=== PATIENT | female | born 1955 | race Caucasian/White ===

== ENCOUNTER 2020-12-16 22:57 | Inpatient (IN) | payer MEDICARE, OTHER ==
[~2020-12-16] VITALS: Ht 157.5 cm; Wt 63.5 kg
[2020-12-17] VITALS (7 sets, daily range): BP systolic 92–148; BP diastolic 38–79
[2020-12-17] MEDS ORDERED: ACETAMINOPHEN 650 MG/20 ML UDC- SA PATIENTS-PAIN ONLY GT PRN (02:15)
[2020-12-17] MEDS: ALBUTEROL SULFATE 2.5 MG/ 0.5 ML NEBU NEB SCH ×3 (08:00→23:08)
[2020-12-17] MEDS: IPRATROPIUM BROMIDE 0.5 MG/2.5 ML NEBU NEB SCH ×3 (08:00→23:08)
[2020-12-17] MEDS ORDERED: VITAL AF 1.2 1,000 ML LIQUID GT PRN (08:30)
[2020-12-17] MEDS ORDERED: ONDANSETRON HCL 4 MG TABLET GT PRN (08:30)
[2020-12-17] MEDS ORDERED: HYDROGEN PEROXIDE 3% 118 ML BOTTLE TP PRN (08:30)
[2020-12-17] MEDS ORDERED: MAGNESIUM HYDROXIDE 30 ML LIQUID UDC GT PRN (08:30)
[2020-12-17] MEDS ORDERED: MELATONIN XX PRN (08:30)
[2020-12-17] MEDS ORDERED: POLYVINYL ALCOHOL OPHT DROPS 15 ML BOTTLE EACHEYE PRN (08:45)
[2020-12-17] MEDS ORDERED: ACETAMINOPHEN 650 MG/20 ML UDC- SA PATIENTS-FEVER ONLY GT PRN (08:45)
[2020-12-17] MEDS: FUROSEMIDE 40 MG TABLET GT SCH (09:00)
[2020-12-17] MEDS: NORMAL SALINE FLUSH 10 ML DISP.SYRIN IV SCH ×2 (09:00→21:37)
[2020-12-17] MEDS ORDERED: METHADONE HCL 10 MG TABLET GT SCH (09:00)
[2020-12-17] MEDS ORDERED: CULTURELLE CAPSULE GT SCH (09:00)
[2020-12-17] MEDS: NEOMY/BACITRAC/POLYMI OINT 28.35 GM TUBE TOP SCH ×4 (09:00→21:34)
[2020-12-17] MEDS: SPIRONOLACTONE 25 MG TABLET GT SCH (09:00)
[2020-12-17] MEDS ORDERED: LANSOPRAZOLE 30 MG TAB.RAP.DR GT SCH (09:00)
[2020-12-17] MEDS: ENOXAPARIN SODIUM 40 MG/0.4 ML DISP.SYRIN SQ SCH (09:00)
[2020-12-17] MEDS ORDERED: CAPTOPRIL 12.5 MG TABLET GT SCH (09:00)
[2020-12-17] MEDS: HYDROGEN PEROXIDE 3% 118 ML BOTTLE TP SCH ×2 (09:00→20:05)
[2020-12-17] MEDS ORDERED: ENOXAPARIN SODIUM 40 MG/0.4 ML DISP.SYRIN SQ SCH (12:04)
[2020-12-17] MEDS ORDERED: LISINOPRIL 5 MG TABLET GT SCH (13:00)
[2020-12-17] MEDS: ACIDOPHILUS/BULGARICUS CHEW TAB GT SCH ×2 (13:44→17:39)
[2020-12-17] MEDS ORDERED: CHLORHEXIDINE GLUCONATE 15 ML MOUTHWASH MM SCH (14:07)
[2020-12-17] MEDS ORDERED: MELATONIN 3 MG TABLET GT PRN (15:00)
[2020-12-17] MEDS ORDERED: TRAMADOL HCL 50 MG TABLET GT PRN (16:15)
[2020-12-17] MEDS: MIRALAX 17 GM POWD.PACK GT SCH (17:39)
[2020-12-17] MEDS: ACETAzolamide 250 MG TABLET GT SCH (17:39)
[2020-12-17] MEDS: METOCLOPRAMIDE HCL 5 MG TABLET GT SCH (17:40)
[2020-12-17] MEDS: PANTOPRAZOLE ORAL SUSPENSION 40 MG SUSPDR.PKT GT SCH (17:41)
[2020-12-17] MEDS ORDERED: MULTIVIT, IRON, MIN NO. 8, FA TABLET GT SCH (21:00)
[2020-12-17] MEDS ORDERED: VITAMIN B COMPLEX 1 TABLET GT SCH (21:00)
[2020-12-17] MEDS ORDERED: MAGNESIUM OXIDE 400 MG TABLET GT SCH (21:00)
[2020-12-17] MEDS ORDERED: ZINC SULFATE 220 MG CAPSULE GT SCH (21:00)
[2020-12-17] MEDS: LISINOPRIL 10 MG TABLET GT SCH (21:33)
[2020-12-17] MEDS: CARVEDILOL 3.125 MG TABLET GT SCH (21:33)
[2020-12-17] MEDS: COD LIVER OIL/ZINC OXIDE OINT 113 GM TUBE TOP SCH (21:34)
[2020-12-17] MEDS: VITAMINS A AND D OINT TP SCH (21:34)
[2020-12-18 00:31] VITALS: BP 110/58
[2020-12-18 04:15] VITALS: BP 139/60
[2020-12-18] MEDS: PANTOPRAZOLE ORAL SUSPENSION 40 MG SUSPDR.PKT GT SCH (05:00)
[2020-12-18] MEDS ORDERED: CHOLECALCIFEROL 1,000 UNIT TABLET GT SCH (06:00)
[2020-12-18] MEDS ORDERED: ASCORBIC ACID 500 MG TABLET GT SCH (06:00)
[2020-12-18 07:46] VITALS: BP 150/67
[2020-12-18] MEDS: IPRATROPIUM BROMIDE 0.5 MG/2.5 ML NEBU NEB SCH (08:08)
[2020-12-18] MEDS: ALBUTEROL SULFATE 2.5 MG/ 0.5 ML NEBU NEB SCH (08:08)
[2020-12-18] MEDS: HYDROGEN PEROXIDE 3% 118 ML BOTTLE TP SCH (08:24)
[2020-12-18] MEDS: SPIRONOLACTONE 25 MG TABLET GT SCH (09:12)
[2020-12-18] MEDS: MIRALAX 17 GM POWD.PACK GT SCH (09:14)
[2020-12-18] MEDS: CARVEDILOL 3.125 MG TABLET GT SCH (09:14)
[2020-12-18] MEDS: FUROSEMIDE 40 MG TABLET GT SCH (09:14)
[2020-12-18] MEDS: ACIDOPHILUS/BULGARICUS CHEW TAB GT SCH ×2 (09:14→13:00)
[2020-12-18] MEDS: ACETAzolamide 250 MG TABLET GT SCH (09:14)
[2020-12-18] MEDS: METOCLOPRAMIDE HCL 5 MG TABLET GT SCH (09:15)
[2020-12-18] MEDS: LISINOPRIL 10 MG TABLET GT SCH (09:15)
[2020-12-18] MEDS: ENOXAPARIN SODIUM 40 MG/0.4 ML DISP.SYRIN SQ SCH (09:16)
[2020-12-18] MEDS: COD LIVER OIL/ZINC OXIDE OINT 113 GM TUBE TOP SCH (09:17)
[2020-12-18] MEDS: NEOMY/BACITRAC/POLYMI OINT 28.35 GM TUBE TOP SCH ×2 (09:17→09:18)
[2020-12-18] MEDS: VITAMINS A AND D OINT TP SCH (09:18)
[2020-12-18 13:42] VITALS: BP 151/73
[2020-12-18] MEDS ORDERED: ONDA4TAB5 GT (16:15)
[2020-12-18] MEDS ORDERED: VITA113O5 TP (16:15)
[2020-12-18] MEDS ORDERED: NUT.237L65 GT (16:15)
[2020-12-18] MEDS ORDERED: MAGN400O6 GT (16:15)
[2020-12-18] MEDS ORDERED: MELA3TAB41 GT (16:15)
[2020-12-18] MEDS ORDERED: PANT40TA2 GT (16:15)
[2020-12-18] MEDS ORDERED: CHOL10002 GT (16:15)
[2020-12-18] MEDS ORDERED: TRAM50TA2 GT (16:15)
[2020-12-18] MEDS ORDERED: CARV3.122 GT (16:15)
[2020-12-18] MEDS ORDERED: VITA1TAB20 GT (16:15)
[2020-12-18] MEDS ORDERED: ZINC1CAP2 GT (16:15)
[2020-12-18] MEDS ORDERED: ACET250T3 GT (16:15)
[2020-12-18] MEDS ORDERED: POLY17PO4 GT (16:15)
[2020-12-18] MEDS ORDERED: ASCO500P18 GT (16:15)
[2020-12-18] MEDS ORDERED: IPRA0.2S48 NEB (16:15)
[2020-12-18] MEDS ORDERED: DEXT15DR6 EACHEYE (16:15)
[2020-12-18] MEDS ORDERED: MULT-594 GT (16:15)
[2020-12-18] MEDS ORDERED: NEOM1OIN19 TP (16:15)
[2020-12-18] MEDS ORDERED: SPIR25TA GT (16:15)
[2020-12-18] MEDS ORDERED: LACT1TAB20 GT (16:15)
[2020-12-18] MEDS ORDERED: ENOX40DI SQ (16:15)
[2020-12-18] MEDS ORDERED: ALBU2.5V13 NEB (16:15)
[2020-12-18] MEDS ORDERED: MAGN400T8 GT (16:15)
[2020-12-18] MEDS ORDERED: LISI10TA29 GT (16:15)
[2020-12-18] MEDS ORDERED: FURO-151 GT (16:15)
[2020-12-18] MEDS ORDERED: METO-295 GT (16:15)
[2020-12-18] MEDS ORDERED: ACET-2154 GT (16:15)
[2020-12-18] MEDS ORDERED: COD56OIN TP (16:15)
[2020-12-19] MEDS ORDERED: ACID1TAB12 GT (11:40)
[2020-12-19] MEDS ORDERED: DEXT15DR6 EACHEYE (11:46)
== END 2020-12-18 16:10 | disposition short-term general hospital (02) | DRG 208 ==
LOC: SA 22:57
PROVIDERS: ADMIT Specialist; ATTEND Specialist
PROC: 5A1945Z Respiratory Ventilation, 24-96 Consecutive Hours (ICD-10-PCS; principal; 2020-12-16)
DX: J96.10 Chronic respiratory failure, unspecified whether with hypoxia or hypercapnia (principal); K62.6 Ulcer of anus and rectum; Z93.0 Tracheostomy status; Z93.1 Gastrostomy status; Z86.16 Personal history of COVID-19; J47.9 Bronchiectasis, uncomplicated; Z89.222 Acquired absence of left upper limb above elbow; D50.0 Iron deficiency anemia secondary to blood loss (chronic); I10 Essential (primary) hypertension; E78.5 Hyperlipidemia, unspecified; M19.90 Unspecified osteoarthritis, unspecified site; Z87.442 Personal history of urinary calculi
CPT/HCPCS: 94003; 94664; J1650; J3490; J3590; J8499; J8597; U0003

== ENCOUNTER 2020-12-18 14:22 | Inpatient (IN) | payer MEDICARE, OTHER ==
[2020-12-18] VITALS (8 sets, daily range): BP systolic 154–187; BP diastolic 75–94
[~2020-12-18] VITALS: Ht 157.5 cm; Wt 59.9 kg
--- NOTE | 2020-12-18 14:31 | NUR ---
Patient arrived via hospital bed with RN and respiratory transport, MD aty bedside for assessment
[2020-12-18 14:53] LABS: ABG BASE EXCESS 3.1 mmol/L; ABG HCO3 28.7 mmol/L; ABG PCO2 49.2 mmHg (35.0-45.0); ABG PH 7.384 (7.350-7.450); ABG PO2 85.8 mmHg (75.0-100.0); ABG SITE RIGHT RADIAL; ABG TOTAL HEMOGLOBIN 10.1 G/dL (12.0-16.0); COHb 1.2 % (0.5-1.5); MetHb 0.2 % (0.0-1.5); O2Hb 94.2 % (94.0-97.0); VENT MODE VENT - A/C 24; VT, ABG 450 mL
[2020-12-18 15:08] LABS: BASOPHILS % (AUTO) 0.3 % (0.0-2.0); EOSINOPHILS # (AUTO) 0.3 K/uL (0.0-0.7); HEMATOCRIT 29.6 % (31.2-41.9); HEMOGLOBIN 9.3 g/dL (10.9-14.3); LYMPHOCYTES # (AUTO) 2.8 K/uL (20.0-40.0); LYMPHOCYTES % (AUTO) 17.5 % (20.5-51.5); MEAN CORPUSCULAR HEMOGLOBIN 28.8 uug (24.7-32.8); MEAN CORPUSCULAR HGB CONC 31 g/dL (32.3-35.6); MEAN CORPUSCULAR VOLUME 91.8 fL (75.5-95.3); MONOCYTES # (AUTO) 0.8 K/uL (2.0-10.0); MONOCYTES % (AUTO) 4.8 % (0.0-11.0); NEUTROPHILS # (AUTO) 11.9 K/uL (1.8-8.9); NEUTROPHILS % (AUTO) 75.4 % (38.5-71.5); PLATELET COUNT (AUTO) 412 K/uL (179-408); RED BLOOD CELL COUNT(AUTO) 3.23 MIL/uL (3.63-4.92); WHITE BLOOD COUNT (AUTO) 15.8 K/uL (3.8-11.8)
[2020-12-18] MEDS ORDERED: PIPERACILLIN SODIUM/TAZOBACTAM 3.375 G in IV DEXTROSE 5% 50 ML IV ONE (15:30)
[2020-12-18 15:31] LABS: ALANINE AMINOTRANSFERASE 26 U/L (14-59); ALKALINE PHOSPHATASE 142 U/L (50-136); ASPARTATE AMINOTRANSFERASE 33 U/L (15-37); BILIRUBIN,DIRECT 0.1 mg/dL (0.0-0.2); BILIRUBIN,TOTAL 0.4 mg/dL (0.2-1.0); CARBON DIOXIDE 30 mmol/L (21-32); CHLORIDE 99 mmol/L (98-107); CREATININE 0.4 mg/dL (0.6-1.3); GLUCOSE 232 mg/dL (74-106); TOTAL PROTEIN, SERUM 6.6 g/dL (6.4-8.2); UREA NITROGEN, BLOOD 13 mg/dL (7-18)
[2020-12-18 15:45] LABS: POTASSIUM 2.6 mmol/L (3.5-5.1)
[2020-12-18] MEDS ORDERED: PIPERACILLIN/TAZOBACTAM/D5W 50 ML IV ONE (15:47)
[2020-12-18] MEDS: POTASSIUM CHLORIDE 50 ML IV SCH ×4 (16:00→23:45)
[2020-12-18] MEDS ORDERED: POTASSIUM CHLORIDE 50 ML ONE (16:01)
[2020-12-18] MEDS ORDERED: FURO-151 GT (16:15)
[2020-12-18] MEDS ORDERED: MAGN400T8 GT (16:15)
[2020-12-18] MEDS ORDERED: LISI10TA29 GT (16:15)
[2020-12-18] MEDS ORDERED: PANT40TA2 GT (16:15)
[2020-12-18] MEDS ORDERED: IPRA0.2S48 NEB (16:15)
[2020-12-18] MEDS ORDERED: LACT1TAB20 GT (16:15)
[2020-12-18] MEDS ORDERED: NUT.237L65 GT (16:15)
[2020-12-18] MEDS ORDERED: MELA3TAB41 GT (16:15)
[2020-12-18] MEDS ORDERED: METO-295 GT (16:15)
[2020-12-18] MEDS ORDERED: CARV3.122 GT (16:15)
[2020-12-18] MEDS ORDERED: VITA113O5 TP (16:15)
[2020-12-18] MEDS ORDERED: ASCO500P18 GT (16:15)
[2020-12-18] MEDS ORDERED: MAGN400O6 GT (16:15)
[2020-12-18] MEDS ORDERED: CHOL10002 GT (16:15)
[2020-12-18] MEDS ORDERED: MULT-594 GT (16:15)
[2020-12-18] MEDS ORDERED: NEOM1OIN19 TP (16:15)
[2020-12-18] MEDS ORDERED: ACET250T3 GT (16:15)
[2020-12-18] MEDS ORDERED: COD56OIN TP (16:15)
[2020-12-18] MEDS ORDERED: ONDA4TAB5 GT (16:15)
[2020-12-18] MEDS ORDERED: SPIR25TA GT (16:15)
[2020-12-18] MEDS ORDERED: VITA1TAB20 GT (16:15)
[2020-12-18] MEDS ORDERED: POLY17PO4 GT (16:15)
[2020-12-18] MEDS ORDERED: TRAM50TA2 GT (16:15)
[2020-12-18] MEDS ORDERED: ALBU2.5V13 NEB (16:15)
[2020-12-18] MEDS ORDERED: ENOX40DI SQ (16:15)
[2020-12-18] MEDS ORDERED: DEXT15DR6 EACHEYE (16:15)
[2020-12-18] MEDS ORDERED: ACET-2154 GT (16:15)
[2020-12-18] MEDS ORDERED: ZINC1CAP2 GT (16:15)
--- NOTE | 2020-12-18 16:25 | NUR ---
Report given to Eufemia of CCU
[2020-12-18] MEDS ORDERED: POTASSIUM CHLORIDE 150 ML ONE (16:27)
--- NOTE | 2020-12-18 16:30 | NUR ---
Report received from [facility].
--- NOTE | 2020-12-18 16:59 | NUR ---
Pt. admitted to CCU , under care of MIRTHA Elliott Belongs List completed and all belongings sent
--- NOTE | 2020-12-18 17:00 | NUR ---
Patient brought in from ER on Bed with kcl infusing on right picc. Patient has amputation of left arm. patient is awake alert in no distress at this time. Patient is trach to vent with settings of ac 24 Tv 450 peep of 5 and fio2 of 40%. While patient in ER she was on 50% fio2. Patient has GT in place, Rogel catheter, and is SR on the monitor afebrile of 98.3 and blood pressure elevated of 187/94. Will continue to monitor patient vitals.
[2020-12-18] MEDS ORDERED: POLYVINYL ALCOHOL OPHT DROPS 15 ML BOTTLE EACHEYE PRN (17:15)
[2020-12-18] MEDS ORDERED: ONDANSETRON HCL 4 MG TABLET GT PRN (17:15)
[2020-12-18] MEDS ORDERED: VANCOMYCIN IV 1,000 MG in IV DEXTROSE 5% 250 ML IV SCH (18:00)
--- NOTE | 2020-12-18 18:00 | NUR ---
pictures taken of post amputation of left arm, abdominal bruising and old surgical scar, and buttocks/ excoriation.
[2020-12-18 19:24] LABS: *OCCULT BLOOD STOOL POSITIVE (NEGATIVE)
[2020-12-18] MEDS: PANTOPRAZOLE SODIUM 40 MG VIAL IV SCH (20:20)
[2020-12-18] MEDS: CULTURELLE CAPSULE PO SCH (20:20)
[2020-12-18] MEDS: LISINOPRIL 10 MG TABLET GT SCH (20:22)
[2020-12-18] MEDS: VITAMIN B COMPLEX 1 TABLET GT SCH (20:22)
--- NOTE | 2020-12-18 20:35 | NUR ---
seen and examined by MIRTHA LIMA ,WITH ORDERS.
[2020-12-18] MEDS ORDERED: CARVEDILOL 3.125 MG TABLET GT SCH (21:00)
--- NOTE | 2020-12-18 21:00 | NUR ---
SEEN MY ID MIRTHA DESAI.
--- NOTE | 2020-12-18 21:30 | NUR ---
FACE TIME WITH PATIENTS .
[2020-12-18] MEDS: FUROSEMIDE 40 MG/4 ML VIAL IV SCH (21:45)
[2020-12-18] MEDS: PIPERACILLIN SODIUM/TAZOBACTAM 3.375 G in IV DEXTROSE 5% 50 ML IV SCH (21:45)
--- NOTE | 2020-12-18 22:25 | NUR ---
MOLDING FITTER AT B/S FOR BMP + CBC+ TROPONIN ,URINE C AND S COLLECTED AND ALSO SEND TO LAB .
[2020-12-18] MEDS ORDERED: Z GUARD REMEDY PASTE 57 GM TUBE TOP PRN (22:30)
[2020-12-18] MEDS: IPRATROPIUM BROMIDE 0.5 MG/2.5 ML NEBU NEB SCH (22:30)
[2020-12-18 22:40] LABS: BASOPHILS % (AUTO) 0.3 % (0.0-2.0); EOSINOPHILS # (AUTO) 0.2 K/uL (0.0-0.7); EOSINOPHILS % (AUTO) 1.6 % (0.0-7.0); HEMATOCRIT 26.4 % (31.2-41.9); HEMOGLOBIN 8.6 g/dL (10.9-14.3); LYMPHOCYTES # (AUTO) 2.9 K/uL (20.0-40.0); LYMPHOCYTES % (AUTO) 26.5 % (20.5-51.5); MEAN CORPUSCULAR HEMOGLOBIN 29.8 uug (24.7-32.8); MEAN CORPUSCULAR HGB CONC 33 g/dL (32.3-35.6); MEAN CORPUSCULAR VOLUME 90.9 fL (75.5-95.3); MONOCYTES # (AUTO) 0.8 K/uL (2.0-10.0); MONOCYTES % (AUTO) 7.1 % (0.0-11.0); NEUTROPHILS % (AUTO) 64.5 % (38.5-71.5); PLATELET COUNT (AUTO) 346 K/uL (179-408); RED BLOOD CELL COUNT(AUTO) 2.91 MIL/uL (3.63-4.92); WHITE BLOOD COUNT (AUTO) 10.8 K/uL (3.8-11.8)
[2020-12-18 22:43] LABS: CARBON DIOXIDE 30 mmol/L (21-32); CHLORIDE 102 mmol/L (98-107); CREATININE 0.4 mg/dL (0.6-1.3); GLUCOSE 132 mg/dL (74-106); POTASSIUM 3.2 mmol/L (3.5-5.1); UREA NITROGEN, BLOOD 10 mg/dL (7-18)
[2020-12-18 22:50] LABS: *BILIRUBIN,URIN NEGATIVE (NEGATIVE); *BLOOD, URINE 1+ (NEGATIVE); *CLARITY,URINE CLEAR (CLEAR); *KETONES,URINE NEGATIVE (NEGATIVE); *UROBILINOGEN,URINE 0.2 E.U./dl (NORMAL); LEUKOCYTE ESTERASE ,URINE TRACE (NEGATIVE); NITRITE, URINE NEGATIVE (NEGATIVE); PH,URINE 8.5 (5.0-8.0); UGLUCOSE NEGATIVE (NEGATIVE)
[2020-12-18 23:04] LABS: *COLOR,URINE STRAW (YELLOW); BACTERIA,URINE NONE SEEN /HPF (NONE SEEN); SQUAMOUS EPITHELIAL CELL,UR FEW /HPF (NONE SEEN); WBC,URINE 0-3 /HPF (0-3)
--- NOTE | 2020-12-18 23:17 | NUR ---
CALLED [facility] AND SPOKED WITH MIRTHA LIMA AND NOTIFIED WITH BMP =K 3.2 (L),TROPONIN 0.085 (H).
[2020-12-18] MEDS: ACETAMINOPHEN 325 MG TABLET GT PRN (23:30)
--- NOTE | 2020-12-18 23:30 | NUR ---
given prn Tylenol patient nod head to yes on pain when asked . facial grimaces noted .
[2020-12-19] VITALS (24 sets, daily range): BP systolic 93–161; BP diastolic 45–87
[2020-12-19] MEDS: POTASSIUM CHLORIDE 50 ML IV SCH ×3 (00:52→02:45)
[2020-12-19] MEDS: FUROSEMIDE 40 MG/4 ML VIAL IV SCH ×2 (00:52→05:25)
--- NOTE | 2020-12-19 02:45 | NUR ---
kcl 50 meq given on time there was a computer down time .
--- NOTE | 2020-12-19 04:00 | NUR ---
am care done and changed soiled linens and gown .f/c done . Z GUARD applied to sacral and bilateral gown and Mepilex to sacral area for prevention.oral care done and trach care done .hob up .
--- NOTE | 2020-12-19 04:45 | NUR ---
am labs collected via piccline and flushed all port . cbc + bmp+ troponin.
--- NOTE | 2020-12-19 05:00 | NUR ---
chest xray done by cardiothoracic anesthesia technician at b/s .
[2020-12-19 05:21] LABS: BASOPHILS # (AUTO) 0.1 K/uL (0.0-8.0); EOSINOPHILS # (AUTO) 0.3 K/uL (0.0-0.7); EOSINOPHILS % (AUTO) 3.6 % (0.0-7.0); HEMATOCRIT 25.8 % (31.2-41.9); HEMOGLOBIN 8.4 g/dL (10.9-14.3); LYMPHOCYTES # (AUTO) 2.8 K/uL (20.0-40.0); LYMPHOCYTES % (AUTO) 32.5 % (20.5-51.5); MEAN CORPUSCULAR HEMOGLOBIN 29.8 uug (24.7-32.8); MEAN CORPUSCULAR HGB CONC 33 g/dL (32.3-35.6); MEAN CORPUSCULAR VOLUME 91.5 fL (75.5-95.3); MONOCYTES # (AUTO) 0.6 K/uL (2.0-10.0); MONOCYTES % (AUTO) 7.2 % (0.0-11.0); NEUTROPHILS # (AUTO) 4.7 K/uL (1.8-8.9); NEUTROPHILS % (AUTO) 55.7 % (38.5-71.5); PLATELET COUNT (AUTO) 347 K/uL (179-408); RED BLOOD CELL COUNT(AUTO) 2.82 MIL/uL (3.63-4.92); WHITE BLOOD COUNT (AUTO) 8.5 K/uL (3.8-11.8)
[2020-12-19 05:25] LABS: CREATININE 0.5 mg/dL (0.6-1.3); POTASSIUM 3.6 mmol/L (3.5-5.1)
[2020-12-19] MEDS: PIPERACILLIN SODIUM/TAZOBACTAM 3.375 G in IV DEXTROSE 5% 50 ML IV SCH (05:25)
--- NOTE | 2020-12-19 05:30 | NUR ---
daughter jaimee called and given update about condition question answered advised to call in am so she can speak with the primary MD .
[2020-12-19] MEDS ORDERED: POTASSIUM CHLORIDE 20 MEQ POWDER PACKET GT ONE (07:15)
[2020-12-19] MEDS: MIRALAX 17 GM POWD.PACK GT SCH ×2 (07:34→17:48)
[2020-12-19] MEDS: IPRATROPIUM BROMIDE 0.5 MG/2.5 ML NEBU NEB SCH ×3 (07:49→22:45)
[2020-12-19] MEDS: MAGNESIUM SULFATE/D5W 100 ML IV SCH ×2 (07:56→10:54)
[2020-12-19] MEDS: CARVEDILOL 6.25 MG TABLET GT SCH ×2 (07:57→20:16)
[2020-12-19] MEDS: ASCORBIC ACID 500 MG TABLET GT SCH (07:58)
[2020-12-19] MEDS: MULTIVITAMINS,THERAPEUTIC TABLET GT SCH (07:58)
[2020-12-19] MEDS: CHOLECALCIFEROL 1,000 UNIT TABLET GT SCH (07:58)
[2020-12-19] MEDS: ZINC SULFATE 220 MG CAPSULE GT SCH (07:59)
[2020-12-19] MEDS: PANTOPRAZOLE SODIUM 40 MG VIAL IV SCH ×2 (07:59→20:19)
[2020-12-19] MEDS: CULTURELLE CAPSULE PO SCH (07:59)
[2020-12-19] MEDS: Z GUARD REMEDY PASTE 57 GM TUBE TOP SCH ×2 (08:03→20:16)
[2020-12-19] MEDS: ACETAMINOPHEN 325 MG TABLET GT PRN (08:05)
[2020-12-19] MEDS: ENOXAPARIN SODIUM 40 MG/0.4 ML DISP.SYRIN SQ SCH (08:07)
[2020-12-19] MEDS: ALBUTEROL SULFATE 2.5 MG/ 0.5 ML NEBU NEB PRN (08:07)
[2020-12-19] MEDS: SPIRONOLACTONE 25 MG TABLET GT SCH (08:09)
[2020-12-19] MEDS: LISINOPRIL 10 MG TABLET GT SCH ×2 (08:09→20:17)
[2020-12-19] MEDS ORDERED: PANTOPRAZOLE ORAL SUSPENSION 40 MG SUSPDR.PKT GT SCH (09:00)
[2020-12-19] MEDS ORDERED: CARVEDILOL 3.125 MG TABLET GT SCH (09:00)
[2020-12-19] MEDS ORDERED: METOCLOPRAMIDE HCL 10 MG TABLET GT SCH (09:00)
[2020-12-19] MEDS ORDERED: FUROSEMIDE 40 MG TABLET GT SCH (09:00)
--- NOTE | 2020-12-19 09:00 | NUR ---
The following 0900 morning medications were given by Eufemia Fritz RN and not by Kashmir Rae RT: Floranex, Reglan, Magnesium IV, Coreg, Lisinopril, protonix, Z-guard, Aldactone, Multivitamin, Vit. C, Vit D., Zinc, and Tylenol.
--- NOTE | 2020-12-19 10:39 | NUR ---
physical therapy at bedside to do evaluation.
[2020-12-19] MEDS ORDERED: SWABABLE VALVE TRANSFER SET EA MC ONE (11:04)
[2020-12-19] MEDS ORDERED: IV NORMAL SALINE 250 ML IV ONE (11:04)
[2020-12-19] MEDS ORDERED: IOHEXOL 350 100 ML INFUS..BTL ONE (11:04)
[2020-12-19] MEDS ORDERED: ACID1TAB12 GT (11:40)
[2020-12-19] MEDS ORDERED: DEXT15DR6 EACHEYE (11:46)
--- NOTE | 2020-12-19 12:47 | NUR ---
Received call from case management. Per KAILEY, the pt's primary Dr. Padilla wants hospitalist to call him to discuss pt, tel# [phone]. Informed Dr. Hong and per , he will call him when he has time.
--- NOTE | 2020-12-19 13:00 | NUR ---
Patient taken to CTA of chest and brought back with no significant events. Patient placed back on the bedside monitor. Vitals stable.
[2020-12-19] MEDS ORDERED: CEFEPIME HCL 1 G in IV DEXTROSE 5% 50 ML IV SCH (14:00)
[2020-12-19] MEDS ORDERED: PIPERACILLIN SODIUM/TAZOBACTAM 3.37 G in IV DEXTROSE 5% 100 ML IV SCH (14:00)
[2020-12-19] MEDS: CEFEPIME HCL 2 G in IV DEXTROSE 5% 100 ML IV SCH ×2 (15:01→21:18)
--- NOTE | 2020-12-19 15:43 | NUR ---
Dr Flores patient's primary doctor from [facility] came to see patient and informed family and called Dr. de la rosa of visit and he is the primary doctor in [facility].
[2020-12-19] MEDS: ACIDOPHILUS/BULGARICUS CHEW TAB GT SCH (17:48)
[2020-12-19] MEDS: METOCLOPRAMIDE HCL 5 MG TABLET GT SCH (17:50)
[2020-12-19] MEDS: VITAMIN B COMPLEX 1 TABLET GT SCH (20:15)
[2020-12-19] MEDS: ATORVASTATIN 20 MG TABLET PO SCH (20:19)
--- NOTE | 2020-12-19 21:30 | NUR ---
DUE MEDICATION GIVEN AND SCAN . PEG TUBE PATENT PATIENT IS OM VITAL 50 ML/HR TOLERATING VERY MINIMAL RESIDUAL 10 ML/HR ASPIRATION PRECAUTION OBSERVED .
[2020-12-19] MEDS: MELATONIN 3 MG TABLET PO PRN (21:51)
--- NOTE | 2020-12-19 21:55 | NUR ---
notice patient not sleeping ,asked patient if she needs a sleeping pill nod head to yes ,melatonin given via peg
[2020-12-20] VITALS (24 sets, daily range): BP systolic 113–167; BP diastolic 53–83
--- NOTE | 2020-12-20 04:37 | NUR ---
called [facility] ,TOSHA Gaona NP called back AND SPOKED WITH DR: LUCIO ,PATIENT FAMILY AT B/S SON LEATHA WANTS TO FOLLOW PATIENT ADVANCE DIRECTIVE .PALLIATIVE EXTUBATION AND TO START MORPHINE DRIP . Addendum: 12/20/20 at 0445 by MELLY MACDONALD RN WRONG PATIENT .
[2020-12-20 05:04] LABS: BASOPHILS % (AUTO) 0.6 % (0.0-2.0); EOSINOPHILS # (AUTO) 0.4 K/uL (0.0-0.7); EOSINOPHILS % (AUTO) 5.2 % (0.0-7.0); HEMATOCRIT 24.5 % (31.2-41.9); LYMPHOCYTES # (AUTO) 2.5 K/uL (20.0-40.0); LYMPHOCYTES % (AUTO) 31.7 % (20.5-51.5); MEAN CORPUSCULAR HEMOGLOBIN 29.9 uug (24.7-32.8); MEAN CORPUSCULAR HGB CONC 33 g/dL (32.3-35.6); MEAN CORPUSCULAR VOLUME 91.2 fL (75.5-95.3); MONOCYTES # (AUTO) 0.8 K/uL (2.0-10.0); MONOCYTES % (AUTO) 9.7 % (0.0-11.0); NEUTROPHILS # (AUTO) 4.2 K/uL (1.8-8.9); NEUTROPHILS % (AUTO) 52.8 % (38.5-71.5); PLATELET COUNT (AUTO) 368 K/uL (179-408); RED BLOOD CELL COUNT(AUTO) 2.68 MIL/uL (3.63-4.92); WHITE BLOOD COUNT (AUTO) 7.9 K/uL (3.8-11.8)
[2020-12-20 05:49] LABS: POTASSIUM 3.7 mmol/L (3.5-5.1)
[2020-12-20 05:54] LABS: CREATININE 0.5 mg/dL (0.6-1.3); MAGNESIUM 2.2 mg/dL (1.8-2.4); PHOSPHOROUS 3.1 mg/dL (2.5-4.9)
[2020-12-20 06:21] LABS: ABG BASE EXCESS 7.1 mmol/L; ABG HCO3 31.9 mmol/L; ABG PCO2 47.1 mmHg (35.0-45.0); ABG PH 7.449 (7.350-7.450); ABG PO2 57.7 mmHg (75.0-100.0); ABG SITE RIGHT RADIAL; ABG TOTAL HEMOGLOBIN 8.4 G/dL (12.0-16.0); COHb 1.8 % (0.5-1.5); MetHb 0.3 % (0.0-1.5); O2Hb 89.9 % (94.0-97.0); VENT MODE VENT - A/C; VT, ABG 450 mL
[2020-12-20] MEDS: CEFEPIME HCL 2 G in IV DEXTROSE 5% 100 ML IV SCH ×3 (06:22→21:26)
[2020-12-20] MEDS ORDERED: POTASSIUM CHLORIDE 20 MEQ POWDER PACKET GT ONE (07:30)
[2020-12-20] MEDS: IPRATROPIUM BROMIDE 0.5 MG/2.5 ML NEBU NEB SCH ×3 (07:35→22:00)
--- NOTE | 2020-12-20 08:00 | NUR ---
Received report from restaurant shift leader nurse, patient in bed awake on trach to Sarah vent, settings as follows; ac 24, fio2 40%, TV 400, peep 5. Rogel intact and draining, patient has gtube clamped, sinus rhythm on the monitor, saturation 100%, Noted to have diarrhea, patient cleansed rectal tube inserted and mepilex applied to open sacral wounds. Patient noted to have fever of 100f, notified Dr. Dutta, received orders for lactic acid and blood cultures STAT.
[2020-12-20] MEDS: ASCORBIC ACID 500 MG TABLET GT SCH (08:15)
[2020-12-20] MEDS: ACIDOPHILUS/BULGARICUS CHEW TAB GT SCH ×3 (08:15→17:33)
[2020-12-20] MEDS: ZINC SULFATE 220 MG CAPSULE GT SCH (08:15)
[2020-12-20] MEDS: CHOLECALCIFEROL 1,000 UNIT TABLET GT SCH (08:15)
[2020-12-20] MEDS: FUROSEMIDE 20 MG/2 ML VIAL IV SCH (08:15)
[2020-12-20] MEDS: MULTIVITAMINS,THERAPEUTIC TABLET GT SCH (08:15)
[2020-12-20] MEDS: LISINOPRIL 10 MG TABLET GT SCH ×2 (08:15→20:04)
[2020-12-20] MEDS: ACETAMINOPHEN 325 MG TABLET GT PRN ×2 (08:16→22:38)
[2020-12-20] MEDS: SPIRONOLACTONE 25 MG TABLET GT SCH (08:17)
[2020-12-20] MEDS: CARVEDILOL 6.25 MG TABLET GT SCH ×2 (08:17→20:04)
[2020-12-20] MEDS: MIRALAX 17 GM POWD.PACK GT SCH ×2 (08:18→17:00)
[2020-12-20] MEDS: METOCLOPRAMIDE HCL 5 MG TABLET GT SCH ×2 (08:18→17:00)
[2020-12-20] MEDS: PANTOPRAZOLE SODIUM 40 MG VIAL IV SCH (08:19)
[2020-12-20] MEDS: Z GUARD REMEDY PASTE 57 GM TUBE TOP SCH ×2 (08:20→20:06)
--- NOTE | 2020-12-20 08:22 | NUR ---
Patient seen by Dr. Leblanc, full report given.
[2020-12-20] MEDS: ENOXAPARIN SODIUM 40 MG/0.4 ML DISP.SYRIN SQ SCH (09:00)
[2020-12-20] MEDS: VITAL AF 1.2 1,000 ML LIQUID GT PRN (10:25)
--- NOTE | 2020-12-20 17:15 | NUR ---
Dr. Dutta in the unit. NO new orders at this time.
[2020-12-20] MEDS: PANTOPRAZOLE ORAL SUSPENSION 40 MG SUSPDR.PKT GT SCH (17:34)
[2020-12-20] MEDS ORDERED: FUROSEMIDE 20 MG/2 ML VIAL IV SCH (18:00)
--- NOTE | 2020-12-20 19:30 | NUR ---
ROUNDS MADE PATIENT IN BED AWAKE ALERT . TRIES TO MOUTH WORDS ABLE TO NOD HEAD TO YES AND NO QUESTION . DENIES PAIN .CONTINUE TO MONITOR V/S AND LEVELS OF PAIN .
[2020-12-20] MEDS: VITAMIN B COMPLEX 1 TABLET GT SCH (20:03)
[2020-12-20] MEDS: ATORVASTATIN 20 MG TABLET PO SCH (20:03)
--- NOTE | 2020-12-20 20:15 | NUR ---
SCAN MEDICATION AND CRUSHED MEDICATION AND GIVEN VIA THE PEG.FLUSED TUBE WITH WATER .HOB UP ASPIRATION PRECAUTION OBSERVED .TOLERATING TUBE FEEDINGS ON VITAL AT 50 ML/HR .
--- NOTE | 2020-12-20 20:43 | NUR ---
DAUGHTER MARILYN UPDATED WITH PATIENT CONDITION AND REQUESTED FOR FACE TIME ,DAUGHTER SPOKED WITH PATIENT VIA FACE TIME .
[2020-12-20] MEDS: MELATONIN 3 MG TABLET PO PRN (21:22)
--- NOTE | 2020-12-20 21:30 | NUR ---
MIRTHA HARRELL CAME AND EXAMINED PATIENT .
--- NOTE | 2020-12-20 22:38 | NUR ---
turned and reposition patient . offloaded back with pillow .applied z guard to sacral and bilateral groin .lower and heel off bed with pillow . facial grimace noted and asked patient if shes in pain she nod head yes given prn Tylenol .
[2020-12-21] VITALS (32 sets, daily range): BP systolic 66–162; BP diastolic 31–98
[2020-12-21 05:18] LABS: EOSINOPHILS # (AUTO) 0.5 K/uL (0.0-0.7); LYMPHOCYTES # (AUTO) 2.2 K/uL (20.0-40.0); MONOCYTES # (AUTO) 0.6 K/uL (2.0-10.0)
[2020-12-21 05:20] LABS: BASOPHILS % (AUTO) 0.6 % (0.0-2.0); EOSINOPHILS % (AUTO) 7.4 % (0.0-7.0); LYMPHOCYTES % (AUTO) 35.8 % (20.5-51.5); MEAN CORPUSCULAR HEMOGLOBIN 30.2 uug (24.7-32.8); MEAN CORPUSCULAR HGB CONC 33 g/dL (32.3-35.6); MEAN CORPUSCULAR VOLUME 91.3 fL (75.5-95.3); MONOCYTES % (AUTO) 10.1 % (0.0-11.0); NEUTROPHILS # (AUTO) 2.8 K/uL (1.8-8.9); NEUTROPHILS % (AUTO) 46.1 % (38.5-71.5); PLATELET COUNT (AUTO) 279 K/uL (179-408); WHITE BLOOD COUNT (AUTO) 6.1 K/uL (3.8-11.8)
[2020-12-21] MEDS: PANTOPRAZOLE ORAL SUSPENSION 40 MG SUSPDR.PKT GT SCH ×2 (05:20→17:10)
[2020-12-21 05:27] LABS: CARBON DIOXIDE 32 mmol/L (21-32); CHLORIDE 99 mmol/L (98-107); CREATININE 0.4 mg/dL (0.6-1.3); GLUCOSE 117 mg/dL (74-106); MAGNESIUM 1.8 mg/dL (1.8-2.4); PHOSPHOROUS 2.8 mg/dL (2.5-4.9); POTASSIUM 3.9 mmol/L (3.5-5.1); UREA NITROGEN, BLOOD 17 mg/dL (7-18)
--- NOTE | 2020-12-21 05:30 | NUR ---
am care done bath patient changed soiled linens and gown .z guard applied to bilateral groin and sacral area turned and reposition.
[2020-12-21 05:33] LABS: HEMOGLOBIN 7.3 g/dL (10.9-14.3); RED BLOOD CELL COUNT(AUTO) 2.41 MIL/uL (3.63-4.92)
[2020-12-21] MEDS: IPRATROPIUM BROMIDE 0.5 MG/2.5 ML NEBU NEB SCH ×3 (06:02→21:02)
--- NOTE | 2020-12-21 07:02 | NUR ---
CALLED [facility] FOR ABNORMAL LABS H/H AWAITING FOR CALL BACK .
[2020-12-21] MEDS: MULTIVITAMINS,THERAPEUTIC TABLET GT SCH (08:20)
[2020-12-21] MEDS: ASCORBIC ACID 500 MG TABLET GT SCH (08:21)
[2020-12-21] MEDS: ZINC SULFATE 220 MG CAPSULE GT SCH (08:21)
[2020-12-21] MEDS: CHOLECALCIFEROL 1,000 UNIT TABLET GT SCH (08:21)
[2020-12-21] MEDS: ACIDOPHILUS/BULGARICUS CHEW TAB GT SCH ×3 (08:21→17:09)
[2020-12-21] MEDS: FUROSEMIDE 20 MG/2 ML VIAL IV SCH (08:21)
[2020-12-21] MEDS: ENOXAPARIN SODIUM 40 MG/0.4 ML DISP.SYRIN SQ SCH (08:22)
[2020-12-21] MEDS: MIRALAX 17 GM POWD.PACK GT SCH ×2 (08:24→17:00)
[2020-12-21] MEDS: LISINOPRIL 10 MG TABLET GT SCH ×2 (08:29→20:38)
[2020-12-21] MEDS: CARVEDILOL 6.25 MG TABLET GT SCH ×2 (08:29→20:39)
[2020-12-21] MEDS: METOCLOPRAMIDE HCL 5 MG TABLET GT SCH ×2 (08:30→17:09)
[2020-12-21] MEDS: SPIRONOLACTONE 25 MG TABLET GT SCH (08:30)
[2020-12-21] MEDS: Z GUARD REMEDY PASTE 57 GM TUBE TOP SCH ×2 (08:33→20:39)
[2020-12-21] MEDS: VITAL AF 1.2 1,000 ML LIQUID GT PRN (13:21)
--- NOTE | 2020-12-21 20:00 | NUR ---
RECEIVED PT. AWAKE , FOLLOWS TO COMMAND. TRACH TO VENT W/ SETTINGS OF AC-24, TV-450, FIO2-40%, PEEP-+5 W/ O2 SAT OF 100%. SUCTIONED VIA TRACH & ORALLY W/ MINIMAL AMT. OF THIN WHITISH MUCOUS. G-TUBE INTACT CHECKED RESIDUAL 5CC NOTED ON TUBE FDG OF VITAL AF 1.2 @ 50CC/H. FLEXISEAL INTACT W/ BROWNISH LIQUID STOOL. PICC LINE ON MARLENA INTACT & PATENT. REPOSITIONED W/ HOB ELEVATED. AFEBRILE. DENIES PAIN.
[2020-12-21] MEDS: ATORVASTATIN 20 MG TABLET PO SCH (20:38)
[2020-12-21] MEDS: VITAMIN B COMPLEX 1 TABLET GT SCH (20:38)
[2020-12-21] MEDS: ALBUTEROL SULFATE 2.5 MG/ 0.5 ML NEBU NEB PRN (21:03)
--- NOTE | 2020-12-21 21:40 | NUR ---
PT. HAD LARGE AMT OF BRIGHT RED RECTAL BLEEDING, CALLED DR GOULD W/ ORDERS.
[2020-12-21] MEDS ORDERED: IV NORMAL SALINE 500 ML BAG IV ONE (21:45)
--- NOTE | 2020-12-21 21:45 | NUR ---
NOTIFIED DR GOULD RE: H & H RESULT & LOW BLOOD PRESSURE W/ ORDERS. NS 500CC GIVEN IV BOLUS ORDERED.BP WAS CLOSELY MONITORED.
[2020-12-21 21:54] LABS: HEMATOCRIT 19.5 % (31.2-41.9); HEMOGLOBIN 6.5 g/dL (10.9-14.3)
[2020-12-21] MEDS ORDERED: NOREPINEPHRINE BITARTRATE 8 MG in IV NORMAL SALINE 242 ML IV PRN (22:15)
--- NOTE | 2020-12-21 23:10 | NUR ---
STARTED BLOOD TRANSFUSION , MONITORED PT.
[2020-12-22] VITALS (28 sets, daily range): BP systolic 94–154; BP diastolic 45–77
--- NOTE | 2020-12-22 03:00 | NUR ---
blood transfusion done, 2 units prbc .
--- NOTE | 2020-12-22 04:00 | NUR ---
AM CARE DONE. ORAL CARE DONE. CLEANED G-TUBE SITE & DRSG APPLIED. RECTAL BLEEDING MODERATE AMT. NOTED. REPOSITIONED W/ HOB ELEVATED.
[2020-12-22 05:06] LABS: BASOPHILS % (AUTO) 0.3 % (0.0-2.0); EOSINOPHILS # (AUTO) 0.3 K/uL (0.0-0.7); EOSINOPHILS % (AUTO) 2.9 % (0.0-7.0); HEMATOCRIT 26.3 % (31.2-41.9); HEMOGLOBIN 8.9 g/dL (10.9-14.3); LYMPHOCYTES # (AUTO) 2.6 K/uL (20.0-40.0); LYMPHOCYTES % (AUTO) 24.7 % (20.5-51.5); MEAN CORPUSCULAR HGB CONC 34 g/dL (32.3-35.6); MEAN CORPUSCULAR VOLUME 88.9 fL (75.5-95.3); MONOCYTES # (AUTO) 0.8 K/uL (2.0-10.0); MONOCYTES % (AUTO) 7.6 % (0.0-11.0); NEUTROPHILS # (AUTO) 6.9 K/uL (1.8-8.9); NEUTROPHILS % (AUTO) 64.5 % (38.5-71.5); PLATELET COUNT (AUTO) 253 K/uL (179-408); RED BLOOD CELL COUNT(AUTO) 2.96 MIL/uL (3.63-4.92); WHITE BLOOD COUNT (AUTO) 10.7 K/uL (3.8-11.8)
[2020-12-22 05:14] LABS: CARBON DIOXIDE 31 mmol/L (21-32); CHLORIDE 99 mmol/L (98-107); CREATININE 0.4 mg/dL (0.6-1.3); GLUCOSE 153 mg/dL (74-106); MAGNESIUM 1.6 mg/dL (1.8-2.4); UREA NITROGEN, BLOOD 20 mg/dL (7-18)
[2020-12-22] MEDS: ALBUTEROL SULFATE 2.5 MG/ 0.5 ML NEBU NEB PRN (05:47)
[2020-12-22] MEDS: IPRATROPIUM BROMIDE 0.5 MG/2.5 ML NEBU NEB SCH ×3 (05:47→23:36)
--- NOTE | 2020-12-22 06:00 | NUR ---
REPOSITIONED AFTER CLEANED.
[2020-12-22] MEDS: PANTOPRAZOLE ORAL SUSPENSION 40 MG SUSPDR.PKT GT SCH ×2 (06:12→18:00)
--- NOTE | 2020-12-22 07:15 | NUR ---
Received report from shift leader nurse, pt in sinus rhythm on the monitor, hemodynamically stable, on trach to vent. Patient is saturating 98% at this time. Gtube in place, and clamped. Rogel catheter in place and draining appropriately. Flexiseal in place with blood noted in tube. Air mattress inflated, Bed in low position, side rails upx2. All alarms checked, will continue to monitor.
[2020-12-22] MEDS: CARVEDILOL 6.25 MG TABLET GT SCH ×4 (08:05→20:59)
[2020-12-22] MEDS: MULTIVITAMINS,THERAPEUTIC TABLET GT SCH ×2 (08:05→09:00)
[2020-12-22] MEDS: ZINC SULFATE 220 MG CAPSULE GT SCH ×2 (08:05→09:00)
[2020-12-22] MEDS: ASCORBIC ACID 500 MG TABLET GT SCH ×2 (08:05→09:00)
[2020-12-22] MEDS: Z GUARD REMEDY PASTE 57 GM TUBE TOP SCH ×4 (08:05→21:01)
[2020-12-22] MEDS: LISINOPRIL 10 MG TABLET GT SCH ×4 (08:05→20:59)
[2020-12-22] MEDS: SPIRONOLACTONE 25 MG TABLET GT SCH ×3 (08:05→09:00)
[2020-12-22] MEDS: CHOLECALCIFEROL 1,000 UNIT TABLET GT SCH ×2 (08:05→09:00)
[2020-12-22] MEDS: FUROSEMIDE 20 MG/2 ML VIAL IV SCH ×3 (08:05→09:00)
[2020-12-22] MEDS: ACIDOPHILUS/BULGARICUS CHEW TAB GT SCH ×3 (08:05→16:55)
[2020-12-22] MEDS: METOCLOPRAMIDE HCL 5 MG TABLET GT SCH ×3 (08:06→16:55)
[2020-12-22] MEDS: MIRALAX 17 GM POWD.PACK GT SCH ×2 (08:06→16:55)
[2020-12-22] MEDS: ACETAMINOPHEN 325 MG TABLET GT PRN (08:23)
[2020-12-22] MEDS: MAGNESIUM SULFATE/D5W 100 ML IV SCH ×2 (09:19→10:26)
--- NOTE | 2020-12-22 09:35 | NUR ---
Contacted Dr. Dutta to inform him that patient continues to have rectal bleeding through Flexiseal and inquire as to whether a new Hemoglobin and Hematocrit should be scheduled. Orders received for 10am recheck of h&H..
--- NOTE | 2020-12-22 09:45 | NUR ---
This handbook writer was notified by Dr. Dutta that GI has been consulted for patient ,and that tube feeding and GT pills should be held until further notice and evaluation by GI physician Dr. Neri.
[2020-12-22 10:06] LABS: HEMATOCRIT 25.3 % (31.2-41.9); HEMOGLOBIN 8.7 g/dL (10.9-14.3)
--- NOTE | 2020-12-22 16:15 | NUR ---
Correction to medication administration record of 0805am as it was accidentally documented under another user.
--- NOTE | 2020-12-22 18:00 | NUR ---
Replaced wolfe catheter due to leakage. Patient bathed and repositioned. No rectal bleeding noted since removal of rectal tube.
--- NOTE | 2020-12-22 19:08 | NUR ---
Patient continues to be in sinus rhythm on the monitor, trach to vent a/c 24, TV 450, peep 5, fio2 40%. saturation is 99-100%. Right upper arm picc in upper right arm. Patient has gtube clamped as ordered with NPO status for pills and tube feeding pending GI evaluation. Rogel intact and draining appropriately. Report given to appeals reviewer veteran nurse. No rectal bleeding since removal of flexiseal.
--- NOTE | 2020-12-22 19:10 | NUR ---
Received patient in bed awake and alert. Patient with shiley 6 trach to vent, AC 24, Vt 450, Fio2 40%, PEEP 5, O2 SAT 99-100%. Right upper arm PICC present, flushed and patent. Patient has gtube clamped as ordered with NPO status for both pills and tube feeding pending GI evaluation. Rogel intact and draining appropriately. No rectal bleeding present.
[2020-12-22] MEDS: VITAMIN B COMPLEX 1 TABLET GT SCH (20:59)
[2020-12-22] MEDS: ATORVASTATIN 20 MG TABLET PO SCH (21:00)
--- NOTE | 2020-12-22 21:00 | NUR ---
PO medications held per order from Dr. Dutta pending GI eval for GI bleed. Cardiovascular BP medications among those held. Will monitor BP and request PRN IV medications should the need arise.
[2020-12-23] VITALS (23 sets, daily range): BP systolic 119–159; BP diastolic 55–98
[2020-12-23 04:50] LABS: BASOPHILS % (AUTO) 0.4 % (0.0-2.0); EOSINOPHILS # (AUTO) 0.4 K/uL (0.0-0.7); EOSINOPHILS % (AUTO) 5.8 % (0.0-7.0); HEMATOCRIT 22.5 % (31.2-41.9); HEMOGLOBIN 7.7 g/dL (10.9-14.3); LYMPHOCYTES # (AUTO) 2.2 K/uL (20.0-40.0); MEAN CORPUSCULAR HEMOGLOBIN 30.5 uug (24.7-32.8); MEAN CORPUSCULAR HGB CONC 34 g/dL (32.3-35.6); MEAN CORPUSCULAR VOLUME 89.4 fL (75.5-95.3); MONOCYTES # (AUTO) 0.5 K/uL (2.0-10.0); MONOCYTES % (AUTO) 8.5 % (0.0-11.0); NEUTROPHILS # (AUTO) 2.9 K/uL (1.8-8.9); NEUTROPHILS % (AUTO) 48.3 % (38.5-71.5); PLATELET COUNT (AUTO) 238 K/uL (179-408); RED BLOOD CELL COUNT(AUTO) 2.52 MIL/uL (3.63-4.92)
[2020-12-23 05:02] LABS: CARBON DIOXIDE 31 mmol/L (21-32); CHLORIDE 99 mmol/L (98-107); CREATININE 0.4 mg/dL (0.6-1.3); GLUCOSE 92 mg/dL (74-106); MAGNESIUM 1.7 mg/dL (1.8-2.4); PHOSPHOROUS 2.4 mg/dL (2.5-4.9); POTASSIUM 3.3 mmol/L (3.5-5.1); UREA NITROGEN, BLOOD 15 mg/dL (7-18)
[2020-12-23] MEDS: PANTOPRAZOLE ORAL SUSPENSION 40 MG SUSPDR.PKT GT SCH ×2 (05:23→17:02)
[2020-12-23 06:28] LABS: ABG BASE EXCESS 5.2 mmol/L; ABG HCO3 30.1 mmol/L; ABG PCO2 46.1 mmHg (35.0-45.0); ABG PH 7.433 (7.350-7.450); ABG PO2 118.3 mmHg (75.0-100.0); ABG SITE RIGHT RADIAL; ABG TOTAL HEMOGLOBIN 8.9 G/dL (12.0-16.0); COHb 1.5 % (0.5-1.5); MetHb 0.2 % (0.0-1.5); VENT MODE VENT - A/C; VT, ABG 450 mL
--- NOTE | 2020-12-23 07:20 | NUR ---
Received pt. on bed rest on ventilator with setting as follow: A/C24, tv 450, COD297%, PEEP +5, Sats of 96-99%, no respiratory distress noted, coughing with minimal bloody secretions. Sinus rhythm sbp within desired limits. GT patent pt. NPO as reported awaiting to be seen by GI physician. Rogel to gravity with clear guillermina output. Picc2L patent.
[2020-12-23] MEDS: IPRATROPIUM BROMIDE 0.5 MG/2.5 ML NEBU NEB SCH ×3 (07:25→21:31)
--- NOTE | 2020-12-23 07:50 | NUR ---
Pulmonary services, Dr. Leblanc in the unit to follow up on pt. See order hx.
[2020-12-23] MEDS ORDERED: AMIODARONE HCL IV 450 MG in IV DEXTROSE 5% 250 ML IV PRN (08:15)
[2020-12-23] MEDS ORDERED: AMIODARONE HCL IV 150 MG in IV DEXTROSE 5% 100 ML IV ONE (08:15)
[2020-12-23] MEDS ORDERED: IV NORMAL SALINE 250 ML IV ONE ×2 (08:15→22:30)
[2020-12-23] MEDS ORDERED: POTASSIUM PHOSPHATE MM 15 MMOL in IV NORMAL SALINE 250 ML IV ONE (08:30)
[2020-12-23] MEDS: POTASSIUM CHLORIDE 50 ML IV SCH ×2 (08:32→09:24)
[2020-12-23] MEDS: MAGNESIUM SULFATE/D5W 100 ML IV SCH ×2 (08:33→09:24)
--- NOTE | 2020-12-23 08:35 | NUR ---
Cardiology services, Dr. Dunaway in the unit to see and examine pt. report given, notified that pt. remains NPO awaiting GI consultation. Orders to continue with care received and implemented.
[2020-12-23] MEDS: Z GUARD REMEDY PASTE 57 GM TUBE TOP SCH ×2 (09:00→20:32)
[2020-12-23] MEDS: ZINC SULFATE 220 MG CAPSULE GT SCH (09:00)
[2020-12-23] MEDS: CHOLECALCIFEROL 1,000 UNIT TABLET GT SCH (09:00)
[2020-12-23] MEDS: FUROSEMIDE 20 MG TABLET PO SCH (09:00)
[2020-12-23] MEDS: LISINOPRIL 10 MG TABLET GT SCH ×2 (09:00→20:30)
[2020-12-23] MEDS: METOCLOPRAMIDE HCL 5 MG TABLET GT SCH ×2 (09:00→16:53)
[2020-12-23] MEDS: SPIRONOLACTONE 25 MG TABLET GT SCH (09:00)
[2020-12-23] MEDS: MIRALAX 17 GM POWD.PACK GT SCH ×2 (09:00→16:51)
[2020-12-23] MEDS: CARVEDILOL 6.25 MG TABLET GT SCH ×2 (09:00→20:30)
[2020-12-23] MEDS: MULTIVITAMINS,THERAPEUTIC TABLET GT SCH (09:00)
[2020-12-23] MEDS: ASCORBIC ACID 500 MG TABLET GT SCH (09:00)
[2020-12-23] MEDS: ACIDOPHILUS/BULGARICUS CHEW TAB GT SCH ×3 (09:00→16:51)
--- NOTE | 2020-12-23 12:20 | NUR ---
GI physician Dr. Ma in the unit to see pt. as stated by "nothing to be done keep rectal tube out to allow healing" and may resume medications and po and feeding.
[2020-12-23] MEDS ORDERED: GUAIFENESIN SUGAR FREE 100 MG/5 ML UDC PO PRN (12:45)
--- NOTE | 2020-12-23 12:45 | NUR ---
patient seen by physical therapy and as per report pt. tolerated activity well and was able to sit at bedside. Will continue with care plan.
--- NOTE | 2020-12-23 12:50 | NUR ---
Dr. Pamela Esposito in the unit to follow up on pt. had a lengthy discussion of care plan with pt. at bedside.
[2020-12-23] MEDS ORDERED: VITAL AF 1.2 1,000 ML LIQUID GT PRN (14:00)
[2020-12-23] MEDS: GUAIFENESIN/CODEINE 5 ML LIQUID UDC GT PRN (14:29)
--- NOTE | 2020-12-23 17:05 | NUR ---
Attending physician Hal Ryan in the unit to see and examine pt. updated report given and orders to continue with care plan received.
--- NOTE | 2020-12-23 18:23 | NUR ---
Left pt. in bed resting Trache to vent on A/C24, tv450, 40%FIO2, Peep +5. with saturation within desired limits.pt. AAOx4. No sob or tachypnea. Neuro-side AAOx4, communicating with staff via writing and with family members via zoom. G-T feeding restarted pt tolerating well no n/v//d noted zero residuals for now at 20ml/hr with goal to be achieved. wolfe to gravity. No new skin breakdown no injury sustained. Safety precautions implemented at all times.
--- NOTE | 2020-12-23 19:05 | NUR ---
RECEIVED AWAKE ABLE TO FOLLOW COMMAND , TF VITAL AF 20 ML , NO RESIDUAL NOTED . SR . 80 , AC 24 TV450 P5 FIO2 40 % , NO BLEEDING NOTED ON THE RECTAL , NO BOWEL MOVEMENT , LEFT ARM , NO INFECTION NOTED ON AMPUTATED SITE
--- NOTE | 2020-12-23 20:00 | NUR ---
FACETIME WITH , UPDATES GIVEN ON PATIENT'S CONDITION
[2020-12-23] MEDS: ATORVASTATIN 20 MG TABLET PO SCH (20:30)
[2020-12-23] MEDS: VITAMIN B COMPLEX 1 TABLET GT SCH (20:30)
[2020-12-23] MEDS: MELATONIN 3 MG TABLET PO PRN (20:31)
--- NOTE | 2020-12-23 20:47 | NUR ---
TALKED TO DAUGHTER MARILYN , UPDATES GIVEN ON PATIENT'S CONDITION
[2020-12-24] VITALS (25 sets, daily range): BP systolic 128–174; BP diastolic 46–86
[2020-12-24 05:13] LABS: BASOPHILS % (AUTO) 0.2 % (0.0-2.0); EOSINOPHILS # (AUTO) 0.4 K/uL (0.0-0.7); EOSINOPHILS % (AUTO) 5.1 % (0.0-7.0); HEMATOCRIT 23.8 % (31.2-41.9); HEMOGLOBIN 8.2 g/dL (10.9-14.3); LYMPHOCYTES # (AUTO) 1.7 K/uL (20.0-40.0); LYMPHOCYTES % (AUTO) 23.7 % (20.5-51.5); MEAN CORPUSCULAR HEMOGLOBIN 31.5 uug (24.7-32.8); MEAN CORPUSCULAR HGB CONC 34 g/dL (32.3-35.6); MONOCYTES # (AUTO) 0.5 K/uL (2.0-10.0); MONOCYTES % (AUTO) 6.6 % (0.0-11.0); NEUTROPHILS # (AUTO) 4.7 K/uL (1.8-8.9); NEUTROPHILS % (AUTO) 64.4 % (38.5-71.5); PLATELET COUNT (AUTO) 266 K/uL (179-408); RED BLOOD CELL COUNT(AUTO) 2.59 MIL/uL (3.63-4.92); WHITE BLOOD COUNT (AUTO) 7.4 K/uL (3.8-11.8)
[2020-12-24] MEDS: PANTOPRAZOLE ORAL SUSPENSION 40 MG SUSPDR.PKT GT SCH ×2 (05:17→17:15)
[2020-12-24] MEDS: IPRATROPIUM BROMIDE 0.5 MG/2.5 ML NEBU NEB SCH ×4 (05:36→22:15)
[2020-12-24 05:40] LABS: CARBON DIOXIDE 28 mmol/L (21-32); CHLORIDE 102 mmol/L (98-107); CREATININE 0.4 mg/dL (0.6-1.3); GLUCOSE 123 mg/dL (74-106); MAGNESIUM 1.7 mg/dL (1.8-2.4); PHOSPHOROUS 2.7 mg/dL (2.5-4.9); POTASSIUM 3.9 mmol/L (3.5-5.1); UREA NITROGEN, BLOOD 12 mg/dL (7-18)
--- NOTE | 2020-12-24 05:54 | NUR ---
talked to daughter jaimee , updates given , tf is increased to 30 ml , no residual observed , no bleeding on rectum and on bowel movement , ac 24 tv 450 p5 40 fio2%, awake , able to follow command , no fever noted , wolfe and picc line intact
[2020-12-24] MEDS: ALBUTEROL SULFATE 2.5 MG/ 0.5 ML NEBU NEB PRN (07:21)
--- NOTE | 2020-12-24 07:27 | NUR ---
Dr. Leblanc in the unit to see and assess pt. see order history. full report given
--- NOTE | 2020-12-24 07:50 | NUR ---
Dr. Dunaway in the unit to see and assess pt with new orders. full report given
[2020-12-24] MEDS: MAGNESIUM SULFATE/D5W 100 ML IV SCH ×2 (08:03→09:10)
[2020-12-24] MEDS: ACIDOPHILUS/BULGARICUS CHEW TAB GT SCH ×3 (08:10→17:15)
[2020-12-24] MEDS: ASCORBIC ACID 500 MG TABLET GT SCH (08:10)
[2020-12-24] MEDS: FUROSEMIDE 20 MG TABLET PO SCH (08:10)
[2020-12-24] MEDS: ZINC SULFATE 220 MG CAPSULE GT SCH (08:10)
[2020-12-24] MEDS: CHOLECALCIFEROL 1,000 UNIT TABLET GT SCH (08:10)
[2020-12-24] MEDS: MULTIVITAMINS,THERAPEUTIC TABLET GT SCH (08:11)
[2020-12-24] MEDS: MIRALAX 17 GM POWD.PACK GT SCH ×2 (08:11→17:15)
[2020-12-24] MEDS: LISINOPRIL 20 MG TABLET GT SCH ×2 (08:11→20:33)
[2020-12-24] MEDS: CARVEDILOL 6.25 MG TABLET GT SCH ×2 (08:12→20:31)
[2020-12-24] MEDS: SPIRONOLACTONE 25 MG TABLET GT SCH (08:13)
[2020-12-24] MEDS: METOCLOPRAMIDE HCL 5 MG TABLET GT SCH ×2 (08:13→17:16)
[2020-12-24] MEDS: Z GUARD REMEDY PASTE 57 GM TUBE TOP SCH ×2 (08:16→20:33)
--- NOTE | 2020-12-24 10:45 | NUR ---
Dr. Peralta in the unit and informed that pt has trouble sleeping at night and asked if he wanted to increase melatonin. Initially MD suggested Trazodone however MD spoke to pt and daughter who was on facetime at the time and they requested an increase in melatonin for now rather than trazodone. new order for melatonin received from and no trazodone orders for now.
--- NOTE | 2020-12-24 10:47 | NUR ---
Dr. Peralta in the unit to see and assess pt, with new orders. Per MD, transfer pt to tele unit today.
[2020-12-24] MEDS ORDERED: MELATONIN 3 MG TABLET PO PRN ×2 (11:00)
--- NOTE | 2020-12-24 11:02 | NUR ---
spoke to charge nurse Wilber from the 3rd floor regarding MD order to transfer pt to tele today. Per charge nurse, since pt is on a ventilator she has to be [facility] and they are currently maxed on pt. charge nurse will speak to warehouse logistics manager.
--- NOTE | 2020-12-24 11:32 | NUR ---
pt seen and assessed by wood planer Mariam
--- NOTE | 2020-12-24 11:35 | NUR ---
WOUND CARE CONSULT: PT PRESENTS WITH INTACT SKIN, SOME SCARRING TO BUTTOCKS AND LEFT ARM AMPUTATION STUMP/SCAR, PRESENT ON ADMISSION. RECOMMENDATIONS MADE FOR SKIN PROTECTION. DISCUSSED WITH NURSING STAFF. PT IS ON FIRST STEP JESSICA AUSTIN MD IN AGREEMENT WITH PLAN OF CARE. Addendum: 12/24/20 at 1136 by SONA PRECIADO RN Amended: Links added.
--- NOTE | 2020-12-24 11:40 | NUR ---
PT at bedside working with pt
[2020-12-24] MEDS: IV NORMAL SALINE 250 ML IV PRN (12:35)
--- NOTE | 2020-12-24 12:57 | NUR ---
SPOKE WITH DR. ENGLISH REGARDING PATIENT TRANSFER STATUS. WANTS PATIENT TO BE TRANSFERED TO [facility], BUT IF NO BEDS ARE AVAILABLE IT IS OK FOR PATIENT TO STAY IN CCU UNDER [facility] STATUS UNTIL THERE IS A BED AVAILABLE TO TRANSFER THE PATIENT. PATIENT REMAINS IN STABLE CONDITION AND WILL CONTINUE TO MONITOR.
--- NOTE | 2020-12-24 13:06 | NUR ---
OT at bedside working with pt.
--- NOTE | 2020-12-24 19:00 | NUR ---
received patient awake , oriented , able to follow command , ac 24 tv 450 p5 fio2 at 30 % , tf at 40 ml . no residual noted , no fever , denies pain , picc line and wolfe intact , no bleeding noted on the rectum and bowel movement
[2020-12-24] MEDS: VITAMIN B COMPLEX 1 TABLET GT SCH (20:30)
[2020-12-24] MEDS: MELATONIN 3 MG TABLET PO PRN (20:30)
[2020-12-24] MEDS: ATORVASTATIN 20 MG TABLET PO SCH (20:31)
[2020-12-25] VITALS (19 sets, daily range): BP systolic 123–174; BP diastolic 57–111
--- NOTE | 2020-12-25 00:30 | NUR ---
feeding was off at 12 : 30 am for possible colonoscopy once dr riggins is informed of bloody stool
[2020-12-25 02:49] LABS: BASOPHILS % (AUTO) 0.3 % (0.0-2.0); EOSINOPHILS # (AUTO) 0.4 K/uL (0.0-0.7); EOSINOPHILS % (AUTO) 3.9 % (0.0-7.0); HEMATOCRIT 26.6 % (31.2-41.9); HEMOGLOBIN 9.1 g/dL (10.9-14.3); LYMPHOCYTES # (AUTO) 2.5 K/uL (20.0-40.0); LYMPHOCYTES % (AUTO) 25.8 % (20.5-51.5); MEAN CORPUSCULAR HEMOGLOBIN 30.5 uug (24.7-32.8); MEAN CORPUSCULAR HGB CONC 34 g/dL (32.3-35.6); MEAN CORPUSCULAR VOLUME 89.4 fL (75.5-95.3); MONOCYTES # (AUTO) 0.6 K/uL (2.0-10.0); MONOCYTES % (AUTO) 6.3 % (0.0-11.0); NEUTROPHILS # (AUTO) 6.1 K/uL (1.8-8.9); NEUTROPHILS % (AUTO) 63.7 % (38.5-71.5); PLATELET COUNT (AUTO) 327 K/uL (179-408); RED BLOOD CELL COUNT(AUTO) 2.98 MIL/uL (3.63-4.92); WHITE BLOOD COUNT (AUTO) 9.6 K/uL (3.8-11.8)
[2020-12-25 02:50] LABS: CARBON DIOXIDE 33 mmol/L (21-32); CHLORIDE 98 mmol/L (98-107); CREATININE 0.4 mg/dL (0.6-1.3); GLUCOSE 146 mg/dL (74-106); MAGNESIUM 1.6 mg/dL (1.8-2.4); POTASSIUM 3.6 mmol/L (3.5-5.1); UREA NITROGEN, BLOOD 10 mg/dL (7-18)
[2020-12-25] MEDS: PANTOPRAZOLE ORAL SUSPENSION 40 MG SUSPDR.PKT GT SCH ×2 (06:00→17:21)
--- NOTE | 2020-12-25 06:00 | NUR ---
talked to jaimee , updates given and consent for colonoscopy , agreed
[2020-12-25] MEDS ORDERED: GOLYTELY 4000 ML BOTTLE PO ONE (06:30)
--- NOTE | 2020-12-25 06:45 | NUR ---
called the no answers , will endorsed to day shift regarding consent
--- NOTE | 2020-12-25 07:30 | NUR ---
shift report received from rn night RN Lee Ann. per endorsement from rn night, pt was noted with 3 episodes of loose stools with bleeding and there is a plan for colonoscopy today with Dr. Neri. Per rn night RN, she spoke to pt's daughter Fanny and she consented however consent is needed from but no response yet. pt in bed. pt on AC 24 TV450 Peep 5 FiO2 30%.
[2020-12-25] MEDS: IV NORMAL SALINE 250 ML IV PRN (07:32)
[2020-12-25] MEDS: IPRATROPIUM BROMIDE 0.5 MG/2.5 ML NEBU NEB SCH ×3 (07:34→20:32)
--- NOTE | 2020-12-25 07:45 | NUR ---
Dr. Leblanc in the unit to see and assess pt. full report given.
[2020-12-25] MEDS: FUROSEMIDE 20 MG TABLET PO SCH (08:00)
[2020-12-25] MEDS: MIRALAX 17 GM POWD.PACK GT SCH ×2 (08:00→17:21)
[2020-12-25] MEDS: ACIDOPHILUS/BULGARICUS CHEW TAB GT SCH ×3 (08:00→17:21)
[2020-12-25] MEDS: ZINC SULFATE 220 MG CAPSULE GT SCH (08:00)
[2020-12-25] MEDS: LISINOPRIL 20 MG TABLET GT SCH ×2 (08:00→20:54)
[2020-12-25] MEDS: MULTIVITAMINS,THERAPEUTIC TABLET GT SCH (08:00)
[2020-12-25] MEDS: CHOLECALCIFEROL 1,000 UNIT TABLET GT SCH (08:00)
[2020-12-25] MEDS: METOCLOPRAMIDE HCL 5 MG TABLET GT SCH ×2 (08:01→17:23)
[2020-12-25] MEDS: CARVEDILOL 6.25 MG TABLET GT SCH ×2 (08:01→20:58)
[2020-12-25] MEDS: SPIRONOLACTONE 25 MG TABLET GT SCH (08:01)
[2020-12-25] MEDS: ASCORBIC ACID 500 MG TABLET GT SCH (08:02)
[2020-12-25] MEDS: Z GUARD REMEDY PASTE 57 GM TUBE TOP SCH ×2 (08:02→20:55)
--- NOTE | 2020-12-25 08:14 | NUR ---
Called Dr. Neri to clarify what time colonoscopy is planned for today. Per Dr. Neri, he is not sure yet what time but said to go ahead and give Go lytely and finish it.
--- NOTE | 2020-12-25 08:22 | NUR ---
Dr. Peralta in the unit to see and assess pt. full report given
--- NOTE | 2020-12-25 08:30 | NUR ---
Called pt's Maribel Williamson to follow up on consent for colonoscopy. gave consent via telephone, verified with 2nd RN. verbalized understanding of procedure.
--- NOTE | 2020-12-25 09:00 | NUR ---
spoke to pt's daughter Fanny on the telephone. given update on pt. daughter asked if she can facetime with pt however pt said no. informed daughter and daughter verbalized understanding.
[2020-12-25] MEDS: MAGNESIUM SULFATE/D5W 100 ML IV SCH ×2 (09:01→10:08)
--- NOTE | 2020-12-25 11:11 | NUR ---
received call from 3rd floor RN stating they received a call from Dr. Neri that pt's colonoscopy will be done tomorrow at 10am.
--- NOTE | 2020-12-25 11:28 | NUR ---
Paged Dr. Peralta to inform him that pt's colonoscopy will be done tomorrow at 10am. Asked MD for IVF orders since pt is NPO and tube feeding is held for the procedure. New order received for D5NS @80ml/hr. also stated that it is okay to give medications while NPO.
[2020-12-25] MEDS: IV D5/ 0.9% NACL 1,000 ML IV PRN (11:38)
--- NOTE | 2020-12-25 12:12 | NUR ---
Dr. Dunaway in the unit to see and assess pt. full report given. informed MD that colonoscopy will be done in AM and pt currently NPO and on D5NS @80ml/hr. Per MD, change fluid rate to 40ml/hr. rate updated as ordered
--- NOTE | 2020-12-25 13:00 | NUR ---
spoke to pt's daughter Fanny on the telephone. given update about colonoscopy scheduled for tomorrow @10am. verbalized understanding. no concerns or questions at this time.
[2020-12-25] MEDS: AMLODIPINE 5 MG TABLET PO SCH ×2 (13:05→20:54)
--- NOTE | 2020-12-25 13:05 | NUR ---
spoke to pt's Ardi on the telephone. given update about colonoscopy scheduled for tomorrow @10am. verbalized understanding. no concerns or questions at this time.
--- NOTE | 2020-12-25 13:10 | NUR ---
pt complained of nausea. no vomiting episodes noted. PRN Zofran given
[2020-12-25] MEDS: GUAIFENESIN/CODEINE 5 ML LIQUID UDC GT PRN (14:54)
--- NOTE | 2020-12-25 19:11 | NUR ---
shift report given to maintenance technician 2nd shift RN. informed RN of planned colonoscopy @10am tomorrow, crab picker @9:30am. consent in chart.
--- NOTE | 2020-12-25 20:00 | NUR ---
RECEIVED PT ALERT & FOLLOWS TO COMMAND. TRACH TO VENT W/ SETTINGS OF AC-24, TV-450, FIO2-30%, PEEP-+5 W/ O2 SAT OF 99%. SUCTIONED VIA TRACH W/ MINIMAL THIN WHITISH MUCOUS. ORAL CARE DONE. IVF D5NS @ 80CC/HR ON MARLENA PICC LINE. CLEANED PT HAD INCONT. LIQUIDISH STOOL. Z-GUARD CREAM APPLIED. G-TUBE INTACT & CLAMPED. REPOSITIONED PT W/ HOB ELEVATED. DENIES PAIN.
[2020-12-25] MEDS: ALBUTEROL SULFATE 2.5 MG/ 0.5 ML NEBU NEB PRN (20:32)
[2020-12-25] MEDS: ATORVASTATIN 20 MG TABLET PO SCH (20:54)
[2020-12-25] MEDS: VITAMIN B COMPLEX 1 TABLET GT SCH (20:54)
--- NOTE | 2020-12-25 22:50 | NUR ---
REPOSITIONED AFTER CLEANED. MELATONIN 6MG GIVEN VIA G-TUBE FOR SLEEP PRN.
[2020-12-25] MEDS: MELATONIN 3 MG TABLET PO PRN (22:59)
[2020-12-26] VITALS: BP 126/56
--- NOTE | 2020-12-26 | NUR ---
NPO AFTER MN FOR COLONOSCOPY.
[2020-12-26 04:00] VITALS: BP 136/64
--- NOTE | 2020-12-26 04:30 | NUR ---
AM CARE DONE. ORAL CARE DONE. G-TUBE CLEANED & DRSG CHANGED. TRACH CARE DONE & SUCTIONED.
[2020-12-26 04:55] LABS: HEMATOCRIT 21.7 % (31.2-41.9); NEUTROPHILS # (AUTO) 2.5 K/uL (1.8-8.9)
[2020-12-26 04:57] LABS: BASOPHILS % (AUTO) 0.6 % (0.0-2.0); EOSINOPHILS # (AUTO) 0.2 K/uL (0.0-0.7); EOSINOPHILS % (AUTO) 4.6 % (0.0-7.0); LYMPHOCYTES # (AUTO) 1.9 K/uL (20.0-40.0); LYMPHOCYTES % (AUTO) 37.2 % (20.5-51.5); MEAN CORPUSCULAR HGB CONC 34 g/dL (32.3-35.6); MEAN CORPUSCULAR VOLUME 90.6 fL (75.5-95.3); MONOCYTES # (AUTO) 0.3 K/uL (2.0-10.0); MONOCYTES % (AUTO) 6.9 % (0.0-11.0); NEUTROPHILS % (AUTO) 50.7 % (38.5-71.5); PLATELET COUNT (AUTO) 287 K/uL (179-408)
[2020-12-26 05:00] LABS: CARBON DIOXIDE 31 mmol/L (21-32); CHLORIDE 102 mmol/L (98-107); CREATININE 0.3 mg/dL (0.6-1.3); GLUCOSE 126 mg/dL (74-106); MAGNESIUM 1.5 mg/dL (1.8-2.4); PHOSPHOROUS 2.6 mg/dL (2.5-4.9); UREA NITROGEN, BLOOD 5 mg/dL (7-18)
[2020-12-26 05:02] LABS: HEMOGLOBIN 7.4 g/dL (10.9-14.3)
[2020-12-26 05:03] LABS: POTASSIUM 2.7 mmol/L (3.5-5.1)
[2020-12-26] MEDS: IV D5/ 0.9% NACL 1,000 ML IV PRN (05:32)
[2020-12-26 05:36] LABS: BASOPHILS % (AUTO) 0.4 % (0.0-2.0); EOSINOPHILS # (AUTO) 0.3 K/uL (0.0-0.7); EOSINOPHILS % (AUTO) 5.1 % (0.0-7.0); HEMATOCRIT 26.5 % (31.2-41.9); HEMOGLOBIN 9.1 g/dL (10.9-14.3); LYMPHOCYTES # (AUTO) 2.1 K/uL (20.0-40.0); LYMPHOCYTES % (AUTO) 35.3 % (20.5-51.5); MEAN CORPUSCULAR HEMOGLOBIN 30.8 uug (24.7-32.8); MEAN CORPUSCULAR HGB CONC 34 g/dL (32.3-35.6); MEAN CORPUSCULAR VOLUME 90.1 fL (75.5-95.3); MONOCYTES # (AUTO) 0.4 K/uL (2.0-10.0); MONOCYTES % (AUTO) 7.4 % (0.0-11.0); NEUTROPHILS # (AUTO) 3.1 K/uL (1.8-8.9); NEUTROPHILS % (AUTO) 51.8 % (38.5-71.5); PLATELET COUNT (AUTO) 322 K/uL (179-408); RED BLOOD CELL COUNT(AUTO) 2.94 MIL/uL (3.63-4.92)
[2020-12-26] MEDS: PANTOPRAZOLE ORAL SUSPENSION 40 MG SUSPDR.PKT GT SCH ×2 (05:39→18:28)
[2020-12-26 05:48] LABS: CARBON DIOXIDE 31 mmol/L (21-32); CHLORIDE 101 mmol/L (98-107); CREATININE 0.4 mg/dL (0.6-1.3); GLUCOSE 124 mg/dL (74-106); UREA NITROGEN, BLOOD 5 mg/dL (7-18)
--- NOTE | 2020-12-26 06:00 | NUR ---
DR SAVAGE CALLED RE: K+-3.0 W/ ORDER.
[2020-12-26] MEDS: POTASSIUM CHLORIDE 50 ML IV SCH ×6 (06:03→13:44)
[2020-12-26 06:25] LABS: ABG BASE EXCESS 3.5 mmol/L; ABG PCO2 42.5 mmHg (35.0-45.0); ABG PH 7.437 (7.350-7.450); ABG PO2 81.6 mmHg (75.0-100.0); ABG SITE RIGHT RADIAL; ABG TOTAL HEMOGLOBIN 8.7 G/dL (12.0-16.0); COHb 1.3 % (0.5-1.5); MetHb 0.2 % (0.0-1.5); O2Hb 94.9 % (94.0-97.0); VENT MODE VENT - A/C; VT, ABG 450 mL
[2020-12-26] MEDS: IPRATROPIUM BROMIDE 0.5 MG/2.5 ML NEBU NEB SCH ×3 (06:32→21:06)
[2020-12-26 08:00] VITALS: BP 141/52
[2020-12-26] MEDS: MIRALAX 17 GM POWD.PACK GT SCH ×2 (09:00→17:00)
[2020-12-26] MEDS: MAGNESIUM SULFATE/D5W 100 ML IV SCH ×2 (09:36→11:06)
[2020-12-26] MEDS: SPIRONOLACTONE 25 MG TABLET GT SCH (09:37)
[2020-12-26] MEDS: CARVEDILOL 6.25 MG TABLET GT SCH ×2 (09:39→20:41)
[2020-12-26] MEDS: ACIDOPHILUS/BULGARICUS CHEW TAB GT SCH ×3 (09:39→18:28)
[2020-12-26] MEDS: LISINOPRIL 20 MG TABLET GT SCH ×2 (09:40→20:39)
[2020-12-26] MEDS: METOCLOPRAMIDE HCL 5 MG TABLET GT SCH ×2 (09:41→18:29)
[2020-12-26] MEDS: FUROSEMIDE 20 MG TABLET PO SCH (09:42)
[2020-12-26] MEDS: MULTIVITAMINS,THERAPEUTIC TABLET GT SCH (09:42)
[2020-12-26] MEDS: ZINC SULFATE 220 MG CAPSULE GT SCH (09:42)
[2020-12-26] MEDS: AMLODIPINE 5 MG TABLET PO SCH ×2 (09:42→20:39)
[2020-12-26] MEDS: ASCORBIC ACID 500 MG TABLET GT SCH (09:42)
--- NOTE | 2020-12-26 09:45 | NUR ---
Ventilator changes made per RT AC rate changed to [address] Leblanc's orders
[2020-12-26] MEDS: CHOLECALCIFEROL 1,000 UNIT TABLET GT SCH (09:55)
[2020-12-26] MEDS: Z GUARD REMEDY PASTE 57 GM TUBE TOP SCH ×2 (09:56→20:41)
[2020-12-26 12:00] VITALS: BP 134/65
[2020-12-26 16:00] VITALS: BP 123/69
--- NOTE | 2020-12-26 17:36 | NUR ---
Doctor Halle called and asked if the patient had anymore bloody stools and hemoglobin stable. Patient had one stool but was not bloody. Cancel colonoscopy resume feeding and monitor patient for any rebleeding.
[2020-12-26 20:00] VITALS: BP 120/56
--- NOTE | 2020-12-26 20:00 | NUR ---
RECEIVED PT AWAKE, ALERT & FOLLOWS TO COMMAND. TRACH TO VENT W/ SETTINGS OF AC-24,, TV-450, FIO2-30%, PEEP-+5 W/ O2 SAT OF 97%. SUCTIONED VIA TRACH W/ MIN. WHITISH THIN MUCOUS. G-TUBE INTACT CHECKED PLACEMENT & CHECKED RESIDUAL NONE NOTED. ON TUBE FDG OF VITAL AF 1.2 @ 40CC/HR. PICC ON MARLENA, NS @ TKO RATE FOR IVPB MEDS. REPOSITIONED ON HER SIDE AFTER HS CARE DONE. DENIES PAIN. Addendum: 12/27/20 at 0002 by ELIAN CHRISTINE RN NURSES NOTES @ 1999 WAS DONE BY ELIAN CHRISTINE RN.
[2020-12-26] MEDS: MELATONIN 3 MG TABLET PO PRN ×2 (20:39→21:37)
[2020-12-26] MEDS: VITAMIN B COMPLEX 1 TABLET GT SCH (20:40)
[2020-12-26] MEDS: ATORVASTATIN 20 MG TABLET PO SCH (20:40)
[2020-12-26] MEDS: ALBUTEROL SULFATE 2.5 MG/ 0.5 ML NEBU NEB PRN (21:06)
--- NOTE | 2020-12-26 22:00 | NUR ---
DR ENGLISH WAS HERE ,UPDATED OF STATUS.
[2020-12-27] VITALS: BP 99/46
[2020-12-27 04:00] VITALS: BP 93/44
[2020-12-27] MEDS ORDERED: IV NORMAL SALINE 250 ML IV PRN (05:00)
[2020-12-27 05:05] LABS: BASOPHILS % (AUTO) 0.4 % (0.0-2.0); EOSINOPHILS # (AUTO) 0.4 K/uL (0.0-0.7); EOSINOPHILS % (AUTO) 5.5 % (0.0-7.0); HEMATOCRIT 24.9 % (31.2-41.9); HEMOGLOBIN 8.3 g/dL (10.9-14.3); LYMPHOCYTES # (AUTO) 2.4 K/uL (20.0-40.0); MEAN CORPUSCULAR HEMOGLOBIN 30.3 uug (24.7-32.8); MEAN CORPUSCULAR HGB CONC 33 g/dL (32.3-35.6); MEAN CORPUSCULAR VOLUME 90.5 fL (75.5-95.3); MONOCYTES # (AUTO) 0.5 K/uL (2.0-10.0); MONOCYTES % (AUTO) 6.1 % (0.0-11.0); NEUTROPHILS # (AUTO) 4.8 K/uL (1.8-8.9); PLATELET COUNT (AUTO) 319 K/uL (179-408); RED BLOOD CELL COUNT(AUTO) 2.75 MIL/uL (3.63-4.92); WHITE BLOOD COUNT (AUTO) 8.2 K/uL (3.8-11.8)
[2020-12-27 05:13] LABS: CARBON DIOXIDE 29 mmol/L (21-32); CHLORIDE 103 mmol/L (98-107); CREATININE 0.4 mg/dL (0.6-1.3); GLUCOSE 142 mg/dL (74-106); MAGNESIUM 1.6 mg/dL (1.8-2.4); PHOSPHOROUS 2.9 mg/dL (2.5-4.9); POTASSIUM 3.6 mmol/L (3.5-5.1); UREA NITROGEN, BLOOD 6 mg/dL (7-18)
--- NOTE | 2020-12-27 05:30 | NUR ---
AM CARE DONE. ORAL CARE DONE. REPOSITIONED W/ HOB ELEVATED. NOT IN ANY DISTRESS.
[2020-12-27] MEDS: PANTOPRAZOLE ORAL SUSPENSION 40 MG SUSPDR.PKT GT SCH (05:39)
[2020-12-27] MEDS: IV NORMAL SALINE 250 ML IV PRN (05:40)
[2020-12-27] MEDS: IPRATROPIUM BROMIDE 0.5 MG/2.5 ML NEBU NEB SCH ×2 (06:20→15:27)
[2020-12-27] MEDS: ALBUTEROL SULFATE 2.5 MG/ 0.5 ML NEBU NEB PRN ×2 (06:21→15:28)
[2020-12-27 07:55] LABS: ABG BASE EXCESS 3.9 mmol/L; ABG HCO3 28.2 mmol/L; ABG PCO2 41.5 mmHg (35.0-45.0); ABG PO2 71.2 mmHg (75.0-100.0); ABG SITE RIGHT RADIAL; ABG TOTAL HEMOGLOBIN 9.4 G/dL (12.0-16.0); COHb 0.9 % (0.5-1.5); MetHb 0.5 % (0.0-1.5); O2Hb 93.5 % (94.0-97.0); VENT MODE VENT - A/C; VT, ABG 450 mL
[2020-12-27 08:00] VITALS: BP 112/57
[2020-12-27] MEDS: SPIRONOLACTONE 25 MG TABLET GT SCH (08:20)
[2020-12-27] MEDS: CARVEDILOL 6.25 MG TABLET GT SCH (08:20)
[2020-12-27] MEDS: MAGNESIUM SULFATE/D5W 100 ML IV SCH ×2 (08:20→10:43)
[2020-12-27] MEDS: ACIDOPHILUS/BULGARICUS CHEW TAB GT SCH ×2 (08:21→13:31)
[2020-12-27] MEDS: LISINOPRIL 20 MG TABLET GT SCH (08:21)
[2020-12-27] MEDS: METOCLOPRAMIDE HCL 5 MG TABLET GT SCH (08:21)
[2020-12-27] MEDS: MULTIVITAMINS,THERAPEUTIC TABLET GT SCH (08:21)
[2020-12-27] MEDS: CHOLECALCIFEROL 1,000 UNIT TABLET GT SCH (08:22)
[2020-12-27] MEDS: ZINC SULFATE 220 MG CAPSULE GT SCH (08:22)
[2020-12-27] MEDS: AMLODIPINE 5 MG TABLET PO SCH (08:22)
[2020-12-27] MEDS: ASCORBIC ACID 500 MG TABLET GT SCH (08:22)
[2020-12-27] MEDS: FUROSEMIDE 20 MG TABLET PO SCH (08:22)
[2020-12-27] MEDS: Z GUARD REMEDY PASTE 57 GM TUBE TOP SCH (08:24)
[2020-12-27] MEDS ORDERED: POTASSIUM CHLORIDE 20 MEQ POWDER PACKET GT ONE (08:30)
[2020-12-27] MEDS: MIRALAX 17 GM POWD.PACK GT SCH (09:00)
[2020-12-27 12:00] VITALS: BP_SYST 109; BP_SYST 112; BP_DIAS 57; BP_DIAS 58
[2020-12-27 16:00] VITALS: BP 113/47
--- NOTE | 2020-12-27 16:15 | NUR ---
Given Report to Liset STERN in subacute. Dr. Peralta will follow up with the patient tomorrow in am. Dr. Flores came to see the patient before she went to subacute and will follow up with her on wednesday or wednesday. PICC line will be discontinued upon transfer.
--- NOTE | 2020-12-27 17:10 | NUR ---
patient transferred to subacute. uneventful transfer.
[2020-12-28] MEDS ORDERED: AMLODIPINE 5 MG TABLET PO SCH (09:00)
== END 2020-12-27 16:50 | DRG 207 ==
LOC: ER 14:22 → CCU 16:32
PROVIDERS: ADMIT Nurse Practitioner Acute Care; ATTEND Internal Medicine
PROC: 5A1955Z Respiratory Ventilation, Greater than 96 Consecutive Hours (ICD-10-PCS; principal; 2020-12-18)
PROC: 30233N1 Transfusion of Nonautologous Red Blood Cells into Peripheral Vein, Percutaneous Approach (ICD-10-PCS; 2020-12-21)
DX: J95.851 Ventilator associated pneumonia (principal); J96.21 Acute and chronic respiratory failure with hypoxia; R53.2 Functional quadriplegia; I21.A1 Myocardial infarction type 2; E43 Unspecified severe protein-calorie malnutrition; I50.31 Acute diastolic (congestive) heart failure; J96.22 Acute and chronic respiratory failure with hypercapnia; K25.4 Chronic or unspecified gastric ulcer with hemorrhage; D68.69 Other thrombophilia; E87.1 Hypo-osmolality and hyponatremia; E87.3 Alkalosis; K62.6 Ulcer of anus and rectum; Z99.11 Dependence on respirator [ventilator] status; J47.0 Bronchiectasis with acute lower respiratory infection; N39.0 Urinary tract infection, site not specified; Z89.222 Acquired absence of left upper limb above elbow; Z86.16 Personal history of COVID-19; D63.8 Anemia in other chronic diseases classified elsewhere; E78.5 Hyperlipidemia, unspecified; E83.39 Other disorders of phosphorus metabolism; E83.42 Hypomagnesemia; Z93.1 Gastrostomy status; Z87.442 Personal history of urinary calculi; I27.20 Pulmonary hypertension, unspecified; I25.10 Atherosclerotic heart disease of native coronary artery without angina pectoris; I11.0 Hypertensive heart disease with heart failure; B96.20 Unspecified Escherichia coli [E. coli] as the cause of diseases classified elsewhere; Z68.24 Body mass index [BMI] 24.0-24.9, adult; E87.6 Hypokalemia; K44.9 Diaphragmatic hernia without obstruction or gangrene; R13.10 Dysphagia, unspecified; Y83.3 Surgical operation with formation of external stoma as the cause of abnormal reaction of the patient, or of later complication, without mention of misadventure at the time of the procedure; Y72.8 Miscellaneous otorhinolaryngological devices associated with adverse incidents, not elsewhere classified; Y92.129 Unspecified place in nursing home as the place of occurrence of the external cause; I35.1 Nonrheumatic aortic (valve) insufficiency; Z87.01 Personal history of pneumonia (recurrent)
CPT/HCPCS: 36415; 36600; 70030-TC; 71045; 71275; 83605; 83615; 83735; 84100; 85018; 85025; 85730; 86140; 86850; 86900; 86901; 86920; 87040; 87070; 87086; 93005; 93307; 94002; 94003; 94640; 94664; A4217; A4663; C9113; G0378; J0692; J1650; J1940; J2543; J3370; J3475; J3480; J3490; J3590; J7040; J7042; J7050; J7060; J8597; P9016-BL; P9021; Q0162; Q9967

== ENCOUNTER 2020-12-27 16:31 | Inpatient (IN) | payer MEDICARE, OTHER ==
[~2020-12-27] VITALS: Ht 157.5 cm; Wt 49.0 kg
--- NOTE | 2020-12-27 15:38 | NUR ---
PT. WAS ADMITTED FROM [facility] AT THIS TIME ,REPORT WAS OBTAINED FROM MELISSA [facility] .PT. RECEIVED AWAKE ABLE TO FOLLOW INSTRUCTIONS ,RESPONDS TO NAME ,PLACE AND SITUATION.VENT SETTINGS WELL TOLERATED PER RT WILIAM AND FOLLOW:AC, RR 20X',TV 450,FIO2 28% (2L BLEED) PEEP 5 ,SKIN DRY AND WARM TO TOUCH ,NO CYANOSIS ,NO S/S OF ACUTE RESPIRATORY DISTRESS.V/S CHECKED AND FOLLOW:TEMP 98.2F,B/P 104/54,02 SAT 95%, HR 72 X', RR 20 X', AND P/A 0/10. PT. ABLE TO MAKE EYE CONTACT. SKIN BODY ASSESSMENT DONE (SEE PICTURES) AND NOTED VERY DRY FEET SKIN WITH CALLUS AND LEFT S/P ABOVE ELBOW AMPUTATION SCAR HEALED ,BUTTOCKS NOTED WITH SCARRED TISSUE AND NOTED WITH SMALL VERY LOOSE STOOL (PER JARRED TORRES PT. STILL UNDER THE EFFECT OF COLON PREP FOR COLONOSCOPY THAT WAS CANCELLED FROM YESTERDAY) AND MIRALAX WAS BEING HOLD FOR THIS.DR. FALGUNI REYNOSO WAS CALLED TO VERIFY MEDICAL ORDERS AND HE CALLED BACK AND ORDERS VERIFIED AND CARRIED OUT. F/C WILL BE D/C D/T PER JARRED TORRES IT WAS PLACED IN CCU JUST FOR MONITORING INTAKE AND OUT PUT BUT DR. MONTES DE OCA WITH NEW ORDER NOW TO D/C.
[~2020-12-27 16:31] MED LIST: ACET-2154 GT; ACET250T3 GT; ACID1TAB12 GT; ALBU2.5V13 NEB; ASCO500P18 GT; CARV3.122 GT; CHOL10002 GT; COD56OIN TP; DEXT15DR6 EACHEYE; ENOX40DI SQ; FURO-151 GT; IPRA0.2S48 NEB; LISI10TA29 GT; MAGN400O6 GT; MAGN400T8 GT; MELA3TAB41 GT; METO-295 GT; MULT-594 GT; NEOM1OIN15 TP; NUT.237L65 GT; ONDA4TAB5 GT; PANT40TA2 GT; POLY17PO4 GT; SPIR25TA GT; TRAM50TA2 GT; VITA113O5 TP; VITA1TAB20 GT; ZINC1CAP2 GT
[2020-12-27 17:38] VITALS: BP 104/54
--- NOTE | 2020-12-27 18:11 | NUR ---
CORRECTED ENTRY :PT. WAS ADMITTED TO SUB ACUTE UNIT AT 17:38 NOT 15:38.
--- NOTE | 2020-12-27 18:35 | NUR ---
DR. GONSALES WAS NOTIFIED RE: ADMISSION OF PT. AND HE STATED THAT HE WON'T BE HEART COORDINATOR FOR THE WEEKEND AND THANKED THE NURSE FOR CALLING.
--- NOTE | 2020-12-27 19:15 | NUR ---
PT'S DTRAyad SANDERS WAS NOTIFIED RE: PT'S ADMISSION IN ROOM 418.
[2020-12-27] MEDS ORDERED: ONDANSETRON HCL 4 MG TABLET GT PRN (19:30)
[2020-12-27] MEDS ORDERED: IPRATROPIUM BROMIDE 0.5 MG/2.5 ML NEBU NEB SCH (19:45)
[2020-12-27] MEDS ORDERED: ALBUTEROL SULFATE 2.5 MG/ 0.5 ML NEBU NEB PRN (19:45)
[2020-12-27 20:00] VITALS: BP 105/50
[2020-12-27] MEDS ORDERED: POLYVINYL ALCOHOL OPHT DROPS 15 ML BOTTLE EACHEYE PRN (20:00)
[2020-12-27] MEDS ORDERED: ACETAMINOPHEN 650 MG/20 ML UDC- SA PATIENTS-FEVER ONLY GT PRN (20:00)
[2020-12-27] MEDS ORDERED: GUAIFENESIN/CODEINE 5 ML LIQUID UDC GT PRN (20:00)
--- NOTE | 2020-12-27 20:00 | NUR ---
Patient is alert and responsive to simple commands, trach is intact and patent, connected to vent, no signs of any respiratory distress noted, 02 sat 99%, Gt feeding tolerating well, no n/v noted. Left above elbow stump is dry and no signs of infection. noted with multiple discolorations on the abdominal area, was on anticoagulant but was held d/ GI bled. No signs of any bleeding noted at this time, kept clean and comfortable, call light within reach, will continue monitor.
[2020-12-27] MEDS ORDERED: Z GUARD REMEDY PASTE 57 GM TUBE TOP PRN (20:15)
[2020-12-27] MEDS: SPIRONOLACTONE 25 MG TABLET GT SCH (20:29)
[2020-12-27] MEDS: VITAMINS A AND D OINT TP SCH (20:53)
[2020-12-27] MEDS: LISINOPRIL 20 MG TABLET GT SCH (20:53)
[2020-12-27] MEDS: AMLODIPINE 5 MG TABLET PO SCH (20:53)
[2020-12-27] MEDS: VITAMIN B COMPLEX 1 TABLET GT SCH (20:53)
[2020-12-27] MEDS: CARVEDILOL 6.25 MG TABLET GT SCH (20:53)
[2020-12-27] MEDS: Z GUARD REMEDY PASTE 57 GM TUBE TOP SCH (20:53)
[2020-12-27] MEDS: ATORVASTATIN 20 MG TABLET GT SCH (20:53)
[2020-12-27 22:16] VITALS: BP 108/48
[2020-12-27] MEDS: IPRATROPIUM BROMIDE 0.5 MG/2.5 ML NEBU NEB SCH (23:54)
[2020-12-28] VITALS: BP 108/48
[2020-12-28] MEDS ORDERED: ACETAMINOPHEN 650 MG/20.3 ML LIQUID UDC GT PRN ×2 (01:00)
[2020-12-28 04:00] VITALS: BP 128/52
--- NOTE | 2020-12-28 04:00 | NUR ---
Patient's daughter Fanny called and was asking if the patient is sleeping. The nurse informed her that the patient is asleep. Fanny stated that, " I will Zoom with her in the morning." Patient is asleep at this time and no signs of any distress noted.
[2020-12-28] MEDS: OMEPRAZOLE 20 MG CAPSULE.DR GT SCH ×2 (05:29→17:30)
--- NOTE | 2020-12-28 06:51 | NUR ---
Patient has been requesting to go to the bathroom, the staff already cleaned and changed her diaper but she was insisting to go to the bathroom. The patient is on vent support at this time and appears weak. Staff reminded her, that she needs to be evaluated first to see if she is strong enough to stand and walk to be able to go to the bathroom. The patient expressed understanding. Needs attended, call light within reach.
[2020-12-28] MEDS: IPRATROPIUM BROMIDE 0.5 MG/2.5 ML NEBU NEB SCH ×4 (07:40→23:48)
[2020-12-28] MEDS ORDERED: ACETAMINOPHEN 650 MG/20 ML UDC- SA PATIENTS-FEVER ONLY GT PRN (07:45)
[2020-12-28 08:32] VITALS: BP 117/55
[2020-12-28] MEDS ORDERED: POLYETHYLENE GLYCOL 3350 238 GM POWDER GT SCH ×2 (09:00)
[2020-12-28] MEDS: MIRALAX 17 GM POWD.PACK GT SCH ×2 (09:00→17:28)
[2020-12-28] MEDS ORDERED: TUBERCULIN,PURIF.PROT.DERIV. 5 TU/0.1 ML TEST ID ONE (09:00)
[2020-12-28] MEDS: CARVEDILOL 6.25 MG TABLET GT SCH ×2 (09:09→20:54)
[2020-12-28] MEDS: FUROSEMIDE 20 MG TABLET GT SCH (09:10)
[2020-12-28] MEDS: LISINOPRIL 20 MG TABLET GT SCH ×2 (09:10→20:54)
[2020-12-28] MEDS: ACIDOPHILUS/BULGARICUS CHEW TAB GT SCH ×3 (09:10→17:00)
[2020-12-28] MEDS: METOCLOPRAMIDE HCL 5 MG TABLET GT SCH ×2 (09:11→17:28)
[2020-12-28] MEDS: MULTIVIT, IRON, MIN NO. 8, FA TABLET GT SCH (09:11)
[2020-12-28] MEDS: CHOLECALCIFEROL 1,000 UNIT TABLET GT SCH (09:11)
[2020-12-28] MEDS: ASCORBIC ACID 500 MG TABLET GT SCH (09:11)
[2020-12-28] MEDS: ZINC SULFATE 220 MG CAPSULE GT SCH (09:11)
[2020-12-28] MEDS: VITAMINS A AND D OINT TP SCH ×2 (09:13→20:55)
[2020-12-28] MEDS: AMLODIPINE 5 MG TABLET PO SCH ×2 (09:13→20:55)
[2020-12-28] MEDS: Z GUARD REMEDY PASTE 57 GM TUBE TOP SCH ×2 (09:13→20:55)
--- NOTE | 2020-12-28 09:48 | NUR ---
DR. MONTES DE OCA WAS CALLED AND MESSAGE LEFT RE:PT. ON ROBITUSSIN WITH CODEINE ORDER AND PT. HAS HX OF ALLERGY TO CODEINE. ,AND PER [facility] PHARMACIST PIA PT'S RECORD SHOWS THAT SHE GOT ROBITUSSIN WITH CODEINE X2 IN THE ACUTE SETTING AND APPARENTLY NO INCIDENT HAPPENED.
--- NOTE | 2020-12-28 09:53 | NUR ---
PER PT. WHEN SHE WAS IN THE ACUTE SETTING PT. HAD ROBITUSSIN WITH CODEINE X 2 AND SHE DOES NOT REMEMBER ANY ALLERGIC OR ADVERSE REACTION INCIDENT..CALL LIGHT ON REACH AND ABLE TO USE IT. PT. REQUESTING BED BAN BUT BECAUSE SHE IS ON LASIX FEELS LIKE URINATING CONTINUOUSLY.PER PT. PPD NOT GIVEN DUE TO SHE CLAIMS THAT SHE HAD POSITIVE TEST IN THE PAST.
--- NOTE | 2020-12-28 09:59 | NUR ---
MORNING CARE WAS PROVIDED AND OBSERVED PT. HELPING HERSELF WITH RT. ARM WITH REPOSITIONING HOLDING SIDE RAILS.NO B.M. NOTED.
--- NOTE | 2020-12-28 10:54 | NUR ---
PT. ABLE TO USE CALL LIGHT AND COMMUNICATION BOARD WAS PROVIDED AND ABLE TO USE IT AND STATED THAT SHE FEELS OK. AFTER BEING CLEAN AND ASSISTED WITH REPOSITIONING.
--- NOTE | 2020-12-28 11:06 | NUR ---
DR. FALGUNI Santiago CALLED BACK AND WITH NEW ORDER TO D/C ROBITUSSIN WITH CODEINE AND START PT. JUST ON ROBITUSSIN AND HE ALSO WAS AWARE THAT PT. STATES THAT SHE HAD POSITIVE PPD IN THE PAST AND FOR THAT DR. MONTES DE OCA STATED TO F/U WITH DR. GONSALES (HIGH COURT JUSTICE) TO F/U PROTOCOL .
--- NOTE | 2020-12-28 11:51 | NUR ---
PER REG. CUSTODIAL SERVICES MANAGER RECOMMENDATION ONLY 30ML WATER FLUSHES RECOMMENDED AT THIS TIME AND ORDER CARRIED OUT FROM DR. MONTES DE OCA,PT. WILL HAVE LAB WORK WEDNESDAY.
[2020-12-28 12:00] VITALS: BP 105/46
--- NOTE | 2020-12-28 13:00 | NUR ---
PT. HAD VIDEO ZOOM WITH HER DAUGHTER AND PT. REQUESTED HER A BIG I PAD AND CH. NURSE NOTIFIED HER REQUEST TO FILM READER AND BREAKDOWN MAN AT THIS TIME WITH A MESSAGE .
--- NOTE | 2020-12-28 13:45 | NUR ---
PT. NOTED WITH LARGE AMOUNT OF DIURESIS CLEAR AND NO B.M.KEPT CLEAN AND REPOSITIONED AND WITH CALL LIGHT ON REACH.
--- NOTE | 2020-12-28 14:06 | NUR ---
PT. WAS SEEN AND EVALUATED BY PT. AND NEW ORDERS CARRIED OUT.
[2020-12-28 16:00] VITALS: BP 110/55
[2020-12-28] MEDS: SPIRONOLACTONE 25 MG TABLET GT SCH (19:30)
[2020-12-28 20:20] VITALS: BP 117/49
[2020-12-28] MEDS: VITAMIN B COMPLEX 1 TABLET GT SCH (20:54)
[2020-12-28] MEDS: ATORVASTATIN 20 MG TABLET GT SCH (20:54)
[2020-12-28] MEDS: MELATONIN 3 MG TABLET GT PRN (21:30)
--- NOTE | 2020-12-28 22:30 | NUR ---
Afebrile, asleep, trach is intact and patent, connected to vent, suctioned with moderate yellow secretion. Gt feeding tolerating well, no n/v noted. denies abdominal pain, no diarrhea episodes, and no signs of bleeding noted, voiding freely with yellow urine, good grupo care rendered, kept patient clean and comfortable.
[2020-12-29] MEDS: OMEPRAZOLE 20 MG CAPSULE.DR GT SCH ×2 (05:46→17:22)
--- NOTE | 2020-12-29 06:30 | NUR ---
Lab Called about patient's Covid 19 test that resulted Negative.
[2020-12-29 07:22] VITALS: BP 105/58
[2020-12-29] MEDS: IPRATROPIUM BROMIDE 0.5 MG/2.5 ML NEBU NEB SCH ×3 (08:04→22:46)
[2020-12-29] MEDS: AMLODIPINE 5 MG TABLET PO SCH ×2 (09:00→20:49)
[2020-12-29] MEDS: CARVEDILOL 6.25 MG TABLET GT SCH ×2 (09:00→20:48)
[2020-12-29] MEDS: LISINOPRIL 20 MG TABLET GT SCH ×2 (09:00→20:48)
[2020-12-29] MEDS: ACIDOPHILUS/BULGARICUS CHEW TAB GT SCH ×3 (09:53→17:22)
[2020-12-29] MEDS: CHOLECALCIFEROL 1,000 UNIT TABLET GT SCH (09:53)
[2020-12-29] MEDS: ASCORBIC ACID 500 MG TABLET GT SCH (09:53)
[2020-12-29] MEDS: ZINC SULFATE 220 MG CAPSULE GT SCH (09:53)
[2020-12-29] MEDS: MULTIVIT, IRON, MIN NO. 8, FA TABLET GT SCH (09:53)
[2020-12-29] MEDS: FUROSEMIDE 20 MG TABLET GT SCH (09:53)
[2020-12-29] MEDS: MIRALAX 17 GM POWD.PACK GT SCH ×2 (09:53→17:22)
[2020-12-29] MEDS: METOCLOPRAMIDE HCL 5 MG TABLET GT SCH ×2 (09:53→17:22)
[2020-12-29] MEDS: Z GUARD REMEDY PASTE 57 GM TUBE TOP SCH ×2 (09:54→20:49)
[2020-12-29] MEDS: VITAMINS A AND D OINT TP SCH ×2 (09:54→20:49)
[2020-12-29] MEDS: GUAIFENESIN SUGAR FREE 100 MG/5 ML UDC GT PRN ×2 (09:54→17:35)
--- NOTE | 2020-12-29 12:04 | NUR ---
PT. WAS SEEN AND EXAMINED BY DR. FALGUNI Santiago AND HE SPOKE TO PT. AND WITH NNO AND HE UIS AWARE THAT DR. GONSALES IS NOT DIALYSIS SOCIAL WORKER ON THIS WEEKEND BUT TOMORROW WEDNESDAY WILL BE F/U THE HX OF POSITIVE PPD IN THE PAST.
--- NOTE | 2020-12-29 13:51 | NUR ---
PT'S DTR. MARILYN WAS AWARE THAT PT. IS NEGATIVE FOR COVID 19 AND SHE WAS AWARE THAT PATIENTS IN THIS SUBACUTE UNIT ARE TESTED WEEKLY AND PATIENTS AND RESPONSIBLE PARTIES ARE NOTIFIED BEFORE AND AFTER THE TEST WITH THE RESULT.PT'S DTR. MARILYN STATED THAT SHE WANTS TO BE NOTIFIED ONLY IF PT. IS POSITIVE.PT'S DTR. STATED THAT PT'S OTHER LANGUAGE IS [place]AP[place] AND PT'S TEETH ARE HER OWN NATURAL TEETH.
--- NOTE | 2020-12-29 14:01 | NUR ---
PT'S DTR. STATED THAT SHE HAD BEEN DR. MONTES DE OCA'S PATIENT FOR 20 YEARS AND THAT ANY ACCURATE RECORDS OF FLU AND PNEUMOCOCCAL VACCINE WE SHOULD ASK HIM BECAUSE SHE DOES NOT REMEMBER.
--- NOTE | 2020-12-29 17:49 | NUR ---
Video call provided with the pt. and family (daughter). No complaint at this point. V/s wnl and no respiratory distress at this time. will continue to monitor.
[2020-12-29 18:56] VITALS: BP 157/88
[2020-12-29] MEDS: SPIRONOLACTONE 25 MG TABLET GT SCH (20:29)
[2020-12-29] MEDS: VITAMIN B COMPLEX 1 TABLET GT SCH (20:48)
[2020-12-29] MEDS: ATORVASTATIN 20 MG TABLET GT SCH (20:48)
[2020-12-29 21:00] VITALS: BP 124/58
[2020-12-30] MEDS: OMEPRAZOLE 20 MG CAPSULE.DR GT SCH ×2 (06:02→17:18)
[2020-12-30 06:18] LABS: MEAN CORPUSCULAR HEMOGLOBIN 29.9 uug (24.7-32.8); MEAN CORPUSCULAR VOLUME 90.5 fL (75.5-95.3); PLATELET COUNT (AUTO) 349 K/uL (179-408)
[2020-12-30 06:31] LABS: ALANINE AMINOTRANSFERASE 14 U/L (14-59); ALKALINE PHOSPHATASE 97 U/L (50-136); ASPARTATE AMINOTRANSFERASE 13 U/L (15-37); BILIRUBIN,TOTAL 0.2 mg/dL (0.2-1.0); CARBON DIOXIDE 32 mmol/L (21-32); CHLORIDE 102 mmol/L (98-107); CREATININE 0.4 mg/dL (0.6-1.3); GLUCOSE 155 mg/dL (74-106); POTASSIUM 3.7 mmol/L (3.5-5.1); TOTAL PROTEIN, SERUM 6.3 g/dL (6.4-8.2); UREA NITROGEN, BLOOD 12 mg/dL (7-18)
[2020-12-30] MEDS: IPRATROPIUM BROMIDE 0.5 MG/2.5 ML NEBU NEB SCH ×3 (07:10→23:58)
[2020-12-30 07:15] VITALS: BP 110/58
[2020-12-30] MEDS: Z GUARD REMEDY PASTE 57 GM TUBE TOP SCH ×2 (09:50→21:49)
[2020-12-30] MEDS: CHOLECALCIFEROL 1,000 UNIT TABLET GT SCH (09:50)
[2020-12-30] MEDS: VITAMINS A AND D OINT TP SCH ×2 (09:50→21:49)
[2020-12-30] MEDS: ACIDOPHILUS/BULGARICUS CHEW TAB GT SCH ×3 (09:50→17:18)
[2020-12-30] MEDS: METOCLOPRAMIDE HCL 5 MG TABLET GT SCH ×2 (09:50→17:18)
[2020-12-30] MEDS: LISINOPRIL 20 MG TABLET GT SCH ×2 (09:50→21:49)
[2020-12-30] MEDS: CARVEDILOL 6.25 MG TABLET GT SCH ×2 (09:50→21:49)
[2020-12-30] MEDS: MULTIVIT, IRON, MIN NO. 8, FA TABLET GT SCH (09:50)
[2020-12-30] MEDS: MIRALAX 17 GM POWD.PACK GT SCH ×2 (09:50→17:18)
[2020-12-30] MEDS: FUROSEMIDE 20 MG TABLET GT SCH (09:50)
[2020-12-30] MEDS: ASCORBIC ACID 500 MG TABLET GT SCH (09:50)
[2020-12-30] MEDS: AMLODIPINE 5 MG TABLET PO SCH ×2 (09:50→21:49)
[2020-12-30] MEDS: ZINC SULFATE 220 MG CAPSULE GT SCH (09:50)
--- NOTE | 2020-12-30 09:56 | NUR ---
REG. SILVER CHASER WAS AWARE OF CURRENT WT. TODAY AND SHE WILL EVALUATE PT. FOR NEW ADMISSION.
--- NOTE | 2020-12-30 11:12 | NUR ---
PT. WAS SEEN AND EVALUATED TODAY BY SPEECH THERAPIST AND SHE WAS ABLE TO TOLERATE PMV AND WITH NEW ORDER PRN AND TO USE WITH RT /NURSE PRESENT.PT'S DTR. AWARE THAT PT. HAS HOT FLUSHES ON AND OFF THAT CAUSES PT'S ANXIETY WITH FLUSHED SKIN AND INCREASING HEART RATE AND B/P ,AND AWARE THAT ROOM AC WAS ADJUSTED DIFFERENT TIMES AND ALSO A FAN WITH DIRECT AIR BLOW TO HER FACE WAS PLACED SHE REQUESTED AND BED BATH TOO BUT STILL SOME TIMES NOT ENOUGH AND SHE COMPLAINS THAT SHE FEELS HOT AND WHEN TEMPERATURE WAS CHECKED PT. REMAINS AFEBRILE AND SHE REFUSES TO REMOVE BLANKETS WHEN SHE FEEL HOT ,ALSO WEB SIZER ELEAZAR WAS NOTIFIED AND HE OK TO MOVE PT. TO A DIFFERENT ROOM (409 TODAY IF POSSIBLE D.T IS COOLER BECAUSE THE SUN LIGHT DOES NOT HIT THAT PART OF THE BUILDING).DR. MONTES DE OCA WAS NOTIFIED ABOUT THIS THIS PT'S CONDITION AND WITH NEW ORDER FOLLOW:PAXIL 10MF PGT DAILY FOR HOT FLUSHES THAT CAUSE ANXIETY IN PT. AND ALSO HE ORDERED CBC ON WEDNESDAY.DR. MONTES DE OCA WAS AWARE THAT PT. DOES NOT HAVE WOUNDS AND OK TO D/C AIR MATTRESS IN ORDER THAT THE PT. TO FEEL COOLER.DR. MONTES DE OCA ALSO AWARE THAT PT. IS NOT ON BLOOD THINNERS AND SHE HAS THE INTERMITENT PRESSURE DEVICE FOR THE LEGS BUT AT TIMES SHE DOES NOT WANT IT D/T HOT FLUSHES AND HE STATED KEEP ORDER TOLERATED .DR. MONTES DE OCA WILL SPEAK TO PT'S DTR. MARILYN MYERS MEDICATION PAXIL INDICATION AND SIDE EFFECTS AND NURSE WILL CARRY OUT ORDER WHEN PT. AND DTR. CONSENT IT.
--- NOTE | 2020-12-30 11:33 | NUR ---
PT'S DTR. MARILYN OK WITH PT. MOVING TO ROOM 409 WHEN AVAILABLE. AND ALSO PER CASHIER TUBE ROOM ELEAZAR AND ALSO PROOF COINS INSPECTOR OK FOR PT. TO HAVE HER OWN I PAD AND DTR. MARILYN WILL PROVIDED IT TOGETHER WITH THE STAND TO MAKE IT EASIER FOR PT. TO HANDLE IT SINCE SHE HAS ONLY ONE ARM AND DTR. IN AGREEMENT.
--- NOTE | 2020-12-30 14:53 | NUR ---
CH. NURSE SPOKE TO PT. AND SHE COMMUNICATED TO NURSE THAT SHE CAN MAKE HER OWN DECISIONS MEDICALLY BUT SHE ALWAYS WANT TO CONSULT WITH HER DTR. MARILYN FIRST AND THAT SHE WANTS HER TO BE NOTIFIED FIRST.PT. PT. IN AGREEMENT WITH A NEW MEDICATION PAXIL TO CONTROL HER HOT FLUSHES SHE COMMUNICATED THAT SHE IS WILLING TO TRY IT.IN MAIN TIME SHE REMAINS AFEBRILE BUT SHE WANTS THE FUN BLOWING AIR TOWARDS HER DIRECTLY.PT'S WAS ALSO CALLED TO HIS PHONE BUT NOT PICKING UP PHONE AND THE NUMBER DOES NOT ACCEPT ANY MESSAGES.
--- NOTE | 2020-12-30 15:10 | NUR ---
PT. TRANSFERRED TO ROOM 409 AT THIS TIME,PT. IN AGREEMENT.
[2020-12-30] MEDS: PAROXETINE HCL 10 MG TABLET GT SCH (16:00)
--- NOTE | 2020-12-30 16:32 | NUR ---
PER DR. MONTES DE OCA'S OFFICE MEDICAL RECORDS PT. RECEIVED PNEUMOCOCCAL VACCINE ON 12/13/19 AND SHE REFUSED FLU VACCINE LAST PAST YEARS.
--- NOTE | 2020-12-30 16:42 | NUR ---
PT. WAS ASKED BY CH. NURSE WHY SHE REFUSED FLU VACCINE AND SHE STATED THAT SHE IS AFRAID OF THE SIDE EFFECTS.
--- NOTE | 2020-12-30 16:54 | NUR ---
Phone Screener Assessment: This SW completed patient's initial psychosocial assessment. Information was gathered from both the patient and the patient's , Maribel. Patient is alert, oriented, receptive to meeting with this SW. Patient was pleasant and maintained appropriate eye contact with this SW throughout the interview. Patient lives with her in an apartment. Patient was previously ambulatory, but due to multiple back and neck surgeries, she was not able to walk long distances or sit for extended periods of time. Patient would use a walker or crutches, as needed, to assist with ambulation. Patient also had a caregiver, and both the caregiver and patient's would assist with some ADL's and IADL's. Patient has 3 children from her first marriage (patient's first is ). Patient her current in 1999. SW assessed patient's mood, and patient reported feeling scared and sad at the beginning when she got ill with COVID, back in September, however currently feels better and fortunate for being alive. SW provided support. Patient was receptive, smiled appropriately, and expressed hopefulness with seeing her family and wanting to get well in order to return home. SW discussed code status, and patient expressed her wishes to be a Full Code. Patient does not have a healthcare directive. SW then spoke with patient's Maribel, who was available and receptive to speaking with this SW. SW discussed admissions forms with patient's , and SW to mail these forms to patient's for review, completion, and signature. SW informed about ZOOM and monthly IDT meetings. SW to email patient's about ZOOM guidelines, and invited patient's to join the IDT meeting tomorrow. Patient's agreed, and also asked if SW can invited patient's daughter Fanny, as patient's and Fanny make all medical decisions together. SW then called patient's daughter Fanny and invited her to the IDT meeting. Fanny expressed agreement. SW to remain available to the patient and patient's family, for support, to identify psychosocial needs, as applicable, and for coordination of care.
[2020-12-30] MEDS: VITAL AF 1.2 1,000 ML LIQUID GT PRN (18:06)
--- NOTE | 2020-12-30 18:36 | NUR ---
Video call provided with pt. and family members (daughter and ). No complaints at this time. Explained with the that he should coordinate with her daughter regarding the zoom appt. The verbalized understanding. Pt. transferred room from 418 to 409. Pt. is comfortable and no respiratory distress at this time. Will continue to monitor.
[2020-12-30] MEDS ORDERED: SPIRONOLACTONE 25 MG TABLET GT ONE (20:00)
[2020-12-30 20:08] VITALS: BP 114/48
[2020-12-30] MEDS: VITAMIN B COMPLEX 1 TABLET GT SCH (21:48)
[2020-12-30] MEDS: ATORVASTATIN 20 MG TABLET GT SCH (21:49)
[2020-12-31] MEDS: OMEPRAZOLE 20 MG CAPSULE.DR GT SCH ×2 (06:41→18:00)
[2020-12-31 07:17] VITALS: BP 117/57
[2020-12-31] MEDS: IPRATROPIUM BROMIDE 0.5 MG/2.5 ML NEBU NEB SCH ×3 (07:50→23:00)
--- NOTE | 2020-12-31 08:30 | NUR ---
Seen and examined by Dr Flores,with new orders noted to D/C julieta,no edema noted.
--- NOTE | 2020-12-31 08:30 | NUR ---
PT. WAS SEEN AND EXAMINED BY DR. MONTES DE OCA AND HE SPOKE TO PT. AND EXPLAINED TO HER ABOUT EXPECTED EFFECT FROM PAXIL AND WITH NEW ORDERS CARRIED OUT FOLLOW:LASIX D/C .DR. MONTES DE OCA WAS AWARE OF PT'S LATEST WT 115 #,PT. IN AGREEMENT WITH NEW ORDERS.
[2020-12-31] MEDS: MIRALAX 17 GM POWD.PACK GT SCH ×2 (09:00→17:00)
[2020-12-31] MEDS: SPIRONOLACTONE 25 MG TABLET GT SCH (09:15)
[2020-12-31] MEDS: CARVEDILOL 6.25 MG TABLET GT SCH ×2 (09:18→21:16)
[2020-12-31] MEDS: ACIDOPHILUS/BULGARICUS CHEW TAB GT SCH ×3 (09:18→17:47)
[2020-12-31] MEDS: PAROXETINE HCL 10 MG TABLET GT SCH (09:20)
[2020-12-31] MEDS: LISINOPRIL 20 MG TABLET GT SCH ×2 (09:21→21:16)
[2020-12-31] MEDS: METOCLOPRAMIDE HCL 5 MG TABLET GT SCH ×2 (09:22→17:47)
[2020-12-31] MEDS: ASCORBIC ACID 500 MG TABLET GT SCH (09:23)
[2020-12-31] MEDS: ZINC SULFATE 220 MG CAPSULE GT SCH (09:23)
[2020-12-31] MEDS: MULTIVIT, IRON, MIN NO. 8, FA TABLET GT SCH (09:23)
[2020-12-31] MEDS: CHOLECALCIFEROL 1,000 UNIT TABLET GT SCH (09:23)
[2020-12-31] MEDS: AMLODIPINE 5 MG TABLET PO SCH ×2 (09:36→21:17)
[2020-12-31] MEDS: Z GUARD REMEDY PASTE 57 GM TUBE TOP SCH ×2 (09:36→21:17)
[2020-12-31] MEDS: VITAMINS A AND D OINT TP SCH ×2 (09:36→21:17)
[2020-12-31] MEDS: GUAIFENESIN SUGAR FREE 100 MG/5 ML UDC GT PRN (09:39)
--- NOTE | 2020-12-31 10:58 | NUR ---
NO S/S OF BLEEDING ,TOLERATED INTERMITTENT PRESSURE DEVICE ON AND OFF D/T HOT FLUSHES AND REQUESTED THE FUN BLOWING TOWARDS HER FULL BLAST ,BED BATH GIVEN ,SHE HAD B.M STOOL STILL LOOSE X 1,GOD PERINEAL CARE PROVIDED .PT. HAD PHYSICAL THERAPY AND SHE TOLERATED SITTING ON BED WITH ASSISTANCE ONLY FOR 5 MIN.NOTED WITH LOTS OF GAS IN STOMACH THAT WAS RELEASED BEFORE GIVING AM MEDS AND WITH RELIEF.MEDICATED WITH COUGH MEDICINE REQUESTED,CALL LIGHT ON REACH AT ALL TIMES.
[2020-12-31] MEDS: VITAL AF 1.2 1,000 ML LIQUID GT PRN (11:16)
--- NOTE | 2020-12-31 11:30 | NUR ---
PT. HAD VIDEOZOOM X 5 MIN. WITH DTR. SANDERS.
--- NOTE | 2020-12-31 11:40 | NUR ---
PT. NOTED AGAIN WITH LOTS OF GAS IN STOMACH THAT MAKES HER NAUSEOUS BUT WITH IMMEDIATE RELIEF AFTER GAS IS RELEASED TROUGH GASTRIC TUBE.
--- NOTE | 2020-12-31 14:21 | NUR ---
INTERDISCIPLINARY PLAN OF CARE CONFERENCE was held today. Patient's daughter Fanny and patient's Maribel participated in the IDT meeting by speaker phone. Dr. Leblanc and the Interdisciplinary Team reviewed the current plan of care in detail. RN reported on patient's medical condition, and current PUI isolation status as required per protocol for all new admissions. See RN IDT conference notes. Pharmacy, dietary, and RT discussed the treatment plans for the patient. Rehab reported on PT (5 x week) and OT (3 x week) treatment plans, and recommendations of ST evaluation. See all other disciplines IDT notes and physician's progress notes for additional details. Family's questions were addressed by the IDT team, and family expressed understanding and agreement with the current plan of care.
--- NOTE | 2020-12-31 18:00 | NUR ---
New clarifications orders for Paxil carried out,new orders to release the gas every 4 hours for resident comfort.
[2020-12-31 20:01] VITALS: BP 114/54
[2020-12-31] MEDS: VITAMIN B COMPLEX 1 TABLET GT SCH (21:00)
[2020-12-31] MEDS: ATORVASTATIN 20 MG TABLET GT SCH (21:16)
[2020-12-31] MEDS: MELATONIN 3 MG TABLET GT PRN (21:25)
--- NOTE | 2020-12-31 22:33 | NUR ---
Alert and oriented, claims that she is hot but temperature is 98.9 and 02sat is 98%, no signs of any distress or SOB. on airborne precaution for PUI COvid Protocol for new admit. No signs of bleeding noted, needs attended, call light within reach.
--- NOTE | 2021-01-01 04:16 | NUR ---
Rhett from the Lab called RE: patient's covid 19 test resulted and was negative.
[2021-01-01] MEDS: OMEPRAZOLE 20 MG CAPSULE.DR GT SCH ×2 (06:08→17:17)
--- NOTE | 2021-01-01 06:40 | NUR ---
Alert and oriented, trach is intact and patent, suctioned with minimal secretions, connected to vent on prescribed settings, no respiratory distress noted, Gt feeding tolerating well, released gas via GT as ordered, voiding freely to yellow urine, good grupo care rendered, needs attended, call light within reach.
[2021-01-01] MEDS: IPRATROPIUM BROMIDE 0.5 MG/2.5 ML NEBU NEB SCH ×3 (07:35→22:40)
[2021-01-01 07:39] VITALS: BP 102/46
[2021-01-01] MEDS: MIRALAX 17 GM POWD.PACK GT SCH ×2 (09:00→17:15)
[2021-01-01] MEDS: LISINOPRIL 20 MG TABLET GT SCH ×2 (09:00→20:44)
[2021-01-01] MEDS: AMLODIPINE 5 MG TABLET PO SCH ×2 (09:00→20:45)
[2021-01-01] MEDS: VITAMINS A AND D OINT TP SCH ×2 (09:00→20:45)
[2021-01-01] MEDS: CARVEDILOL 6.25 MG TABLET GT SCH ×2 (09:00→20:44)
[2021-01-01] MEDS: SPIRONOLACTONE 25 MG TABLET GT SCH (09:02)
[2021-01-01] MEDS: ACIDOPHILUS/BULGARICUS CHEW TAB GT SCH ×3 (09:06→17:14)
[2021-01-01] MEDS: METOCLOPRAMIDE HCL 5 MG TABLET GT SCH ×2 (09:07→17:17)
[2021-01-01] MEDS: CHOLECALCIFEROL 1,000 UNIT TABLET GT SCH (09:09)
[2021-01-01] MEDS: ZINC SULFATE 220 MG CAPSULE GT SCH (09:09)
[2021-01-01] MEDS: ASCORBIC ACID 500 MG TABLET GT SCH (09:09)
[2021-01-01] MEDS: MULTIVIT, IRON, MIN NO. 8, FA TABLET GT SCH (09:09)
[2021-01-01] MEDS: Z GUARD REMEDY PASTE 57 GM TUBE TOP SCH ×2 (09:11→20:45)
--- NOTE | 2021-01-01 11:00 | NUR ---
Spoke to Pt's daughter Fanny ,she is not giving consent yet for the Paxil until he talk to Dr Flores.Dr Flores was called and notified him we are holding the medication for now until we get the consent,and the pt's daughter is waiting for his call.
--- NOTE | 2021-01-01 11:30 | NUR ---
RT and nurse staff at bedside pt, was not able to tolerate speaking valve due to productive cough noted. 1140 Assisted video chat with pt's daughter.
--- NOTE | 2021-01-01 18:35 | NUR ---
Seen and examined By Dr Leblanc ,no new orders.pt's was notified Covid 19 result was negative,Pt continue on protocol isolation for PUI .
[2021-01-01 20:00] VITALS: BP 130/56
[2021-01-01] MEDS: VITAMIN B COMPLEX 1 TABLET GT SCH (20:43)
[2021-01-01] MEDS: ATORVASTATIN 20 MG TABLET GT SCH (20:44)
[2021-01-01] MEDS: MELATONIN 3 MG TABLET GT PRN (20:50)
--- NOTE | 2021-01-02 01:52 | NUR ---
Patient is afebrile, trach id intact and patent, connected to vent on prescribed setting, no signs of any distress noted. On airborne precaution for PUI per COVID- 19 protocol. Denies SOB, HOB elevated, no signs of pain or discomfort, turned and repositioned, needs attended, will continue monitor.
[2021-01-02] MEDS: OMEPRAZOLE 20 MG CAPSULE.DR GT SCH ×2 (05:07→17:07)
[2021-01-02] MEDS: IPRATROPIUM BROMIDE 0.5 MG/2.5 ML NEBU NEB SCH ×3 (07:36→23:08)
[2021-01-02] MEDS: SPIRONOLACTONE 25 MG TABLET GT SCH (08:53)
[2021-01-02] MEDS: ACIDOPHILUS/BULGARICUS CHEW TAB GT SCH ×3 (08:55→17:03)
[2021-01-02] MEDS: CARVEDILOL 6.25 MG TABLET GT SCH ×2 (08:55→20:56)
[2021-01-02] MEDS: LISINOPRIL 20 MG TABLET GT SCH ×2 (08:57→21:00)
[2021-01-02] MEDS: MIRALAX 17 GM POWD.PACK GT SCH ×2 (08:57→17:03)
[2021-01-02] MEDS: METOCLOPRAMIDE HCL 5 MG TABLET GT SCH ×2 (08:58→17:04)
[2021-01-02] MEDS: MULTIVIT, IRON, MIN NO. 8, FA TABLET GT SCH (08:58)
[2021-01-02] MEDS: CHOLECALCIFEROL 1,000 UNIT TABLET GT SCH (08:59)
[2021-01-02] MEDS: ASCORBIC ACID 500 MG TABLET GT SCH (08:59)
[2021-01-02] MEDS: ZINC SULFATE 220 MG CAPSULE GT SCH (08:59)
[2021-01-02] MEDS: AMLODIPINE 5 MG TABLET PO SCH ×2 (09:00→21:01)
[2021-01-02] MEDS: VITAMINS A AND D OINT TP SCH ×2 (09:01→21:02)
[2021-01-02] MEDS: Z GUARD REMEDY PASTE 57 GM TUBE TOP SCH ×2 (09:01→21:02)
[2021-01-02 11:30] VITALS: BP 123/60
[2021-01-02] MEDS: VITAL AF 1.2 1,000 ML LIQUID GT PRN (11:48)
--- NOTE | 2021-01-02 16:15 | NUR ---
SW mailed patient's admission paperwork to patient's Maribel Villalta for review and signature. The paperwork was mailed to: [id number] [facility]. [id number] [place] [address]
[2021-01-02 20:00] VITALS: BP 119/56
[2021-01-02] MEDS: VITAMIN B COMPLEX 1 TABLET GT SCH (20:55)
[2021-01-02] MEDS: ATORVASTATIN 20 MG TABLET GT SCH (20:57)
[2021-01-02] MEDS: MELATONIN 3 MG TABLET GT PRN (21:30)
--- NOTE | 2021-01-02 22:13 | NUR ---
Patient is alert and oriented, trach is intact and patent, suctioned with minimal secretions. Connected to vent, no respiratory distress noted, gt feeding tolerating well, no n/v vomiting, and no gt residuals noted. voiding freely with yellow urine, no signs of any bleeding noted, handled very gently, needs anticipated, call light within reach.
[2021-01-03] MEDS: OMEPRAZOLE 20 MG CAPSULE.DR GT SCH ×2 (06:16→17:24)
[2021-01-03 06:32] LABS: HEMATOCRIT 24.2 % (31.2-41.9); MEAN CORPUSCULAR HEMOGLOBIN 29.8 uug (24.7-32.8); MEAN CORPUSCULAR VOLUME 90.6 fL (75.5-95.3); PLATELET COUNT (AUTO) 384 K/uL (179-408)
[2021-01-03] MEDS: IPRATROPIUM BROMIDE 0.5 MG/2.5 ML NEBU NEB SCH ×3 (07:35→22:42)
[2021-01-03 08:09] VITALS: BP 101/42
[2021-01-03] MEDS: SPIRONOLACTONE 25 MG TABLET GT SCH (08:10)
[2021-01-03] MEDS: CARVEDILOL 6.25 MG TABLET GT SCH ×2 (08:12→20:47)
[2021-01-03] MEDS: ACIDOPHILUS/BULGARICUS CHEW TAB GT SCH ×4 (08:12→21:14)
[2021-01-03] MEDS: LISINOPRIL 20 MG TABLET GT SCH ×2 (08:13→20:48)
[2021-01-03] MEDS: METOCLOPRAMIDE HCL 5 MG TABLET GT SCH ×3 (08:13→20:48)
[2021-01-03] MEDS: MIRALAX 17 GM POWD.PACK GT SCH ×2 (08:13→17:23)
[2021-01-03] MEDS: ASCORBIC ACID 500 MG TABLET GT SCH (08:14)
[2021-01-03] MEDS: MULTIVIT, IRON, MIN NO. 8, FA TABLET GT SCH (08:14)
[2021-01-03] MEDS: CHOLECALCIFEROL 1,000 UNIT TABLET GT SCH (08:15)
[2021-01-03] MEDS: ZINC SULFATE 220 MG CAPSULE GT SCH (08:15)
[2021-01-03] MEDS: AMLODIPINE 5 MG TABLET PO SCH ×2 (08:16→20:48)
[2021-01-03] MEDS: Z GUARD REMEDY PASTE 57 GM TUBE TOP SCH ×2 (09:00→20:48)
[2021-01-03] MEDS: VITAMINS A AND D OINT TP SCH ×2 (09:00→20:48)
--- NOTE | 2021-01-03 11:00 | NUR ---
Assisted with video chat with pt's daughter.
[2021-01-03] MEDS: VITAL AF 1.2 1,000 ML LIQUID GT PRN (11:21)
--- NOTE | 2021-01-03 13:00 | NUR ---
pt able to tolerate PMV for 10 minutes able to speak clearly, RT/ASSEMBLER ARRANGER staff at bedside. No respiratory distress. Pt, stated " finally I can hear my voice again". Pt was pleased and smiling.
[2021-01-03] MEDS: PAROXETINE HCL 10 MG TABLET GT SCH (15:59)
--- NOTE | 2021-01-03 16:15 | NUR ---
Seen by Dr. Flores, new orders carried out, consent for Paxil signed by , Per Dr. Bhatt start weaning trials, per Rt's recommendation start trials, cpap 10, +5, 28% from 8am to 8pm as tolerated, pt a+o x4 notified of new orders and in agreement.
[2021-01-03] MEDS: ALBUTEROL SULFATE 2.5 MG/ 0.5 ML NEBU NEB PRN (19:42)
[2021-01-03] MEDS: ATORVASTATIN 20 MG TABLET GT SCH (20:47)
[2021-01-03] MEDS: VITAMIN B COMPLEX 1 TABLET GT SCH (20:47)
[2021-01-03 22:23] VITALS: BP 140/67
[2021-01-03] MEDS: MELATONIN 3 MG TABLET GT PRN (22:25)
[2021-01-04] MEDS: ACIDOPHILUS/BULGARICUS CHEW TAB GT SCH ×3 (05:34→21:46)
[2021-01-04] MEDS: ASCORBIC ACID 500 MG TABLET GT SCH (05:34)
[2021-01-04] MEDS: MULTIVIT, IRON, MIN NO. 8, FA TABLET GT SCH (05:34)
[2021-01-04] MEDS: MIRALAX 17 GM POWD.PACK GT SCH ×2 (05:34→17:28)
[2021-01-04] MEDS: CHOLECALCIFEROL 1,000 UNIT TABLET GT SCH ×2 (05:34→09:43)
[2021-01-04] MEDS: OMEPRAZOLE 20 MG CAPSULE.DR GT SCH ×2 (05:34→17:28)
[2021-01-04] MEDS: ZINC SULFATE 220 MG CAPSULE GT SCH (05:34)
[2021-01-04] MEDS: IPRATROPIUM BROMIDE 0.5 MG/2.5 ML NEBU NEB SCH ×3 (07:15→23:32)
[2021-01-04 07:46] VITALS: BP 131/59
[2021-01-04] MEDS ORDERED: ONDANSETRON HCL 4 MG TABLET GT PRN (09:02)
--- NOTE | 2021-01-04 09:19 | NUR ---
0830 PT PLACED ON CPAP10, PEEP5, 28% FIO2. PT AWAKE ALERT RESPONSIVE TOLERATING WEANING TRIAL FINE WITH SPO2 MAINTAINING AROUND 97% . NO SIGNS OF INCREASED WORK OF BREATHING. JARRED THOMASON NOTIFIED. WILL CONTINUE TO MONITOR.
[2021-01-04] MEDS: SPIRONOLACTONE 25 MG TABLET GT SCH (09:29)
[2021-01-04] MEDS: PAROXETINE HCL 10 MG TABLET GT SCH (09:30)
[2021-01-04] MEDS: CARVEDILOL 6.25 MG TABLET GT SCH ×2 (09:30→20:48)
[2021-01-04] MEDS: LISINOPRIL 20 MG TABLET GT SCH ×2 (09:31→20:48)
[2021-01-04] MEDS: AMLODIPINE 5 MG TABLET PO SCH ×2 (09:32→20:48)
[2021-01-04] MEDS: VITAMINS A AND D OINT TP SCH ×2 (09:35→20:48)
[2021-01-04] MEDS: Z GUARD REMEDY PASTE 57 GM TUBE TOP SCH ×2 (09:35→20:48)
[2021-01-04] MEDS: VITAL AF 1.2 1,000 ML LIQUID GT PRN (09:39)
[2021-01-04] MEDS: METOCLOPRAMIDE HCL 5 MG TABLET GT SCH ×2 (09:43→20:48)
[2021-01-04] MEDS ORDERED: HYDROGEN PEROXIDE 3% 118 ML BOTTLE TP PRN (09:45)
--- NOTE | 2021-01-04 17:22 | NUR ---
PT TOLERATED CPAP FROM 0830 TO 1530 MAINTAINING SPO2 WITHIN NORMAL RANGE. PT PLACED BACK ON AC MODE PER PT REQUEST. PT STATED SHE STARTED FEELING SOB AND TIRED. PT MORE COMFORTABLE BACK ON AC MODE.
--- NOTE | 2021-01-04 18:48 | NUR ---
Per Rt, patient tolerated weaning trials from 8am to 330pm, o2sat 97%, no c/o acute respiratory distress, pain or discomfort at this time.
[2021-01-04] MEDS: ATORVASTATIN 20 MG TABLET GT SCH (20:48)
[2021-01-04] MEDS: VITAMIN B COMPLEX 1 TABLET GT SCH (20:48)
[2021-01-04] MEDS: HYDROGEN PEROXIDE 3% 118 ML BOTTLE TP SCH (21:00)
[2021-01-04] MEDS: MELATONIN 3 MG TABLET GT PRN (21:28)
[2021-01-04 22:45] VITALS: BP 125/54
[2021-01-05] MEDS: OMEPRAZOLE 20 MG CAPSULE.DR GT SCH ×2 (05:31→17:23)
[2021-01-05] MEDS: ZINC SULFATE 220 MG CAPSULE GT SCH (05:31)
[2021-01-05] MEDS: MULTIVIT, IRON, MIN NO. 8, FA TABLET GT SCH (05:31)
[2021-01-05] MEDS: ASCORBIC ACID 500 MG TABLET GT SCH (05:31)
[2021-01-05] MEDS: MIRALAX 17 GM POWD.PACK GT SCH ×2 (05:31→17:23)
[2021-01-05] MEDS: ACIDOPHILUS/BULGARICUS CHEW TAB GT SCH ×3 (05:31→21:24)
[2021-01-05] MEDS: CHOLECALCIFEROL 1,000 UNIT TABLET GT SCH (05:31)
[2021-01-05] MEDS ORDERED: CHOLECALCIFEROL 1,000 UNIT TABLET GT SCH (06:00)
[2021-01-05] MEDS: IPRATROPIUM BROMIDE 0.5 MG/2.5 ML NEBU NEB SCH ×3 (07:21→22:35)
--- NOTE | 2021-01-05 08:50 | NUR ---
Started weaning by changing settings to cpap 10 with psv 5. Pt is wide awake and alert with no sign and symptoms of respiratory insufficiency. slightly deflated cough so she can talk. will monitor pt's condition while she is on cpap mode.
[2021-01-05] MEDS: HYDROGEN PEROXIDE 3% 118 ML BOTTLE TP SCH ×2 (09:00→19:11)
[2021-01-05] MEDS: SPIRONOLACTONE 25 MG TABLET GT SCH (09:09)
[2021-01-05] MEDS: CARVEDILOL 6.25 MG TABLET GT SCH ×2 (09:10→20:51)
[2021-01-05] MEDS: PAROXETINE HCL 10 MG TABLET GT SCH (09:10)
[2021-01-05] MEDS: METOCLOPRAMIDE HCL 5 MG TABLET GT SCH ×2 (09:11→20:51)
[2021-01-05] MEDS: LISINOPRIL 20 MG TABLET GT SCH ×2 (09:11→20:51)
[2021-01-05] MEDS: VITAMINS A AND D OINT TP SCH ×2 (09:12→20:52)
[2021-01-05] MEDS: AMLODIPINE 5 MG TABLET PO SCH ×2 (09:12→20:51)
[2021-01-05] MEDS: Z GUARD REMEDY PASTE 57 GM TUBE TOP SCH ×2 (09:12→20:52)
[2021-01-05] MEDS: VITAL AF 1.2 1,000 ML LIQUID GT PRN (12:06)
--- NOTE | 2021-01-05 15:30 | NUR ---
Placed back on AC mode. Pt states that she is tired and would like to be on the vent again. Edgardo Matute RN informed.
--- NOTE | 2021-01-05 18:12 | NUR ---
Per Rt able to tolerate weaning from 8a to 330pm, no respiratory distress noted o2 sat 97% Patient A+Ox4, refuse SCD to be put on, stated "I don't want it, it makes me hot"
[2021-01-05] MEDS: ATORVASTATIN 20 MG TABLET GT SCH (20:51)
[2021-01-05] MEDS: VITAMIN B COMPLEX 1 TABLET GT SCH (20:51)
[2021-01-05] MEDS: MELATONIN 3 MG TABLET GT PRN (21:24)
[2021-01-05 22:00] VITALS: BP 133/58
--- NOTE | 2021-01-05 22:00 | NUR ---
Resident refused SCD to be put on. Risks and benefits explained. Resident still refuses. Per resident, "I don't want them on because it makes me hot." Resident remains comfortable in bed. No s/s of pain or discomfort. Will continue to monitor.
[2021-01-06] MEDS: CHOLECALCIFEROL 1,000 UNIT TABLET GT SCH (05:25)
[2021-01-06] MEDS: MULTIVIT, IRON, MIN NO. 8, FA TABLET GT SCH (05:25)
[2021-01-06] MEDS: ASCORBIC ACID 500 MG TABLET GT SCH (05:25)
[2021-01-06] MEDS: ACIDOPHILUS/BULGARICUS CHEW TAB GT SCH ×3 (05:25→21:05)
[2021-01-06] MEDS: MIRALAX 17 GM POWD.PACK GT SCH ×2 (05:25→17:18)
[2021-01-06] MEDS: ZINC SULFATE 220 MG CAPSULE GT SCH (05:25)
[2021-01-06] MEDS: OMEPRAZOLE 20 MG CAPSULE.DR GT SCH ×2 (05:25→17:18)
[2021-01-06] MEDS: IPRATROPIUM BROMIDE 0.5 MG/2.5 ML NEBU NEB SCH ×3 (07:32→22:40)
[2021-01-06] MEDS: HYDROGEN PEROXIDE 3% 118 ML BOTTLE TP SCH ×2 (07:32→21:25)
[2021-01-06] MEDS: ALBUTEROL SULFATE 2.5 MG/ 0.5 ML NEBU NEB PRN ×3 (07:32→15:29)
[2021-01-06 07:33] VITALS: BP 112/40
[2021-01-06] MEDS: SPIRONOLACTONE 25 MG TABLET GT SCH (09:01)
[2021-01-06] MEDS: CARVEDILOL 6.25 MG TABLET GT SCH ×2 (09:02→21:02)
[2021-01-06] MEDS: PAROXETINE HCL 10 MG TABLET GT SCH (09:02)
[2021-01-06] MEDS: METOCLOPRAMIDE HCL 5 MG TABLET GT SCH ×2 (09:03→21:04)
[2021-01-06] MEDS: AMLODIPINE 5 MG TABLET PO SCH ×2 (09:03→21:04)
[2021-01-06] MEDS: Z GUARD REMEDY PASTE 57 GM TUBE TOP SCH ×2 (09:03→21:05)
[2021-01-06] MEDS: LISINOPRIL 20 MG TABLET GT SCH ×2 (09:03→21:04)
[2021-01-06] MEDS: VITAMINS A AND D OINT TP SCH ×2 (09:03→21:05)
--- NOTE | 2021-01-06 10:10 | NUR ---
RT RT WAS CALLED BY P.T, PT COMPLAINING OF SOB ON CPAP DURING PHYSICAL THERAPY. RT PLACE PT BACK ON AC AND PRN TX WAS GIVEN. PT CONTINUE WITH PHYSICAL THERAPY PT SPO2 99% HR 89. WILL CONTINUE TO MONITOR PT. ALARMS ON AND AUDIBLE.
--- NOTE | 2021-01-06 11:00 | NUR ---
RT PT POST PHYSICAL THERAPY WAS PLACE BACK ON CPAP TX WAS TAKEN OFF NO DISTRESS NOTED PT TOLERATING WELL NURSE AWARE WILL CONTINUE TO MONITOR PT.
--- NOTE | 2021-01-06 15:30 | NUR ---
RT PT TX WAS GIVEN AT THIS TIME NO DISTRESS NOTED PT REMAINS ON CPAP. PT COMPLAINING OF BURNING SENSATION IN TRACH PT WAS SUCTION SPO2 98% NO DISTRESS NOTED NO SOB. WILL CONTINUE TO MONITOR PT. ALARMS ON AUDIBLE.
--- NOTE | 2021-01-06 15:56 | NUR ---
RT PT REQUESTED TO BE PLACE BACK ON AC DUE TO BURNING SENSATION FEELING VIA TRACH. PT LASTED ABOUT 8.5 HR OF WEANING TRIAL. NURSE AWARE. PT HAS NO SOB NOTED. WILL CONTINUE TO MONITOR PT.
[2021-01-06] MEDS: VITAL AF 1.2 1,000 ML LIQUID GT PRN (17:19)
--- NOTE | 2021-01-06 17:57 | NUR ---
Pt. v/s wnl. No episode of sob. Tolerated CPAP for 8 hours. Will continue to monitor. Family (step son) called via [facility]. Pt. stable at this time.
[2021-01-06 20:04] VITALS: BP_SYST 123; BP_SYST 143; BP_DIAS 45; BP_DIAS 60
[2021-01-06 21:00] VITALS: BP 123/52
[2021-01-06] MEDS: VITAMIN B COMPLEX 1 TABLET GT SCH (21:01)
[2021-01-06] MEDS: ATORVASTATIN 20 MG TABLET GT SCH (21:03)
[2021-01-06] MEDS: MELATONIN 3 MG TABLET GT PRN (21:07)
[2021-01-07] MEDS: MULTIVIT, IRON, MIN NO. 8, FA TABLET GT SCH (05:32)
[2021-01-07] MEDS: MIRALAX 17 GM POWD.PACK GT SCH ×2 (05:32→17:54)
[2021-01-07] MEDS: ASCORBIC ACID 500 MG TABLET GT SCH (05:32)
[2021-01-07] MEDS: CHOLECALCIFEROL 1,000 UNIT TABLET GT SCH (05:32)
[2021-01-07] MEDS: ZINC SULFATE 220 MG CAPSULE GT SCH (05:32)
[2021-01-07] MEDS: ACIDOPHILUS/BULGARICUS CHEW TAB GT SCH ×3 (05:32→21:16)
[2021-01-07] MEDS: OMEPRAZOLE 20 MG CAPSULE.DR GT SCH ×2 (05:32→17:54)
[2021-01-07] MEDS: GUAIFENESIN SUGAR FREE 100 MG/5 ML UDC GT PRN ×2 (06:30→18:33)
--- NOTE | 2021-01-07 06:46 | NUR ---
Patient is alert and oriented, connected to vent, noted with coughing episodes, Robitussin given as ordered, on aspiration precaution, 02 sat @ 99%, no signs of any distress, kept clean and comfortable, will continue monitor.
[2021-01-07 07:29] VITALS: BP 108/70
[2021-01-07] MEDS: IPRATROPIUM BROMIDE 0.5 MG/2.5 ML NEBU NEB SCH ×3 (07:35→22:40)
[2021-01-07] MEDS: CARVEDILOL 6.25 MG TABLET GT SCH ×2 (09:00→20:47)
[2021-01-07] MEDS: LISINOPRIL 20 MG TABLET GT SCH ×2 (09:00→20:49)
[2021-01-07] MEDS: AMLODIPINE 5 MG TABLET PO SCH ×2 (09:00→20:51)
[2021-01-07] MEDS: HYDROGEN PEROXIDE 3% 118 ML BOTTLE TP SCH ×2 (09:06→20:10)
[2021-01-07] MEDS: PAROXETINE HCL 10 MG TABLET GT SCH (09:47)
[2021-01-07] MEDS: SPIRONOLACTONE 25 MG TABLET GT SCH (09:47)
[2021-01-07] MEDS: METOCLOPRAMIDE HCL 5 MG TABLET GT SCH ×2 (09:48→20:51)
[2021-01-07] MEDS: VITAMINS A AND D OINT TP SCH ×2 (09:48→20:52)
[2021-01-07] MEDS: Z GUARD REMEDY PASTE 57 GM TUBE TOP SCH ×2 (09:48→20:52)
--- NOTE | 2021-01-07 12:48 | NUR ---
ROMÁN received order from Dr. Flores for an evaluation of left upper extremity prosthesis. ROMÁN informed patient's Maribel, , daughter Fanny, , and the patient. All were in agreement for this evaluation. ROMÁN faxed patient's facesheet, physician's order, and H&P to Julio C at [facility], requesting a prothesis evaluation.
--- NOTE | 2021-01-07 16:55 | NUR ---
Email sent to the responsible libertarian regarding Covid 19 texting done today
[2021-01-07] MEDS: VITAL AF 1.2 1,000 ML LIQUID GT PRN (18:09)
--- NOTE | 2021-01-07 18:47 | NUR ---
Pt. v/s wnl. No SOB noted at this time. pt. was put on cpap but after 4 hrs. pt complain and put back on ac. Pt. was comfortable but occassional coughing was noted. Rubitussin given. Family called her via [employer] Discussed with the family pt non-compliance with SCD. Family was trying to convince the pt to wear SCD. Will continue to monitor.
[2021-01-07 20:00] VITALS: BP 147/78
[2021-01-07] MEDS: ALBUTEROL SULFATE 2.5 MG/ 0.5 ML NEBU NEB PRN (20:10)
--- NOTE | 2021-01-07 20:10 | NUR ---
Called by nurse to check pt. Noticed increased WOB, low saturation and increased HR. After sx moderate amount of bloody secretion and PRN tx, pt seemed much better. According to pt she feels better. Nurse Mackenzie notified. Cont. to monitor.
[2021-01-07] MEDS: VITAMIN B COMPLEX 1 TABLET GT SCH (20:45)
[2021-01-07] MEDS: ATORVASTATIN 20 MG TABLET GT SCH (20:49)
[2021-01-08] MEDS: ACIDOPHILUS/BULGARICUS CHEW TAB GT SCH ×3 (06:22→21:02)
[2021-01-08] MEDS: OMEPRAZOLE 20 MG CAPSULE.DR GT SCH ×2 (06:23→17:02)
[2021-01-08] MEDS: ASCORBIC ACID 500 MG TABLET GT SCH (06:23)
[2021-01-08] MEDS: MIRALAX 17 GM POWD.PACK GT SCH ×2 (06:23→17:02)
[2021-01-08] MEDS: CHOLECALCIFEROL 1,000 UNIT TABLET GT SCH (06:23)
[2021-01-08] MEDS: MULTIVIT, IRON, MIN NO. 8, FA TABLET GT SCH (06:23)
[2021-01-08] MEDS: ZINC SULFATE 220 MG CAPSULE GT SCH (06:23)
[2021-01-08 07:34] VITALS: BP 105/41
[2021-01-08] MEDS: IPRATROPIUM BROMIDE 0.5 MG/2.5 ML NEBU NEB SCH ×3 (07:40→23:05)
--- NOTE | 2021-01-08 08:00 | NUR ---
PLACED PT ON CPAP PS 10, PEEP +5, FIO2 28% PER MD ORDER. PT IS AWAKE AND RESPONSIVE. STATES SHE IS FINE AT THIS TIME. NO S/S OF RESPIRATORY DISTRESS NOTED. HEART RATE 82, SPO2 98%. APPEARS TO BE TOLERATING WELL. PT GIVING OFF TIDAL VOLUMES RANGING BETWEEN 300 AND 400. WILL CONTINUE TO MONITOR THROUGHOUT DAY.
[2021-01-08] MEDS: CARVEDILOL 6.25 MG TABLET GT SCH ×2 (09:00→21:00)
[2021-01-08] MEDS: AMLODIPINE 5 MG TABLET PO SCH (09:00)
[2021-01-08] MEDS: SPIRONOLACTONE 25 MG TABLET GT SCH (09:00)
[2021-01-08] MEDS: LISINOPRIL 20 MG TABLET GT SCH ×2 (09:00→21:00)
[2021-01-08] MEDS: VITAMINS A AND D OINT TP SCH ×2 (09:03→21:02)
[2021-01-08] MEDS: Z GUARD REMEDY PASTE 57 GM TUBE TOP SCH ×2 (09:03→21:01)
[2021-01-08] MEDS: PAROXETINE HCL 10 MG TABLET GT SCH (09:03)
[2021-01-08] MEDS: METOCLOPRAMIDE HCL 5 MG TABLET GT SCH ×2 (09:03→21:01)
[2021-01-08] MEDS: HYDROGEN PEROXIDE 3% 118 ML BOTTLE TP SCH ×2 (09:39→20:56)
[2021-01-08] MEDS: VITAL AF 1.2 1,000 ML LIQUID GT PRN (13:38)
--- NOTE | 2021-01-08 15:30 | NUR ---
PT PLACED ON ORIGINAL SETTINGS OF A/C 20, VT 450, PEEP +5, FIO2 28%. PT STATES THAT SHE IS TIRED AND WANTS TO GO BACK TO A/C SETTING. NO S/S OF RESPIRATORY DISTRESS NOTED. NURSE MADE AWARE. CPAP TRIAL LASTED 7.5 HOURS.
[2021-01-08] MEDS: GUAIFENESIN SUGAR FREE 100 MG/5 ML UDC GT PRN (18:07)
[2021-01-08 20:00] VITALS: BP 108/51
[2021-01-08] MEDS: VITAMIN B COMPLEX 1 TABLET GT SCH (20:59)
[2021-01-08] MEDS: ATORVASTATIN 20 MG TABLET GT SCH (21:00)
[2021-01-08] MEDS: AMLODIPINE 5 MG TABLET GT SCH (21:00)
[2021-01-08] MEDS: MELATONIN 3 MG TABLET GT PRN (21:18)
[2021-01-09] MEDS: OMEPRAZOLE 20 MG CAPSULE.DR GT SCH ×2 (06:01→17:11)
[2021-01-09] MEDS: MULTIVIT, IRON, MIN NO. 8, FA TABLET GT SCH (06:01)
[2021-01-09] MEDS: MIRALAX 17 GM POWD.PACK GT SCH (06:01)
[2021-01-09] MEDS: ACIDOPHILUS/BULGARICUS CHEW TAB GT SCH ×3 (06:01→21:02)
[2021-01-09] MEDS: CHOLECALCIFEROL 1,000 UNIT TABLET GT SCH (06:01)
[2021-01-09] MEDS: ZINC SULFATE 220 MG CAPSULE GT SCH (06:01)
[2021-01-09] MEDS: ASCORBIC ACID 500 MG TABLET GT SCH (06:01)
[2021-01-09 07:49] VITALS: BP 118/50
[2021-01-09] MEDS: IPRATROPIUM BROMIDE 0.5 MG/2.5 ML NEBU NEB SCH ×3 (08:30→23:20)
--- NOTE | 2021-01-09 08:30 | NUR ---
PLACED PT ON CPAP PS 10, PEEP +5, FIO2 28% PER MD ORDER. PT IS AWAKE AND RESPONSIVE. WILL CONT TO MONITOR PT.
[2021-01-09] MEDS: HYDROGEN PEROXIDE 3% 118 ML BOTTLE TP SCH ×2 (09:00→21:25)
[2021-01-09] MEDS: AMLODIPINE 5 MG TABLET GT SCH ×2 (09:25→20:51)
[2021-01-09] MEDS: SPIRONOLACTONE 25 MG TABLET GT SCH (09:25)
[2021-01-09] MEDS: PAROXETINE HCL 10 MG TABLET GT SCH (09:25)
[2021-01-09] MEDS: CARVEDILOL 6.25 MG TABLET GT SCH ×2 (09:25→20:48)
[2021-01-09] MEDS: METOCLOPRAMIDE HCL 5 MG TABLET GT SCH ×2 (09:26→20:51)
[2021-01-09] MEDS: Z GUARD REMEDY PASTE 57 GM TUBE TOP SCH ×2 (09:26→20:52)
[2021-01-09] MEDS: LISINOPRIL 20 MG TABLET GT SCH ×2 (09:26→20:51)
[2021-01-09] MEDS: VITAMINS A AND D OINT TP SCH ×2 (09:26→20:52)
--- NOTE | 2021-01-09 10:22 | NUR ---
REG. SALES DEVELOPMENT CONSULTANT WAS NOTIFIED RE: WT.LOSS 5 # IN A WEEK AND SHE WILL REASSESS.
--- NOTE | 2021-01-09 10:59 | NUR ---
NEW ORDERS CARRIED OUT FROM DR. MONTES DE OCA TO CHANGE MIRALAX TO PRN ONLY AND RE:COVID 19 VACCINE HE SAID TO WAIT D/T SHE HAD COVID 19 NOT LONG AGO.
--- NOTE | 2021-01-09 11:00 | NUR ---
PT. WITH WELL TOLERATED WEANING FROM VENT ,ON CONSTANT OBSERVATION AND NOTED STABLE O2 SAT 99% AND HR. 76X',NO SOB NO C/O ANY DISCOMFORT AND NOTED WITH OCC. COUGH EPISODES WITH CLEAR FOAMY SPUTUM AND NO DESATURATION EPISODES. CALL LIGHT ON REACH AT ALL TIMES.
--- NOTE | 2021-01-09 12:30 | NUR ---
PT PLACED ON ORIGINAL SETTINGS OF A/C 20, VT 450, PEEP +5, FIO2 28%. PT STATES THAT SHE IS TIRED AND WANTS TO GO BACK TO A/C SETTING. NO S/S OF RESPIRATORY DISTRESS NOTED. NURSE MADE AWARE. CPAP TRIAL LASTED 4 HOURS.
--- NOTE | 2021-01-09 15:06 | NUR ---
SW informed patient's daughter Fanny and Maribel, via email, that the next IDT meeting for the patient has been scheduled for 01/14/2021 at 11am. SW asked for Fanny and Maribel to let this SW know if they would like to participate in the meeting by speaker phone.
[2021-01-09 20:00] VITALS: BP 132/63
[2021-01-09] MEDS: VITAMIN B COMPLEX 1 TABLET GT SCH (20:48)
[2021-01-09] MEDS: ATORVASTATIN 20 MG TABLET GT SCH (20:48)
[2021-01-09] MEDS: MELATONIN 3 MG TABLET GT PRN (20:58)
[2021-01-10] MEDS: ASCORBIC ACID 500 MG TABLET GT SCH (05:44)
[2021-01-10] MEDS: MULTIVIT, IRON, MIN NO. 8, FA TABLET GT SCH (05:44)
[2021-01-10] MEDS: CHOLECALCIFEROL 1,000 UNIT TABLET GT SCH (05:44)
[2021-01-10] MEDS: ACIDOPHILUS/BULGARICUS CHEW TAB GT SCH ×3 (05:44→21:12)
[2021-01-10] MEDS: OMEPRAZOLE 20 MG CAPSULE.DR GT SCH ×2 (05:44→17:03)
[2021-01-10] MEDS: ZINC SULFATE 220 MG CAPSULE GT SCH (05:44)
[2021-01-10 08:03] VITALS: BP 112/54
[2021-01-10] MEDS: IPRATROPIUM BROMIDE 0.5 MG/2.5 ML NEBU NEB SCH ×3 (08:10→22:42)
--- NOTE | 2021-01-10 08:30 | NUR ---
PT. ON WEANING FROM VENT TRIAL STARTED AT THIS TIME.
--- NOTE | 2021-01-10 08:49 | NUR ---
PT. WAS SEEN AND EXAMINED BY MARY SANTIAGO N.P. AND WITH NEW ORDERS CARRIED OUT,RT MARK CHERRY.
[2021-01-10] MEDS: HYDROGEN PEROXIDE 3% 118 ML BOTTLE TP SCH ×2 (09:00→21:30)
--- NOTE | 2021-01-10 09:00 | NUR ---
PT. ON WEANING OFF VENT TRIAL BY RT AND AT THIS TIME PT. REQUESTED TO BE ON SIMV .
[2021-01-10] MEDS: SPIRONOLACTONE 25 MG TABLET GT SCH (09:23)
[2021-01-10] MEDS: CARVEDILOL 6.25 MG TABLET GT SCH ×2 (09:24→21:09)
[2021-01-10] MEDS: PAROXETINE HCL 10 MG TABLET GT SCH (09:25)
[2021-01-10] MEDS: AMLODIPINE 5 MG TABLET GT SCH ×2 (09:25→21:14)
[2021-01-10] MEDS: LISINOPRIL 20 MG TABLET GT SCH ×2 (09:25→21:10)
[2021-01-10] MEDS: Z GUARD REMEDY PASTE 57 GM TUBE TOP SCH ×2 (09:26→21:10)
[2021-01-10] MEDS: METOCLOPRAMIDE HCL 5 MG TABLET GT SCH ×2 (09:26→21:10)
[2021-01-10] MEDS: VITAMINS A AND D OINT TP SCH ×2 (09:26→21:11)
[2021-01-10] MEDS: VITAL AF 1.2 1,000 ML LIQUID GT PRN (13:03)
--- NOTE | 2021-01-10 14:20 | NUR ---
ROMÁN was informed by Julio C at [employer] that patient's that there is a discrepancy with her Medicare insurance when it comes to eligibility coverage for the upper extremity prosthesis. ROMÁN to follow-up with patient's family.
--- NOTE | 2021-01-10 14:34 | NUR ---
PT. HAD ZOOM 5 MIN WITH DTR. SANDERS.
--- NOTE | 2021-01-10 15:00 | NUR ---
PT. ON WEANING OFF VENT AT THIS TIME BY RT AND SHE REQUESTED HIM TO BE ON AC INSTEAD.
--- NOTE | 2021-01-10 16:27 | NUR ---
SW received an email from both patient's daughter Fanny and patient's Maribel in response to the email this SW sent them on 01/09, informing them of the IDT meeting on 01/14 and inviting them to join by speaker phone. Both Maribel and Fanny stated that they would be available to join. SW to call them both during the IDT meeting.
--- NOTE | 2021-01-10 16:33 | NUR ---
SW called patient's Maribel, , and informed him of the updated visitation guidelines for the subacute unit, based on [facility] and [facility] directives. ROMÁN emailed patient's Maribel, and patient's daughter Fanny, the guidelines and criteria for visitations.
--- NOTE | 2021-01-10 17:51 | NUR ---
COVID 19 TEST FROM 01/07/21 IS NEGATIVE AND PT. AND RESP. CONSTITUTION PARTY MARILYN WAS NOTIFIED.
[2021-01-10 20:43] VITALS: BP 127/51
--- NOTE | 2021-01-10 21:00 | NUR ---
Patient is alert and oriented, trach is intact and patent, connected to vent, no respiratory distress, tolerating weaning trials, denies and pain or discomfort at this time, needs attended, call light within reach.
[2021-01-10] MEDS: ATORVASTATIN 20 MG TABLET GT SCH (21:09)
[2021-01-10] MEDS: VITAMIN B COMPLEX 1 TABLET GT SCH (21:17)
[2021-01-10] MEDS: GUAIFENESIN SUGAR FREE 100 MG/5 ML UDC GT PRN (22:09)
[2021-01-10] MEDS: MELATONIN 3 MG TABLET GT PRN (22:10)
[2021-01-11] MEDS: OMEPRAZOLE 20 MG CAPSULE.DR GT SCH ×2 (06:09→18:27)
[2021-01-11] MEDS: ASCORBIC ACID 500 MG TABLET GT SCH (06:09)
[2021-01-11] MEDS: ACIDOPHILUS/BULGARICUS CHEW TAB GT SCH ×3 (06:09→21:19)
[2021-01-11] MEDS: ZINC SULFATE 220 MG CAPSULE GT SCH (06:09)
[2021-01-11] MEDS: MULTIVIT, IRON, MIN NO. 8, FA TABLET GT SCH (06:09)
[2021-01-11] MEDS: CHOLECALCIFEROL 1,000 UNIT TABLET GT SCH (06:09)
--- NOTE | 2021-01-11 06:57 | NUR ---
Patient tested negative on her covid 19 test on 12/30/20 and 01/07/21, patient had completed her 14- day PUI covid protocol since admission. Patient is afebrile, denies any SOB or respiratory distress, kept clean and comfortable, needs attended, call light within reach.
[2021-01-11] MEDS: IPRATROPIUM BROMIDE 0.5 MG/2.5 ML NEBU NEB SCH ×3 (07:13→22:30)
[2021-01-11] MEDS: HYDROGEN PEROXIDE 3% 118 ML BOTTLE TP SCH ×2 (07:13→21:23)
[2021-01-11 07:51] VITALS: BP 118/54
[2021-01-11 07:55] VITALS: BP 118/54
--- NOTE | 2021-01-11 08:00 | NUR ---
RT PER WEANING ORDER PT WAS PLACE ON SIMV AT THIS TIME, PT DID NO TOLERATED CPAP AT THIS TIME WILL CONTINUE TO MONITOR PT. NURSE AWARE. ALARMS ON AND AUDIBLE.
[2021-01-11] MEDS: AMLODIPINE 5 MG TABLET GT SCH ×2 (08:37→21:17)
[2021-01-11] MEDS: CARVEDILOL 6.25 MG TABLET GT SCH ×2 (08:38→21:17)
[2021-01-11] MEDS: SPIRONOLACTONE 25 MG TABLET GT SCH (08:38)
[2021-01-11] MEDS: METOCLOPRAMIDE HCL 5 MG TABLET GT SCH ×2 (08:39→21:19)
[2021-01-11] MEDS: VITAMINS A AND D OINT TP SCH ×2 (08:39→21:19)
[2021-01-11] MEDS: PAROXETINE HCL 10 MG TABLET GT SCH (08:39)
[2021-01-11] MEDS: LISINOPRIL 20 MG TABLET GT SCH ×2 (08:39→21:18)
[2021-01-11] MEDS: Z GUARD REMEDY PASTE 57 GM TUBE TOP SCH ×2 (08:39→21:19)
[2021-01-11] MEDS: GUAIFENESIN SUGAR FREE 100 MG/5 ML UDC GT PRN ×2 (08:41→14:45)
--- NOTE | 2021-01-11 09:22 | NUR ---
O2 SAT 98% AND HR 76X' ,NO S/S OF ACUTE RESPIRATORY DISTRESS,NO CYANOSIS,NO C/O DISCOMFORT,CALL LIGHT ON REACH.
--- NOTE | 2021-01-11 10:30 | NUR ---
RT PER WEANING ORDER PT WAS PLACE ON CPAP AT THIS TIME PT TX WAS GIVEN AND TOLERATED WELL NO SOB VITALS STABLE RN AWARE WILL CONTINUE TO MONITOR PT.
--- NOTE | 2021-01-11 10:47 | NUR ---
PT. ON CPAP AT THIS TIME BY RT WILIAM,NO S/S OF RESP. DISTRESS.
[2021-01-11] MEDS: ALBUTEROL SULFATE 2.5 MG/ 0.5 ML NEBU NEB PRN (12:45)
--- NOTE | 2021-01-11 12:45 | NUR ---
RT PT WAS HAVING SOB AT THIS TIME PT WAS PLACE ON SIMV RATE 12 VT 450 PEEP +5 PER ORDER IN CHART. PT TOLERATED WELL PT WAS FEELING BETTER ALARMS ON AND AUDIBLE RN AWARE. WILL CONTINUE TO MONITOR PT.
--- NOTE | 2021-01-11 12:52 | NUR ---
PT. ON CPAP AND ON BREATHING WITH TX RT WILIAM.FREQUENTLY CHECKS DONE ,CALL LIGHT ON REACH.
--- NOTE | 2021-01-11 16:00 | NUR ---
RT PT WAS COMPLAINING OF SOB AT THIS TIME AND STATED SHE CANT GET ENOUGH AIR, SPO2 98% PT REQUESTED TO BE PLACE BACK ON AC. RT PLACE BACK ON AC WEANING WAS DONE FOR THE DAY WILL LET PT REST. RN AWARE. ALARMS ON AND AUDIBLE .
--- NOTE | 2021-01-11 16:00 | NUR ---
BACK ON AC MODE ,SLIGHT TRACHEAL BLOODY SECRETIONS RELATED TO DEEP SUCTIONING,WILL CONT. TO MONITOR.
--- NOTE | 2021-01-11 16:42 | NUR ---
LATE ENTRY :DR. GONSALES WAS NOTIFIED ON 12/28/20 THAT PT. REFUSED PP. TESTING D/T ACCORDING TO HER PT. WAS POSITIVE IN THE PAST ,PT. HAD CXR DONE IN THE ACUTE SETTING TOO AND DR. GONSALES WITH NNO AT THIS TIME.
--- NOTE | 2021-01-11 18:49 | NUR ---
PT'S BROUGHT A STAND FOR I PAD TO ADJUST TO PT'S TABLE ALSO AN EAR PIECE AND AN EAR MANAGER OF [employer] AND HE ADJUSTED SETTINGS FOR PT'S I PAD AND IRENE R.N AND EMERITA ULTRASOUND TECH AWARE OF IT AND IRENE ASSISTED PT. TO ADJUST THE STAND AND EAR PIECE AND PT. WAS ABLE TO USE IT.
[2021-01-11 20:15] VITALS: BP 119/45
[2021-01-11] MEDS: ATORVASTATIN 20 MG TABLET GT SCH (21:16)
[2021-01-11] MEDS: VITAMIN B COMPLEX 1 TABLET GT SCH (21:16)
--- NOTE | 2021-01-12 03:00 | NUR ---
Patient is afebrile, connected to vent, on assist AC Mode, no respiratory distress noted, Robitussin was given due to coughing episodes, no SOB noted. denies being hot d/t hot flashes, turned and repositioned, needs attended, call light within reach.
[2021-01-12] MEDS: ASCORBIC ACID 500 MG TABLET GT SCH (05:12)
[2021-01-12] MEDS: CHOLECALCIFEROL 1,000 UNIT TABLET GT SCH (05:12)
[2021-01-12] MEDS: VITAL AF 1.2 1,000 ML LIQUID GT PRN (05:12)
[2021-01-12] MEDS: OMEPRAZOLE 20 MG CAPSULE.DR GT SCH ×2 (05:12→17:10)
[2021-01-12] MEDS: ACIDOPHILUS/BULGARICUS CHEW TAB GT SCH ×3 (05:12→22:19)
[2021-01-12] MEDS: MULTIVIT, IRON, MIN NO. 8, FA TABLET GT SCH (05:12)
[2021-01-12] MEDS: ZINC SULFATE 220 MG CAPSULE GT SCH (05:12)
[2021-01-12] MEDS: GUAIFENESIN SUGAR FREE 100 MG/5 ML UDC GT PRN ×3 (05:48→20:32)
[2021-01-12] MEDS: IPRATROPIUM BROMIDE 0.5 MG/2.5 ML NEBU NEB SCH ×3 (07:41→22:40)
[2021-01-12] MEDS: HYDROGEN PEROXIDE 3% 118 ML BOTTLE TP SCH ×2 (07:41→21:37)
[2021-01-12 07:42] VITALS: BP 95/44
[2021-01-12 08:00] VITALS: BP 95/44
--- NOTE | 2021-01-12 08:15 | NUR ---
Pt placed on SIMV 12, VT 450, PS10, PEEP+5, FIO2-28%. Pt does not want to go on CPAP becuase she feels she cannot do it. Attempted to encourage Pt but she refuse. GREGOR Lima notified. Pt tolerating SIMV 12, PS10 well. Txs given as ordered. Suctioned small amounts of light yellowish secretions. Vent alarm parameters checked, on and audible. Bag/valve/mask and back up trach at bedside. Will continue to monitor.
[2021-01-12] MEDS: PAROXETINE HCL 10 MG TABLET GT SCH (09:00)
[2021-01-12] MEDS: CARVEDILOL 6.25 MG TABLET GT SCH ×2 (09:00→20:15)
[2021-01-12] MEDS: SPIRONOLACTONE 25 MG TABLET GT SCH (09:00)
[2021-01-12] MEDS: AMLODIPINE 5 MG TABLET GT SCH ×2 (09:00→20:15)
[2021-01-12] MEDS: LISINOPRIL 20 MG TABLET GT SCH ×2 (09:01→20:16)
[2021-01-12] MEDS: Z GUARD REMEDY PASTE 57 GM TUBE TOP SCH ×2 (09:01→20:17)
[2021-01-12] MEDS: METOCLOPRAMIDE HCL 5 MG TABLET GT SCH ×2 (09:01→20:16)
[2021-01-12] MEDS: VITAMINS A AND D OINT TP SCH ×2 (09:01→20:17)
--- NOTE | 2021-01-12 10:55 | NUR ---
PT. WAS SEEN AND EXAMINED BY MARY GEORGE N.P. AND SHE SPOKE TO RT THOMAS AND SHE ADDED TO CURRENT ORDER FOR SIMV PS 10.AND ORDER CARRIED OUT.
--- NOTE | 2021-01-12 17:10 | NUR ---
Pt demanded to be placed back on regular settings. Pt placed back on AC 20, VT450, PEEP+5, FIO2-28% CHILDREN'S MINISTER Clarence notified.
[2021-01-12 20:09] VITALS: BP 114/50
[2021-01-12] MEDS: ATORVASTATIN 20 MG TABLET GT SCH (20:15)
[2021-01-12] MEDS: VITAMIN B COMPLEX 1 TABLET GT SCH (20:15)
[2021-01-12] MEDS: MELATONIN 3 MG TABLET GT PRN (20:34)
[2021-01-13] MEDS: CHOLECALCIFEROL 1,000 UNIT TABLET GT SCH (05:14)
[2021-01-13] MEDS: ZINC SULFATE 220 MG CAPSULE GT SCH (05:14)
[2021-01-13] MEDS: MULTIVIT, IRON, MIN NO. 8, FA TABLET GT SCH (05:14)
[2021-01-13] MEDS: ACIDOPHILUS/BULGARICUS CHEW TAB GT SCH ×3 (05:14→22:15)
[2021-01-13] MEDS: ASCORBIC ACID 500 MG TABLET GT SCH (05:14)
[2021-01-13] MEDS: OMEPRAZOLE 20 MG CAPSULE.DR GT SCH ×2 (05:14→17:01)
[2021-01-13] MEDS: VITAL AF 1.2 1,000 ML LIQUID GT PRN (06:52)
[2021-01-13] MEDS: IPRATROPIUM BROMIDE 0.5 MG/2.5 ML NEBU NEB SCH ×3 (07:20→22:46)
[2021-01-13 07:30] VITALS: BP 118/38
--- NOTE | 2021-01-13 08:00 | NUR ---
PT PLACED ON CPAP TRIAL PER ORDER. PT APPEARS TO BE TOLERATING WELL. NO S/S OF RESPIRATORY DISTRESS NOTED. PT IS AWAKE AND ALERT AND STATES SHE IS DOING FINE ON CPAP SETTINGS. WILL CONTINUE TO MONITOR. NURSE KYLE MADE AWARE.
[2021-01-13] MEDS: CARVEDILOL 6.25 MG TABLET GT SCH ×2 (09:33→20:54)
[2021-01-13] MEDS: SPIRONOLACTONE 25 MG TABLET GT SCH (09:34)
[2021-01-13] MEDS: VITAMINS A AND D OINT TP SCH ×2 (09:34→20:58)
[2021-01-13] MEDS: LISINOPRIL 20 MG TABLET GT SCH ×2 (09:34→20:57)
[2021-01-13] MEDS: METOCLOPRAMIDE HCL 5 MG TABLET GT SCH ×2 (09:34→20:57)
[2021-01-13] MEDS: PAROXETINE HCL 10 MG TABLET GT SCH (09:34)
[2021-01-13] MEDS: Z GUARD REMEDY PASTE 57 GM TUBE TOP SCH ×2 (09:34→20:57)
[2021-01-13] MEDS: AMLODIPINE 5 MG TABLET GT SCH ×2 (09:34→20:57)
[2021-01-13] MEDS: HYDROGEN PEROXIDE 3% 118 ML BOTTLE TP SCH ×2 (09:35→21:00)
--- NOTE | 2021-01-13 11:56 | NUR ---
NEW ORDER WAS CARRIED OUT FROM DR. MONTES DE OCA FOR COVID 19 TEST AND PT. IN AGREEMENT AND PT'S DTR. SANDERS NOTIFIED TOO AND AWARE .
--- NOTE | 2021-01-13 14:22 | NUR ---
ROMÁN called patient's daughter Fanny [phone] and discussed patient's eligibility for the prothesis. Fanny stated that she would call Medicare to inquire. ROMÁN to coordinate with Fanny to have patient on the phone during the time Fanny calls Medicare in order for patient to provide verbal authorization to Medicare for Fanny to speak with Medicare. ROMÁN and Fanny agreed to attempt this call on the afternoon of Monday 01/15.
--- NOTE | 2021-01-13 15:00 | NUR ---
PT STATES SHE IS TIRED ON CPAP TRIAL. PLACED ON PREVIOUS SETTINGS OF A/C 20, VT 450, PEEP +5, 28%. PT APPEARS TO BE TOLERATING WELL. NO S/S OF RESPIRATORY DISTRESS NOTED AT THIS TIME. WILL CONTINUE TO MONITOR. SPO2 97%, HEART RATE 75.
--- NOTE | 2021-01-13 15:36 | NUR ---
DR. MONTES DE OCA CALLED AND WITH NEW ORDER FOR COVID 19 VACCINE AND NOT GIVEN D/T REFUSED AT THIS TIME BUT SHE WANTS IT LATER ON BEFORE SHE GO HOME ,BECAUSE SHE IS AFRAID ,SHE STATED EVERYTHING IS OVERWHELMING AT THIS TIME (BEING WEANED OFF FROM VENT,PHYSICAL THERAPY ETC. AND SHE IS JUST STATING TO FEEL BETTER)
--- NOTE | 2021-01-13 16:02 | NUR ---
PT'S DTR. MARILYN WAS NOTIFIED RE: PT. REFUSING COVID 19 VACCINE AT THIS TIME AND THAT SHE WANTS TO WAIT A LITTLE BIT MORE AND SHE WAS IN AGREEMENT WITH HER MOTHER'S DECISION.
--- NOTE | 2021-01-13 16:10 | NUR ---
PT STATES IT IS UNCOMFORTABLE AND HARD TO BREATHE ON CURRENT A/C SETTINGS. PT PLACED ON ORDERED SETTINGS OF SIMV 12, VT 450, PEEP +5, PS 10, 28%. PT APPEARS TO BE TOLERATING WELL. PT INDICATES THAT IT IS NOW EASIER TO BREATH AND IS NO LONGER UNCOMFORTABLE. NO S/S OF RESPIRATORY DISTRESS NOTED. CHARGE NURSE CORAL MADE AWARE. WILL CONTINUE TO MONITOR.
--- NOTE | 2021-01-13 17:52 | NUR ---
PT. CALLED CH. NURSE AND STATED THAT SHE CHANGED HER MIND RE:COVID 19 VACCINE AND SHE STATED THAT SHE WANTS IT TOMORROW IF AVAILABLE.
[2021-01-13 20:15] VITALS: BP 100/49
[2021-01-13] MEDS: VITAMIN B COMPLEX 1 TABLET GT SCH (20:54)
[2021-01-13] MEDS: ATORVASTATIN 20 MG TABLET GT SCH (20:56)
[2021-01-13] MEDS: MIRALAX 17 GM POWD.PACK GT PRN (20:59)
[2021-01-13] MEDS: MELATONIN 3 MG TABLET GT PRN (21:00)
[2021-01-13] MEDS: GUAIFENESIN SUGAR FREE 100 MG/5 ML UDC GT PRN (21:10)
[2021-01-14] MEDS: VITAL AF 1.2 1,000 ML LIQUID GT PRN (01:51)
[2021-01-14] MEDS: ZINC SULFATE 220 MG CAPSULE GT SCH (05:14)
[2021-01-14] MEDS: CHOLECALCIFEROL 1,000 UNIT TABLET GT SCH (05:14)
[2021-01-14] MEDS: ACIDOPHILUS/BULGARICUS CHEW TAB GT SCH ×3 (05:14→21:24)
[2021-01-14] MEDS: MULTIVIT, IRON, MIN NO. 8, FA TABLET GT SCH (05:14)
[2021-01-14] MEDS: OMEPRAZOLE 20 MG CAPSULE.DR GT SCH ×2 (05:14→18:12)
[2021-01-14] MEDS: ASCORBIC ACID 500 MG TABLET GT SCH (05:14)
[2021-01-14 07:25] VITALS: BP 104/45
[2021-01-14] MEDS: IPRATROPIUM BROMIDE 0.5 MG/2.5 ML NEBU NEB SCH ×3 (07:29→22:30)
[2021-01-14] MEDS: CARVEDILOL 6.25 MG TABLET GT SCH ×2 (09:00→21:21)
[2021-01-14] MEDS: LISINOPRIL 20 MG TABLET GT SCH ×2 (09:00→21:23)
[2021-01-14] MEDS: AMLODIPINE 5 MG TABLET GT SCH ×2 (09:00→21:22)
[2021-01-14] MEDS: SPIRONOLACTONE 25 MG TABLET GT SCH (09:06)
[2021-01-14] MEDS: PAROXETINE HCL 10 MG TABLET GT SCH (09:08)
[2021-01-14] MEDS: METOCLOPRAMIDE HCL 5 MG TABLET GT SCH ×2 (09:09→21:23)
[2021-01-14] MEDS: VITAMINS A AND D OINT TP SCH ×2 (09:11→21:24)
[2021-01-14] MEDS: Z GUARD REMEDY PASTE 57 GM TUBE TOP SCH ×2 (09:11→21:24)
[2021-01-14] MEDS: HYDROGEN PEROXIDE 3% 118 ML BOTTLE TP SCH ×2 (09:11→19:08)
[2021-01-14] MEDS: GUAIFENESIN SUGAR FREE 100 MG/5 ML UDC GT PRN ×2 (09:42→18:15)
--- NOTE | 2021-01-14 14:00 | NUR ---
PT at bedside, patient only able to sit not able to tolerate, feeling dizzy and short of breath
--- NOTE | 2021-01-14 14:23 | NUR ---
INTERDISCIPLINARY PLAN OF CARE CONFERENCE was held today. Patient's daughter Fanny and Mr. López participated in the meeting today, with speaker phone. Dr. Leblanc and the Interdisciplinary Team reviewed the current plan of care in detail. RN reported on patient's medical condition, and stated that patient's PUI isolation status has been discontinued. See RN IDT conference notes. PT and OT discussed patient's therapy treatment plan and progress. No major changes in medical condition were reported by nursing or by any of the other disciplines. See all other disciplines IDT notes and physician's progress notes for additional details. Family's questions were addressed by the IDT team, and family expressed understanding and being in agreement with the current plan of care.
--- NOTE | 2021-01-14 16:00 | NUR ---
Weaning from vent setting changed to SIMV
--- NOTE | 2021-01-14 17:51 | NUR ---
NEW ORDER FROM DR. MONTES DE OCA WAS CARRIED OUT FOR PT. TO GET OUT OF BED AND UP IN [facility] WITH PT. .
--- NOTE | 2021-01-14 19:17 | NUR ---
Complained of feeling warmth/hot flushes and feeling short of breath. Fan towards patient and ice packs applied to nape, on moderate high back rest. RT called to assess patient and vent settings.
[2021-01-14 20:00] VITALS: BP 137/76
[2021-01-14] MEDS: ATORVASTATIN 20 MG TABLET GT SCH (21:22)
[2021-01-14] MEDS: VITAMIN B COMPLEX 1 TABLET GT SCH (21:57)
--- NOTE | 2021-01-14 22:02 | NUR ---
Davis from Lab called and relayed that COVID-19 test that was done yesterday on this patient was negative. Patient is alert and oriented and notified of negative covid- 19 result. Also Family only wants to be notified if positive result.
[2021-01-15] MEDS: MELATONIN 3 MG TABLET GT PRN ×2 (00:45→21:08)
[2021-01-15] MEDS: GUAIFENESIN SUGAR FREE 100 MG/5 ML UDC GT PRN ×3 (00:46→21:10)
[2021-01-15] MEDS: ACIDOPHILUS/BULGARICUS CHEW TAB GT SCH ×3 (05:17→21:06)
[2021-01-15] MEDS: OMEPRAZOLE 20 MG CAPSULE.DR GT SCH ×2 (05:17→17:26)
[2021-01-15] MEDS: MULTIVIT, IRON, MIN NO. 8, FA TABLET GT SCH (05:18)
[2021-01-15] MEDS: ZINC SULFATE 220 MG CAPSULE GT SCH (05:18)
[2021-01-15] MEDS: ASCORBIC ACID 500 MG TABLET GT SCH (05:18)
[2021-01-15] MEDS: CHOLECALCIFEROL 1,000 UNIT TABLET GT SCH (05:18)
[2021-01-15] MEDS: VITAL AF 1.2 1,000 ML LIQUID GT PRN (05:19)
[2021-01-15] MEDS: IPRATROPIUM BROMIDE 0.5 MG/2.5 ML NEBU NEB SCH ×3 (07:29→22:40)
[2021-01-15] MEDS: HYDROGEN PEROXIDE 3% 118 ML BOTTLE TP SCH ×2 (07:29→21:23)
[2021-01-15 07:53] VITALS: BP 100/46
[2021-01-15] MEDS: CARVEDILOL 6.25 MG TABLET GT SCH ×2 (09:00→21:04)
[2021-01-15] MEDS: AMLODIPINE 5 MG TABLET GT SCH ×2 (09:00→21:04)
[2021-01-15] MEDS: LISINOPRIL 20 MG TABLET GT SCH ×2 (09:00→21:05)
[2021-01-15] MEDS: SPIRONOLACTONE 25 MG TABLET GT SCH (09:31)
[2021-01-15] MEDS: Z GUARD REMEDY PASTE 57 GM TUBE TOP SCH ×2 (09:33→21:06)
[2021-01-15] MEDS: VITAMINS A AND D OINT TP SCH ×2 (09:33→21:06)
[2021-01-15] MEDS: PAROXETINE HCL 10 MG TABLET GT SCH (09:33)
[2021-01-15] MEDS: METOCLOPRAMIDE HCL 5 MG TABLET GT SCH ×2 (09:34→21:06)
--- NOTE | 2021-01-15 15:26 | NUR ---
ROMÁN called patient's daughter Fanny, , to assist with contacting Medicare for the patient. Fanny asked to reschedule this task, and it was agreed that SW would contact Fanny tomorrow to assist with this process.
--- NOTE | 2021-01-15 16:01 | NUR ---
PER SENSITIZED PAPER TESTER, ORDER FOR MODERNA COVID -19 VACCINE BE CANCELLED DUE TO NON-AVAILABILITY. SINCE PATIENT PREFER MODERNA VACCINE, A NEW ORDER WILL BE ISSUED WHEN VACCINE BECOMES AVAILABLE. WILL CONTINUE TO MONITOR.
--- NOTE | 2021-01-15 20:00 | NUR ---
Patient is afebrile, on vent weaning trials tolerating well, patient noted to be back on AC mode during rounds. Patient denies any respiratory distress or SOB, 02 sat is 98%, needs anticipated, call light within reach.
[2021-01-15 20:13] VITALS: BP 113/69
[2021-01-15] MEDS: ATORVASTATIN 20 MG TABLET GT SCH (21:04)
[2021-01-15] MEDS: VITAMIN B COMPLEX 1 TABLET GT SCH (21:04)
[2021-01-16] MEDS: OMEPRAZOLE 20 MG CAPSULE.DR GT SCH ×2 (06:20→17:22)
[2021-01-16] MEDS: ACIDOPHILUS/BULGARICUS CHEW TAB GT SCH ×3 (06:20→21:17)
[2021-01-16] MEDS: VITAL AF 1.2 1,000 ML LIQUID GT PRN (06:21)
[2021-01-16] MEDS: ZINC SULFATE 220 MG CAPSULE GT SCH (06:21)
[2021-01-16] MEDS: ASCORBIC ACID 500 MG TABLET GT SCH (06:21)
[2021-01-16] MEDS: MULTIVIT, IRON, MIN NO. 8, FA TABLET GT SCH (06:21)
[2021-01-16] MEDS: GUAIFENESIN SUGAR FREE 100 MG/5 ML UDC GT PRN ×3 (06:21→21:17)
[2021-01-16] MEDS: CHOLECALCIFEROL 1,000 UNIT TABLET GT SCH (06:21)
[2021-01-16] MEDS: IPRATROPIUM BROMIDE 0.5 MG/2.5 ML NEBU NEB SCH ×3 (07:27→23:30)
[2021-01-16] MEDS: HYDROGEN PEROXIDE 3% 118 ML BOTTLE TP SCH ×2 (07:27→19:12)
[2021-01-16 07:47] VITALS: BP 106/37
[2021-01-16] MEDS: CARVEDILOL 6.25 MG TABLET GT SCH ×2 (09:00→21:00)
[2021-01-16] MEDS: AMLODIPINE 5 MG TABLET GT SCH ×2 (09:00→21:00)
[2021-01-16] MEDS: LISINOPRIL 20 MG TABLET GT SCH ×2 (09:00→21:00)
[2021-01-16] MEDS ORDERED: COVID-19 VACC,MRNA(MODERNA)/PF 100 MCG/0.5 ML VIAL IM SCH (09:00)
[2021-01-16] MEDS: SPIRONOLACTONE 25 MG TABLET GT SCH (09:14)
[2021-01-16] MEDS: PAROXETINE HCL 10 MG TABLET GT SCH (09:16)
[2021-01-16] MEDS: METOCLOPRAMIDE HCL 5 MG TABLET GT SCH ×2 (09:17→21:16)
[2021-01-16] MEDS: Z GUARD REMEDY PASTE 57 GM TUBE TOP SCH ×2 (09:17→21:16)
[2021-01-16] MEDS: VITAMINS A AND D OINT TP SCH ×2 (09:17→21:16)
--- NOTE | 2021-01-16 12:05 | NUR ---
SW called patient's daughter Fanny, , and coordinated a 3-way call with Medicare in order for patient to speak with Medicare and provide verbal consent to Medicare for Fanny to coordinate patient's insurance information. Patient was able to provide verbal consent to Medicare housing management representative. Fanny to then speak with Medicare regarding patient's insurance and linked liability insurance. SW will remain available to patient and family to coordinate services.
--- NOTE | 2021-01-16 15:30 | NUR ---
ROMÁN received a call from patient's daughter Fanny, , who stated that after speaking with Medicare, Fanny was informed by Medicare that patient's existing liability insurance is not a hindrance for any Medicare claims that patient has. Fanny stated that Medicare informed Fanny that all claims would be recognized by Medicare, and that if any service provider has any questions regarding claims submission that they could contact the Benefits Coordination and Recovery Department at Medicare [phone].
[2021-01-16 20:20] VITALS: BP 106/41
[2021-01-16] MEDS: VITAMIN B COMPLEX 1 TABLET GT SCH (21:11)
[2021-01-16] MEDS: ATORVASTATIN 20 MG TABLET GT SCH (21:14)
[2021-01-16] MEDS: MELATONIN 3 MG TABLET GT PRN (21:17)
[2021-01-17] MEDS: VITAL AF 1.2 1,000 ML LIQUID GT PRN (04:14)
[2021-01-17] MEDS: CHOLECALCIFEROL 1,000 UNIT TABLET GT SCH (05:16)
[2021-01-17] MEDS: ASCORBIC ACID 500 MG TABLET GT SCH (05:16)
[2021-01-17] MEDS: ZINC SULFATE 220 MG CAPSULE GT SCH (05:16)
[2021-01-17] MEDS: ACIDOPHILUS/BULGARICUS CHEW TAB GT SCH ×3 (05:16→21:09)
[2021-01-17] MEDS: MULTIVIT, IRON, MIN NO. 8, FA TABLET GT SCH (05:16)
[2021-01-17] MEDS: OMEPRAZOLE 20 MG CAPSULE.DR GT SCH ×2 (05:16→18:00)
--- NOTE | 2021-01-17 06:06 | NUR ---
Patient is awake, connected to vent on AC mode at this time, denies any respiratory distress, 02 sat @ 98%, denies any discomfort at this time, with on and off dry cough, Robitussin given as ordered, needs anticipated, call light within reach, will continue monitor.
[2021-01-17] MEDS: IPRATROPIUM BROMIDE 0.5 MG/2.5 ML NEBU NEB SCH ×3 (07:14→23:21)
[2021-01-17 07:49] VITALS: BP 119/55
[2021-01-17] MEDS: HYDROGEN PEROXIDE 3% 118 ML BOTTLE TP SCH ×2 (09:00→21:00)
[2021-01-17] MEDS: SPIRONOLACTONE 25 MG TABLET GT SCH (09:00)
[2021-01-17] MEDS: CARVEDILOL 6.25 MG TABLET GT SCH ×2 (09:02→20:02)
[2021-01-17] MEDS: LISINOPRIL 20 MG TABLET GT SCH ×2 (09:03→20:03)
[2021-01-17] MEDS: PAROXETINE HCL 10 MG TABLET GT SCH (09:03)
[2021-01-17] MEDS: AMLODIPINE 5 MG TABLET GT SCH ×2 (09:03→20:02)
[2021-01-17] MEDS: Z GUARD REMEDY PASTE 57 GM TUBE TOP SCH ×2 (09:04→20:03)
[2021-01-17] MEDS: METOCLOPRAMIDE HCL 5 MG TABLET GT SCH ×2 (09:04→20:03)
[2021-01-17] MEDS: VITAMINS A AND D OINT TP SCH ×2 (09:04→20:03)
[2021-01-17] MEDS: GUAIFENESIN SUGAR FREE 100 MG/5 ML UDC GT PRN ×2 (09:26→21:10)
--- NOTE | 2021-01-17 10:21 | NUR ---
Initial podiatry consultation request faxed to Dr. Nj, fax [phone]; tel [phone]
--- NOTE | 2021-01-17 11:39 | NUR ---
SW attempted to contact Julio C at [facility], , to discuss patient's Medicare benefits, specifically to re-assess for a prosthesis for the patient. Ray was not available. SW to follow-up again.
[2021-01-17] MEDS: VITAMIN B COMPLEX 1 TABLET GT SCH (20:02)
[2021-01-17] MEDS: ATORVASTATIN 20 MG TABLET GT SCH (20:02)
[2021-01-17 20:13] VITALS: BP 130/61
[2021-01-17] MEDS: MELATONIN 3 MG TABLET GT PRN (21:09)
[2021-01-18] MEDS: VITAL AF 1.2 1,000 ML LIQUID GT PRN (04:32)
[2021-01-18] MEDS: GUAIFENESIN SUGAR FREE 100 MG/5 ML UDC GT PRN ×3 (04:32→18:22)
[2021-01-18] MEDS: ACIDOPHILUS/BULGARICUS CHEW TAB GT SCH ×3 (05:11→21:39)
[2021-01-18] MEDS: OMEPRAZOLE 20 MG CAPSULE.DR GT SCH ×2 (05:11→18:21)
[2021-01-18] MEDS: MULTIVIT, IRON, MIN NO. 8, FA TABLET GT SCH (05:11)
[2021-01-18] MEDS: ASCORBIC ACID 500 MG TABLET GT SCH (05:11)
[2021-01-18] MEDS: ZINC SULFATE 220 MG CAPSULE GT SCH (05:12)
[2021-01-18] MEDS: CHOLECALCIFEROL 1,000 UNIT TABLET GT SCH (05:12)
[2021-01-18] MEDS: IPRATROPIUM BROMIDE 0.5 MG/2.5 ML NEBU NEB SCH ×3 (07:26→22:40)
[2021-01-18 07:43] VITALS: BP 95/59
[2021-01-18] MEDS: PAROXETINE HCL 10 MG TABLET GT SCH (09:00)
[2021-01-18] MEDS: AMLODIPINE 5 MG TABLET GT SCH ×2 (09:00→21:39)
[2021-01-18] MEDS: CARVEDILOL 6.25 MG TABLET GT SCH ×2 (09:00→21:38)
[2021-01-18] MEDS: HYDROGEN PEROXIDE 3% 118 ML BOTTLE TP SCH ×2 (09:00→21:35)
[2021-01-18] MEDS: SPIRONOLACTONE 25 MG TABLET GT SCH (09:57)
[2021-01-18] MEDS: Z GUARD REMEDY PASTE 57 GM TUBE TOP SCH ×2 (10:00→21:39)
[2021-01-18] MEDS: METOCLOPRAMIDE HCL 5 MG TABLET GT SCH ×2 (10:00→21:39)
[2021-01-18] MEDS: VITAMINS A AND D OINT TP SCH ×2 (10:00→21:39)
[2021-01-18] MEDS: LISINOPRIL 20 MG TABLET GT SCH ×2 (10:00→21:39)
[2021-01-18 20:19] VITALS: BP 135/51
[2021-01-18] MEDS: VITAMIN B COMPLEX 1 TABLET GT SCH (21:38)
[2021-01-18] MEDS: ATORVASTATIN 20 MG TABLET GT SCH (21:38)
[2021-01-18] MEDS: MELATONIN 3 MG TABLET GT PRN (21:40)
[2021-01-19] MEDS: GUAIFENESIN SUGAR FREE 100 MG/5 ML UDC GT PRN ×4 (02:18→22:09)
[2021-01-19] MEDS: MULTIVIT, IRON, MIN NO. 8, FA TABLET GT SCH (05:35)
[2021-01-19] MEDS: ACIDOPHILUS/BULGARICUS CHEW TAB GT SCH ×3 (05:35→22:08)
[2021-01-19] MEDS: OMEPRAZOLE 20 MG CAPSULE.DR GT SCH ×2 (05:35→17:44)
[2021-01-19] MEDS: ASCORBIC ACID 500 MG TABLET GT SCH (05:36)
[2021-01-19] MEDS: CHOLECALCIFEROL 1,000 UNIT TABLET GT SCH (05:36)
[2021-01-19] MEDS: ZINC SULFATE 220 MG CAPSULE GT SCH (05:36)
[2021-01-19] MEDS: IPRATROPIUM BROMIDE 0.5 MG/2.5 ML NEBU NEB SCH ×3 (06:06→22:30)
[2021-01-19 07:48] VITALS: BP 103/43
[2021-01-19] MEDS: AMLODIPINE 5 MG TABLET GT SCH ×2 (09:00→21:00)
[2021-01-19] MEDS: CARVEDILOL 6.25 MG TABLET GT SCH ×2 (09:00→21:00)
[2021-01-19] MEDS: LISINOPRIL 20 MG TABLET GT SCH ×2 (09:00→21:00)
[2021-01-19] MEDS: PAROXETINE HCL 10 MG TABLET GT SCH (09:27)
[2021-01-19] MEDS: METOCLOPRAMIDE HCL 5 MG TABLET GT SCH ×2 (09:31→21:00)
[2021-01-19] MEDS: VITAMINS A AND D OINT TP SCH ×2 (09:31→21:00)
[2021-01-19] MEDS: SPIRONOLACTONE 25 MG TABLET GT SCH (09:31)
[2021-01-19] MEDS: Z GUARD REMEDY PASTE 57 GM TUBE TOP SCH ×2 (09:31→21:00)
[2021-01-19] MEDS: VITAL AF 1.2 1,000 ML LIQUID GT PRN (09:32)
[2021-01-19] MEDS: HYDROGEN PEROXIDE 3% 118 ML BOTTLE TP SCH ×2 (11:25→21:37)
--- NOTE | 2021-01-19 14:57 | NUR ---
Seen by Pamela Vela with new orders carried out, (speech eval, right elbow xrary, B+B training, increased Robitussin to q4hrs), patient aware of new orders and in agreement.
[2021-01-19 20:22] VITALS: BP 120/69
[2021-01-19] MEDS: ATORVASTATIN 20 MG TABLET GT SCH (21:00)
[2021-01-19] MEDS: VITAMIN B COMPLEX 1 TABLET GT SCH (21:00)
[2021-01-19] MEDS: MELATONIN 3 MG TABLET GT PRN (22:09)
[2021-01-20] MEDS: OMEPRAZOLE 20 MG CAPSULE.DR GT SCH ×2 (06:19→18:34)
[2021-01-20] MEDS: MULTIVIT, IRON, MIN NO. 8, FA TABLET GT SCH (06:19)
[2021-01-20] MEDS: GUAIFENESIN SUGAR FREE 100 MG/5 ML UDC GT PRN ×4 (06:19→23:01)
[2021-01-20] MEDS: ZINC SULFATE 220 MG CAPSULE GT SCH (06:19)
[2021-01-20] MEDS: ACIDOPHILUS/BULGARICUS CHEW TAB GT SCH ×3 (06:19→22:01)
[2021-01-20] MEDS: CHOLECALCIFEROL 1,000 UNIT TABLET GT SCH (06:19)
[2021-01-20] MEDS: ASCORBIC ACID 500 MG TABLET GT SCH (06:19)
[2021-01-20] MEDS: HYDROGEN PEROXIDE 3% 118 ML BOTTLE TP SCH ×2 (07:12→21:03)
[2021-01-20] MEDS: IPRATROPIUM BROMIDE 0.5 MG/2.5 ML NEBU NEB SCH ×3 (07:12→22:40)
[2021-01-20] MEDS: VITAL AF 1.2 1,000 ML LIQUID GT PRN (07:22)
[2021-01-20 07:46] VITALS: BP 119/53
[2021-01-20] MEDS: SPIRONOLACTONE 25 MG TABLET GT SCH (09:24)
[2021-01-20] MEDS: CARVEDILOL 6.25 MG TABLET GT SCH ×2 (09:26→21:00)
[2021-01-20] MEDS: AMLODIPINE 5 MG TABLET GT SCH ×2 (09:26→21:00)
[2021-01-20] MEDS: LISINOPRIL 20 MG TABLET GT SCH ×2 (09:27→21:00)
[2021-01-20] MEDS: VITAMINS A AND D OINT TP SCH ×2 (09:27→21:00)
[2021-01-20] MEDS: PAROXETINE HCL 10 MG TABLET GT SCH (09:27)
[2021-01-20] MEDS: METOCLOPRAMIDE HCL 5 MG TABLET GT SCH ×2 (09:27→21:00)
[2021-01-20] MEDS: Z GUARD REMEDY PASTE 57 GM TUBE TOP SCH ×2 (09:27→21:00)
--- NOTE | 2021-01-20 11:41 | NUR ---
ROMÁN called Julio C at [facility], , to discuss patient's Medicare benefits, specifically to re-assess for a prosthesis for the patient. ROMÁN was able to connect with Julio C. ROMÁN informed Julio C what Medicare had informed patient's daughter of. Julio C stated that he will follow-up with their claims department.
--- NOTE | 2021-01-20 15:48 | NUR ---
ROMÁN followed up with patient's Maribel, via email, regarding the admission paperwork that ROMÁN had mailed to Maribel on 01/02 (see SS note). ROMÁN asked Maribel to let this SW know when SW could expect to receive the forms back from Maribel. ROMÁN will follow-up again, as needed.
--- NOTE | 2021-01-20 15:49 | NUR ---
ROMÁN received an update from Julio C at [facility], stating that their claims department once again verified patient's insurance for eligibility, and that patient was authorized to receive the services requested. ROMÁN to submit patient referral form to Julio C.
--- NOTE | 2021-01-20 17:03 | NUR ---
Started on B+B training, able to call for bedpan, seen by Speech therapy this am, per ST will re-evaluate again next week, tolerating weaning well, new orders given by Dr. Bhatt to continue weaning with cool aerosol Fio2 at 28% in am, abg in 2 hrs.
[2021-01-20] MEDS: MIRALAX 17 GM POWD.PACK GT PRN (18:00)
[2021-01-20 20:04] VITALS: BP 115/52
[2021-01-20] MEDS: ATORVASTATIN 20 MG TABLET GT SCH (21:00)
[2021-01-20] MEDS: VITAMIN B COMPLEX 1 TABLET GT SCH (21:00)
[2021-01-20] MEDS: MELATONIN 3 MG TABLET GT PRN (23:00)
[2021-01-21] MEDS: MULTIVIT, IRON, MIN NO. 8, FA TABLET GT SCH (06:12)
[2021-01-21] MEDS: ASCORBIC ACID 500 MG TABLET GT SCH (06:12)
[2021-01-21] MEDS: CHOLECALCIFEROL 1,000 UNIT TABLET GT SCH (06:12)
[2021-01-21] MEDS: ZINC SULFATE 220 MG CAPSULE GT SCH (06:12)
[2021-01-21] MEDS: ACIDOPHILUS/BULGARICUS CHEW TAB GT SCH ×3 (06:12→21:12)
[2021-01-21] MEDS: OMEPRAZOLE 20 MG CAPSULE.DR GT SCH ×2 (06:12→17:18)
[2021-01-21] MEDS: VITAL AF 1.2 1,000 ML LIQUID GT PRN (06:19)
[2021-01-21] MEDS: IPRATROPIUM BROMIDE 0.5 MG/2.5 ML NEBU NEB SCH ×3 (07:14→23:24)
[2021-01-21 07:22] VITALS: BP 119/56
[2021-01-21] MEDS: SPIRONOLACTONE 25 MG TABLET GT SCH (08:51)
[2021-01-21] MEDS: CARVEDILOL 6.25 MG TABLET GT SCH ×2 (08:53→21:10)
[2021-01-21] MEDS: AMLODIPINE 5 MG TABLET GT SCH ×2 (08:53→21:11)
[2021-01-21] MEDS: PAROXETINE HCL 10 MG TABLET GT SCH (08:53)
[2021-01-21] MEDS: VITAMINS A AND D OINT TP SCH ×2 (08:54→21:12)
[2021-01-21] MEDS: METOCLOPRAMIDE HCL 5 MG TABLET GT SCH ×2 (08:54→21:12)
[2021-01-21] MEDS: LISINOPRIL 20 MG TABLET GT SCH ×2 (08:54→21:11)
[2021-01-21] MEDS: Z GUARD REMEDY PASTE 57 GM TUBE TOP SCH ×2 (08:54→21:12)
[2021-01-21] MEDS: HYDROGEN PEROXIDE 3% 118 ML BOTTLE TP SCH ×2 (08:58→21:57)
[2021-01-21] MEDS: GUAIFENESIN SUGAR FREE 100 MG/5 ML UDC GT PRN ×3 (09:05→22:00)
[2021-01-21 11:07] LABS: ABG BASE EXCESS 3.6 mmol/L; ABG HCO3 28.4 mmol/L; ABG PCO2 44.4 mmHg (35.0-45.0); ABG PH 7.424 (7.350-7.450); ABG PO2 85.8 mmHg (75.0-100.0); ABG SITE RIGHT RADIAL; ABG TOTAL HEMOGLOBIN 9.1 G/dL (12.0-16.0); COHb 1.2 % (0.5-1.5); MetHb 0.2 % (0.0-1.5); O2Hb 95.3 % (94.0-97.0)
--- NOTE | 2021-01-21 11:36 | NUR ---
Alert and oriented x4, continue with B+B training, able to call for bedpan, tolerating weaning well, on cool aerosol fio2 28%, abg done after 2 hrs of been on cool aerosol, Abg result reported to Dr. Bhatt, no acute respiratory distress noted, o2sat 95-96% will continue weaning on cool aerosol as tolerated, PT/OT services provided. Covid19 vaccine offered, per daughter Fanny, wants to wait for the vaccine to be administered, since patient is on weaning trials, patient is off the vent and tolerating been on cool aerosol.
--- NOTE | 2021-01-21 14:31 | NUR ---
ROMÁN faxed prosthetis order to Ray at [facility] (fax # [phone]; tel # [phone]). ROMÁN also included patient's face sheet, H & P, and the patient referral form in this fax.
[2021-01-21 20:09] VITALS: BP 115/45
[2021-01-21] MEDS: VITAMIN B COMPLEX 1 TABLET GT SCH (21:07)
[2021-01-21] MEDS: ATORVASTATIN 20 MG TABLET GT SCH (21:11)
[2021-01-21] MEDS: MELATONIN 3 MG TABLET GT PRN (21:13)
[2021-01-22] MEDS: GUAIFENESIN SUGAR FREE 100 MG/5 ML UDC GT PRN ×5 (04:38→22:00)
[2021-01-22] MEDS: VITAL AF 1.2 1,000 ML LIQUID GT PRN (05:00)
--- NOTE | 2021-01-22 05:32 | NUR ---
continues on bowel and bladder training, voided moderate amount, continues on p-mist 28%, no respiratory distress noted, slept on long hours.call light within reach.
[2021-01-22] MEDS: ACIDOPHILUS/BULGARICUS CHEW TAB GT SCH ×3 (06:05→21:09)
[2021-01-22] MEDS: OMEPRAZOLE 20 MG CAPSULE.DR GT SCH ×2 (06:05→17:30)
[2021-01-22] MEDS: ASCORBIC ACID 500 MG TABLET GT SCH (06:05)
[2021-01-22] MEDS: MULTIVIT, IRON, MIN NO. 8, FA TABLET GT SCH (06:05)
[2021-01-22] MEDS: ZINC SULFATE 220 MG CAPSULE GT SCH (06:05)
[2021-01-22] MEDS: CHOLECALCIFEROL 1,000 UNIT TABLET GT SCH (06:05)
[2021-01-22 07:25] VITALS: BP 112/58
[2021-01-22] MEDS: HYDROGEN PEROXIDE 3% 118 ML BOTTLE TP SCH ×2 (07:25→18:54)
[2021-01-22] MEDS: IPRATROPIUM BROMIDE 0.5 MG/2.5 ML NEBU NEB SCH ×3 (07:25→22:35)
[2021-01-22] MEDS: SPIRONOLACTONE 25 MG TABLET GT SCH (08:58)
[2021-01-22] MEDS: CARVEDILOL 6.25 MG TABLET GT SCH ×2 (08:59→20:46)
[2021-01-22] MEDS: METOCLOPRAMIDE HCL 5 MG TABLET GT SCH ×2 (09:00→20:48)
[2021-01-22] MEDS: Z GUARD REMEDY PASTE 57 GM TUBE TOP SCH ×2 (09:00→20:48)
[2021-01-22] MEDS: AMLODIPINE 5 MG TABLET GT SCH ×2 (09:00→20:48)
[2021-01-22] MEDS: LISINOPRIL 20 MG TABLET GT SCH ×2 (09:00→20:48)
[2021-01-22] MEDS: VITAMINS A AND D OINT TP SCH ×2 (09:00→20:48)
[2021-01-22] MEDS: PAROXETINE HCL 10 MG TABLET GT SCH (09:00)
--- NOTE | 2021-01-22 10:38 | NUR ---
PATIENT ALERT AND ORIENTED X4, ABLE TO COMMUNICATE NEEDS, SATURATION 99-100% ON P-MIST AT 28%. NO SOB NOTED AT THIS TIME.
[2021-01-22 20:20] VITALS: BP 127/58
[2021-01-22] MEDS: VITAMIN B COMPLEX 1 TABLET GT SCH (20:43)
[2021-01-22] MEDS: ATORVASTATIN 20 MG TABLET GT SCH (20:47)
[2021-01-22] MEDS: MELATONIN 3 MG TABLET GT PRN (21:09)
[2021-01-23] MEDS: OMEPRAZOLE 20 MG CAPSULE.DR GT SCH ×2 (05:36→17:01)
[2021-01-23] MEDS: MULTIVIT, IRON, MIN NO. 8, FA TABLET GT SCH (05:37)
[2021-01-23] MEDS: ASCORBIC ACID 500 MG TABLET GT SCH (05:38)
[2021-01-23] MEDS: CHOLECALCIFEROL 1,000 UNIT TABLET GT SCH (05:38)
[2021-01-23] MEDS: ZINC SULFATE 220 MG CAPSULE GT SCH (05:39)
[2021-01-23] MEDS: ACIDOPHILUS/BULGARICUS CHEW TAB GT SCH ×3 (05:40→21:05)
[2021-01-23] MEDS: VITAL AF 1.2 1,000 ML LIQUID GT PRN (05:41)
[2021-01-23] MEDS: GUAIFENESIN SUGAR FREE 100 MG/5 ML UDC GT PRN ×3 (06:00→21:30)
--- NOTE | 2021-01-23 06:02 | NUR ---
continue on bowel and bladder training, able to ask for bedpan, call light within reach, on p-mist 28%, no respiratory distress noted, slept on long hours.
[2021-01-23] MEDS: IPRATROPIUM BROMIDE 0.5 MG/2.5 ML NEBU NEB SCH ×3 (07:20→23:05)
[2021-01-23 07:56] VITALS: BP 120/53
[2021-01-23] MEDS: CARVEDILOL 6.25 MG TABLET GT SCH ×2 (08:28→20:56)
[2021-01-23] MEDS: AMLODIPINE 5 MG TABLET GT SCH ×2 (08:29→20:59)
[2021-01-23] MEDS: PAROXETINE HCL 10 MG TABLET GT SCH (08:29)
[2021-01-23] MEDS: SPIRONOLACTONE 25 MG TABLET GT SCH (08:29)
[2021-01-23] MEDS: METOCLOPRAMIDE HCL 5 MG TABLET GT SCH ×2 (08:29→21:02)
[2021-01-23] MEDS: Z GUARD REMEDY PASTE 57 GM TUBE TOP SCH ×2 (08:30→21:02)
[2021-01-23] MEDS: VITAMINS A AND D OINT TP SCH ×2 (08:30→21:02)
[2021-01-23] MEDS: LISINOPRIL 20 MG TABLET GT SCH ×2 (08:30→21:01)
[2021-01-23] MEDS: HYDROGEN PEROXIDE 3% 118 ML BOTTLE TP SCH ×2 (09:15→21:25)
--- NOTE | 2021-01-23 09:42 | NUR ---
PT. WAS ABLE TO USE CALL LIGHT ON TIME AND USE BEDPAN TOTALLY CONTINENT OF BOWEL AND BLADDER AT THIS TIME WITH LARGE URINE AMOUNT AND LARGE PASTY STOOL ,GOOD PERINEAL CARE DONE AND CALL LIGHT ON REACH.
--- NOTE | 2021-01-23 09:53 | NUR ---
ROMÁN received a voicemail message from Marcelle at [facility], , in response to the patient referral this SW sent on 01/21. ROMÁN called Marcelle back, who wanted to verify patient's address and length of stay. SW provided requested information. Marcelle informed this SW that Marcelle would be forwarding patient's referral to scheduling, who would then call this SW to coordinate a date/time to visit patient for an evaluation. ROÁMN expressed agreement.
--- NOTE | 2021-01-23 10:39 | NUR ---
PT. REMAINS ON P. MIST VIA TRACH MASK AND WITH NO S/S OF ACUTE RESP. DISTRESS,NO SOB ,NO DESATURATION ,NO C/O ANY DISCOMFORT ,ABLE TO VERBALIZE NEEDS.
--- NOTE | 2021-01-23 16:57 | NUR ---
COVID-19 TEST FROM 01/20/2021 RESULTED NEGATIVE. RESPONSIBLE GREEN PARTY REQUESTED NOT TO CALL UNLESS WITH A POSITIVE RESULT, HENCE THAT WAS HONORED.
--- NOTE | 2021-01-23 18:49 | NUR ---
PT. USED CALL LIGHT TO REQUEST BED GALAN AND ABLE TO URINATE AND NOTED CONTINENT AT ALL TIMES.
[2021-01-23 20:25] VITALS: BP 117/56
[2021-01-23] MEDS: VITAMIN B COMPLEX 1 TABLET GT SCH (20:55)
[2021-01-23] MEDS: ATORVASTATIN 20 MG TABLET GT SCH (20:58)
[2021-01-23] MEDS: MELATONIN 3 MG TABLET GT PRN (21:06)
[2021-01-24] MEDS: OMEPRAZOLE 20 MG CAPSULE.DR GT SCH ×2 (05:24→17:57)
[2021-01-24] MEDS: ACIDOPHILUS/BULGARICUS CHEW TAB GT SCH ×3 (05:24→21:18)
[2021-01-24] MEDS: MULTIVIT, IRON, MIN NO. 8, FA TABLET GT SCH (05:25)
[2021-01-24] MEDS: ASCORBIC ACID 500 MG TABLET GT SCH (05:25)
[2021-01-24] MEDS: CHOLECALCIFEROL 1,000 UNIT TABLET GT SCH (05:26)
[2021-01-24] MEDS: ZINC SULFATE 220 MG CAPSULE GT SCH (05:27)
--- NOTE | 2021-01-24 05:36 | NUR ---
continue on bowel and bladder training, used bedpan, call light within reach, continue on p-mist, no respiratory distress noted,slept on long hours.
[2021-01-24] MEDS: VITAL AF 1.2 1,000 ML LIQUID GT PRN (06:06)
[2021-01-24] MEDS: IPRATROPIUM BROMIDE 0.5 MG/2.5 ML NEBU NEB SCH ×3 (07:23→22:41)
[2021-01-24 08:01] VITALS: BP 134/52
--- NOTE | 2021-01-24 08:37 | NUR ---
PT. WAS ABLE TO USE CALL LIGHT AND REQUESTED BED GALAN AND NOTED CONTINENT AND ABLE TO VOID LARGE AMOUNT OF URINE ,GOOD PERINEAL CARE DONE.
--- NOTE | 2021-01-24 08:40 | NUR ---
PT. TOLERATING P. MIST AND NO S/S OF ACUTE RESP. DISTRESS ,NO C/O ANY DISCOMFORT.
[2021-01-24] MEDS: SPIRONOLACTONE 25 MG TABLET GT SCH (08:45)
[2021-01-24] MEDS: CARVEDILOL 6.25 MG TABLET GT SCH ×2 (08:46→20:34)
[2021-01-24] MEDS: PAROXETINE HCL 10 MG TABLET GT SCH (08:47)
[2021-01-24] MEDS: LISINOPRIL 20 MG TABLET GT SCH ×2 (08:47→20:34)
[2021-01-24] MEDS: AMLODIPINE 5 MG TABLET GT SCH ×2 (08:47→20:34)
[2021-01-24] MEDS: Z GUARD REMEDY PASTE 57 GM TUBE TOP SCH ×2 (08:48→20:34)
[2021-01-24] MEDS: METOCLOPRAMIDE HCL 5 MG TABLET GT SCH (08:48)
[2021-01-24] MEDS: VITAMINS A AND D OINT TP SCH ×2 (08:48→20:34)
--- NOTE | 2021-01-24 09:15 | NUR ---
SW notified patient's Maribel and daughter Fanny, via email, that the next IDT meeting for the patient is scheduled for January 28. SW asked them both to let this SW know if either one of them would like to participate in the meeting via speaker phone.
[2021-01-24] MEDS: HYDROGEN PEROXIDE 3% 118 ML BOTTLE TP SCH ×2 (09:38→21:31)
--- NOTE | 2021-01-24 11:05 | NUR ---
PT. SEEN AND EXAMINED BY MARY GEORGE AND WITH NEW ORDER TO D/C AC SETTING ON VENT.PT. TOLERATING P. MIST ORDERED AND ALSO TOLERATED PHYSICAL THERAPY (SEE PT. NOTES).NO S/S OF ACUTE DISTRESS ,NO SOB,NO C/O ANY DISCOMFORT.
--- NOTE | 2021-01-24 12:02 | NUR ---
ROMÁN received an email back from patient's daughter Fanny, in response to this SW's email earlier today, notifying Fanny about the IDT meeting for January 28. Fanny stated that she would be available to participate. SW to call Fanny during the meeting, to include her by speaker phone.
--- NOTE | 2021-01-24 12:11 | NUR ---
ROMÁN received a call from Louisa at [facility], scheduling department, . Louisa stated that patient is scheduled for a prothesis evaluation on Saturday 01/27 between the hours of 10am-12pm. ROMÁN expressed agreement. ROMÁN notified Jose in rehab, along with sack cleaner Liset.
--- NOTE | 2021-01-24 12:18 | NUR ---
ROMÁN met with patient and patient's (he was visiting the patient), and informed them both of the prosthesis evaluation appointment scheduled for Saturday 01/27. Both were in agreement. ROMÁN also notified patient's daughter Fanny, via email, about the appointment.
[2021-01-24] MEDS: GUAIFENESIN SUGAR FREE 100 MG/5 ML UDC GT PRN ×2 (12:49→21:18)
--- NOTE | 2021-01-24 14:25 | NUR ---
ROMÁN received the admission paperwork back from patient's Ardi. The paperwork was completed and signed by Erum and it included: Conditions of Admission, Patient Rights Acknowledgement, An Important Message from Medicare about your Rights, Documentation of Preferred Intensity of Care, Voluntary Prior Express Consent Form, Race and Ethnicity Patient Self-Identification, and the [facility] Agreement. A copy of the patient's Bill of Rights were provided to patient's when this SW mailed the admission paperwork to Maribel for completion and signature.
--- NOTE | 2021-01-24 14:46 | NUR ---
DR. MONTES DE OCA WAS NOTIFIED RE:WT.LOSS (SEE RECORD) AND WITH NEW ORDERS CARRIED OUT(DIURETIC SPIRONOLACTONE D/C) AND WITH LATEST ORDER FOR COVID 19 VACCINE MODERNA TO BE GIVEN NEXT WEEK ,PT. IN AGREEMENT AND PT'S DTR. MARILYN NOTIFIED TOO PER PT'S REQUEST AND ALSO IN AGREEMENT, AND NNAMDI DEL CID AWARE TOO AND ACCORDING TO HIM WILL BE AVAILABLE NEXT WEEK , MOSTLY WEDNESDAY.
--- NOTE | 2021-01-24 16:06 | NUR ---
PT. SIGNED CONSENT QUESTIONNAIRE FOR COVID 19 FOR MODERNA COVID 19 VACCINE FOR NEXT WEEK.
[2021-01-24 20:33] VITALS: BP 123/61
[2021-01-24] MEDS: VITAMIN B COMPLEX 1 TABLET GT SCH (20:33)
[2021-01-24] MEDS: ATORVASTATIN 20 MG TABLET GT SCH (20:34)
[2021-01-24] MEDS: MELATONIN 3 MG TABLET GT PRN (21:18)
--- NOTE | 2021-01-24 22:24 | NUR ---
Patient is alert and oriented, tolerating t-piece on cool aerosol, 02 sat at 98%, patient denies any SOB or any respiratory distress noted, needs anticipated, will continue monitor.
[2021-01-25] MEDS: VITAL AF 1.2 1,000 ML LIQUID GT PRN (01:25)
[2021-01-25] MEDS: ASCORBIC ACID 500 MG TABLET GT SCH (05:31)
[2021-01-25] MEDS: GUAIFENESIN SUGAR FREE 100 MG/5 ML UDC GT PRN ×2 (05:31→21:21)
[2021-01-25] MEDS: CHOLECALCIFEROL 1,000 UNIT TABLET GT SCH (05:31)
[2021-01-25] MEDS: OMEPRAZOLE 20 MG CAPSULE.DR GT SCH ×2 (05:31→18:49)
[2021-01-25] MEDS: ZINC SULFATE 220 MG CAPSULE GT SCH (05:31)
[2021-01-25] MEDS: ACIDOPHILUS/BULGARICUS CHEW TAB GT SCH ×3 (05:31→21:21)
[2021-01-25] MEDS: MULTIVIT, IRON, MIN NO. 8, FA TABLET GT SCH (05:31)
[2021-01-25] MEDS: IPRATROPIUM BROMIDE 0.5 MG/2.5 ML NEBU NEB SCH ×3 (07:14→16:16)
[2021-01-25 07:38] VITALS: BP 112/50
[2021-01-25] MEDS: HYDROGEN PEROXIDE 3% 118 ML BOTTLE TP SCH ×2 (09:00→19:01)
[2021-01-25] MEDS: CARVEDILOL 6.25 MG TABLET GT SCH ×2 (09:18→20:40)
[2021-01-25] MEDS: AMLODIPINE 5 MG TABLET GT SCH ×2 (09:18→20:40)
[2021-01-25] MEDS: PAROXETINE HCL 10 MG TABLET GT SCH (09:21)
[2021-01-25] MEDS: LISINOPRIL 20 MG TABLET GT SCH ×2 (09:21→20:40)
[2021-01-25] MEDS: Z GUARD REMEDY PASTE 57 GM TUBE TOP SCH ×2 (09:22→20:40)
[2021-01-25] MEDS: VITAMINS A AND D OINT TP SCH ×2 (09:22→20:40)
--- NOTE | 2021-01-25 19:45 | NUR ---
PT. WAS CONTINENT OF BLADDER ABLE TO USE BEDPAN ,ABLE TO USE CALL LIGHT.NO S/S OF ACUTE RESP. DISTRESS TOLERATING P. MIST. OK.
[2021-01-25 20:24] VITALS: BP 107/55
--- NOTE | 2021-01-25 20:26 | NUR ---
Patient is alert and responsive, trach is intact and patent, on T- piece with cool aerosol, tolerating well, denies any respiratory distress, 02 sat @ 99%, patient is also continent of B & B, needs anticipated, call light within reach, will closely monitor.
[2021-01-25] MEDS: VITAMIN B COMPLEX 1 TABLET GT SCH (20:39)
[2021-01-25] MEDS: ATORVASTATIN 20 MG TABLET GT SCH (20:40)
[2021-01-25] MEDS: MIRALAX 17 GM POWD.PACK GT PRN (20:49)
[2021-01-25] MEDS: MELATONIN 3 MG TABLET GT PRN (21:21)
[2021-01-26] MEDS: VITAL AF 1.2 1,000 ML LIQUID GT PRN (01:29)
[2021-01-26] MEDS: ASCORBIC ACID 500 MG TABLET GT SCH (05:33)
[2021-01-26] MEDS: ACIDOPHILUS/BULGARICUS CHEW TAB GT SCH ×3 (05:33→21:30)
[2021-01-26] MEDS: OMEPRAZOLE 20 MG CAPSULE.DR GT SCH ×2 (05:33→18:02)
[2021-01-26] MEDS: GUAIFENESIN SUGAR FREE 100 MG/5 ML UDC GT PRN ×3 (05:33→21:30)
[2021-01-26] MEDS: CHOLECALCIFEROL 1,000 UNIT TABLET GT SCH (05:33)
[2021-01-26] MEDS: ZINC SULFATE 220 MG CAPSULE GT SCH (05:33)
[2021-01-26] MEDS: MULTIVIT, IRON, MIN NO. 8, FA TABLET GT SCH (05:33)
[2021-01-26 07:37] VITALS: BP 103/42
[2021-01-26] MEDS: CARVEDILOL 6.25 MG TABLET GT SCH ×2 (09:25→20:48)
[2021-01-26] MEDS: AMLODIPINE 5 MG TABLET GT SCH ×2 (09:26→20:48)
[2021-01-26] MEDS: LISINOPRIL 20 MG TABLET GT SCH ×2 (09:26→20:48)
[2021-01-26] MEDS: VITAMINS A AND D OINT TP SCH ×2 (09:26→20:48)
[2021-01-26] MEDS: PAROXETINE HCL 10 MG TABLET GT SCH (09:26)
[2021-01-26] MEDS: Z GUARD REMEDY PASTE 57 GM TUBE TOP SCH ×2 (09:26→20:48)
[2021-01-26] MEDS: HYDROGEN PEROXIDE 3% 118 ML BOTTLE TP SCH ×2 (09:52→21:11)
--- NOTE | 2021-01-26 16:29 | NUR ---
PT. IN AGREEMENT WITH WEEKLY COVID 19 TEST TOMORROW PER [facility] REQUIREMENT
[2021-01-26 20:20] VITALS: BP 116/48
[2021-01-26] MEDS: VITAMIN B COMPLEX 1 TABLET GT SCH (20:48)
[2021-01-26] MEDS: ATORVASTATIN 20 MG TABLET GT SCH (20:48)
--- NOTE | 2021-01-26 21:21 | NUR ---
Patient is alert and oriented, tolerating T-piece, no respiratory distress noted. Denies any discomfort, needs attended, call light within reach.
[2021-01-26] MEDS: MELATONIN 3 MG TABLET GT PRN (21:30)
[2021-01-26] MEDS: IPRATROPIUM BROMIDE 0.5 MG/2.5 ML NEBU NEB SCH (23:26)
[2021-01-27] MEDS: VITAL AF 1.2 1,000 ML LIQUID GT PRN (00:37)
[2021-01-27] MEDS: CHOLECALCIFEROL 1,000 UNIT TABLET GT SCH (05:46)
[2021-01-27] MEDS: OMEPRAZOLE 20 MG CAPSULE.DR GT SCH ×2 (05:46→18:04)
[2021-01-27] MEDS: MULTIVIT, IRON, MIN NO. 8, FA TABLET GT SCH (05:46)
[2021-01-27] MEDS: ASCORBIC ACID 500 MG TABLET GT SCH (05:46)
[2021-01-27] MEDS: GUAIFENESIN SUGAR FREE 100 MG/5 ML UDC GT PRN ×3 (05:46→18:16)
[2021-01-27] MEDS: ZINC SULFATE 220 MG CAPSULE GT SCH (05:46)
[2021-01-27] MEDS: ACIDOPHILUS/BULGARICUS CHEW TAB GT SCH ×3 (05:46→21:52)
[2021-01-27 06:00] VITALS: BP 110/52
--- NOTE | 2021-01-27 06:00 | NUR ---
Patient had and episode of vomiting X 1, denies feeling sick, Patient stated, " It just happened.", feeding on hold at this time, HOB elevated and on aspiration precaution. Needs attended and will continue monitoring.
[2021-01-27] MEDS: IPRATROPIUM BROMIDE 0.5 MG/2.5 ML NEBU NEB SCH ×3 (07:21→22:50)
[2021-01-27 07:28] VITALS: BP 116/45
[2021-01-27] MEDS: HYDROGEN PEROXIDE 3% 118 ML BOTTLE TP SCH ×2 (09:00→21:47)
--- NOTE | 2021-01-27 09:30 | NUR ---
COVID 19 TEST DONE.
[2021-01-27] MEDS: CARVEDILOL 6.25 MG TABLET GT SCH ×2 (09:38→21:00)
[2021-01-27] MEDS: AMLODIPINE 5 MG TABLET GT SCH ×2 (09:39→21:00)
[2021-01-27] MEDS: PAROXETINE HCL 10 MG TABLET GT SCH (09:41)
[2021-01-27] MEDS: LISINOPRIL 20 MG TABLET GT SCH ×2 (09:42→21:00)
[2021-01-27] MEDS: Z GUARD REMEDY PASTE 57 GM TUBE TOP SCH ×2 (09:42→21:51)
[2021-01-27] MEDS: VITAMINS A AND D OINT TP SCH ×2 (09:42→21:51)
--- NOTE | 2021-01-27 10:00 | NUR ---
SEEN BY MARY GEORGE N.P. AND WITH NNO.
--- NOTE | 2021-01-27 11:41 | NUR ---
DR. MARCELINO WAS CALLED AND MESSAGE LEFT RE:PT'S REQUEST TO RE EVAL B/P MEDS AND PAXIL AND HER WISH TO BE UP IN [facility] ASSISTED BY NURSING AND PER PHYSICAL THERAPY ITS OK TO GET HER UP IN [facility] WITH 2 NURSES.
--- NOTE | 2021-01-27 11:45 | NUR ---
MODERNA VACCINE WAS GIVEN BY MR. KRIS VARNER AT THIS TIME ON RT. ARM AND NOTED NO A/R AT THIS TIME.WILL CONT.TO MONITOR.
[2021-01-27] MEDS ORDERED: COVID-19 VACC,MRNA(MODERNA)/PF 100 MCG/0.5 ML VIAL IM SCH (12:00)
--- NOTE | 2021-01-27 12:00 | NUR ---
DR. MONTES DE OCA CALLED BACK AND WITH NEW ORDERS CARRIED OUT AND HE STATED THAT HE WILL REVIEW PT'S MEDS TODAY AND PT. AWARE AND IN AGREEMENT.
--- NOTE | 2021-01-27 13:50 | NUR ---
ROMÁN was notified by Julio C at [facility] that there was a misunderstanding and that they are only able to provide lower extremity prosthetics and not upper extremity, which is what the patient's need is. Appointment cancelled. ROMÁN to follow-up with another prosthetic agency.
--- NOTE | 2021-01-27 18:13 | NUR ---
Pt S/P Covid-19 Vaccine. Pt stated she has sore arm and slight head ache at this time but refused any pain medication at this time. Afebrile. No adverse side effects or changes in condition noted at this time. Will continue to monitor.
[2021-01-27 20:00] VITALS: BP 105/55
[2021-01-27] MEDS: VITAMIN B COMPLEX 1 TABLET GT SCH (21:47)
[2021-01-27] MEDS: ATORVASTATIN 20 MG TABLET GT SCH (21:48)
[2021-01-27] MEDS: MELATONIN 3 MG TABLET GT PRN (21:54)
[2021-01-28] MEDS: MULTIVIT, IRON, MIN NO. 8, FA TABLET GT SCH (05:28)
[2021-01-28] MEDS: OMEPRAZOLE 20 MG CAPSULE.DR GT SCH ×2 (05:28→17:26)
[2021-01-28] MEDS: ACIDOPHILUS/BULGARICUS CHEW TAB GT SCH ×3 (05:28→21:14)
[2021-01-28] MEDS: ASCORBIC ACID 500 MG TABLET GT SCH (05:28)
[2021-01-28] MEDS: CHOLECALCIFEROL 1,000 UNIT TABLET GT SCH (05:29)
[2021-01-28] MEDS: ZINC SULFATE 220 MG CAPSULE GT SCH (05:29)
[2021-01-28] MEDS: GUAIFENESIN SUGAR FREE 100 MG/5 ML UDC GT PRN ×4 (05:36→17:26)
[2021-01-28] MEDS: VITAL AF 1.2 1,000 ML LIQUID GT PRN (05:43)
[2021-01-28 07:28] VITALS: BP 118/45
[2021-01-28] MEDS: HYDROGEN PEROXIDE 3% 118 ML BOTTLE TP SCH ×2 (07:35→21:25)
[2021-01-28] MEDS: IPRATROPIUM BROMIDE 0.5 MG/2.5 ML NEBU NEB SCH ×3 (07:35→22:50)
--- NOTE | 2021-01-28 08:21 | NUR ---
PT. WAS EVALUATED BY SPEECH THERAPIST EZIO AND SHE STATED THAT SHE WILL SEE PT. TWO TIMES PER WEMARY.
[2021-01-28] MEDS: CARVEDILOL 6.25 MG TABLET GT SCH ×2 (09:04→21:13)
[2021-01-28] MEDS: PAROXETINE HCL 10 MG TABLET GT SCH (09:05)
[2021-01-28] MEDS: AMLODIPINE 5 MG TABLET GT SCH ×2 (09:05→21:13)
[2021-01-28] MEDS: Z GUARD REMEDY PASTE 57 GM TUBE TOP SCH ×2 (09:06→21:14)
[2021-01-28] MEDS: LISINOPRIL 20 MG TABLET GT SCH ×2 (09:06→21:12)
[2021-01-28] MEDS: VITAMINS A AND D OINT TP SCH ×2 (09:06→21:14)
--- NOTE | 2021-01-28 10:00 | NUR ---
Seen by PT, done exercises only, patient feeling sore on the Covid 19 vaccine site
--- NOTE | 2021-01-28 13:00 | NUR ---
NEW ORDER CARRIED OUT FOR PT SERVICES CONTINUATION.
--- NOTE | 2021-01-28 14:41 | NUR ---
INTERDISCIPLINARY PLAN OF CARE CONFERENCE was held today. Patient's Mr. López participated in the meeting today by speaker phone; patient's daughter Fanny was not available. Dr. Leblanc and the Interdisciplinary Team reviewed the current plan of care in detail. RN reported on patient's medical condition, changes in some medications, and about physician's plans to review current medications for possible adjustments. See RN IDT conference notes. PT and OT discussed patient's therapy treatment plan and ongoing progress. ST discussed outcome of most recent evaluations, therapy 2 x week, and recommendations for a video swallow study for the patient. Pharmacy discussed changes in some medications. No major changes in medical condition were reported by nursing or by any of the other disciplines. See all other disciplines IDT notes and physician's progress notes for additional details. Mr. López's questions were addressed by the IDT team, and he expressed being content with the current plan of care.
--- NOTE | 2021-01-28 19:11 | NUR ---
PT. HAD LEFT ARM LOCAL PAIN ON VACCINATION SITE BUT REFUSED PAIN MEDICATION,REMAINS AFEBRILE NO ACUTE DISTRESS.
[2021-01-28 20:00] VITALS: BP 124/57
[2021-01-28] MEDS: MIRALAX 17 GM POWD.PACK GT PRN (21:10)
[2021-01-28] MEDS: VITAMIN B COMPLEX 1 TABLET GT SCH (21:12)
[2021-01-28] MEDS: ATORVASTATIN 20 MG TABLET GT SCH (21:13)
[2021-01-28] MEDS: MELATONIN 3 MG TABLET GT PRN (21:15)
--- NOTE | 2021-01-28 22:00 | NUR ---
S/p covid (Moderna #1) given on Right deltoid. Patient stated that she feels sore on the injection site. no swelling or redness on the injection site, denies fever or body aches, needs attended, call light within reach.
[2021-01-29] MEDS: VITAL AF 1.2 1,000 ML LIQUID GT PRN (04:41)
[2021-01-29] MEDS: ZINC SULFATE 220 MG CAPSULE GT SCH (05:53)
[2021-01-29] MEDS: ASCORBIC ACID 500 MG TABLET GT SCH (05:53)
[2021-01-29] MEDS: CHOLECALCIFEROL 1,000 UNIT TABLET GT SCH (05:53)
[2021-01-29] MEDS: ACIDOPHILUS/BULGARICUS CHEW TAB GT SCH ×3 (05:53→21:18)
[2021-01-29] MEDS: MULTIVIT, IRON, MIN NO. 8, FA TABLET GT SCH (05:53)
[2021-01-29] MEDS: OMEPRAZOLE 20 MG CAPSULE.DR GT SCH ×2 (05:53→18:06)
[2021-01-29] MEDS: IPRATROPIUM BROMIDE 0.5 MG/2.5 ML NEBU NEB SCH ×3 (07:21→23:24)
[2021-01-29 07:50] VITALS: BP 109/48
[2021-01-29] MEDS: HYDROGEN PEROXIDE 3% 118 ML BOTTLE TP SCH ×2 (08:48→21:32)
[2021-01-29] MEDS: CARVEDILOL 6.25 MG TABLET GT SCH ×2 (08:52→21:18)
[2021-01-29] MEDS: AMLODIPINE 5 MG TABLET GT SCH ×2 (08:52→21:18)
[2021-01-29] MEDS: LISINOPRIL 20 MG TABLET GT SCH (08:53)
[2021-01-29] MEDS: PAROXETINE HCL 10 MG TABLET GT SCH (08:53)
[2021-01-29] MEDS: Z GUARD REMEDY PASTE 57 GM TUBE TOP SCH ×2 (08:54→21:18)
[2021-01-29] MEDS: VITAMINS A AND D OINT TP SCH ×2 (08:54→21:18)
[2021-01-29 20:00] VITALS: BP 113/59
[2021-01-29] MEDS: ATORVASTATIN 20 MG TABLET GT SCH (21:18)
[2021-01-29] MEDS: VITAMIN B COMPLEX 1 TABLET GT SCH (21:18)
--- NOTE | 2021-01-29 22:30 | NUR ---
S/p covid vaccine (Moderna #1), denies any fever or body or muscle aches, no SOB noted, kept clean and comfortable.
[2021-01-30] MEDS: ACIDOPHILUS/BULGARICUS CHEW TAB GT SCH ×3 (05:40→21:43)
[2021-01-30] MEDS: OMEPRAZOLE 20 MG CAPSULE.DR GT SCH ×2 (05:41→18:04)
[2021-01-30] MEDS: ASCORBIC ACID 500 MG TABLET GT SCH (05:41)
[2021-01-30] MEDS: CHOLECALCIFEROL 1,000 UNIT TABLET GT SCH (05:41)
[2021-01-30] MEDS: MULTIVIT, IRON, MIN NO. 8, FA TABLET GT SCH (05:41)
[2021-01-30] MEDS: ZINC SULFATE 220 MG CAPSULE GT SCH (05:42)
[2021-01-30 06:54] LABS: HEMATOCRIT 27.2 % (31.2-41.9); MEAN CORPUSCULAR HEMOGLOBIN 29.2 uug (24.7-32.8); MEAN CORPUSCULAR VOLUME 89.3 fL (75.5-95.3); PLATELET COUNT (AUTO) 308 K/uL (179-408)
[2021-01-30 07:05] LABS: IRON, SERUM 21 ug/dL (50-175)
[2021-01-30] MEDS: IPRATROPIUM BROMIDE 0.5 MG/2.5 ML NEBU NEB SCH ×2 (07:20→15:30)
[2021-01-30 07:29] LABS: ALANINE AMINOTRANSFERASE 15 U/L (14-59); ALKALINE PHOSPHATASE 84 U/L (50-136); ASPARTATE AMINOTRANSFERASE 12 U/L (15-37); BILIRUBIN,TOTAL 0.2 mg/dL (0.2-1.0); CARBON DIOXIDE 29 mmol/L (21-32); CHLORIDE 102 mmol/L (98-107); CHOLESTEROL 154 mg/dL (<200); CREATININE 0.4 mg/dL (0.6-1.3); FERRITIN 355 ng/mL (8-252); GLUCOSE 113 mg/dL (74-106); HDL CHOLESTEROL 49 mg/dL (40-60); POTASSIUM 3.9 mmol/L (3.5-5.1); TOTAL PROTEIN, SERUM 6.8 g/dL (6.4-8.2); TRIGLYCERIDES 57 MG/DL (30-150); UREA NITROGEN, BLOOD 19 mg/dL (7-18)
[2021-01-30 07:35] VITALS: BP 120/51
[2021-01-30] MEDS: CARVEDILOL 6.25 MG TABLET GT SCH ×2 (08:28→21:43)
[2021-01-30] MEDS: PAROXETINE HCL 10 MG TABLET GT SCH (08:34)
[2021-01-30] MEDS: AMLODIPINE 5 MG TABLET GT SCH ×2 (08:34→21:43)
[2021-01-30] MEDS: Z GUARD REMEDY PASTE 57 GM TUBE TOP SCH ×2 (08:37→21:43)
[2021-01-30] MEDS: LISINOPRIL 20 MG TABLET GT SCH (08:37)
[2021-01-30] MEDS: VITAMINS A AND D OINT TP SCH ×2 (09:00→21:43)
[2021-01-30] MEDS: HYDROGEN PEROXIDE 3% 118 ML BOTTLE TP SCH ×2 (09:45→21:25)
[2021-01-30 20:00] VITALS: BP 123/55
[2021-01-30] MEDS: ATORVASTATIN 20 MG TABLET GT SCH (21:43)
[2021-01-30] MEDS: VITAMIN B COMPLEX 1 TABLET GT SCH (21:43)
[2021-01-30] MEDS: MELATONIN 3 MG TABLET GT PRN (21:44)
[2021-01-30] MEDS: GUAIFENESIN SUGAR FREE 100 MG/5 ML UDC GT PRN (21:44)
--- NOTE | 2021-01-30 23:00 | NUR ---
On monitoring for adverse side effects of Covid ( Moderna Vaccine), afebrile, denies pain or body aches, no redness or swelling on the injection site ( Right Deltoid), needs anticipated, call light within reach.
[2021-01-31] MEDS: OMEPRAZOLE 20 MG CAPSULE.DR GT SCH ×2 (06:05→17:45)
[2021-01-31] MEDS: CHOLECALCIFEROL 1,000 UNIT TABLET GT SCH (06:05)
[2021-01-31] MEDS: MULTIVIT, IRON, MIN NO. 8, FA TABLET GT SCH (06:05)
[2021-01-31] MEDS: ACIDOPHILUS/BULGARICUS CHEW TAB GT SCH ×3 (06:05→22:19)
[2021-01-31] MEDS: ASCORBIC ACID 500 MG TABLET GT SCH (06:05)
[2021-01-31] MEDS: ZINC SULFATE 220 MG CAPSULE GT SCH (06:05)
[2021-01-31] MEDS: HYDROGEN PEROXIDE 3% 118 ML BOTTLE TP SCH ×2 (07:25→19:17)
[2021-01-31] MEDS: IPRATROPIUM BROMIDE 0.5 MG/2.5 ML NEBU NEB SCH ×3 (07:25→23:30)
[2021-01-31 07:48] VITALS: BP 100/42
[2021-01-31] MEDS: CARVEDILOL 6.25 MG TABLET GT SCH ×2 (08:57→21:00)
[2021-01-31] MEDS: AMLODIPINE 5 MG TABLET GT SCH ×2 (08:58→21:00)
[2021-01-31] MEDS: LISINOPRIL 20 MG TABLET GT SCH (09:00)
[2021-01-31] MEDS: PAROXETINE HCL 10 MG TABLET GT SCH (09:01)
[2021-01-31] MEDS: VITAMINS A AND D OINT TP SCH ×2 (09:02→21:00)
[2021-01-31] MEDS: Z GUARD REMEDY PASTE 57 GM TUBE TOP SCH ×2 (09:02→21:00)
--- NOTE | 2021-01-31 16:05 | NUR ---
NEW RESPIRATORY ORDERS: CHANGE TRACH TO SHILEY 6 CUFFLESS AND CAP TRIAL TOLERATED. TRACH CHANGE DONE WITHOUT INCIDENT. CAP PLACED AND IS COMFORTABLE TOLERATING TRIAL FINE WITHOUT DISTRESS. PT HAS A GOOD STRONG COUGH. PT IS ON 2L NASAL CANULA WITH SPO2 MAINTAINING AT 98%. WILL CONTINUE TO MONITOR
--- NOTE | 2021-01-31 18:58 | NUR ---
Patient tolerating hired worker, with 2L of O2 via N/C, no acute respiratory distress noted o2sat 97%.
[2021-01-31] MEDS: ATORVASTATIN 20 MG TABLET GT SCH (21:00)
[2021-01-31] MEDS: VITAMIN B COMPLEX 1 TABLET GT SCH (21:00)
[2021-01-31] MEDS: MELATONIN 3 MG TABLET GT PRN (22:00)
[2021-01-31 22:36] VITALS: BP 125/48
[2021-02-01] MEDS: GUAIFENESIN SUGAR FREE 100 MG/5 ML UDC GT PRN ×2 (03:10→21:04)
--- NOTE | 2021-02-01 05:00 | NUR ---
Patient is tolerating light armored reconnaissance officer well with 2Lpm Nasal cannula. Patient has an adequate cough and is able to bring up secretions. Suctioned once with single use catheter: small amounts of thick pale white secretions. Airway is patent and secure. No signs of respiratory distress noted. No complications noted.
--- NOTE | 2021-02-01 05:37 | NUR ---
pt tolerated red capping, no respiratory distress noted,call light within reach, o2sat 98%, continent of b&b.
[2021-02-01] MEDS: MULTIVIT, IRON, MIN NO. 8, FA TABLET GT SCH (06:21)
[2021-02-01] MEDS: OMEPRAZOLE 20 MG CAPSULE.DR GT SCH ×2 (06:21→18:11)
[2021-02-01] MEDS: ACIDOPHILUS/BULGARICUS CHEW TAB GT SCH ×3 (06:21→21:03)
[2021-02-01] MEDS: ASCORBIC ACID 500 MG TABLET GT SCH (06:22)
[2021-02-01] MEDS: ZINC SULFATE 220 MG CAPSULE GT SCH (06:22)
[2021-02-01] MEDS: CHOLECALCIFEROL 1,000 UNIT TABLET GT SCH (06:22)
[2021-02-01] MEDS: IPRATROPIUM BROMIDE 0.5 MG/2.5 ML NEBU NEB SCH ×3 (07:18→22:40)
[2021-02-01 07:37] VITALS: BP 122/54
[2021-02-01] MEDS: Z GUARD REMEDY PASTE 57 GM TUBE TOP SCH ×2 (09:17→21:02)
[2021-02-01] MEDS: AMLODIPINE 5 MG TABLET GT SCH ×2 (09:17→21:02)
[2021-02-01] MEDS: LISINOPRIL 20 MG TABLET GT SCH (09:17)
[2021-02-01] MEDS: PAROXETINE HCL 10 MG TABLET GT SCH (09:17)
[2021-02-01] MEDS: CARVEDILOL 6.25 MG TABLET GT SCH ×2 (09:17→21:02)
[2021-02-01] MEDS: VITAMINS A AND D OINT TP SCH ×2 (09:18→21:03)
[2021-02-01] MEDS: HYDROGEN PEROXIDE 3% 118 ML BOTTLE TP SCH ×2 (09:33→21:27)
--- NOTE | 2021-02-01 18:56 | NUR ---
Received pt on TCap with 2LPM via nasal cannula. no SOB noted throughout shift. pt is able to cough up secretion and did not require to be sx.
[2021-02-01 20:00] VITALS: BP 132/56
[2021-02-01] MEDS: VITAMIN B COMPLEX 1 TABLET GT SCH (21:01)
[2021-02-01] MEDS: ATORVASTATIN 20 MG TABLET GT SCH (21:02)
[2021-02-01] MEDS: MELATONIN 3 MG TABLET GT PRN (21:04)
[2021-02-02] MEDS: MULTIVIT, IRON, MIN NO. 8, FA TABLET GT SCH (05:11)
[2021-02-02] MEDS: CHOLECALCIFEROL 1,000 UNIT TABLET GT SCH (05:11)
[2021-02-02] MEDS: ASCORBIC ACID 500 MG TABLET GT SCH (05:11)
[2021-02-02] MEDS: ACIDOPHILUS/BULGARICUS CHEW TAB GT SCH ×3 (05:11→21:45)
[2021-02-02] MEDS: ZINC SULFATE 220 MG CAPSULE GT SCH (05:11)
[2021-02-02] MEDS: OMEPRAZOLE 20 MG CAPSULE.DR GT SCH ×2 (05:11→17:30)
--- NOTE | 2021-02-02 06:03 | NUR ---
During the shift pt tolerated Thermostat Maker with 2LPM Nasal Canula well. No s/s of respiratory distress noted. HHN tx given as ordered. Pt has strong cough and did not request to be suction. Oxygen saturation 98-99%.
[2021-02-02] MEDS: ONDANSETRON HCL 4 MG TABLET GT PRN (06:35)
[2021-02-02] MEDS: GUAIFENESIN SUGAR FREE 100 MG/5 ML UDC GT PRN ×3 (06:35→21:46)
[2021-02-02] MEDS: IPRATROPIUM BROMIDE 0.5 MG/2.5 ML NEBU NEB SCH ×3 (07:39→22:40)
[2021-02-02 07:50] VITALS: BP 110/50
[2021-02-02] MEDS: CARVEDILOL 6.25 MG TABLET GT SCH ×2 (09:13→21:43)
[2021-02-02] MEDS: AMLODIPINE 5 MG TABLET GT SCH ×2 (09:14→21:45)
[2021-02-02] MEDS: LISINOPRIL 20 MG TABLET GT SCH (09:16)
[2021-02-02] MEDS: PAROXETINE HCL 10 MG TABLET GT SCH (09:20)
[2021-02-02] MEDS: HYDROGEN PEROXIDE 3% 118 ML BOTTLE TP SCH ×2 (09:28→21:15)
[2021-02-02] MEDS: VITAMINS A AND D OINT TP SCH ×2 (09:28→21:45)
[2021-02-02] MEDS: Z GUARD REMEDY PASTE 57 GM TUBE TOP SCH ×2 (09:28→21:45)
--- NOTE | 2021-02-02 10:50 | NUR ---
Patient was visited by her daughter. Pt comfortable and no complaints at this time.
--- NOTE | 2021-02-02 18:56 | NUR ---
PT TOLERATED CAP TRIAL THROUGHOUT WHOLE DAY WELL WITHOUT DISTRESS. PT DID NOT NEED TRACHEAL SUCTION. PT HAS GOOD STRONG COUGH AND IS ABLE TO CLEAR AIRWAY.
[2021-02-02 20:00] VITALS: BP 125/50
[2021-02-02] MEDS: VITAMIN B COMPLEX 1 TABLET GT SCH (21:43)
[2021-02-02] MEDS: ATORVASTATIN 20 MG TABLET GT SCH (21:44)
[2021-02-02] MEDS: MELATONIN 3 MG TABLET GT PRN (21:46)
[2021-02-02] MEDS: MIRALAX 17 GM POWD.PACK GT PRN (21:46)
--- NOTE | 2021-02-03 06:20 | NUR ---
During the shift no s/s of respiratory distress noted. Pt tolerated Numerical Control Drill Press Operator with 2LPM Nasal Canula well. HHN tx given as ordered. Pt has strong, dry cough and did not request to be suction. Oxygen saturation 98-99%.
[2021-02-03] MEDS: ACIDOPHILUS/BULGARICUS CHEW TAB GT SCH ×3 (06:25→21:28)
[2021-02-03] MEDS: OMEPRAZOLE 20 MG CAPSULE.DR GT SCH ×2 (06:26→17:50)
[2021-02-03] MEDS: MULTIVIT, IRON, MIN NO. 8, FA TABLET GT SCH (06:26)
[2021-02-03] MEDS: ASCORBIC ACID 500 MG TABLET GT SCH (06:26)
[2021-02-03] MEDS: ZINC SULFATE 220 MG CAPSULE GT SCH (06:26)
[2021-02-03] MEDS: CHOLECALCIFEROL 1,000 UNIT TABLET GT SCH (06:26)
[2021-02-03] MEDS: GUAIFENESIN SUGAR FREE 100 MG/5 ML UDC GT PRN ×3 (06:27→21:15)
[2021-02-03 07:26] VITALS: BP 117/54
[2021-02-03] MEDS: IPRATROPIUM BROMIDE 0.5 MG/2.5 ML NEBU NEB SCH ×3 (07:43→22:40)
[2021-02-03] MEDS: HYDROGEN PEROXIDE 3% 118 ML BOTTLE TP SCH ×2 (08:33→21:41)
[2021-02-03] MEDS: CARVEDILOL 6.25 MG TABLET GT SCH ×2 (09:24→21:27)
[2021-02-03] MEDS: AMLODIPINE 5 MG TABLET GT SCH ×2 (09:25→21:28)
[2021-02-03] MEDS: LISINOPRIL 20 MG TABLET GT SCH (09:25)
[2021-02-03] MEDS: Z GUARD REMEDY PASTE 57 GM TUBE TOP SCH ×2 (09:26→21:28)
[2021-02-03] MEDS: PAROXETINE HCL 10 MG TABLET GT SCH (09:26)
[2021-02-03] MEDS: VITAMINS A AND D OINT TP SCH ×2 (09:26→21:28)
[2021-02-03] MEDS: VITAL AF 1.2 1,000 ML LIQUID GT PRN (12:33)
--- NOTE | 2021-02-03 15:10 | NUR ---
PT TOLERATING TRACH RED-CAP ALL WHOLE DAY WELL NO S/S SOB/DISTRESS NOTED, PT DID NOT NEED SUCTION, PT HAS GOOD STRONG COUGH AND ABLE TO CLEAR AIRWAY. ON 2L NC WITH GOOD SATURATIONS > 92%. NEB TX'S GIVEN AND TOLERATED WELL.
[2021-02-03] MEDS: MIRALAX 17 GM POWD.PACK GT PRN ×2 (18:46→21:00)
[2021-02-03 20:09] VITALS: BP 122/48
[2021-02-03] MEDS: VITAMIN B COMPLEX 1 TABLET GT SCH (21:26)
[2021-02-03] MEDS: ATORVASTATIN 20 MG TABLET GT SCH (21:27)
[2021-02-03] MEDS: MELATONIN 3 MG TABLET GT PRN (21:30)
--- NOTE | 2021-02-04 03:42 | NUR ---
Patient is alert and oriented, on medical staff credentialing coordinator, 02 via nasal canula, no respiratory distress noted. O2 sat @ 98-99%, still with dry cough, Robitussin given as ordered with some relief, also RT had given breathing treatment as ordered, patient is able to cough out phlegm. Denies any pain or discomfort, needs attended, call light within reach.
[2021-02-04] MEDS: CHOLECALCIFEROL 1,000 UNIT TABLET GT SCH (05:11)
[2021-02-04] MEDS: OMEPRAZOLE 20 MG CAPSULE.DR GT SCH ×2 (05:11→17:51)
[2021-02-04] MEDS: ASCORBIC ACID 500 MG TABLET GT SCH (05:11)
[2021-02-04] MEDS: ZINC SULFATE 220 MG CAPSULE GT SCH (05:11)
[2021-02-04] MEDS: ACIDOPHILUS/BULGARICUS CHEW TAB GT SCH ×3 (05:11→21:07)
[2021-02-04] MEDS: MULTIVIT, IRON, MIN NO. 8, FA TABLET GT SCH (05:11)
[2021-02-04] MEDS: VITAL AF 1.2 1,000 ML LIQUID GT PRN (05:15)
[2021-02-04] MEDS: GUAIFENESIN SUGAR FREE 100 MG/5 ML UDC GT PRN ×3 (05:30→21:10)
--- NOTE | 2021-02-04 05:47 | NUR ---
At this time pt asleep. No s/s of respiratory distress noted during the shift. seating captain with FIO2 2LPM via nasal canula pt tolerated well. HHN tx given as ordered. No suction done during the shift. Pt was able to cough out some secretion. Cont. monitor.
[2021-02-04 07:24] VITALS: BP 113/46
[2021-02-04] MEDS: IPRATROPIUM BROMIDE 0.5 MG/2.5 ML NEBU NEB SCH ×3 (08:14→22:41)
[2021-02-04] MEDS: HYDROGEN PEROXIDE 3% 118 ML BOTTLE TP SCH ×2 (08:15→21:41)
[2021-02-04] MEDS: Z GUARD REMEDY PASTE 57 GM TUBE TOP SCH ×2 (09:01→21:07)
[2021-02-04] MEDS: PAROXETINE HCL 10 MG TABLET GT SCH (09:01)
[2021-02-04] MEDS: AMLODIPINE 5 MG TABLET GT SCH ×2 (09:01→21:06)
[2021-02-04] MEDS: CARVEDILOL 6.25 MG TABLET GT SCH ×2 (09:01→21:03)
[2021-02-04] MEDS: VITAMINS A AND D OINT TP SCH ×2 (09:01→21:07)
[2021-02-04] MEDS: LISINOPRIL 20 MG TABLET GT SCH (09:01)
--- NOTE | 2021-02-04 10:13 | NUR ---
ROMÁN called [facility] [phone]. ROMÁN was not able to speak with anyone, and therefore SW left a voicemail message asking for a call back in order to inquire about ordering a prosthesis for the patient.
--- NOTE | 2021-02-04 14:08 | NUR ---
11:55pm: ROMÁN called [facility] again, , but was once again unsuccessful with connecting to anyone. Phone line went to voicemail.
--- NOTE | 2021-02-04 14:09 | NUR ---
ROMÁN called [facility] and spoke with eCleste. A prosthesis evaluation was scheduled for tomorrow 02/05 at 11am, with computer engineering technician Ryan Aguirre. ROMÁN faxed patient's facesheet and physician order to Celeste at [phone]. JARRED Ibanez informed. ROMÁN met with patient, and informed her of appointment.
[2021-02-04] MEDS ORDERED: BISACODYL 10 MG SUPP.RECT RC PRN ×2 (16:00)
--- NOTE | 2021-02-04 16:27 | NUR ---
ROMÁN received a call from Celeste at [facility] who confirmed receipt of the fax that this ROMÁN sent earlier. Celeste also changed the appointment time for tomorrow from 11am to 1pm. ROMÁN expressed agreement. ROMÁN informed deputy director of nursing Danny and RN Marcelle informed.
[2021-02-04 20:00] VITALS: BP 121/59
[2021-02-04] MEDS: ATORVASTATIN 20 MG TABLET GT SCH (21:03)
[2021-02-04] MEDS: VITAMIN B COMPLEX 1 TABLET GT SCH (21:03)
[2021-02-04] MEDS: MELATONIN 3 MG TABLET GT PRN (21:09)
[2021-02-05] MEDS: GUAIFENESIN SUGAR FREE 100 MG/5 ML UDC GT PRN ×4 (02:00→21:05)
[2021-02-05] MEDS: ACIDOPHILUS/BULGARICUS CHEW TAB GT SCH ×3 (05:04→21:03)
[2021-02-05] MEDS: OMEPRAZOLE 20 MG CAPSULE.DR GT SCH ×2 (05:05→18:15)
[2021-02-05] MEDS: MULTIVIT, IRON, MIN NO. 8, FA TABLET GT SCH (05:05)
[2021-02-05] MEDS: ASCORBIC ACID 500 MG TABLET GT SCH (05:06)
[2021-02-05] MEDS: CHOLECALCIFEROL 1,000 UNIT TABLET GT SCH (05:06)
[2021-02-05] MEDS: ZINC SULFATE 220 MG CAPSULE GT SCH (05:06)
[2021-02-05 07:23] VITALS: BP 122/51
[2021-02-05] MEDS: IPRATROPIUM BROMIDE 0.5 MG/2.5 ML NEBU NEB SCH ×3 (07:23→22:40)
[2021-02-05] MEDS: VITAL AF 1.2 1,000 ML LIQUID GT PRN (08:00)
[2021-02-05] MEDS: VITAMINS A AND D OINT TP SCH ×2 (08:04→21:03)
[2021-02-05] MEDS: PAROXETINE HCL 10 MG TABLET GT SCH (08:04)
[2021-02-05] MEDS: CARVEDILOL 6.25 MG TABLET GT SCH ×2 (08:04→20:58)
[2021-02-05] MEDS: Z GUARD REMEDY PASTE 57 GM TUBE TOP SCH ×2 (08:04→21:03)
[2021-02-05] MEDS: AMLODIPINE 5 MG TABLET GT SCH ×2 (08:04→21:02)
[2021-02-05] MEDS: HYDROGEN PEROXIDE 3% 118 ML BOTTLE TP SCH ×2 (09:10→21:18)
--- NOTE | 2021-02-05 16:35 | NUR ---
1:30pm: SW was seen by Ryan at [facility] for a prosthesis evaluation.
--- NOTE | 2021-02-05 16:47 | NUR ---
AN EMAIL WAS SEND TO PT'S FAMILY TO NOTIFY OF PATIENT EXPOSURE TO COVID19. COVID19 TEST WILL BE DONE TODAY.
--- NOTE | 2021-02-05 18:40 | NUR ---
Pt stable on 2lpm nasal cannula. Albaley #6 trach capped. SpO2 and respirations WNL. Pt has a good productive cough. HHN tx's given via aerosol mask, no adverse reactions noted. No signs or symptoms of resp. distress throughout shift. Will continue to monitor.
[2021-02-05 20:00] VITALS: BP 125/57
[2021-02-05] MEDS: VITAMIN B COMPLEX 1 TABLET GT SCH (20:58)
[2021-02-05] MEDS: ATORVASTATIN 20 MG TABLET GT SCH (21:01)
[2021-02-05] MEDS: MELATONIN 3 MG TABLET GT PRN (21:03)
--- NOTE | 2021-02-06 03:08 | NUR ---
Patient on Shiley #6 capped, with 2 LPM O2 via nasal cannula sats at 99%, OK 70. Tolerated capping without respiratory distress or increase in oxygen demand. Still with dry cough, Lisinopril D/C'd. Continue to monitor.
--- NOTE | 2021-02-06 03:44 | NUR ---
At this time pt asleep. No s/s of respiratory distress noted during the shift. 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 HHN tx given as ordered. No suction done during the shift. Pt was able to cough out some secretion.
[2021-02-06] MEDS: ACIDOPHILUS/BULGARICUS CHEW TAB GT SCH ×3 (05:50→21:04)
[2021-02-06] MEDS: OMEPRAZOLE 20 MG CAPSULE.DR GT SCH ×2 (05:50→17:31)
[2021-02-06] MEDS: MULTIVIT, IRON, MIN NO. 8, FA TABLET GT SCH (05:51)
[2021-02-06] MEDS: ASCORBIC ACID 500 MG TABLET GT SCH (05:51)
[2021-02-06] MEDS: ZINC SULFATE 220 MG CAPSULE GT SCH (05:52)
[2021-02-06] MEDS: CHOLECALCIFEROL 1,000 UNIT TABLET GT SCH (05:52)
[2021-02-06] MEDS: VITAL AF 1.2 1,000 ML LIQUID GT PRN (06:18)
[2021-02-06] MEDS: IPRATROPIUM BROMIDE 0.5 MG/2.5 ML NEBU NEB SCH ×3 (07:23→23:18)
--- NOTE | 2021-02-06 07:30 | NUR ---
Patient tolerating structured cabling technician trach well with 2Lpm Nasal cannula. Patient has an adequate cough and is able to bring up secretions. No suctioning needed. Airway is patent and secure. No signs or symptoms of respiratory distress noted. Pt is doing well. Will continue to monitor.
[2021-02-06 08:17] VITALS: BP 128/54
[2021-02-06] MEDS: Z GUARD REMEDY PASTE 57 GM TUBE TOP SCH ×2 (08:48→21:04)
[2021-02-06] MEDS: CARVEDILOL 6.25 MG TABLET GT SCH ×2 (08:48→21:03)
[2021-02-06] MEDS: VITAMINS A AND D OINT TP SCH ×2 (08:49→21:04)
[2021-02-06] MEDS: HYDROGEN PEROXIDE 3% 118 ML BOTTLE TP SCH ×2 (09:00→21:00)
[2021-02-06] MEDS: AMLODIPINE 5 MG TABLET GT SCH ×2 (09:02→21:03)
[2021-02-06] MEDS: GUAIFENESIN SUGAR FREE 100 MG/5 ML UDC GT PRN ×3 (09:06→21:06)
--- NOTE | 2021-02-06 14:33 | NUR ---
This ORAL SURGERY TECHNICIAN met with the patient and discussed information this ORAL SURGERY TECHNICIAN received from [facility] regarding the process of obtaining the prosthesis. ORAL SURGERY TECHNICIAN informed the patient that Ryan from [facility] stated that the process can take 4-8 weeks, which include many visits and procedures. ORAL SURGERY TECHNICIAN stated that Ryan stated that usually this process is done after the patient is discharged home, as it is a lengthy process. ORAL SURGERY TECHNICIAN discussed this with the patient and patient stated that she would prefer to focus on getting stronger and healthier, before starting the prosthesis process. ORAL SURGERY TECHNICIAN expressed agreement, and stated that she would follow-up with [facility] and let them know.
[2021-02-06 20:00] VITALS: BP 131/61
[2021-02-06] MEDS: VITAMIN B COMPLEX 1 TABLET GT SCH (21:02)
[2021-02-06] MEDS: ATORVASTATIN 20 MG TABLET GT SCH (21:03)
[2021-02-06] MEDS: MELATONIN 3 MG TABLET GT PRN (21:05)
--- NOTE | 2021-02-07 01:39 | NUR ---
PATIENT ON CONT O2 @ 2L/M NC , WITH TRACH PLUG WITH PRODUCT MANAGER IN PLACE ; PT WITH NO RESP. DISTRESS, AT ANYTIME, PT HAD ONE NEB RX EARLY, SAID SHE WANTS TOO SLEEP BY 23:00, PT WITH GOOD COLOR, GOOD AERATION WHEN BREATHING, PT VERY COOPERATIVE , AND UNDERSTANDS ALL CONVERSATIONS, WILL CHECK LATER AGAIN, SAT 98% ON 2L/M NC . Wandy FORD RCP Addendum: 02/07/21 at 0143 by NNAMDI FORD RT Amended: Links added.
[2021-02-07] MEDS: OMEPRAZOLE 20 MG CAPSULE.DR GT SCH ×2 (05:54→17:30)
[2021-02-07] MEDS: ACIDOPHILUS/BULGARICUS CHEW TAB GT SCH ×3 (05:54→21:31)
[2021-02-07] MEDS: MULTIVIT, IRON, MIN NO. 8, FA TABLET GT SCH (05:55)
[2021-02-07] MEDS: ZINC SULFATE 220 MG CAPSULE GT SCH (05:56)
[2021-02-07] MEDS: ASCORBIC ACID 500 MG TABLET GT SCH (05:56)
[2021-02-07] MEDS: CHOLECALCIFEROL 1,000 UNIT TABLET GT SCH (05:56)
[2021-02-07] MEDS: GUAIFENESIN SUGAR FREE 100 MG/5 ML UDC GT PRN ×3 (06:00→21:30)
[2021-02-07] MEDS: IPRATROPIUM BROMIDE 0.5 MG/2.5 ML NEBU NEB SCH ×3 (07:22→23:30)
[2021-02-07 07:39] VITALS: BP 117/49
[2021-02-07] MEDS: CARVEDILOL 6.25 MG TABLET GT SCH ×2 (08:23→21:31)
[2021-02-07] MEDS: AMLODIPINE 5 MG TABLET GT SCH ×2 (08:23→21:31)
[2021-02-07] MEDS: VITAMINS A AND D OINT TP SCH ×2 (08:24→21:31)
[2021-02-07] MEDS: Z GUARD REMEDY PASTE 57 GM TUBE TOP SCH ×2 (08:24→21:31)
[2021-02-07] MEDS: HYDROGEN PEROXIDE 3% 118 ML BOTTLE TP SCH ×2 (09:22→21:25)
--- NOTE | 2021-02-07 10:25 | NUR ---
PT. AND PT'S LUCERORAyad SANDERS WERE AWARE OF COVID 19 TEST DONE ON 02/05/21.
--- NOTE | 2021-02-07 15:13 | NUR ---
This SHAKE TABLE OPERATOR called [facility] and spoke with Dayna, . This SHAKE TABLE OPERATOR informed Dayna that the patient prefers to wait until she is discharged home before beginning the prosthesis process. Dayna expressed understanding and stated that she would call this SW back with some information and guidance on what the patient and patient's PCP would need to do in order to begin the process (i.e. paperwork). SW expressed understanding and agreement.
[2021-02-07 20:31] VITALS: BP 132/62
[2021-02-07] MEDS: VITAMIN B COMPLEX 1 TABLET GT SCH (21:30)
[2021-02-07] MEDS: ATORVASTATIN 20 MG TABLET GT SCH (21:30)
[2021-02-07] MEDS: MELATONIN 3 MG TABLET GT PRN (21:30)
[2021-02-08] MEDS: OMEPRAZOLE 20 MG CAPSULE.DR GT SCH ×2 (05:45→17:29)
[2021-02-08] MEDS: ZINC SULFATE 220 MG CAPSULE GT SCH (05:45)
[2021-02-08] MEDS: ASCORBIC ACID 500 MG TABLET GT SCH (05:45)
[2021-02-08] MEDS: ACIDOPHILUS/BULGARICUS CHEW TAB GT SCH ×3 (05:45→21:55)
[2021-02-08] MEDS: CHOLECALCIFEROL 1,000 UNIT TABLET GT SCH (05:45)
[2021-02-08] MEDS: MULTIVIT, IRON, MIN NO. 8, FA TABLET GT SCH (05:45)
[2021-02-08] MEDS: GUAIFENESIN SUGAR FREE 100 MG/5 ML UDC GT PRN ×4 (05:46→21:56)
[2021-02-08 07:41] VITALS: BP 120/54
[2021-02-08] MEDS: IPRATROPIUM BROMIDE 0.5 MG/2.5 ML NEBU NEB SCH ×3 (07:56→22:40)
[2021-02-08] MEDS: HYDROGEN PEROXIDE 3% 118 ML BOTTLE TP SCH ×2 (09:05→21:29)
[2021-02-08] MEDS: CARVEDILOL 6.25 MG TABLET GT SCH ×2 (09:09→21:55)
[2021-02-08] MEDS: AMLODIPINE 5 MG TABLET GT SCH ×2 (09:09→21:55)
[2021-02-08] MEDS: Z GUARD REMEDY PASTE 57 GM TUBE TOP SCH ×2 (09:10→21:55)
[2021-02-08] MEDS: VITAMINS A AND D OINT TP SCH ×2 (09:10→21:55)
[2021-02-08] MEDS: VITAL AF 1.2 1,000 ML LIQUID GT PRN (10:11)
--- NOTE | 2021-02-08 16:13 | NUR ---
PT TOLERATING CAPPED TRACH ALL DAY, NO S/S SOB/DISTRESS NOTED, PT DID NOT NEED SUCTION, PT HAS GOOD STRONG COUGH AND ABLE TO CLEAR AIRWAY. ON 2L NC WITH GOOD SATURATIONS > 92%. NEB TX'S GIVEN AND TOLERATED WELL.
[2021-02-08 20:01] VITALS: BP 119/50
[2021-02-08] MEDS: VITAMIN B COMPLEX 1 TABLET GT SCH (21:55)
[2021-02-08] MEDS: ATORVASTATIN 20 MG TABLET GT SCH (21:55)
[2021-02-08] MEDS: MIRALAX 17 GM POWD.PACK GT PRN (21:55)
[2021-02-08] MEDS: MELATONIN 3 MG TABLET GT PRN (21:55)
[2021-02-09] MEDS: ASCORBIC ACID 500 MG TABLET GT SCH (05:58)
[2021-02-09] MEDS: CHOLECALCIFEROL 1,000 UNIT TABLET GT SCH (05:58)
[2021-02-09] MEDS: OMEPRAZOLE 20 MG CAPSULE.DR GT SCH ×2 (05:58→17:14)
[2021-02-09] MEDS: ACIDOPHILUS/BULGARICUS CHEW TAB GT SCH ×3 (05:58→21:40)
[2021-02-09] MEDS: ZINC SULFATE 220 MG CAPSULE GT SCH (05:58)
[2021-02-09] MEDS: MULTIVIT, IRON, MIN NO. 8, FA TABLET GT SCH (05:58)
[2021-02-09] MEDS: GUAIFENESIN SUGAR FREE 100 MG/5 ML UDC GT PRN ×4 (06:08→21:40)
[2021-02-09 07:30] VITALS: BP 120/56
[2021-02-09] MEDS: IPRATROPIUM BROMIDE 0.5 MG/2.5 ML NEBU NEB SCH ×3 (07:37→23:31)
[2021-02-09] MEDS: HYDROGEN PEROXIDE 3% 118 ML BOTTLE TP SCH ×2 (07:38→21:55)
[2021-02-09] MEDS: Z GUARD REMEDY PASTE 57 GM TUBE TOP SCH ×2 (08:48→21:39)
[2021-02-09] MEDS: AMLODIPINE 5 MG TABLET GT SCH ×2 (08:48→21:39)
[2021-02-09] MEDS: CARVEDILOL 6.25 MG TABLET GT SCH ×2 (08:48→21:39)
[2021-02-09] MEDS: VITAMINS A AND D OINT TP SCH ×2 (08:49→21:40)
[2021-02-09] MEDS: VITAL AF 1.2 1,000 ML LIQUID GT PRN (14:32)
--- NOTE | 2021-02-09 16:33 | NUR ---
NEW ORDER FOR COVID 19 TEST WAS CARRIED OUT PER [facility] REQUIREMENT ANS PT. IN AGREEMENT AND PT'S DTRAyad SANDERS REQUESTED TO BE CALLED ONLY IF RESULT IS POSITIVE.
[2021-02-09 20:28] VITALS: BP 129/50
[2021-02-09] MEDS: VITAMIN B COMPLEX 1 TABLET GT SCH (21:39)
[2021-02-09] MEDS: ATORVASTATIN 20 MG TABLET GT SCH (21:39)
[2021-02-09] MEDS: MELATONIN 3 MG TABLET GT PRN (21:40)
[2021-02-09] MEDS: ACETAMINOPHEN 650 MG/20 ML UDC- SA PATIENTS-PAIN ONLY GT PRN (21:41)
[2021-02-10] MEDS: GUAIFENESIN SUGAR FREE 100 MG/5 ML UDC GT PRN ×4 (05:15→20:55)
[2021-02-10] MEDS: OMEPRAZOLE 20 MG CAPSULE.DR GT SCH ×2 (05:19→17:28)
[2021-02-10] MEDS: MULTIVIT, IRON, MIN NO. 8, FA TABLET GT SCH (05:19)
[2021-02-10] MEDS: ACIDOPHILUS/BULGARICUS CHEW TAB GT SCH ×3 (05:19→20:54)
[2021-02-10] MEDS: ASCORBIC ACID 500 MG TABLET GT SCH (05:19)
[2021-02-10] MEDS: CHOLECALCIFEROL 1,000 UNIT TABLET GT SCH (05:19)
[2021-02-10] MEDS: ZINC SULFATE 220 MG CAPSULE GT SCH (05:19)
[2021-02-10 07:23] VITALS: BP 127/53
[2021-02-10] MEDS: IPRATROPIUM BROMIDE 0.5 MG/2.5 ML NEBU NEB SCH ×3 (07:50→23:09)
[2021-02-10] MEDS: CARVEDILOL 6.25 MG TABLET GT SCH ×2 (08:42→20:54)
[2021-02-10] MEDS: AMLODIPINE 5 MG TABLET GT SCH ×2 (08:43→20:53)
[2021-02-10] MEDS: Z GUARD REMEDY PASTE 57 GM TUBE TOP SCH ×2 (08:43→20:52)
[2021-02-10] MEDS: VITAMINS A AND D OINT TP SCH ×2 (08:44→20:54)
[2021-02-10] MEDS: HYDROGEN PEROXIDE 3% 118 ML BOTTLE TP SCH ×2 (09:15→21:20)
[2021-02-10 20:39] VITALS: BP 130/60
[2021-02-10] MEDS: ATORVASTATIN 20 MG TABLET GT SCH (20:53)
[2021-02-10] MEDS: MELATONIN 3 MG TABLET GT PRN (20:55)
[2021-02-10] MEDS: VITAMIN B COMPLEX 1 TABLET GT SCH (20:57)
[2021-02-11] MEDS: MULTIVIT, IRON, MIN NO. 8, FA TABLET GT SCH (05:10)
[2021-02-11] MEDS: ACIDOPHILUS/BULGARICUS CHEW TAB GT SCH ×3 (05:10→21:13)
[2021-02-11] MEDS: ASCORBIC ACID 500 MG TABLET GT SCH (05:11)
[2021-02-11] MEDS: OMEPRAZOLE 20 MG CAPSULE.DR GT SCH ×2 (05:12→18:01)
[2021-02-11] MEDS: CHOLECALCIFEROL 1,000 UNIT TABLET GT SCH (05:13)
[2021-02-11] MEDS: ZINC SULFATE 220 MG CAPSULE GT SCH (05:13)
[2021-02-11] MEDS: GUAIFENESIN SUGAR FREE 100 MG/5 ML UDC GT PRN ×2 (05:17→09:20)
[2021-02-11 07:20] VITALS: BP 118/58
[2021-02-11] MEDS: HYDROGEN PEROXIDE 3% 118 ML BOTTLE TP SCH ×2 (07:52→21:29)
[2021-02-11] MEDS: IPRATROPIUM BROMIDE 0.5 MG/2.5 ML NEBU NEB SCH ×3 (07:52→23:44)
--- NOTE | 2021-02-11 09:12 | NUR ---
SEEN AND EXAMINED BY DARION Strong AND AWARE OF CONSTANT DRY COUGH THAT IS MOT RELIEVED WITH ROBITUSSIN AND PT. STATED THAT SHE CAN NOT TOLERATE ANY THING WITH CODEINE AND WITH NNO.
[2021-02-11] MEDS: CARVEDILOL 6.25 MG TABLET GT SCH ×2 (09:19→21:11)
[2021-02-11] MEDS: AMLODIPINE 5 MG TABLET GT SCH ×2 (09:19→21:13)
[2021-02-11] MEDS: VITAMINS A AND D OINT TP SCH ×2 (09:20→21:13)
[2021-02-11] MEDS: Z GUARD REMEDY PASTE 57 GM TUBE TOP SCH ×2 (09:20→21:13)
--- NOTE | 2021-02-11 12:20 | NUR ---
SEEN BY MARY GEORGE N.P. AND WITH NNO.
[2021-02-11] MEDS: VITAL AF 1.2 1,000 ML LIQUID GT PRN (14:20)
[2021-02-11 20:04] VITALS: BP 125/49
[2021-02-11] MEDS: VITAMIN B COMPLEX 1 TABLET GT SCH (21:10)
[2021-02-11] MEDS: ATORVASTATIN 20 MG TABLET GT SCH (21:12)
[2021-02-11] MEDS: MELATONIN 3 MG TABLET GT PRN (21:15)
--- NOTE | 2021-02-12 03:07 | NUR ---
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 DISTRESS NOTED, PT WITH GOOD COLOR, COUGHS ON HER OWN, NO SOB AT ANY TIME, NEB RX GIVEN X 1, TOLL WELL VIA AEROSOL MASK, RESTING AT NIGHT.Wandy IBRAHIMP Addendum: 02/12/21 at 0309 by NNAMDI FORD RT Amended: Links added.
[2021-02-12] MEDS: CHOLECALCIFEROL 1,000 UNIT TABLET GT SCH (05:56)
[2021-02-12] MEDS: ACIDOPHILUS/BULGARICUS CHEW TAB GT SCH ×3 (05:56→21:19)
[2021-02-12] MEDS: OMEPRAZOLE 20 MG CAPSULE.DR GT SCH ×2 (05:56→18:16)
[2021-02-12] MEDS: ASCORBIC ACID 500 MG TABLET GT SCH (05:56)
[2021-02-12] MEDS: MULTIVIT, IRON, MIN NO. 8, FA TABLET GT SCH (05:56)
[2021-02-12] MEDS: ZINC SULFATE 220 MG CAPSULE GT SCH (05:56)
[2021-02-12] MEDS: IPRATROPIUM BROMIDE 0.5 MG/2.5 ML NEBU NEB SCH ×3 (07:38→23:19)
[2021-02-12] MEDS: HYDROGEN PEROXIDE 3% 118 ML BOTTLE TP SCH ×2 (07:39→21:22)
[2021-02-12 07:42] VITALS: BP 125/60
[2021-02-12] MEDS: CARVEDILOL 6.25 MG TABLET GT SCH ×2 (08:32→21:18)
[2021-02-12] MEDS: Z GUARD REMEDY PASTE 57 GM TUBE TOP SCH ×2 (08:38→21:19)
[2021-02-12] MEDS: AMLODIPINE 5 MG TABLET GT SCH ×2 (08:38→21:19)
[2021-02-12] MEDS: VITAMINS A AND D OINT TP SCH ×2 (08:39→21:19)
[2021-02-12] MEDS: VITAL AF 1.2 1,000 ML LIQUID GT PRN (11:15)
[2021-02-12] MEDS: GUAIFENESIN SUGAR FREE 100 MG/5 ML UDC GT PRN ×2 (14:02→21:35)
[2021-02-12] MEDS: ALBUTEROL SULFATE 2.5 MG/ 0.5 ML NEBU NEB PRN (14:58)
--- NOTE | 2021-02-12 16:33 | NUR ---
SW notified patient's Mr. López and patient's daughter Fanny, via email, that the next IDT meeting for the patient is scheduled for 02/18/2021 at 11am. SW invited them to participate in the meeting through speakerphone, and asked them to let this SW know if they would be available to participate.
[2021-02-12 20:00] VITALS: BP 133/52
[2021-02-12] MEDS: VITAMIN B COMPLEX 1 TABLET GT SCH (21:14)
[2021-02-12] MEDS: ATORVASTATIN 20 MG TABLET GT SCH (21:18)
[2021-02-12] MEDS: MELATONIN 3 MG TABLET GT PRN (22:00)
[2021-02-13] MEDS: ZINC SULFATE 220 MG CAPSULE GT SCH (06:13)
[2021-02-13] MEDS: MULTIVIT, IRON, MIN NO. 8, FA TABLET GT SCH (06:13)
[2021-02-13] MEDS: ASCORBIC ACID 500 MG TABLET GT SCH (06:13)
[2021-02-13] MEDS: CHOLECALCIFEROL 1,000 UNIT TABLET GT SCH (06:13)
[2021-02-13] MEDS: OMEPRAZOLE 20 MG CAPSULE.DR GT SCH ×2 (06:13→18:16)
[2021-02-13] MEDS: ACIDOPHILUS/BULGARICUS CHEW TAB GT SCH ×3 (06:13→21:25)
[2021-02-13] MEDS: IPRATROPIUM BROMIDE 0.5 MG/2.5 ML NEBU NEB SCH ×3 (07:24→23:35)
[2021-02-13 07:50] VITALS: BP 127/56
[2021-02-13] MEDS: CARVEDILOL 6.25 MG TABLET GT SCH ×2 (08:32→21:24)
[2021-02-13] MEDS: Z GUARD REMEDY PASTE 57 GM TUBE TOP SCH ×2 (08:33→21:25)
[2021-02-13] MEDS: AMLODIPINE 5 MG TABLET GT SCH ×2 (08:33→21:25)
[2021-02-13] MEDS: VITAMINS A AND D OINT TP SCH ×2 (08:37→21:25)
[2021-02-13] MEDS: HYDROGEN PEROXIDE 3% 118 ML BOTTLE TP SCH ×2 (09:00→21:53)
[2021-02-13] MEDS: GUAIFENESIN SUGAR FREE 100 MG/5 ML UDC GT PRN ×2 (09:03→14:54)
--- NOTE | 2021-02-13 11:50 | NUR ---
ROMÁN received an email from patient's daughter Fanny, who stated that she would be available to participate in the IDT meeting on 02/18. ROMÁN to call Fanny during the meeting.
[2021-02-13] MEDS: ALBUTEROL SULFATE 2.5 MG/ 0.5 ML NEBU NEB PRN (15:09)
--- NOTE | 2021-02-13 18:54 | NUR ---
patients Maribel picked up patients cell phone for repairs and will bring back tonight, patient aware. patient stable talking on her ipad. will continue monitoring.
[2021-02-13 20:00] VITALS: BP 122/57
[2021-02-13] MEDS: VITAMIN B COMPLEX 1 TABLET GT SCH (21:22)
[2021-02-13] MEDS: ATORVASTATIN 20 MG TABLET GT SCH (21:24)
[2021-02-14] MEDS: ASCORBIC ACID 500 MG TABLET GT SCH (06:06)
[2021-02-14] MEDS: MULTIVIT, IRON, MIN NO. 8, FA TABLET GT SCH (06:06)
[2021-02-14] MEDS: OMEPRAZOLE 20 MG CAPSULE.DR GT SCH ×2 (06:06→17:56)
[2021-02-14] MEDS: ACIDOPHILUS/BULGARICUS CHEW TAB GT SCH ×3 (06:06→21:21)
[2021-02-14] MEDS: ZINC SULFATE 220 MG CAPSULE GT SCH (06:07)
[2021-02-14] MEDS: CHOLECALCIFEROL 1,000 UNIT TABLET GT SCH (06:07)
[2021-02-14] MEDS: IPRATROPIUM BROMIDE 0.5 MG/2.5 ML NEBU NEB SCH ×3 (07:29→23:02)
[2021-02-14 07:57] VITALS: BP 118/51
[2021-02-14] MEDS: HYDROGEN PEROXIDE 3% 118 ML BOTTLE TP SCH ×2 (09:13→21:29)
[2021-02-14] MEDS: AMLODIPINE 5 MG TABLET GT SCH ×2 (09:30→21:20)
[2021-02-14] MEDS: CARVEDILOL 6.25 MG TABLET GT SCH ×2 (09:30→21:20)
[2021-02-14] MEDS: GUAIFENESIN SUGAR FREE 100 MG/5 ML UDC GT PRN ×4 (09:30→21:40)
[2021-02-14] MEDS: Z GUARD REMEDY PASTE 57 GM TUBE TOP SCH ×2 (09:30→21:20)
[2021-02-14] MEDS: VITAMINS A AND D OINT TP SCH ×2 (09:30→21:20)
[2021-02-14] MEDS: VITAL AF 1.2 1,000 ML LIQUID GT PRN (13:12)
[2021-02-14] MEDS: MELATONIN 3 MG TABLET GT PRN (21:18)
[2021-02-14] MEDS: VITAMIN B COMPLEX 1 TABLET GT SCH (21:20)
[2021-02-14] MEDS: ATORVASTATIN 20 MG TABLET GT SCH (21:20)
[2021-02-14 22:29] VITALS: BP 129/51
[2021-02-15] MEDS: ZINC SULFATE 220 MG CAPSULE GT SCH (05:46)
[2021-02-15] MEDS: ACIDOPHILUS/BULGARICUS CHEW TAB GT SCH ×3 (05:46→21:25)
[2021-02-15] MEDS: ASCORBIC ACID 500 MG TABLET GT SCH (05:46)
[2021-02-15] MEDS: MULTIVIT, IRON, MIN NO. 8, FA TABLET GT SCH (05:46)
[2021-02-15] MEDS: CHOLECALCIFEROL 1,000 UNIT TABLET GT SCH (05:46)
[2021-02-15] MEDS: OMEPRAZOLE 20 MG CAPSULE.DR GT SCH ×2 (05:46→17:39)
[2021-02-15] MEDS: GUAIFENESIN SUGAR FREE 100 MG/5 ML UDC GT PRN ×3 (05:48→21:26)
[2021-02-15] MEDS: IPRATROPIUM BROMIDE 0.5 MG/2.5 ML NEBU NEB SCH ×3 (07:21→22:40)
[2021-02-15 07:57] VITALS: BP 140/67
[2021-02-15] MEDS: CARVEDILOL 6.25 MG TABLET GT SCH ×2 (09:00→21:24)
[2021-02-15] MEDS: AMLODIPINE 5 MG TABLET GT SCH ×2 (09:00→21:24)
[2021-02-15] MEDS: Z GUARD REMEDY PASTE 57 GM TUBE TOP SCH ×2 (09:00→21:24)
[2021-02-15] MEDS: VITAMINS A AND D OINT TP SCH ×2 (09:00→21:25)
[2021-02-15] MEDS: HYDROGEN PEROXIDE 3% 118 ML BOTTLE TP SCH ×2 (09:10→21:05)
--- NOTE | 2021-02-15 13:28 | NUR ---
Seen and examined By Dr Flores with new orders noted.and carried out.
--- NOTE | 2021-02-15 17:08 | NUR ---
PT IS TOLERATING CAPPED TRACH THROUGHOUT SHIFT. FIO2 TITRATED TO 1LPM N/C. SPO2 97%. PT HAS A GOOD PRODUCTIVE COUGH AND IS ABLE TO CLEAR AIRWAY. HHN TX'S GIVEN AND TOLERATED WELL. SPO2 AND RESPIRATIONS WNL. WILL CONTINUE TO MONITOR.
[2021-02-15] MEDS: ATORVASTATIN 20 MG TABLET GT SCH (21:24)
[2021-02-15] MEDS: VITAMIN B COMPLEX 1 TABLET GT SCH (21:24)
[2021-02-15] MEDS: MELATONIN 3 MG TABLET GT PRN (21:25)
[2021-02-15 22:53] VITALS: BP 138/61
[2021-02-16] MEDS: GUAIFENESIN SUGAR FREE 100 MG/5 ML UDC GT PRN ×4 (05:15→23:19)
[2021-02-16] MEDS: ZINC SULFATE 220 MG CAPSULE GT SCH (05:15)
[2021-02-16] MEDS: ASCORBIC ACID 500 MG TABLET GT SCH (05:15)
[2021-02-16] MEDS: ACIDOPHILUS/BULGARICUS CHEW TAB GT SCH ×3 (05:15→21:58)
[2021-02-16] MEDS: MULTIVIT, IRON, MIN NO. 8, FA TABLET GT SCH (05:15)
[2021-02-16] MEDS: OMEPRAZOLE 20 MG CAPSULE.DR GT SCH ×2 (05:15→17:46)
[2021-02-16] MEDS: CHOLECALCIFEROL 1,000 UNIT TABLET GT SCH (05:15)
--- NOTE | 2021-02-16 06:47 | NUR ---
During the shift no s/s of respiratory distress noted. 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 HHN tx given as ordered. Pt has strong cough and did not request to be suction. Oxygen saturation 97-99%.
[2021-02-16] MEDS: IPRATROPIUM BROMIDE 0.5 MG/2.5 ML NEBU NEB SCH ×3 (07:20→22:40)
[2021-02-16] MEDS: HYDROGEN PEROXIDE 3% 118 ML BOTTLE TP SCH ×2 (07:20→20:59)
[2021-02-16 08:09] VITALS: BP 133/61
[2021-02-16] MEDS: CARVEDILOL 6.25 MG TABLET GT SCH ×2 (09:04→21:58)
[2021-02-16] MEDS: AMLODIPINE 5 MG TABLET GT SCH ×2 (09:05→21:58)
[2021-02-16] MEDS: VITAMINS A AND D OINT TP SCH ×2 (09:05→21:58)
[2021-02-16] MEDS: Z GUARD REMEDY PASTE 57 GM TUBE TOP SCH ×2 (09:05→21:58)
[2021-02-16] MEDS: VITAL AF 1.2 1,000 ML LIQUID GT PRN (09:06)
--- NOTE | 2021-02-16 17:41 | NUR ---
Covid 19 test done.
[2021-02-16] MEDS: VITAMIN B COMPLEX 1 TABLET GT SCH (21:57)
[2021-02-16] MEDS: ATORVASTATIN 20 MG TABLET GT SCH (21:58)
[2021-02-16 22:36] VITALS: BP 138/60
[2021-02-16] MEDS: MELATONIN 3 MG TABLET GT PRN (23:19)
[2021-02-17] MEDS: OMEPRAZOLE 20 MG CAPSULE.DR GT SCH ×2 (06:37→17:47)
[2021-02-17] MEDS: MULTIVIT, IRON, MIN NO. 8, FA TABLET GT SCH (06:37)
[2021-02-17] MEDS: ASCORBIC ACID 500 MG TABLET GT SCH (06:37)
[2021-02-17] MEDS: ZINC SULFATE 220 MG CAPSULE GT SCH (06:37)
[2021-02-17] MEDS: ACIDOPHILUS/BULGARICUS CHEW TAB GT SCH ×3 (06:37→21:59)
[2021-02-17] MEDS: CHOLECALCIFEROL 1,000 UNIT TABLET GT SCH (06:37)
[2021-02-17 06:40] LABS: HEMATOCRIT 27.2 % (31.2-41.9); MEAN CORPUSCULAR HEMOGLOBIN 29.6 uug (24.7-32.8); MEAN CORPUSCULAR VOLUME 88.5 fL (75.5-95.3); PLATELET COUNT (AUTO) 284 K/uL (179-408)
[2021-02-17 07:04] LABS: THYROID STIMULATING HORMONE 0.725 mIU/mL (0.358-3.740)
[2021-02-17 07:09] LABS: IRON, SERUM 35 ug/dL (50-175)
[2021-02-17] MEDS: VITAL AF 1.2 1,000 ML LIQUID GT PRN (07:11)
[2021-02-17] MEDS: GUAIFENESIN SUGAR FREE 100 MG/5 ML UDC GT PRN ×4 (07:11→22:00)
[2021-02-17] MEDS: IPRATROPIUM BROMIDE 0.5 MG/2.5 ML NEBU NEB SCH ×3 (07:12→22:48)
[2021-02-17 07:31] LABS: ALANINE AMINOTRANSFERASE 14 U/L (14-59); ALKALINE PHOSPHATASE 89 U/L (50-136); ASPARTATE AMINOTRANSFERASE 12 U/L (15-37); BILIRUBIN,TOTAL 0.3 mg/dL (0.2-1.0); CARBON DIOXIDE 34 mmol/L (21-32); CHLORIDE 105 mmol/L (98-107); CREATININE 0.4 mg/dL (0.6-1.3); FERRITIN 291 ng/mL (8-252); GLUCOSE 110 mg/dL (74-106); POTASSIUM 3.6 mmol/L (3.5-5.1); TOTAL PROTEIN, SERUM 6.6 g/dL (6.4-8.2); UREA NITROGEN, BLOOD 21 mg/dL (7-18)
[2021-02-17 07:34] VITALS: BP 129/57
[2021-02-17] MEDS: AMLODIPINE 5 MG TABLET GT SCH ×2 (09:10→21:59)
[2021-02-17] MEDS: CARVEDILOL 6.25 MG TABLET GT SCH ×2 (09:10→21:58)
[2021-02-17] MEDS: Z GUARD REMEDY PASTE 57 GM TUBE TOP SCH ×2 (09:13→21:59)
[2021-02-17] MEDS: VITAMINS A AND D OINT TP SCH ×2 (09:13→21:59)
[2021-02-17] MEDS: HYDROGEN PEROXIDE 3% 118 ML BOTTLE TP SCH ×2 (09:43→21:46)
[2021-02-17 20:33] VITALS: BP 117/47
[2021-02-17] MEDS: VITAMIN B COMPLEX 1 TABLET GT SCH (21:57)
[2021-02-17] MEDS: ATORVASTATIN 20 MG TABLET GT SCH (21:58)
[2021-02-17] MEDS: MELATONIN 3 MG TABLET GT PRN (22:00)
[2021-02-17] MEDS: MIRALAX 17 GM POWD.PACK GT PRN (22:00)
[2021-02-18] MEDS: ASCORBIC ACID 500 MG TABLET GT SCH (06:10)
[2021-02-18] MEDS: ZINC SULFATE 220 MG CAPSULE GT SCH (06:10)
[2021-02-18] MEDS: ACIDOPHILUS/BULGARICUS CHEW TAB GT SCH ×3 (06:10→21:11)
[2021-02-18] MEDS: OMEPRAZOLE 20 MG CAPSULE.DR GT SCH ×2 (06:10→17:21)
[2021-02-18] MEDS: MULTIVIT, IRON, MIN NO. 8, FA TABLET GT SCH (06:10)
[2021-02-18] MEDS: CHOLECALCIFEROL 1,000 UNIT TABLET GT SCH (06:10)
[2021-02-18 07:19] VITALS: BP 124/55
[2021-02-18] MEDS: VITAL AF 1.2 1,000 ML LIQUID GT PRN (07:23)
[2021-02-18] MEDS: IPRATROPIUM BROMIDE 0.5 MG/2.5 ML NEBU NEB SCH ×3 (07:32→23:48)
[2021-02-18] MEDS: HYDROGEN PEROXIDE 3% 118 ML BOTTLE TP SCH ×2 (07:32→21:00)
[2021-02-18] MEDS: Z GUARD REMEDY PASTE 57 GM TUBE TOP SCH ×2 (08:47→21:10)
[2021-02-18] MEDS: VITAMINS A AND D OINT TP SCH ×2 (08:47→21:10)
[2021-02-18] MEDS: CARVEDILOL 6.25 MG TABLET GT SCH ×2 (09:13→21:09)
[2021-02-18] MEDS: GUAIFENESIN SUGAR FREE 100 MG/5 ML UDC GT PRN ×4 (09:14→21:30)
[2021-02-18] MEDS: AMLODIPINE 5 MG TABLET GT SCH ×2 (09:14→21:10)
--- NOTE | 2021-02-18 14:52 | NUR ---
INTERDISCIPLINARY PLAN OF CARE CONFERENCE was held today. Patient's daughter Fanny participated in the meeting today, by speaker phone. Dr. Leblanc and the Interdisciplinary Team reviewed the current plan of care in detail. RN reported on patient's medical condition. See RN IDT conference notes. PT, OT, and ST reported on patient's treatment plans and ongoing progress. No major changes in medical condition were reported by nursing or by any of the other disciplines. See all other disciplines IDT notes and physician's progress notes for additional details. Fanny's questions were addressed by the IDT team, and Fanny expressed not having any concerns at this time.
[2021-02-18] MEDS: ALBUTEROL SULFATE 2.5 MG/ 0.5 ML NEBU NEB PRN (15:12)
--- NOTE | 2021-02-18 16:25 | NUR ---
SW emailed patient's Mr. López and daughter Fanny the updated guidelines and criteria for visitations, based on [facility] and [facility] directives.
--- NOTE | 2021-02-18 19:12 | NUR ---
Pt notified,Covid 19 test result negative.
[2021-02-18 19:58] VITALS: BP 134/53
--- NOTE | 2021-02-18 20:00 | NUR ---
son-in-law,jeimy visited, a face mask given and 6 feet distance rule and visiting time is 45 minutes, jeimy stated that enjoyed visiting pt and very happy with pt's progress.
[2021-02-18] MEDS: VITAMIN B COMPLEX 1 TABLET GT SCH (21:02)
[2021-02-18] MEDS: ATORVASTATIN 20 MG TABLET GT SCH (21:09)
[2021-02-18] MEDS: MELATONIN 3 MG TABLET GT PRN (21:12)
[2021-02-19] MEDS: GUAIFENESIN SUGAR FREE 100 MG/5 ML UDC GT PRN ×5 (03:30→21:04)
[2021-02-19] MEDS: OMEPRAZOLE 20 MG CAPSULE.DR GT SCH ×2 (06:13→17:02)
[2021-02-19] MEDS: ACIDOPHILUS/BULGARICUS CHEW TAB GT SCH ×3 (06:13→21:03)
[2021-02-19] MEDS: MULTIVIT, IRON, MIN NO. 8, FA TABLET GT SCH (06:13)
[2021-02-19] MEDS: ASCORBIC ACID 500 MG TABLET GT SCH (06:14)
[2021-02-19] MEDS: CHOLECALCIFEROL 1,000 UNIT TABLET GT SCH (06:15)
[2021-02-19] MEDS: ZINC SULFATE 220 MG CAPSULE GT SCH (06:15)
[2021-02-19] MEDS: VITAL AF 1.2 1,000 ML LIQUID GT PRN (06:34)
[2021-02-19 07:26] VITALS: BP 120/56
[2021-02-19] MEDS: IPRATROPIUM BROMIDE 0.5 MG/2.5 ML NEBU NEB SCH ×3 (07:32→22:39)
[2021-02-19] MEDS: AMLODIPINE 5 MG TABLET GT SCH ×2 (08:00→21:02)
[2021-02-19] MEDS: VITAMINS A AND D OINT TP SCH ×2 (08:00→21:03)
[2021-02-19] MEDS: CARVEDILOL 6.25 MG TABLET GT SCH ×2 (08:00→21:00)
[2021-02-19] MEDS: Z GUARD REMEDY PASTE 57 GM TUBE TOP SCH ×2 (08:00→21:02)
[2021-02-19] MEDS: HYDROGEN PEROXIDE 3% 118 ML BOTTLE TP SCH ×2 (09:10→21:16)
--- NOTE | 2021-02-19 13:00 | NUR ---
Pt eat puree diet today ,as ordered ,tolerated well,enteral feeding off from 1000 am to 1 pm.
--- NOTE | 2021-02-19 15:55 | NUR ---
Pt is stable on 1 Lpm n/c, trach capped. Pt has a good cough and able to clear airway. Pt does not require tracheal suction. Pt tolerates HHN tx's well, without adverse reaction. No resp. distress noted throughout shift. Will continue to monitor.
[2021-02-19 20:05] VITALS: BP 134/51
[2021-02-19] MEDS: VITAMIN B COMPLEX 1 TABLET GT SCH (20:59)
[2021-02-19] MEDS: ATORVASTATIN 20 MG TABLET GT SCH (21:01)
[2021-02-19] MEDS: MELATONIN 3 MG TABLET GT PRN (21:03)
--- NOTE | 2021-02-20 03:39 | NUR ---
At this time pt asleep. During the shift no s/s of respiratory distress noted. 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 HHN tx given as ordered. No suction done during the shift. Pt was able to cough out some secretion.
[2021-02-20] MEDS: OMEPRAZOLE 20 MG CAPSULE.DR GT SCH ×2 (05:21→18:03)
[2021-02-20] MEDS: ACIDOPHILUS/BULGARICUS CHEW TAB GT SCH ×3 (05:21→21:07)
[2021-02-20] MEDS: MULTIVIT, IRON, MIN NO. 8, FA TABLET GT SCH (05:22)
[2021-02-20] MEDS: ASCORBIC ACID 500 MG TABLET GT SCH (05:23)
[2021-02-20] MEDS: CHOLECALCIFEROL 1,000 UNIT TABLET GT SCH (05:32)
[2021-02-20] MEDS: ZINC SULFATE 220 MG CAPSULE GT SCH (05:34)
[2021-02-20] MEDS: GUAIFENESIN SUGAR FREE 100 MG/5 ML UDC GT PRN ×3 (05:34→21:27)
[2021-02-20] MEDS: IPRATROPIUM BROMIDE 0.5 MG/2.5 ML NEBU NEB SCH ×3 (07:31→22:30)
[2021-02-20] MEDS: HYDROGEN PEROXIDE 3% 118 ML BOTTLE TP SCH ×2 (07:31→19:12)
[2021-02-20 08:10] VITALS: BP 115/59
[2021-02-20] MEDS: Z GUARD REMEDY PASTE 57 GM TUBE TOP SCH ×2 (08:16→21:06)
[2021-02-20] MEDS: VITAMINS A AND D OINT TP SCH ×2 (08:16→21:06)
[2021-02-20] MEDS: CARVEDILOL 6.25 MG TABLET GT SCH ×2 (08:16→21:04)
[2021-02-20] MEDS: AMLODIPINE 5 MG TABLET GT SCH ×2 (08:16→21:05)
[2021-02-20] MEDS: VITAL AF 1.2 1,000 ML LIQUID GT PRN (09:59)
--- NOTE | 2021-02-20 13:00 | NUR ---
PT.ATE ONLY 2 TABLESPOONS OF PUREED ,SHE STATED THAT SHE DID NOT LIKE THE FOOD.
[2021-02-20 20:02] VITALS: BP 127/62
[2021-02-20] MEDS: VITAMIN B COMPLEX 1 TABLET GT SCH (21:02)
[2021-02-20] MEDS: ATORVASTATIN 20 MG TABLET GT SCH (21:04)
[2021-02-20] MEDS: MELATONIN 3 MG TABLET GT PRN (21:08)
[2021-02-21] MEDS: OMEPRAZOLE 20 MG CAPSULE.DR GT SCH ×2 (05:45→17:19)
[2021-02-21] MEDS: ACIDOPHILUS/BULGARICUS CHEW TAB GT SCH ×3 (05:45→21:31)
[2021-02-21] MEDS: MULTIVIT, IRON, MIN NO. 8, FA TABLET GT SCH (05:46)
[2021-02-21] MEDS: ASCORBIC ACID 500 MG TABLET GT SCH (05:46)
[2021-02-21] MEDS: CHOLECALCIFEROL 1,000 UNIT TABLET GT SCH (05:47)
[2021-02-21] MEDS: ZINC SULFATE 220 MG CAPSULE GT SCH (05:48)
[2021-02-21] MEDS: GUAIFENESIN SUGAR FREE 100 MG/5 ML UDC GT PRN ×4 (05:57→21:41)
[2021-02-21] MEDS: IPRATROPIUM BROMIDE 0.5 MG/2.5 ML NEBU NEB SCH ×3 (07:20→23:15)
[2021-02-21 07:35] VITALS: BP 126/50
[2021-02-21 07:49] VITALS: BP 126/50
[2021-02-21] MEDS: CARVEDILOL 6.25 MG TABLET GT SCH ×2 (08:44→21:31)
[2021-02-21] MEDS: Z GUARD REMEDY PASTE 57 GM TUBE TOP SCH ×2 (08:45→21:31)
[2021-02-21] MEDS: VITAMINS A AND D OINT TP SCH ×2 (08:45→21:31)
[2021-02-21] MEDS: AMLODIPINE 5 MG TABLET GT SCH ×2 (08:45→21:31)
[2021-02-21] MEDS: HYDROGEN PEROXIDE 3% 118 ML BOTTLE TP SCH ×2 (09:09→21:41)
--- NOTE | 2021-02-21 10:30 | NUR ---
PT. WAS SEEN AND EXAMINED BY MARY SANTIAGO AND AWARE OF PERSISTENT EPISODES OF COUGH REGARDLESS OF MEDICATION FOR COUGH ,SHE ALSO WAS AWARE THAT PT. CAN NOT HAVE ANY CODEINE FOR COUGH BECAUSE IT MAKES HER VOMIT AND MARY SPOKE TO GILBERT PHARMACIST RE: OTHER POSSIBLE OPTIONS TO TREAT COUGH BUT THERE WAS NO OTHER.
--- NOTE | 2021-02-21 14:34 | NUR ---
PER SPEECH THERAPIST ESTELLA RECOMMENDATION NEW ORDER TO UPGRADE PO DIET TO FINELY CHOPPED DIET AT LUNCH ONLY HOLDING TUBE FEEDING FROM 10 AM TO 1 PM.,SHE SPOKE TO PT. AND SHE WAS IN AGREEMENT.
--- NOTE | 2021-02-21 14:41 | NUR ---
PT'S DTR. MARILYN WAS NOTIFIED PER PT'S REQUEST TO BE NOTIFIED RE: LATEST ORDERS AND CONDITION.
[2021-02-21] MEDS ORDERED: VITAL AF 1.2 1,000 ML LIQUID GT PRN (15:08)
--- NOTE | 2021-02-21 16:00 | NUR ---
PT. WAS ASSISTED WITH LUNCH MENU FOR TOMORROW.
[2021-02-21 20:16] VITALS: BP 129/64
[2021-02-21] MEDS: VITAMIN B COMPLEX 1 TABLET GT SCH (21:30)
[2021-02-21] MEDS: ATORVASTATIN 20 MG TABLET GT SCH (21:31)
[2021-02-21] MEDS: MELATONIN 3 MG TABLET GT PRN (21:41)
[2021-02-22] MEDS: ZINC SULFATE 220 MG CAPSULE GT SCH (06:06)
[2021-02-22] MEDS: ACIDOPHILUS/BULGARICUS CHEW TAB GT SCH ×3 (06:06→21:00)
[2021-02-22] MEDS: MULTIVIT, IRON, MIN NO. 8, FA TABLET GT SCH (06:06)
[2021-02-22] MEDS: ASCORBIC ACID 500 MG TABLET GT SCH (06:06)
[2021-02-22] MEDS: GUAIFENESIN SUGAR FREE 100 MG/5 ML UDC GT PRN ×2 (06:06→13:23)
[2021-02-22] MEDS: OMEPRAZOLE 20 MG CAPSULE.DR GT SCH ×2 (06:06→18:10)
[2021-02-22] MEDS: CHOLECALCIFEROL 1,000 UNIT TABLET GT SCH (06:06)
[2021-02-22 07:37] VITALS: BP 127/53
[2021-02-22 07:39] VITALS: BP 127/53
[2021-02-22] MEDS: IPRATROPIUM BROMIDE 0.5 MG/2.5 ML NEBU NEB SCH ×3 (08:05→23:15)
[2021-02-22] MEDS: CARVEDILOL 6.25 MG TABLET GT SCH ×2 (08:24→20:57)
[2021-02-22] MEDS: AMLODIPINE 5 MG TABLET GT SCH ×2 (08:25→20:58)
[2021-02-22] MEDS: Z GUARD REMEDY PASTE 57 GM TUBE TOP SCH ×2 (08:25→20:58)
[2021-02-22] MEDS: VITAMINS A AND D OINT TP SCH ×2 (08:25→20:58)
[2021-02-22] MEDS: HYDROGEN PEROXIDE 3% 118 ML BOTTLE TP SCH ×2 (09:19→21:18)
--- NOTE | 2021-02-22 13:22 | NUR ---
PT'S PERSISTENT COUGH EPISODES INTERFERING WITH PT'S PO INTAKE ,AT SECOND SPOONFUL OF FOOD PT.STARTED COUGHING AND A LITTLE PIECE OF MEAT AND VEGETABLE WHEN SHE SWALLOWED SHE FELT PAIN AND STARTED COUGHING AND NURSE HAD TO DO TRACH SUCTION REMOVING THE PHOTOCOPY OPERATOR FROM TRACH,ALSO RT WAS NOTIFIED AND NURSE WAS INSTRUCTED TO KEEP MEDICATING PT. WITH COUGH MEDICINE .PT. STATED THAT SHE CAN NOT HAVE CODEINE TO CONTROL COUGH BECAUSE IT MAKES HER VOMIT.MARY Mathis.P FOR DR. GONSALES WAS NOTIFIED ABOUT THIS YESTERDAY AND SHE SPOKE TO [place] PHARMACIST BUT THERE ARE NO OTHER SUITABLE OPTIONS FOR HER TO CONTROL COUGH EPISODES.
--- NOTE | 2021-02-22 13:25 | NUR ---
NOTED WITH ONLY COUGH EPISODES ,NO CYANOSIS AND NO SOB AND NO DESATURATION ,THE COUGHS INTERFERE WITH SWALLOWING ACCORDING TO PT. AND SHE GETS SCARED.
--- NOTE | 2021-02-22 16:45 | NUR ---
DR. MONTES DE OCA WAS PAGED.
--- NOTE | 2021-02-22 16:56 | NUR ---
DR. MONTES DE OCA CALLED BACK AND AWARE OF PT. EPISODE OF COUGHING INTERFERING WITH SWALLOWING OF FINELY CHOPPED DIET AND THAT PT. GOT SCARED AND NO CYANOSIS AND NO DESATURATION AND LUNGS CLEAR AT AUSCULTATION ,NO WHEEZING AND TRACHEAL SUCTION DONE AND NOTED NO RESIDUALS OF FOOD AND NO TRACHEAL SECRETIONS D/T VERY DRY.DR. MONTES DE OCA STATED TO TRY TOMORROW AGAIN AND CAREFULLY MONITOR PT.TO CALM HER DOWN .PT. WAS AWARE AND IN AGREEMENT.
--- NOTE | 2021-02-22 17:06 | NUR ---
PT. WAS ASSISTED TO CHOOSE MENU FOR LUNCH TOMORROW.
[2021-02-22 20:19] VITALS: BP 128/53
[2021-02-22] MEDS: VITAMIN B COMPLEX 1 TABLET GT SCH (20:56)
[2021-02-22] MEDS: ATORVASTATIN 20 MG TABLET GT SCH (20:57)
[2021-02-22] MEDS: MELATONIN 3 MG TABLET GT PRN (21:00)
[2021-02-23] MEDS: ZINC SULFATE 220 MG CAPSULE GT SCH (05:55)
[2021-02-23] MEDS: ASCORBIC ACID 500 MG TABLET GT SCH (05:55)
[2021-02-23] MEDS: OMEPRAZOLE 20 MG CAPSULE.DR GT SCH ×2 (05:55→17:43)
[2021-02-23] MEDS: MULTIVIT, IRON, MIN NO. 8, FA TABLET GT SCH (05:55)
[2021-02-23] MEDS: CHOLECALCIFEROL 1,000 UNIT TABLET GT SCH (05:55)
[2021-02-23] MEDS: ACIDOPHILUS/BULGARICUS CHEW TAB GT SCH ×3 (05:55→21:30)
[2021-02-23 07:32] VITALS: BP 121/53
[2021-02-23] MEDS: IPRATROPIUM BROMIDE 0.5 MG/2.5 ML NEBU NEB SCH ×3 (08:08→23:41)
--- NOTE | 2021-02-23 08:14 | NUR ---
PT. SEEN AND EXAMINED BY DR. MONTES DE OCA AND HE SPOKE TO PT. AND WITH NEW ORDERS CARRIED OUT.MESSAGE LEFT TO ESTELLA SPEECH THERAPIST TO F/U RE: WHAT KIND OF LIQUIDS PT. IS GOING TO HAVE .
[2021-02-23] MEDS: CARVEDILOL 6.25 MG TABLET GT SCH ×2 (08:57→21:30)
[2021-02-23] MEDS: AMLODIPINE 5 MG TABLET GT SCH ×2 (08:58→21:30)
[2021-02-23] MEDS: Z GUARD REMEDY PASTE 57 GM TUBE TOP SCH ×2 (08:58→21:30)
[2021-02-23] MEDS: VITAMINS A AND D OINT TP SCH ×2 (08:58→21:30)
[2021-02-23] MEDS: HYDROGEN PEROXIDE 3% 118 ML BOTTLE TP SCH ×2 (09:12→21:25)
--- NOTE | 2021-02-23 13:16 | NUR ---
PT. TOLERATED ONLY 1/2 OF SMALL BOWL OF SOUP AND WITH THIN LIQUIDS AND REFUSED ENSURE AND CLEAR ENSURE TOO D/T SHE STATED THAT THE ENSURE CLEAR ONE ITS TOO SWEET AND THE REGULAR MAKES HER SICK ANYTHING WITH MILK .PT. ATE SLOWLY WITH ASPIRATION PRECAUTIONS AND NO EPISODES OF RESP. DISTRESS,NO COUGHING BUT SHE PREFERRED THE LOOSE TEXTURE OF THE SOUP THAT THE PUREED ITSELF DUE TO IT WAS STICKY IN HER MOUTH.
--- NOTE | 2021-02-23 13:20 | NUR ---
SPEECH THERAPIST ESTELLA WAS NOTIFIED AND WILL CONT. SEEING THE PT.
[2021-02-23] MEDS: GUAIFENESIN SUGAR FREE 100 MG/5 ML UDC GT PRN ×2 (13:39→21:30)
--- NOTE | 2021-02-23 18:26 | NUR ---
COVID 19 TEST WAS DONE PER [facility] REQUIREMENT AND PT. IN AGREEMENT.
[2021-02-23 20:52] VITALS: BP 128/58
[2021-02-23] MEDS: VITAMIN B COMPLEX 1 TABLET GT SCH (21:29)
[2021-02-23] MEDS: MELATONIN 3 MG TABLET GT PRN (21:30)
[2021-02-23] MEDS: MIRALAX 17 GM POWD.PACK GT PRN (21:30)
[2021-02-23] MEDS: ATORVASTATIN 20 MG TABLET GT SCH (21:30)
[2021-02-24] MEDS: CHOLECALCIFEROL 1,000 UNIT TABLET GT SCH (05:32)
[2021-02-24] MEDS: ACIDOPHILUS/BULGARICUS CHEW TAB GT SCH ×3 (05:32→21:23)
[2021-02-24] MEDS: ZINC SULFATE 220 MG CAPSULE GT SCH (05:32)
[2021-02-24] MEDS: MULTIVIT, IRON, MIN NO. 8, FA TABLET GT SCH (05:32)
[2021-02-24] MEDS: ASCORBIC ACID 500 MG TABLET GT SCH (05:32)
[2021-02-24] MEDS: GUAIFENESIN SUGAR FREE 100 MG/5 ML UDC GT PRN ×4 (05:32→21:23)
[2021-02-24] MEDS: OMEPRAZOLE 20 MG CAPSULE.DR GT SCH ×2 (05:32→17:10)
[2021-02-24 07:32] VITALS: BP 136/58
[2021-02-24] MEDS: IPRATROPIUM BROMIDE 0.5 MG/2.5 ML NEBU NEB SCH ×3 (07:35→23:12)
[2021-02-24] MEDS: Z GUARD REMEDY PASTE 57 GM TUBE TOP SCH ×2 (08:15→21:23)
[2021-02-24] MEDS: CARVEDILOL 6.25 MG TABLET GT SCH ×2 (08:15→21:22)
[2021-02-24] MEDS: AMLODIPINE 5 MG TABLET GT SCH ×2 (08:15→21:23)
[2021-02-24] MEDS: VITAMINS A AND D OINT TP SCH ×2 (08:15→21:23)
[2021-02-24] MEDS: HYDROGEN PEROXIDE 3% 118 ML BOTTLE TP SCH ×2 (09:37→21:00)
--- NOTE | 2021-02-24 10:48 | NUR ---
ROMÁN called Dr. Rivas's office, , and spoke with [facility] in order to schedule patient's initial optometry appointment. Patient's face sheet faxed to Paradise. Paradise stated that Dr. Rivas is not available this week, but would coordinate a date with him next week and let this ROMÁN know when Dr. Rivas would be able to see the patient.
--- NOTE | 2021-02-24 11:05 | NUR ---
SEEN BY MARY GEORGE N.P. AND WITH NNO.
--- NOTE | 2021-02-24 11:36 | NUR ---
PHYSICAL THERAPIST MIRNA WAS NOTIFIED RE:PT'S PODIATRY NOTES AND SHE SAID SHE WILL TALK TO PT.
--- NOTE | 2021-02-24 14:18 | NUR ---
WRONG ACCOUNT ENTRY.
--- NOTE | 2021-02-24 14:18 | NUR ---
SEEN BY JHOAN Strong AND WITH NNO.
[2021-02-24] MEDS: VITAL AF 1.2 1,000 ML LIQUID GT PRN (17:13)
--- NOTE | 2021-02-24 20:19 | NUR ---
Pt. was aware that pt. elizabeth negative for covid 19 test.
[2021-02-24 20:22] VITALS: BP 129/76
[2021-02-24] MEDS: VITAMIN B COMPLEX 1 TABLET GT SCH (21:22)
[2021-02-24] MEDS: ATORVASTATIN 20 MG TABLET GT SCH (21:22)
[2021-02-24] MEDS: MELATONIN 3 MG TABLET GT PRN (21:23)
[2021-02-25] MEDS: OMEPRAZOLE 20 MG CAPSULE.DR GT SCH ×2 (05:08→17:06)
[2021-02-25] MEDS: CHOLECALCIFEROL 1,000 UNIT TABLET GT SCH (05:08)
[2021-02-25] MEDS: ASCORBIC ACID 500 MG TABLET GT SCH (05:08)
[2021-02-25] MEDS: MULTIVIT, IRON, MIN NO. 8, FA TABLET GT SCH (05:08)
[2021-02-25] MEDS: ZINC SULFATE 220 MG CAPSULE GT SCH (05:08)
[2021-02-25] MEDS: ACIDOPHILUS/BULGARICUS CHEW TAB GT SCH ×3 (05:08→21:04)
[2021-02-25] MEDS: GUAIFENESIN SUGAR FREE 100 MG/5 ML UDC GT PRN ×5 (05:15→21:17)
[2021-02-25 07:26] VITALS: BP 121/48
[2021-02-25] MEDS: IPRATROPIUM BROMIDE 0.5 MG/2.5 ML NEBU NEB SCH ×3 (07:26→18:27)
[2021-02-25] MEDS: HYDROGEN PEROXIDE 3% 118 ML BOTTLE TP SCH ×2 (09:22→21:19)
[2021-02-25] MEDS: CARVEDILOL 6.25 MG TABLET GT SCH ×2 (09:27→20:59)
[2021-02-25] MEDS: AMLODIPINE 5 MG TABLET GT SCH ×2 (09:28→21:02)
[2021-02-25] MEDS: VITAMINS A AND D OINT TP SCH ×2 (09:29→21:03)
[2021-02-25] MEDS: Z GUARD REMEDY PASTE 57 GM TUBE TOP SCH ×2 (09:29→21:02)
[2021-02-25 14:25] VITALS: BP 121/53
[2021-02-25] MEDS: VITAL AF 1.2 1,000 ML LIQUID GT PRN (14:28)
[2021-02-25 20:00] VITALS: BP 127/60
[2021-02-25] MEDS: VITAMIN B COMPLEX 1 TABLET GT SCH (20:57)
[2021-02-25] MEDS: ATORVASTATIN 20 MG TABLET GT SCH (21:01)
[2021-02-25] MEDS: MELATONIN 3 MG TABLET GT PRN (21:05)
[2021-02-26] MEDS: GUAIFENESIN SUGAR FREE 100 MG/5 ML UDC GT PRN ×4 (03:45→21:19)
[2021-02-26] MEDS: CHOLECALCIFEROL 1,000 UNIT TABLET GT SCH (06:15)
[2021-02-26] MEDS: MULTIVIT, IRON, MIN NO. 8, FA TABLET GT SCH (06:15)
[2021-02-26] MEDS: ASCORBIC ACID 500 MG TABLET GT SCH (06:15)
[2021-02-26] MEDS: OMEPRAZOLE 20 MG CAPSULE.DR GT SCH ×2 (06:15→17:08)
[2021-02-26] MEDS: ACIDOPHILUS/BULGARICUS CHEW TAB GT SCH ×3 (06:15→21:15)
[2021-02-26] MEDS: ZINC SULFATE 220 MG CAPSULE GT SCH (06:15)
[2021-02-26 07:20] VITALS: BP 106/55
[2021-02-26] MEDS: IPRATROPIUM BROMIDE 0.5 MG/2.5 ML NEBU NEB SCH ×3 (07:39→22:40)
[2021-02-26] MEDS: HYDROGEN PEROXIDE 3% 118 ML BOTTLE TP SCH ×2 (07:40→21:27)
[2021-02-26] MEDS: VITAMINS A AND D OINT TP SCH ×2 (08:29→21:15)
[2021-02-26] MEDS: Z GUARD REMEDY PASTE 57 GM TUBE TOP SCH ×2 (08:29→21:15)
[2021-02-26] MEDS: AMLODIPINE 5 MG TABLET GT SCH ×2 (08:30→21:15)
[2021-02-26] MEDS: CARVEDILOL 6.25 MG TABLET GT SCH ×2 (08:30→21:15)
[2021-02-26] MEDS: VITAL AF 1.2 1,000 ML LIQUID GT PRN (11:37)
[2021-02-26] MEDS ORDERED: COVID-19 VACC,MRNA(MODERNA)/PF 100 MCG/0.5 ML VIAL IM SCH (14:30)
--- NOTE | 2021-02-26 14:37 | NUR ---
Covid vaccine second dose given by Steffanie Weber,Tolerated well,on close observation.
--- NOTE | 2021-02-26 17:17 | NUR ---
SW notified patient's Mr. López and patient's daughter Fanny, via email, that the next IDT meeting for the patient is scheduled for March 04. SW asked Mr. López and Fanny to let this SW know if they would like to participate in the meeting via speaker phone.
[2021-02-26] MEDS: ACETAMINOPHEN 650 MG/20 ML UDC- SA PATIENTS-PAIN ONLY GT PRN (18:10)
[2021-02-26 19:59] VITALS: BP 126/53
[2021-02-26] MEDS: VITAMIN B COMPLEX 1 TABLET GT SCH (21:14)
[2021-02-26] MEDS: MELATONIN 3 MG TABLET GT PRN (21:15)
[2021-02-26] MEDS: ATORVASTATIN 20 MG TABLET GT SCH (21:15)
--- NOTE | 2021-02-27 03:45 | NUR ---
During the shift no s/s of respiratory distress noted. 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 HHN tx given as ordered. No suction done during the shift. Pt was able to cough out some secretion.
--- NOTE | 2021-02-27 04:50 | NUR ---
S/P 2nd dose of Moderna Covid Vaccine, afebrile. Patient wiith c/o pain on affected site though patient with noted chronic pain on vacinated arm. Site without redness or swelling. PRN pain medication provided. Continue to monitor.
[2021-02-27] MEDS: GUAIFENESIN SUGAR FREE 100 MG/5 ML UDC GT PRN ×4 (05:30→18:01)
[2021-02-27] MEDS: ACETAMINOPHEN 650 MG/20 ML UDC- SA PATIENTS-PAIN ONLY GT PRN ×3 (05:30→21:20)
[2021-02-27] MEDS: MULTIVIT, IRON, MIN NO. 8, FA TABLET GT SCH (05:47)
[2021-02-27] MEDS: OMEPRAZOLE 20 MG CAPSULE.DR GT SCH ×2 (05:47→17:33)
[2021-02-27] MEDS: ACIDOPHILUS/BULGARICUS CHEW TAB GT SCH ×3 (05:47→21:14)
[2021-02-27] MEDS: CHOLECALCIFEROL 1,000 UNIT TABLET GT SCH (05:47)
[2021-02-27] MEDS: ASCORBIC ACID 500 MG TABLET GT SCH (05:47)
[2021-02-27] MEDS: ZINC SULFATE 220 MG CAPSULE GT SCH (05:47)
[2021-02-27 07:24] VITALS: BP 116/68
[2021-02-27] MEDS: IPRATROPIUM BROMIDE 0.5 MG/2.5 ML NEBU NEB SCH ×3 (07:35→23:10)
[2021-02-27] MEDS: CARVEDILOL 6.25 MG TABLET GT SCH ×2 (09:23→21:14)
[2021-02-27] MEDS: AMLODIPINE 5 MG TABLET GT SCH ×2 (09:23→21:14)
[2021-02-27] MEDS: Z GUARD REMEDY PASTE 57 GM TUBE TOP SCH ×2 (09:24→21:14)
[2021-02-27] MEDS: HYDROGEN PEROXIDE 3% 118 ML BOTTLE TP SCH ×2 (09:24→21:26)
[2021-02-27] MEDS: VITAMINS A AND D OINT TP SCH ×2 (09:24→21:14)
[2021-02-27] MEDS: VITAL AF 1.2 1,000 ML LIQUID GT PRN (09:28)
--- NOTE | 2021-02-27 11:57 | NUR ---
ROMÁN received emails back from patient's daughter Fanny and Mr. López, in response to the email this ROMÁN had sent them on 02/26 regarding the IDT meeting scheduled for 03/04. Both Fanny and Mr. López stated that they would be available to participate by telephone. SW to call Fanny and Mr. López during the meeting in order to coordinate their participation by speaker phone.
--- NOTE | 2021-02-27 14:07 | NUR ---
Temp 101.3F, cooling measures given, Tylenol given
--- NOTE | 2021-02-27 15:16 | NUR ---
Temp rechecked 99.6F
--- NOTE | 2021-02-27 15:30 | NUR ---
Pt laying in bed, semi-Rich's, awake/alert..Pt comfortable with 1 Lpm nasal cannula, trach capped.. Pt has a good cough and able to clear her own secretions.. No respiratory distress / S.O.B noted throughout shift.
--- NOTE | 2021-02-27 18:24 | NUR ---
Latest temp 99.1 F. Still with left upper arm pain.
[2021-02-27 20:02] VITALS: BP 130/62
[2021-02-27] MEDS: ATORVASTATIN 20 MG TABLET GT SCH (21:14)
[2021-02-27] MEDS: VITAMIN B COMPLEX 1 TABLET GT SCH (21:14)
[2021-02-27] MEDS: MELATONIN 3 MG TABLET GT PRN (21:17)
[2021-02-28] MEDS: ZINC SULFATE 220 MG CAPSULE GT SCH (06:00)
[2021-02-28] MEDS: MULTIVIT, IRON, MIN NO. 8, FA TABLET GT SCH (06:00)
[2021-02-28] MEDS: ACIDOPHILUS/BULGARICUS CHEW TAB GT SCH ×3 (06:00→21:52)
[2021-02-28] MEDS: CHOLECALCIFEROL 1,000 UNIT TABLET GT SCH (06:00)
[2021-02-28] MEDS: ASCORBIC ACID 500 MG TABLET GT SCH (06:00)
[2021-02-28] MEDS: ONDANSETRON HCL 4 MG TABLET GT PRN (06:18)
[2021-02-28] MEDS: OMEPRAZOLE 20 MG CAPSULE.DR GT SCH ×2 (06:19→17:20)
--- NOTE | 2021-02-28 06:27 | NUR ---
Temperature 98.7 HR: 74 RR: 20 B/P:128/62 Pain 0/10. alert and oriented, S/p Moderna #2 Vaccine on 02/26/21 on Left deltoid, no swelling or redness noted on injection site, (+) soreness on the injection site, handled patient gently. Also noted with coughing fit that leads to her vomiting X 1, patient refused to take her Vit. C, D and zinc sulfate because she was afraid she is gonna vomit again. On aspiration precaution, HOB elevated, Gt feeding is off at this time, handled patient very gently, needs attended, call light within reach.
[2021-02-28] MEDS: IPRATROPIUM BROMIDE 0.5 MG/2.5 ML NEBU NEB SCH ×3 (07:26→21:34)
[2021-02-28 07:55] VITALS: BP 117/55
[2021-02-28] MEDS: AMLODIPINE 5 MG TABLET GT SCH ×2 (09:00→21:52)
[2021-02-28] MEDS: Z GUARD REMEDY PASTE 57 GM TUBE TOP SCH ×2 (09:38→21:52)
[2021-02-28] MEDS: CARVEDILOL 6.25 MG TABLET GT SCH ×2 (09:38→21:52)
[2021-02-28] MEDS: HYDROGEN PEROXIDE 3% 118 ML BOTTLE TP SCH ×2 (09:39→21:30)
[2021-02-28] MEDS: VITAMINS A AND D OINT TP SCH ×2 (09:39→21:52)
[2021-02-28] MEDS: GUAIFENESIN SUGAR FREE 100 MG/5 ML UDC GT PRN ×2 (10:36→21:56)
[2021-02-28] MEDS: ACETAMINOPHEN 650 MG/20 ML UDC- SA PATIENTS-PAIN ONLY GT PRN ×2 (10:36→21:57)
[2021-02-28] MEDS: VITAL AF 1.2 1,000 ML LIQUID GT PRN (19:22)
[2021-02-28 20:14] VITALS: BP 135/54
[2021-02-28] MEDS: VITAMIN B COMPLEX 1 TABLET GT SCH (21:51)
[2021-02-28] MEDS: ATORVASTATIN 20 MG TABLET GT SCH (21:52)
[2021-02-28] MEDS: MELATONIN 3 MG TABLET GT PRN (21:56)
--- NOTE | 2021-03-01 06:17 | NUR ---
Pt trach capped, on 1 LPM nasal cannula tolerating well. No signs of respiratory distress noted throughout shift. Pt has a good cough and able to clear airway, no suctioned needed. Tolerated HHN tx well, with no adverse reactions.
[2021-03-01] MEDS: CHOLECALCIFEROL 1,000 UNIT TABLET GT SCH (06:35)
[2021-03-01] MEDS: GUAIFENESIN SUGAR FREE 100 MG/5 ML UDC GT PRN ×3 (06:35→21:13)
[2021-03-01] MEDS: MULTIVIT, IRON, MIN NO. 8, FA TABLET GT SCH (06:35)
[2021-03-01] MEDS: ZINC SULFATE 220 MG CAPSULE GT SCH (06:35)
[2021-03-01] MEDS: ACIDOPHILUS/BULGARICUS CHEW TAB GT SCH ×3 (06:35→22:56)
[2021-03-01] MEDS: OMEPRAZOLE 20 MG CAPSULE.DR GT SCH ×2 (06:35→17:35)
[2021-03-01] MEDS: ASCORBIC ACID 500 MG TABLET GT SCH (06:35)
--- NOTE | 2021-03-01 07:25 | NUR ---
Pt rec'd on 1 Lpm Nasal cannula with bubble humidifier, and trach capped. No respiratory distress noted. Pt has strong and effective cough. No need for suctioning. Treatments given as ordered, tolerated well without adverse reactions noted. Will continue to monitor.
[2021-03-01] MEDS: IPRATROPIUM BROMIDE 0.5 MG/2.5 ML NEBU NEB SCH ×3 (07:44→22:40)
[2021-03-01 07:53] VITALS: BP 121/52
[2021-03-01] MEDS: CARVEDILOL 6.25 MG TABLET GT SCH ×2 (08:46→20:37)
[2021-03-01] MEDS: VITAMINS A AND D OINT TP SCH ×2 (08:47→20:39)
[2021-03-01] MEDS: AMLODIPINE 5 MG TABLET GT SCH ×2 (08:47→20:39)
[2021-03-01] MEDS: Z GUARD REMEDY PASTE 57 GM TUBE TOP SCH ×2 (08:47→20:39)
[2021-03-01] MEDS: HYDROGEN PEROXIDE 3% 118 ML BOTTLE TP SCH ×2 (09:00→20:50)
[2021-03-01] MEDS: VITAL AF 1.2 1,000 ML LIQUID GT PRN (13:06)
[2021-03-01] MEDS: VITAMIN B COMPLEX 1 TABLET GT SCH (20:37)
[2021-03-01] MEDS: ATORVASTATIN 20 MG TABLET GT SCH (20:38)
[2021-03-01] MEDS: MIRALAX 17 GM POWD.PACK GT PRN (21:11)
[2021-03-01] MEDS: MELATONIN 3 MG TABLET GT PRN (21:13)
--- NOTE | 2021-03-01 21:20 | NUR ---
c/o left upper arm pain, checked left arm slightly swollen, red and warm to touch, tylenol given, will observe closely,98.6,109/58,78,18, o2sat 96%, call light within reach.
[2021-03-01] MEDS: ACETAMINOPHEN 650 MG/20 ML UDC- SA PATIENTS-PAIN ONLY GT PRN (21:22)
[2021-03-01 22:38] VITALS: BP 109/58
--- NOTE | 2021-03-02 04:04 | NUR ---
Pt asleep. During the shift no s/s of respiratory distress noted. 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 HHN tx given as ordered. No suction done during the shift. Pt was able to cough out some secretion.
--- NOTE | 2021-03-02 05:52 | NUR ---
no further c/o pain @ left arm, red and warm to touch, continue monitor, will endorse to am charge nurse, no respiratory distress noted, call light within reach, alert and oriented.
[2021-03-02] MEDS: ASCORBIC ACID 500 MG TABLET GT SCH (06:17)
[2021-03-02] MEDS: CHOLECALCIFEROL 1,000 UNIT TABLET GT SCH (06:17)
[2021-03-02] MEDS: MULTIVIT, IRON, MIN NO. 8, FA TABLET GT SCH (06:17)
[2021-03-02] MEDS: ACIDOPHILUS/BULGARICUS CHEW TAB GT SCH ×3 (06:17→22:05)
[2021-03-02] MEDS: ZINC SULFATE 220 MG CAPSULE GT SCH (06:17)
[2021-03-02] MEDS: OMEPRAZOLE 20 MG CAPSULE.DR GT SCH ×2 (06:17→17:00)
[2021-03-02] MEDS: IPRATROPIUM BROMIDE 0.5 MG/2.5 ML NEBU NEB SCH ×3 (07:47→22:40)
[2021-03-02 07:49] VITALS: BP 124/55
[2021-03-02] MEDS: HYDROGEN PEROXIDE 3% 118 ML BOTTLE TP SCH ×2 (09:00→21:23)
[2021-03-02] MEDS: VITAMINS A AND D OINT TP SCH ×2 (09:26→20:15)
[2021-03-02] MEDS: AMLODIPINE 5 MG TABLET GT SCH ×2 (09:26→20:14)
[2021-03-02] MEDS: Z GUARD REMEDY PASTE 57 GM TUBE TOP SCH ×2 (09:26→20:15)
[2021-03-02] MEDS: CARVEDILOL 6.25 MG TABLET GT SCH ×2 (09:26→20:14)
[2021-03-02] MEDS: GUAIFENESIN SUGAR FREE 100 MG/5 ML UDC GT PRN ×3 (09:29→21:17)
--- NOTE | 2021-03-02 11:10 | NUR ---
Left message to Dr Flores regarding L above the elbow stump is painful ,with redness and slight swelling noted.
--- NOTE | 2021-03-02 12:36 | NUR ---
Message left to Dr Flores,waiting for him to call back.
[2021-03-02] MEDS: VITAL AF 1.2 1,000 ML LIQUID GT PRN (16:54)
--- NOTE | 2021-03-02 18:55 | NUR ---
Covid 19 test done today,Pt notified.
--- NOTE | 2021-03-02 19:59 | NUR ---
Dr. James Flores called back with new orders for Keflex 500mg via gt every 12 hours for Right above elbow stump skin infection, CBC in am, and Advil 200mg via gt every 8 hours as needed for pain, noted and carried out. Patient is aware of Doctor's orders and Maribel was also notified of patient's condition and new orders and he agreed with plan of care. Addendum: 03/02/21 at 2342 by ANISH LEE RN Patient is sleeping well, no adverse reaction noted from Keflex at this time, no signs of any distress, will continue monitor.
[2021-03-02] MEDS: ATORVASTATIN 20 MG TABLET GT SCH (20:11)
[2021-03-02] MEDS: VITAMIN B COMPLEX 1 TABLET GT SCH (20:12)
[2021-03-02] MEDS ORDERED: IBUPROFEN 200 MG TABLET GT PRN (20:15)
[2021-03-02] MEDS ORDERED: CEphaleXIN 500 MG CAPSULE ONE (20:24)
[2021-03-02] MEDS: MIRALAX 17 GM POWD.PACK GT PRN (20:29)
[2021-03-02] MEDS ORDERED: CEPHALEXIN MONOHYDRATE 125 MG/5 ML SUSPENSION 100ML GT SCH (21:00)
[2021-03-02] MEDS: MELATONIN 3 MG TABLET GT PRN (21:19)
[2021-03-02 23:37] VITALS: BP 134/59
[2021-03-03] MEDS: GUAIFENESIN SUGAR FREE 100 MG/5 ML UDC GT PRN ×3 (02:44→17:46)
[2021-03-03] MEDS: ASCORBIC ACID 500 MG TABLET GT SCH (06:07)
[2021-03-03] MEDS: MULTIVIT, IRON, MIN NO. 8, FA TABLET GT SCH (06:07)
[2021-03-03] MEDS: CHOLECALCIFEROL 1,000 UNIT TABLET GT SCH (06:07)
[2021-03-03] MEDS: ZINC SULFATE 220 MG CAPSULE GT SCH (06:07)
[2021-03-03] MEDS: ACIDOPHILUS/BULGARICUS CHEW TAB GT SCH ×3 (06:07→21:18)
[2021-03-03] MEDS: OMEPRAZOLE 20 MG CAPSULE.DR GT SCH ×2 (06:07→17:45)
[2021-03-03] MEDS ORDERED: IBUPROFEN 100 MG/5 ML LIQUID UDC- SA PATIENTS-PAIN ONLY GT PRN (06:15)
--- NOTE | 2021-03-03 06:31 | NUR ---
Patient is awake, above left elbow stump still swollen and is warm to the touch, patient stated that , " I looks better than yesterday." Patient denied pain at this time, needs attended, call light within reach.
[2021-03-03 07:13] LABS: HEMATOCRIT 26.4 % (31.2-41.9); MEAN CORPUSCULAR HEMOGLOBIN 29.8 uug (24.7-32.8); MEAN CORPUSCULAR VOLUME 87.4 fL (75.5-95.3); PLATELET COUNT (AUTO) 284 K/uL (179-408)
[2021-03-03 07:24] VITALS: BP 114/60
[2021-03-03] MEDS: HYDROGEN PEROXIDE 3% 118 ML BOTTLE TP SCH ×2 (07:33→21:00)
[2021-03-03] MEDS: IPRATROPIUM BROMIDE 0.5 MG/2.5 ML NEBU NEB SCH ×3 (07:33→22:47)
[2021-03-03] MEDS: CARVEDILOL 6.25 MG TABLET GT SCH ×2 (08:39→21:16)
[2021-03-03] MEDS: Z GUARD REMEDY PASTE 57 GM TUBE TOP SCH ×2 (08:39→21:18)
[2021-03-03] MEDS: CEphaleXIN 500 MG CAPSULE GT SCH ×2 (08:39→21:18)
[2021-03-03] MEDS: VITAMINS A AND D OINT TP SCH ×2 (08:39→21:18)
[2021-03-03] MEDS: AMLODIPINE 5 MG TABLET GT SCH ×2 (08:39→21:18)
--- NOTE | 2021-03-03 10:55 | NUR ---
SW received a call from Paradise at Dr. Rivas's office, , who stated that Dr. Rivas would be in today to see patient for her initial eye exam.
[2021-03-03] MEDS: IBUPROFEN 100 MG/5 ML LIQUID UDC- SA PATIENTS-PAIN ONLY GT PRN ×2 (10:58→19:05)
[2021-03-03] MEDS: VITAL AF 1.2 1,000 ML LIQUID GT PRN (11:53)
--- NOTE | 2021-03-03 17:10 | NUR ---
Patient seen today by Dr. Rivas for her initial eye exam. See optometry notes in chart for details.
[2021-03-03 20:16] VITALS: BP 114/54
[2021-03-03] MEDS: VITAMIN B COMPLEX 1 TABLET GT SCH (21:15)
[2021-03-03] MEDS: ATORVASTATIN 20 MG TABLET GT SCH (21:17)
[2021-03-04] MEDS: GUAIFENESIN SUGAR FREE 100 MG/5 ML UDC GT PRN ×4 (02:49→21:38)
[2021-03-04] MEDS: OMEPRAZOLE 20 MG CAPSULE.DR GT SCH ×2 (05:53→17:21)
[2021-03-04] MEDS: CHOLECALCIFEROL 1,000 UNIT TABLET GT SCH (05:53)
[2021-03-04] MEDS: ASCORBIC ACID 500 MG TABLET GT SCH (05:53)
[2021-03-04] MEDS: ZINC SULFATE 220 MG CAPSULE GT SCH (05:53)
[2021-03-04] MEDS: ACIDOPHILUS/BULGARICUS CHEW TAB GT SCH ×3 (05:53→21:37)
[2021-03-04] MEDS: MULTIVIT, IRON, MIN NO. 8, FA TABLET GT SCH (05:53)
[2021-03-04] MEDS: IBUPROFEN 100 MG/5 ML LIQUID UDC- SA PATIENTS-PAIN ONLY GT PRN ×2 (05:55→17:22)
[2021-03-04] MEDS: VITAL AF 1.2 1,000 ML LIQUID GT PRN (07:00)
[2021-03-04 07:23] VITALS: BP 124/60
[2021-03-04] MEDS: IPRATROPIUM BROMIDE 0.5 MG/2.5 ML NEBU NEB SCH ×3 (07:35→22:30)
--- NOTE | 2021-03-04 08:43 | NUR ---
Seen and examined by Alexia SHANNON,with new orders noted for the L stump ,pt still complaining of pain.
[2021-03-04] MEDS: CEphaleXIN 500 MG CAPSULE GT SCH ×2 (08:56→21:37)
[2021-03-04] MEDS: CARVEDILOL 6.25 MG TABLET GT SCH ×2 (08:56→21:37)
[2021-03-04] MEDS: VITAMINS A AND D OINT TP SCH ×2 (08:57→21:37)
[2021-03-04] MEDS: Z GUARD REMEDY PASTE 57 GM TUBE TOP SCH ×2 (08:57→21:37)
[2021-03-04] MEDS: AMLODIPINE 5 MG TABLET GT SCH ×2 (08:57→21:37)
[2021-03-04] MEDS: HYDROGEN PEROXIDE 3% 118 ML BOTTLE TP SCH ×2 (09:00→20:47)
--- NOTE | 2021-03-04 15:13 | NUR ---
INTERDISCIPLINARY PLAN OF CARE CONFERENCE was held today. Patient's Mr. López and patient's daughter Fanny participated in the meeting by speaker phone. Dr. Leblanc and the Interdisciplinary Team reviewed the current plan of care in detail. RN reported on patient's medical condition, ongoing treatment plan, and pending tests. See RN IDT conference notes. PT, OT, and ST discussed patient's participation and progress in rehab, and ongoing treatment plan.. Pharmacy and RT reported no changes. Trouble Shooter discussed tube feeding and oral feeding, stating patient is tolerating it well. No major changes in medical condition were reported by nursing or by any of the other disciplines. See all disciplines IDT notes and physician's progress notes for additional details. Mr. López's and Fanny's questions were addressed by the IDT team, and there were no concerns expressed at this time.
[2021-03-04 20:10] VITALS: BP 137/55
[2021-03-04] MEDS: VITAMIN B COMPLEX 1 TABLET GT SCH (21:36)
[2021-03-04] MEDS: ATORVASTATIN 20 MG TABLET GT SCH (21:37)
[2021-03-04] MEDS: MELATONIN 3 MG TABLET GT PRN (21:40)
[2021-03-05] MEDS: GUAIFENESIN SUGAR FREE 100 MG/5 ML UDC GT PRN ×5 (02:00→22:20)
[2021-03-05] MEDS: VITAL AF 1.2 1,000 ML LIQUID GT PRN (04:34)
[2021-03-05] MEDS: ACIDOPHILUS/BULGARICUS CHEW TAB GT SCH ×3 (06:05→21:04)
[2021-03-05] MEDS: MULTIVIT, IRON, MIN NO. 8, FA TABLET GT SCH (06:06)
[2021-03-05] MEDS: OMEPRAZOLE 20 MG CAPSULE.DR GT SCH ×2 (06:06→18:11)
[2021-03-05] MEDS: CHOLECALCIFEROL 1,000 UNIT TABLET GT SCH (06:06)
[2021-03-05] MEDS: ZINC SULFATE 220 MG CAPSULE GT SCH (06:06)
[2021-03-05] MEDS: ASCORBIC ACID 500 MG TABLET GT SCH (06:06)
[2021-03-05 07:24] VITALS: BP 116/53
[2021-03-05] MEDS: IPRATROPIUM BROMIDE 0.5 MG/2.5 ML NEBU NEB SCH ×3 (08:00→22:40)
[2021-03-05] MEDS: CARVEDILOL 6.25 MG TABLET GT SCH ×2 (08:33→21:01)
[2021-03-05] MEDS: AMLODIPINE 5 MG TABLET GT SCH ×2 (08:35→21:03)
[2021-03-05] MEDS: Z GUARD REMEDY PASTE 57 GM TUBE TOP SCH ×2 (08:35→21:03)
[2021-03-05] MEDS: CEphaleXIN 500 MG CAPSULE GT SCH ×2 (08:35→21:02)
[2021-03-05] MEDS: IBUPROFEN 100 MG/5 ML LIQUID UDC- SA PATIENTS-PAIN ONLY GT PRN ×2 (08:39→18:14)
[2021-03-05] MEDS: HYDROGEN PEROXIDE 3% 118 ML BOTTLE TP SCH ×2 (09:00→20:51)
[2021-03-05] MEDS: VITAMINS A AND D OINT TP SCH ×2 (09:00→21:03)
--- NOTE | 2021-03-05 18:00 | NUR ---
Pt notified,Covid 19 test result negative.
[2021-03-05 20:00] VITALS: BP 128/56
[2021-03-05] MEDS: VITAMIN B COMPLEX 1 TABLET GT SCH (20:58)
[2021-03-05] MEDS: ATORVASTATIN 20 MG TABLET GT SCH (21:02)
[2021-03-05] MEDS: MELATONIN 3 MG TABLET GT PRN (22:18)
[2021-03-06] MEDS: VITAL AF 1.2 1,000 ML LIQUID GT PRN ×2 (01:38→21:32)
[2021-03-06] MEDS: GUAIFENESIN SUGAR FREE 100 MG/5 ML UDC GT PRN ×5 (03:12→21:32)
[2021-03-06] MEDS: CHOLECALCIFEROL 1,000 UNIT TABLET GT SCH (05:48)
[2021-03-06] MEDS: ZINC SULFATE 220 MG CAPSULE GT SCH (05:48)
[2021-03-06] MEDS: ASCORBIC ACID 500 MG TABLET GT SCH (05:48)
[2021-03-06] MEDS: ACIDOPHILUS/BULGARICUS CHEW TAB GT SCH ×3 (05:48→21:21)
[2021-03-06] MEDS: OMEPRAZOLE 20 MG CAPSULE.DR GT SCH ×2 (05:48→17:23)
[2021-03-06] MEDS: MULTIVIT, IRON, MIN NO. 8, FA TABLET GT SCH (05:48)
[2021-03-06] MEDS: IPRATROPIUM BROMIDE 0.5 MG/2.5 ML NEBU NEB SCH ×3 (07:23→20:42)
[2021-03-06 07:55] VITALS: BP 131/54
[2021-03-06] MEDS: CARVEDILOL 6.25 MG TABLET GT SCH ×2 (08:05→21:20)
[2021-03-06] MEDS: IBUPROFEN 100 MG/5 ML LIQUID UDC- SA PATIENTS-PAIN ONLY GT PRN ×2 (08:05→12:36)
[2021-03-06] MEDS: AMLODIPINE 5 MG TABLET GT SCH ×2 (08:05→21:21)
[2021-03-06] MEDS: CEphaleXIN 500 MG CAPSULE GT SCH ×2 (08:06→21:21)
[2021-03-06] MEDS: VITAMINS A AND D OINT TP SCH ×2 (09:00→21:21)
[2021-03-06] MEDS: Z GUARD REMEDY PASTE 57 GM TUBE TOP SCH ×2 (09:00→21:21)
[2021-03-06] MEDS: HYDROGEN PEROXIDE 3% 118 ML BOTTLE TP SCH ×2 (09:54→20:03)
--- NOTE | 2021-03-06 14:28 | NUR ---
Pt stable on 1 Lpm n/c, trach capped throughout shift. Pt has a good unproductive cough. Spo2 and respirations WNL. No resp. distress noted. Will continue to monitor.
--- NOTE | 2021-03-06 17:24 | NUR ---
NEW ORDER CARRIED OUT FROM DR. GONSALES FOR RT. SHOULDER PAIN ACCORDING TO PHYSICAL THERAPIST MIRNA .
[2021-03-06 20:00] VITALS: BP 128/65
[2021-03-06] MEDS: VITAMIN B COMPLEX 1 TABLET GT SCH (21:20)
[2021-03-06] MEDS: ATORVASTATIN 20 MG TABLET GT SCH (21:21)
[2021-03-06] MEDS: MELATONIN 3 MG TABLET GT PRN (21:22)
[2021-03-07] MEDS: CHOLECALCIFEROL 1,000 UNIT TABLET GT SCH (05:37)
[2021-03-07] MEDS: MULTIVIT, IRON, MIN NO. 8, FA TABLET GT SCH (05:37)
[2021-03-07] MEDS: ACIDOPHILUS/BULGARICUS CHEW TAB GT SCH ×3 (05:37→21:22)
[2021-03-07] MEDS: OMEPRAZOLE 20 MG CAPSULE.DR GT SCH ×2 (05:37→18:09)
[2021-03-07] MEDS: ASCORBIC ACID 500 MG TABLET GT SCH (05:37)
[2021-03-07] MEDS: ZINC SULFATE 220 MG CAPSULE GT SCH (05:37)
[2021-03-07] MEDS: IBUPROFEN 100 MG/5 ML LIQUID UDC- SA PATIENTS-PAIN ONLY GT PRN ×2 (05:50→14:06)
[2021-03-07] MEDS: IPRATROPIUM BROMIDE 0.5 MG/2.5 ML NEBU NEB SCH ×3 (07:19→22:43)
[2021-03-07 07:58] VITALS: BP 130/56
[2021-03-07] MEDS: CARVEDILOL 6.25 MG TABLET GT SCH ×2 (08:58→21:21)
[2021-03-07] MEDS: VITAMINS A AND D OINT TP SCH ×2 (08:59→21:21)
[2021-03-07] MEDS: CEphaleXIN 500 MG CAPSULE GT SCH ×2 (08:59→21:21)
[2021-03-07] MEDS: AMLODIPINE 5 MG TABLET GT SCH ×2 (08:59→21:21)
[2021-03-07] MEDS: Z GUARD REMEDY PASTE 57 GM TUBE TOP SCH ×2 (08:59→21:21)
[2021-03-07] MEDS: GUAIFENESIN SUGAR FREE 100 MG/5 ML UDC GT PRN ×4 (09:20→22:31)
[2021-03-07] MEDS: HYDROGEN PEROXIDE 3% 118 ML BOTTLE TP SCH ×2 (09:47→21:00)
[2021-03-07] MEDS: VITAL AF 1.2 1,000 ML LIQUID GT PRN (18:09)
[2021-03-07] MEDS: ACETAMINOPHEN 650 MG/20 ML UDC- SA PATIENTS-PAIN ONLY GT PRN (18:09)
[2021-03-07] MEDS: ATORVASTATIN 20 MG TABLET GT SCH (21:21)
[2021-03-07] MEDS: VITAMIN B COMPLEX 1 TABLET GT SCH (21:21)
[2021-03-07] MEDS: MELATONIN 3 MG TABLET GT PRN (21:22)
[2021-03-07 22:26] VITALS: BP 131/53
[2021-03-08] MEDS: GUAIFENESIN SUGAR FREE 100 MG/5 ML UDC GT PRN ×4 (05:30→21:32)
[2021-03-08] MEDS: IPRATROPIUM BROMIDE 0.5 MG/2.5 ML NEBU NEB SCH ×3 (05:30→22:40)
[2021-03-08] MEDS: IBUPROFEN 100 MG/5 ML LIQUID UDC- SA PATIENTS-PAIN ONLY GT PRN ×3 (05:30→21:52)
[2021-03-08] MEDS: MULTIVIT, IRON, MIN NO. 8, FA TABLET GT SCH (05:40)
[2021-03-08] MEDS: OMEPRAZOLE 20 MG CAPSULE.DR GT SCH ×2 (05:40→17:35)
[2021-03-08] MEDS: ACIDOPHILUS/BULGARICUS CHEW TAB GT SCH ×3 (05:40→21:32)
[2021-03-08] MEDS: CHOLECALCIFEROL 1,000 UNIT TABLET GT SCH (05:41)
[2021-03-08] MEDS: ASCORBIC ACID 500 MG TABLET GT SCH (05:41)
[2021-03-08] MEDS: ZINC SULFATE 220 MG CAPSULE GT SCH (05:41)
[2021-03-08 07:48] VITALS: BP 137/57
[2021-03-08] MEDS: HYDROGEN PEROXIDE 3% 118 ML BOTTLE TP SCH ×2 (09:00→20:56)
[2021-03-08] MEDS: Z GUARD REMEDY PASTE 57 GM TUBE TOP SCH ×2 (09:14→21:31)
[2021-03-08] MEDS: CEphaleXIN 500 MG CAPSULE GT SCH ×2 (09:14→21:31)
[2021-03-08] MEDS: VITAMINS A AND D OINT TP SCH ×2 (09:14→21:31)
[2021-03-08] MEDS: CARVEDILOL 6.25 MG TABLET GT SCH ×2 (09:14→21:31)
[2021-03-08] MEDS: AMLODIPINE 5 MG TABLET GT SCH ×2 (09:14→21:31)
[2021-03-08] MEDS: VITAL AF 1.2 1,000 ML LIQUID GT PRN (13:12)
[2021-03-08] MEDS: VITAMIN B COMPLEX 1 TABLET GT SCH (21:31)
[2021-03-08] MEDS: ATORVASTATIN 20 MG TABLET GT SCH (21:31)
[2021-03-08] MEDS: MELATONIN 3 MG TABLET GT PRN (21:32)
--- NOTE | 2021-03-08 22:19 | NUR ---
Patient is alert and oriented, still on Keflex via gt for Left above elbow stump infection, no swelling, no redness noted but c/o of pain on left and right pain 8/, Motrin was given and patient stated that Motrin helped with the pain. No swelling or any redness or skin breakdown on Right shoulder. Patient stated that, "the pain on the Right shoulder was for being used too much, since I cannot do anything with my left arm." Needs attended, call light within reach.
[2021-03-08 22:38] VITALS: BP 147/59
[2021-03-09] MEDS: ACIDOPHILUS/BULGARICUS CHEW TAB GT SCH ×3 (05:45→21:12)
[2021-03-09] MEDS: MULTIVIT, IRON, MIN NO. 8, FA TABLET GT SCH (05:46)
[2021-03-09] MEDS: OMEPRAZOLE 20 MG CAPSULE.DR GT SCH ×2 (05:46→17:00)
[2021-03-09] MEDS: ZINC SULFATE 220 MG CAPSULE GT SCH (05:46)
[2021-03-09] MEDS: ASCORBIC ACID 500 MG TABLET GT SCH (05:46)
[2021-03-09] MEDS: CHOLECALCIFEROL 1,000 UNIT TABLET GT SCH (05:46)
[2021-03-09] MEDS: GUAIFENESIN SUGAR FREE 100 MG/5 ML UDC GT PRN ×4 (05:48→21:28)
[2021-03-09] MEDS: IPRATROPIUM BROMIDE 0.5 MG/2.5 ML NEBU NEB SCH ×3 (07:20→22:42)
[2021-03-09 07:34] VITALS: BP 134/60
[2021-03-09] MEDS: CARVEDILOL 6.25 MG TABLET GT SCH ×2 (08:30→21:11)
[2021-03-09] MEDS: CEphaleXIN 500 MG CAPSULE GT SCH (08:30)
[2021-03-09] MEDS: Z GUARD REMEDY PASTE 57 GM TUBE TOP SCH ×2 (08:32→21:12)
[2021-03-09] MEDS: AMLODIPINE 5 MG TABLET GT SCH ×2 (08:32→21:12)
[2021-03-09] MEDS: VITAMINS A AND D OINT TP SCH ×2 (08:33→21:12)
[2021-03-09] MEDS: HYDROGEN PEROXIDE 3% 118 ML BOTTLE TP SCH ×2 (08:48→20:32)
--- NOTE | 2021-03-09 12:00 | NUR ---
PT. WAS SEEN AND EXAMINED BY DR. MONTES DE OCA AND WITH NNO.
[2021-03-09] MEDS: ACETAMINOPHEN 650 MG/20 ML UDC- SA PATIENTS-PAIN ONLY GT PRN (13:03)
[2021-03-09] MEDS: VITAL AF 1.2 1,000 ML LIQUID GT PRN (13:21)
[2021-03-09] MEDS: MIRALAX 17 GM POWD.PACK GT PRN (17:00)
[2021-03-09] MEDS: VITAMIN B COMPLEX 1 TABLET GT SCH (21:10)
[2021-03-09] MEDS: ATORVASTATIN 20 MG TABLET GT SCH (21:11)
--- NOTE | 2021-03-09 21:24 | NUR ---
Patient is alert and oriented, still with coughing spells, pain on right shoulder 8/10. Robitussin given for cough and Motrin given for pain. No swelling or skin breakdown on Right shoulder, patient is able to move Right arm and able to shrug her shoulder. S/p Antibiotic for above left elbow stump infection, no adverse reactions noted, no more swelling. Patient's needs attended and call light within reach.
[2021-03-09] MEDS: MELATONIN 3 MG TABLET GT PRN (21:27)
[2021-03-09] MEDS: IBUPROFEN 100 MG/5 ML LIQUID UDC- SA PATIENTS-PAIN ONLY GT PRN (21:28)
[2021-03-09 23:00] VITALS: BP 116/46
[2021-03-10] MEDS: ACIDOPHILUS/BULGARICUS CHEW TAB GT SCH ×3 (06:12→21:19)
[2021-03-10] MEDS: MULTIVIT, IRON, MIN NO. 8, FA TABLET GT SCH (06:12)
[2021-03-10] MEDS: OMEPRAZOLE 20 MG CAPSULE.DR GT SCH ×2 (06:12→17:09)
[2021-03-10] MEDS: ZINC SULFATE 220 MG CAPSULE GT SCH (06:13)
[2021-03-10] MEDS: ASCORBIC ACID 500 MG TABLET GT SCH (06:13)
[2021-03-10] MEDS: CHOLECALCIFEROL 1,000 UNIT TABLET GT SCH (06:13)
[2021-03-10] MEDS: GUAIFENESIN SUGAR FREE 100 MG/5 ML UDC GT PRN ×3 (06:14→22:53)
[2021-03-10] MEDS: IBUPROFEN 100 MG/5 ML LIQUID UDC- SA PATIENTS-PAIN ONLY GT PRN ×3 (06:14→22:53)
[2021-03-10 07:22] VITALS: BP 117/46
[2021-03-10] MEDS: IPRATROPIUM BROMIDE 0.5 MG/2.5 ML NEBU NEB SCH ×3 (07:50→22:40)
[2021-03-10] MEDS: CARVEDILOL 6.25 MG TABLET GT SCH ×2 (08:31→21:19)
[2021-03-10] MEDS: HYDROGEN PEROXIDE 3% 118 ML BOTTLE TP SCH ×2 (08:32→20:37)
[2021-03-10] MEDS: Z GUARD REMEDY PASTE 57 GM TUBE TOP SCH ×2 (08:32→21:19)
[2021-03-10] MEDS: AMLODIPINE 5 MG TABLET GT SCH ×2 (08:32→21:19)
[2021-03-10] MEDS: VITAMINS A AND D OINT TP SCH ×2 (08:32→21:19)
[2021-03-10] MEDS: VITAL AF 1.2 1,000 ML LIQUID GT PRN (13:00)
[2021-03-10 20:00] VITALS: BP 130/59
[2021-03-10] MEDS: VITAMIN B COMPLEX 1 TABLET GT SCH (21:18)
[2021-03-10] MEDS: ATORVASTATIN 20 MG TABLET GT SCH (21:19)
[2021-03-10] MEDS: MELATONIN 3 MG TABLET GT PRN (22:52)
[2021-03-11] MEDS: CHOLECALCIFEROL 1,000 UNIT TABLET GT SCH (05:59)
[2021-03-11] MEDS: ACIDOPHILUS/BULGARICUS CHEW TAB GT SCH ×3 (05:59→22:17)
[2021-03-11] MEDS: OMEPRAZOLE 20 MG CAPSULE.DR GT SCH ×2 (05:59→17:48)
[2021-03-11] MEDS: ASCORBIC ACID 500 MG TABLET GT SCH (05:59)
[2021-03-11] MEDS: ZINC SULFATE 220 MG CAPSULE GT SCH (05:59)
[2021-03-11] MEDS: MULTIVIT, IRON, MIN NO. 8, FA TABLET GT SCH (05:59)
[2021-03-11] MEDS: GUAIFENESIN SUGAR FREE 100 MG/5 ML UDC GT PRN ×4 (06:00→20:52)
[2021-03-11] MEDS: IBUPROFEN 100 MG/5 ML LIQUID UDC- SA PATIENTS-PAIN ONLY GT PRN ×2 (06:59→20:58)
[2021-03-11 07:25] VITALS: BP 129/53
[2021-03-11] MEDS: IPRATROPIUM BROMIDE 0.5 MG/2.5 ML NEBU NEB SCH ×3 (07:25→22:30)
[2021-03-11] MEDS: HYDROGEN PEROXIDE 3% 118 ML BOTTLE TP SCH ×2 (07:25→20:47)
[2021-03-11] MEDS: CARVEDILOL 6.25 MG TABLET GT SCH ×2 (08:54→20:45)
[2021-03-11] MEDS: AMLODIPINE 5 MG TABLET GT SCH ×2 (08:55→20:46)
[2021-03-11] MEDS: VITAMINS A AND D OINT TP SCH ×2 (08:56→20:47)
[2021-03-11] MEDS: Z GUARD REMEDY PASTE 57 GM TUBE TOP SCH ×2 (08:56→20:47)
[2021-03-11] MEDS: ACETAMINOPHEN 650 MG/20 ML UDC- SA PATIENTS-PAIN ONLY GT PRN (09:22)
--- NOTE | 2021-03-11 11:31 | NUR ---
PT. WAS NEGATIVE FOR COVID 19 TEST AND PT. WAS AWARE.
[2021-03-11] MEDS: VITAL AF 1.2 1,000 ML LIQUID GT PRN (14:15)
[2021-03-11 20:00] VITALS: BP 139/46
[2021-03-11] MEDS: VITAMIN B COMPLEX 1 TABLET GT SCH (20:44)
[2021-03-11] MEDS: ATORVASTATIN 20 MG TABLET GT SCH (20:46)
[2021-03-12] MEDS: OMEPRAZOLE 20 MG CAPSULE.DR GT SCH ×2 (05:42→18:21)
[2021-03-12] MEDS: ACIDOPHILUS/BULGARICUS CHEW TAB GT SCH ×3 (05:42→21:55)
[2021-03-12] MEDS: MULTIVIT, IRON, MIN NO. 8, FA TABLET GT SCH (05:43)
[2021-03-12] MEDS: ASCORBIC ACID 500 MG TABLET GT SCH (05:43)
[2021-03-12] MEDS: CHOLECALCIFEROL 1,000 UNIT TABLET GT SCH (05:44)
[2021-03-12] MEDS: ZINC SULFATE 220 MG CAPSULE GT SCH (05:44)
[2021-03-12] MEDS: GUAIFENESIN SUGAR FREE 100 MG/5 ML UDC GT PRN ×4 (06:13→21:16)
[2021-03-12] MEDS: HYDROGEN PEROXIDE 3% 118 ML BOTTLE TP SCH ×2 (07:38→20:41)
[2021-03-12] MEDS: IPRATROPIUM BROMIDE 0.5 MG/2.5 ML NEBU NEB SCH ×3 (07:38→22:40)
[2021-03-12 07:58] VITALS: BP 120/57
[2021-03-12] MEDS: AMLODIPINE 5 MG TABLET GT SCH ×2 (09:00→20:53)
[2021-03-12] MEDS: CARVEDILOL 6.25 MG TABLET GT SCH ×2 (09:00→20:53)
[2021-03-12] MEDS: Z GUARD REMEDY PASTE 57 GM TUBE TOP SCH ×2 (09:21→20:53)
[2021-03-12] MEDS: VITAMINS A AND D OINT TP SCH ×2 (09:21→20:53)
[2021-03-12] MEDS: IBUPROFEN 100 MG/5 ML LIQUID UDC- SA PATIENTS-PAIN ONLY GT PRN ×2 (09:21→21:16)
[2021-03-12] MEDS: VITAL AF 1.2 1,000 ML LIQUID GT PRN (15:33)
[2021-03-12 20:00] VITALS: BP 128/47
[2021-03-12] MEDS: VITAMIN B COMPLEX 1 TABLET GT SCH (20:52)
[2021-03-12] MEDS: ATORVASTATIN 20 MG TABLET GT SCH (20:53)
[2021-03-12] MEDS: MELATONIN 3 MG TABLET GT PRN (21:16)
[2021-03-13] MEDS: OMEPRAZOLE 20 MG CAPSULE.DR GT SCH ×2 (05:25→18:04)
[2021-03-13] MEDS: MULTIVIT, IRON, MIN NO. 8, FA TABLET GT SCH (05:25)
[2021-03-13] MEDS: ACIDOPHILUS/BULGARICUS CHEW TAB GT SCH ×3 (05:25→21:03)
[2021-03-13] MEDS: ASCORBIC ACID 500 MG TABLET GT SCH (05:26)
[2021-03-13] MEDS: CHOLECALCIFEROL 1,000 UNIT TABLET GT SCH (05:28)
[2021-03-13] MEDS: ZINC SULFATE 220 MG CAPSULE GT SCH (05:29)
[2021-03-13] MEDS: GUAIFENESIN SUGAR FREE 100 MG/5 ML UDC GT PRN ×4 (05:46→21:04)
[2021-03-13] MEDS: IPRATROPIUM BROMIDE 0.5 MG/2.5 ML NEBU NEB SCH ×3 (07:21→22:32)
[2021-03-13] MEDS: HYDROGEN PEROXIDE 3% 118 ML BOTTLE TP SCH ×2 (07:22→20:51)
[2021-03-13 07:58] VITALS: BP 135/59
[2021-03-13] MEDS: CARVEDILOL 6.25 MG TABLET GT SCH ×2 (08:59→20:58)
[2021-03-13] MEDS: IBUPROFEN 100 MG/5 ML LIQUID UDC- SA PATIENTS-PAIN ONLY GT PRN ×2 (09:00→21:04)
[2021-03-13] MEDS: VITAMINS A AND D OINT TP SCH ×2 (09:01→21:03)
[2021-03-13] MEDS: Z GUARD REMEDY PASTE 57 GM TUBE TOP SCH ×2 (09:01→21:03)
[2021-03-13] MEDS: AMLODIPINE 5 MG TABLET GT SCH ×2 (09:01→21:03)
--- NOTE | 2021-03-13 10:50 | NUR ---
This LUMP ROOM SUPERVISOR notified patient's Mr. López and daughter Fanny, by email, that the next IDT meeting for the patient is scheduled for Wednesday, 03/18. This LUMP ROOM SUPERVISOR asked them to let this LUMP ROOM SUPERVISOR know if they would be available to participate in the meeting.
--- NOTE | 2021-03-13 14:04 | NUR ---
This RENTAL COORDINATOR received an email back from patient's Mr. López, in response to the email this RENTAL COORDINATOR sent notifying him of the IDT meeting scheduled for March 18. Mr. López stated he would be available to participate by speaker phone. This RENTAL COORDINATOR to contact Mr. López during the meeting.
[2021-03-13] MEDS: VITAL AF 1.2 1,000 ML LIQUID GT PRN (15:34)
[2021-03-13] MEDS: MIRALAX 17 GM POWD.PACK GT PRN (19:53)
[2021-03-13 20:00] VITALS: BP 131/53
[2021-03-13] MEDS: VITAMIN B COMPLEX 1 TABLET GT SCH (20:52)
[2021-03-13] MEDS: ATORVASTATIN 20 MG TABLET GT SCH (20:58)
[2021-03-13] MEDS: MELATONIN 3 MG TABLET GT PRN (21:04)
[2021-03-14] MEDS: ACIDOPHILUS/BULGARICUS CHEW TAB GT SCH ×3 (05:38→21:21)
[2021-03-14] MEDS: MULTIVIT, IRON, MIN NO. 8, FA TABLET GT SCH (05:39)
[2021-03-14] MEDS: OMEPRAZOLE 20 MG CAPSULE.DR GT SCH ×2 (05:39→17:01)
[2021-03-14] MEDS: ASCORBIC ACID 500 MG TABLET GT SCH (05:40)
[2021-03-14] MEDS: ZINC SULFATE 220 MG CAPSULE GT SCH (05:42)
[2021-03-14] MEDS: CHOLECALCIFEROL 1,000 UNIT TABLET GT SCH (05:42)
[2021-03-14] MEDS: IPRATROPIUM BROMIDE 0.5 MG/2.5 ML NEBU NEB SCH ×3 (07:03→22:47)
[2021-03-14 07:47] VITALS: BP 136/54
[2021-03-14] MEDS: Z GUARD REMEDY PASTE 57 GM TUBE TOP SCH ×2 (08:57→21:21)
[2021-03-14] MEDS: AMLODIPINE 5 MG TABLET GT SCH ×2 (08:57→21:21)
[2021-03-14] MEDS: CARVEDILOL 6.25 MG TABLET GT SCH ×2 (08:57→21:20)
[2021-03-14] MEDS: VITAMINS A AND D OINT TP SCH ×2 (08:58→21:21)
[2021-03-14] MEDS: IBUPROFEN 100 MG/5 ML LIQUID UDC- SA PATIENTS-PAIN ONLY GT PRN ×2 (09:02→21:22)
[2021-03-14] MEDS: GUAIFENESIN SUGAR FREE 100 MG/5 ML UDC GT PRN ×4 (09:02→21:21)
[2021-03-14] MEDS: HYDROGEN PEROXIDE 3% 118 ML BOTTLE TP SCH ×2 (09:26→21:20)
--- NOTE | 2021-03-14 11:05 | NUR ---
This RADIO STATION AUDIO ENGINEER received an email back from patient's daughter Fanny, in response to the email this RADIO STATION AUDIO ENGINEER sent notifying her of the IDT meeting scheduled for March 18. Fanny stated that she would be available to participate in the meeting on 03/18 by speaker phone. This RADIO STATION AUDIO ENGINEER to contact Fanny during the meeting.
[2021-03-14] MEDS: VITAL AF 1.2 1,000 ML LIQUID GT PRN (13:00)
--- NOTE | 2021-03-14 16:15 | NUR ---
Spoke with Dr. Woo regarding ortho consult, (right shoulder pain/ right elbow decrease of range of motion), new order given to do a MRI of shoulder/elbow. Left message to Chalo (MRI coordinator) [phone], to schedule a test, pt a+o notified of new order.
--- NOTE | 2021-03-14 18:53 | NUR ---
TEXTED DR. PARRA FOR MRI APPROVAL.
[2021-03-14] MEDS: ATORVASTATIN 20 MG TABLET GT SCH (21:20)
[2021-03-14] MEDS: VITAMIN B COMPLEX 1 TABLET GT SCH (21:20)
[2021-03-14] MEDS: MIRALAX 17 GM POWD.PACK GT PRN (21:21)
[2021-03-14] MEDS: MELATONIN 3 MG TABLET GT PRN (21:21)
[2021-03-14 22:15] VITALS: BP 136/53
[2021-03-15] MEDS: CHOLECALCIFEROL 1,000 UNIT TABLET GT SCH (05:50)
[2021-03-15] MEDS: ASCORBIC ACID 500 MG TABLET GT SCH (05:50)
[2021-03-15] MEDS: ZINC SULFATE 220 MG CAPSULE GT SCH (05:50)
[2021-03-15] MEDS: MULTIVIT, IRON, MIN NO. 8, FA TABLET GT SCH (05:50)
[2021-03-15] MEDS: GUAIFENESIN SUGAR FREE 100 MG/5 ML UDC GT PRN ×4 (05:50→18:22)
[2021-03-15] MEDS: ACIDOPHILUS/BULGARICUS CHEW TAB GT SCH ×3 (05:50→21:27)
[2021-03-15] MEDS: OMEPRAZOLE 20 MG CAPSULE.DR GT SCH ×2 (05:50→18:17)
[2021-03-15] MEDS: IBUPROFEN 100 MG/5 ML LIQUID UDC- SA PATIENTS-PAIN ONLY GT PRN ×2 (05:50→21:40)
[2021-03-15] MEDS: IPRATROPIUM BROMIDE 0.5 MG/2.5 ML NEBU NEB SCH ×3 (07:47→22:40)
[2021-03-15] MEDS: HYDROGEN PEROXIDE 3% 118 ML BOTTLE TP SCH ×2 (07:47→20:55)
[2021-03-15 08:22] VITALS: BP 128/51
[2021-03-15] MEDS: CARVEDILOL 6.25 MG TABLET GT SCH ×2 (09:08→21:27)
[2021-03-15] MEDS: VITAMINS A AND D OINT TP SCH ×2 (09:09→21:27)
[2021-03-15] MEDS: Z GUARD REMEDY PASTE 57 GM TUBE TOP SCH ×2 (09:09→21:27)
[2021-03-15] MEDS: AMLODIPINE 5 MG TABLET GT SCH ×2 (09:09→21:27)
[2021-03-15] MEDS: VITAL AF 1.2 1,000 ML LIQUID GT PRN (13:15)
[2021-03-15] MEDS: VITAMIN B COMPLEX 1 TABLET GT SCH (21:27)
[2021-03-15] MEDS: ATORVASTATIN 20 MG TABLET GT SCH (21:27)
[2021-03-15] MEDS: MELATONIN 3 MG TABLET GT PRN (21:39)
[2021-03-15 23:10] VITALS: BP 135/55
[2021-03-16] MEDS: MULTIVIT, IRON, MIN NO. 8, FA TABLET GT SCH (05:19)
[2021-03-16] MEDS: ZINC SULFATE 220 MG CAPSULE GT SCH (05:19)
[2021-03-16] MEDS: ASCORBIC ACID 500 MG TABLET GT SCH (05:19)
[2021-03-16] MEDS: GUAIFENESIN SUGAR FREE 100 MG/5 ML UDC GT PRN ×4 (05:19→21:15)
[2021-03-16] MEDS: CHOLECALCIFEROL 1,000 UNIT TABLET GT SCH (05:19)
[2021-03-16] MEDS: ACIDOPHILUS/BULGARICUS CHEW TAB GT SCH ×3 (05:19→21:15)
[2021-03-16] MEDS: OMEPRAZOLE 20 MG CAPSULE.DR GT SCH ×2 (05:19→17:50)
[2021-03-16] MEDS: IBUPROFEN 100 MG/5 ML LIQUID UDC- SA PATIENTS-PAIN ONLY GT PRN ×2 (05:41→21:16)
[2021-03-16] MEDS: IPRATROPIUM BROMIDE 0.5 MG/2.5 ML NEBU NEB SCH ×3 (07:24→22:41)
[2021-03-16 07:43] VITALS: BP 140/45
[2021-03-16] MEDS: CARVEDILOL 6.25 MG TABLET GT SCH ×2 (08:35→21:15)
[2021-03-16] MEDS: AMLODIPINE 5 MG TABLET GT SCH ×2 (08:35→21:15)
[2021-03-16] MEDS: Z GUARD REMEDY PASTE 57 GM TUBE TOP SCH ×2 (08:36→21:15)
[2021-03-16] MEDS: VITAMINS A AND D OINT TP SCH ×2 (08:36→21:15)
[2021-03-16] MEDS: HYDROGEN PEROXIDE 3% 118 ML BOTTLE TP SCH ×2 (09:20→21:06)
[2021-03-16] MEDS: VITAL AF 1.2 1,000 ML LIQUID GT PRN (13:00)
--- NOTE | 2021-03-16 19:45 | NUR ---
Covid 19 test done today,Pt notified.
[2021-03-16] MEDS: VITAMIN B COMPLEX 1 TABLET GT SCH (21:15)
[2021-03-16] MEDS: MELATONIN 3 MG TABLET GT PRN (21:15)
[2021-03-16] MEDS: ATORVASTATIN 20 MG TABLET GT SCH (21:15)
[2021-03-16 23:06] VITALS: BP 133/52
[2021-03-17] MEDS: CHOLECALCIFEROL 1,000 UNIT TABLET GT SCH (05:22)
[2021-03-17] MEDS: ACIDOPHILUS/BULGARICUS CHEW TAB GT SCH ×3 (05:22→21:14)
[2021-03-17] MEDS: ASCORBIC ACID 500 MG TABLET GT SCH (05:22)
[2021-03-17] MEDS: GUAIFENESIN SUGAR FREE 100 MG/5 ML UDC GT PRN ×3 (05:22→20:20)
[2021-03-17] MEDS: MULTIVIT, IRON, MIN NO. 8, FA TABLET GT SCH (05:22)
[2021-03-17] MEDS: OMEPRAZOLE 20 MG CAPSULE.DR GT SCH ×2 (05:22→18:08)
[2021-03-17] MEDS: IBUPROFEN 100 MG/5 ML LIQUID UDC- SA PATIENTS-PAIN ONLY GT PRN (05:22)
[2021-03-17] MEDS: ZINC SULFATE 220 MG CAPSULE GT SCH (05:22)
[2021-03-17 07:40] VITALS: BP 127/52
[2021-03-17] MEDS: IPRATROPIUM BROMIDE 0.5 MG/2.5 ML NEBU NEB SCH ×3 (08:01→22:37)
[2021-03-17] MEDS: CARVEDILOL 6.25 MG TABLET GT SCH ×2 (08:54→20:05)
[2021-03-17] MEDS: AMLODIPINE 5 MG TABLET GT SCH ×2 (08:54→20:06)
[2021-03-17] MEDS: VITAMINS A AND D OINT TP SCH ×2 (08:55→20:18)
[2021-03-17] MEDS: Z GUARD REMEDY PASTE 57 GM TUBE TOP SCH ×2 (08:55→20:18)
[2021-03-17] MEDS: HYDROGEN PEROXIDE 3% 118 ML BOTTLE TP SCH ×2 (08:59→20:37)
[2021-03-17] MEDS ORDERED: GADOTERATE MEGLUMINE 5 MMOL/10 ML VIAL IV ONE (13:30)
--- NOTE | 2021-03-17 15:09 | NUR ---
MRI of the right shoulder done at [facility], Left message to Dr. Woo [phone] regarding MRI of right shoulder was done today and ortho consult f/u.
--- NOTE | 2021-03-17 15:42 | NUR ---
Spoke with Dr. Woo, notified of right shoulder MRI, stated "she needs a cortisol shot, I'll be there and give it when I get a chance". Patient a+o x4, notified of Md's plan.
[2021-03-17] MEDS: VITAMIN B COMPLEX 1 TABLET GT SCH (20:05)
[2021-03-17] MEDS: ATORVASTATIN 20 MG TABLET GT SCH (20:06)
[2021-03-17] MEDS: MIRALAX 17 GM POWD.PACK GT PRN (20:18)
[2021-03-17 20:25] VITALS: BP 109/54
[2021-03-17] MEDS: MELATONIN 3 MG TABLET GT PRN (21:15)
[2021-03-18] MEDS: GUAIFENESIN SUGAR FREE 100 MG/5 ML UDC GT PRN ×4 (03:00→18:30)
[2021-03-18] MEDS: ASCORBIC ACID 500 MG TABLET GT SCH (05:04)
[2021-03-18] MEDS: OMEPRAZOLE 20 MG CAPSULE.DR GT SCH ×2 (05:04→17:57)
[2021-03-18] MEDS: CHOLECALCIFEROL 1,000 UNIT TABLET GT SCH (05:04)
[2021-03-18] MEDS: ACIDOPHILUS/BULGARICUS CHEW TAB GT SCH ×3 (05:04→21:05)
[2021-03-18] MEDS: ZINC SULFATE 220 MG CAPSULE GT SCH (05:04)
[2021-03-18] MEDS: MULTIVIT, IRON, MIN NO. 8, FA TABLET GT SCH (05:04)
[2021-03-18] MEDS: VITAL AF 1.2 1,000 ML LIQUID GT PRN (05:58)
[2021-03-18 07:22] VITALS: BP 124/58
[2021-03-18] MEDS: IPRATROPIUM BROMIDE 0.5 MG/2.5 ML NEBU NEB SCH ×3 (07:37→23:26)
[2021-03-18] MEDS: CARVEDILOL 6.25 MG TABLET GT SCH ×2 (08:05→21:00)
[2021-03-18] MEDS: VITAMINS A AND D OINT TP SCH ×2 (08:06→21:02)
[2021-03-18] MEDS: AMLODIPINE 5 MG TABLET GT SCH ×2 (08:06→21:02)
[2021-03-18] MEDS: Z GUARD REMEDY PASTE 57 GM TUBE TOP SCH ×2 (08:06→21:02)
[2021-03-18] MEDS: IBUPROFEN 100 MG/5 ML LIQUID UDC- SA PATIENTS-PAIN ONLY GT PRN ×3 (08:18→21:09)
[2021-03-18] MEDS: HYDROGEN PEROXIDE 3% 118 ML BOTTLE TP SCH ×2 (09:12→20:28)
--- NOTE | 2021-03-18 13:50 | NUR ---
INTERDISCIPLINARY PLAN OF CARE CONFERENCE was held today. Patient's Mr. López participated in the meeting today by speaker phone. Patient's daughter Fanny was also called during the meeting, but she stated she was actually unable to participate and would follow-up with nursing at a later time to get an update. Dr. Leblanc and the Interdisciplinary Team reviewed the current plan of care in detail. RN reported on patient's medical condition, recent MRI. RN to follow up with Dr. Woo regarding plan of care after MRI. See RN IDT conference notes. PT, OT, and ST discussed ongoing treatment, progress, and plan of care. No major changes in medical condition were reported by nursing or by any of the other disciplines. See all disciplines IDT notes and physician's progress notes for additional details. Patient's Mr. López stated not having any questions or concerns at this time.
[2021-03-18 20:06] VITALS: BP 124/52
[2021-03-18] MEDS: VITAMIN B COMPLEX 1 TABLET GT SCH (20:59)
[2021-03-18] MEDS: ATORVASTATIN 20 MG TABLET GT SCH (21:01)
[2021-03-18] MEDS: MELATONIN 3 MG TABLET GT PRN (21:07)
[2021-03-18] MEDS: MIRALAX 17 GM POWD.PACK GT PRN (21:07)
[2021-03-19] MEDS: VITAL AF 1.2 1,000 ML LIQUID GT PRN (04:54)
[2021-03-19] MEDS: MULTIVIT, IRON, MIN NO. 8, FA TABLET GT SCH (06:01)
[2021-03-19] MEDS: ACIDOPHILUS/BULGARICUS CHEW TAB GT SCH ×3 (06:01→21:05)
[2021-03-19] MEDS: CHOLECALCIFEROL 1,000 UNIT TABLET GT SCH (06:01)
[2021-03-19] MEDS: ZINC SULFATE 220 MG CAPSULE GT SCH (06:01)
[2021-03-19] MEDS: ASCORBIC ACID 500 MG TABLET GT SCH (06:01)
[2021-03-19] MEDS: OMEPRAZOLE 20 MG CAPSULE.DR GT SCH ×2 (06:01→17:13)
[2021-03-19] MEDS: GUAIFENESIN SUGAR FREE 100 MG/5 ML UDC GT PRN ×3 (06:30→21:07)
[2021-03-19] MEDS: IBUPROFEN 100 MG/5 ML LIQUID UDC- SA PATIENTS-PAIN ONLY GT PRN ×2 (06:30→21:00)
[2021-03-19 07:18] VITALS: BP 129/59
[2021-03-19] MEDS: Z GUARD REMEDY PASTE 57 GM TUBE TOP SCH ×2 (08:00→21:05)
[2021-03-19] MEDS: CARVEDILOL 6.25 MG TABLET GT SCH ×2 (08:00→21:03)
[2021-03-19] MEDS: AMLODIPINE 5 MG TABLET GT SCH ×2 (08:00→21:04)
[2021-03-19] MEDS: VITAMINS A AND D OINT TP SCH ×2 (08:00→21:05)
[2021-03-19] MEDS: IPRATROPIUM BROMIDE 0.5 MG/2.5 ML NEBU NEB SCH ×3 (08:05→22:40)
[2021-03-19] MEDS: HYDROGEN PEROXIDE 3% 118 ML BOTTLE TP SCH ×2 (09:00→20:26)
--- NOTE | 2021-03-19 16:41 | NUR ---
SW emailed patient's Mr. López and daughter Fanny the updated guidelines and criteria for visitations.
--- NOTE | 2021-03-19 18:42 | NUR ---
Pt notified,Covid 19 test result negative.Seen by Karla Ba,no new orders.
--- NOTE | 2021-03-19 19:00 | NUR ---
Dr Woo was called x 3 regarding pt is complaining of R shoulder pain ,she is requesting "the cortisone shots,he discussed with her before .he will administer."
[2021-03-19 20:11] VITALS: BP 115/49
[2021-03-19] MEDS: VITAMIN B COMPLEX 1 TABLET GT SCH (21:03)
[2021-03-19] MEDS: ATORVASTATIN 20 MG TABLET GT SCH (21:04)
[2021-03-19] MEDS: MELATONIN 3 MG TABLET GT PRN (21:07)
--- NOTE | 2021-03-19 21:45 | NUR ---
Patient is alert and oriented, still complaining of Right shoulder pain, Motrin given as ordered with help but patient is looking forward to talk to Dr. Woo about the Cortisone shot he discussed with her on his last visit with the patient. Patient's need attended, call light within reach.
[2021-03-20] MEDS: ACIDOPHILUS/BULGARICUS CHEW TAB GT SCH ×3 (05:26→21:06)
[2021-03-20] MEDS: MULTIVIT, IRON, MIN NO. 8, FA TABLET GT SCH (05:26)
[2021-03-20] MEDS: OMEPRAZOLE 20 MG CAPSULE.DR GT SCH ×2 (05:26→17:23)
[2021-03-20] MEDS: ZINC SULFATE 220 MG CAPSULE GT SCH (05:27)
[2021-03-20] MEDS: VITAL AF 1.2 1,000 ML LIQUID GT PRN (05:27)
[2021-03-20] MEDS: CHOLECALCIFEROL 1,000 UNIT TABLET GT SCH (05:27)
[2021-03-20] MEDS: ASCORBIC ACID 500 MG TABLET GT SCH (05:27)
[2021-03-20] MEDS: IBUPROFEN 100 MG/5 ML LIQUID UDC- SA PATIENTS-PAIN ONLY GT PRN ×2 (05:44→14:38)
[2021-03-20] MEDS: GUAIFENESIN SUGAR FREE 100 MG/5 ML UDC GT PRN ×4 (05:44→21:09)
[2021-03-20] MEDS: IPRATROPIUM BROMIDE 0.5 MG/2.5 ML NEBU NEB SCH ×3 (07:20→22:40)
[2021-03-20 07:45] VITALS: BP 131/49
[2021-03-20] MEDS: CARVEDILOL 6.25 MG TABLET GT SCH ×2 (09:18→21:06)
[2021-03-20] MEDS: VITAMINS A AND D OINT TP SCH ×2 (09:20→21:06)
[2021-03-20] MEDS: AMLODIPINE 5 MG TABLET GT SCH ×2 (09:20→21:06)
[2021-03-20] MEDS: Z GUARD REMEDY PASTE 57 GM TUBE TOP SCH ×2 (09:20→21:06)
[2021-03-20] MEDS: HYDROGEN PEROXIDE 3% 118 ML BOTTLE TP SCH ×2 (09:26→21:12)
--- NOTE | 2021-03-20 11:29 | NUR ---
NEW ORDER WAS CARRIED OUT FROM DR. MONTES DE OCA RECOMMENDED BY REG. END FRAZER VEE.
--- NOTE | 2021-03-20 11:30 | NUR ---
PT. IN AGREEMENT WITH ORDER TO HOLD TUBE FEEDING X 4 HRS TO STIMULATE APPETITE.
--- NOTE | 2021-03-20 11:41 | NUR ---
DR. SAMANIEGO(ORTHO) WAS CALLED AND MESSAGE LEFT RE:PT. WANTS TO KNOW WHEN THE PROCEDURE WILL BE DONE.(PER METER READER DR. SAMANIEGO IS IN SURGERY AT THIS TIME TO RESPOND.)
--- NOTE | 2021-03-20 14:37 | NUR ---
Pain c/o rt shoulder pain prn medication given will continue to monitor
--- NOTE | 2021-03-20 17:11 | NUR ---
NEW ORDER CARRIED OUT FROM DR. MONTES DE OCA RECOMMENDED BY SPEECH THERAPIST ESTELLA AND PT. IN AGREEMENT AND OK FOR GROUND DIET WITH EXTRA GRAVY.
[2021-03-20 20:53] VITALS: BP 143/55
[2021-03-20] MEDS: ATORVASTATIN 20 MG TABLET GT SCH (21:06)
[2021-03-20] MEDS: VITAMIN B COMPLEX 1 TABLET GT SCH (21:06)
[2021-03-20] MEDS: MIRALAX 17 GM POWD.PACK GT PRN (21:09)
[2021-03-20] MEDS: MELATONIN 3 MG TABLET GT PRN (21:09)
[2021-03-21] MEDS: IBUPROFEN 100 MG/5 ML LIQUID UDC- SA PATIENTS-PAIN ONLY GT PRN ×4 (04:30→22:22)
[2021-03-21] MEDS: VITAL AF 1.2 1,000 ML LIQUID GT PRN (05:22)
[2021-03-21] MEDS: ACIDOPHILUS/BULGARICUS CHEW TAB GT SCH ×3 (05:24→21:57)
[2021-03-21] MEDS: MULTIVIT, IRON, MIN NO. 8, FA TABLET GT SCH (05:27)
[2021-03-21] MEDS: CHOLECALCIFEROL 1,000 UNIT TABLET GT SCH (05:27)
[2021-03-21] MEDS: ASCORBIC ACID 500 MG TABLET GT SCH (05:27)
[2021-03-21] MEDS: ZINC SULFATE 220 MG CAPSULE GT SCH (05:27)
[2021-03-21] MEDS: OMEPRAZOLE 20 MG CAPSULE.DR GT SCH ×2 (05:27→18:12)
[2021-03-21] MEDS: GUAIFENESIN SUGAR FREE 100 MG/5 ML UDC GT PRN ×3 (05:53→22:22)
[2021-03-21] MEDS: IPRATROPIUM BROMIDE 0.5 MG/2.5 ML NEBU NEB SCH ×3 (07:29→22:30)
[2021-03-21 07:48] VITALS: BP 135/54
[2021-03-21 07:50] VITALS: BP 135/54
[2021-03-21] MEDS: CARVEDILOL 6.25 MG TABLET GT SCH ×2 (09:00→21:56)
[2021-03-21] MEDS: VITAMINS A AND D OINT TP SCH ×2 (09:00→21:57)
[2021-03-21] MEDS: AMLODIPINE 5 MG TABLET GT SCH ×2 (09:00→21:57)
[2021-03-21] MEDS: Z GUARD REMEDY PASTE 57 GM TUBE TOP SCH ×2 (09:00→21:57)
[2021-03-21] MEDS: HYDROGEN PEROXIDE 3% 118 ML BOTTLE TP SCH ×2 (09:49→20:58)
[2021-03-21 20:03] VITALS: BP 140/56
[2021-03-21] MEDS: VITAMIN B COMPLEX 1 TABLET GT SCH (21:55)
[2021-03-21] MEDS: ATORVASTATIN 20 MG TABLET GT SCH (21:56)
[2021-03-21] MEDS: MELATONIN 3 MG TABLET GT PRN (22:21)
[2021-03-22] MEDS: CHOLECALCIFEROL 1,000 UNIT TABLET GT SCH (06:53)
[2021-03-22] MEDS: OMEPRAZOLE 20 MG CAPSULE.DR GT SCH ×2 (06:53→17:58)
[2021-03-22] MEDS: MULTIVIT, IRON, MIN NO. 8, FA TABLET GT SCH (06:53)
[2021-03-22] MEDS: ASCORBIC ACID 500 MG TABLET GT SCH (06:53)
[2021-03-22] MEDS: ACIDOPHILUS/BULGARICUS CHEW TAB GT SCH ×3 (06:53→21:00)
[2021-03-22] MEDS: ZINC SULFATE 220 MG CAPSULE GT SCH (06:53)
[2021-03-22] MEDS: GUAIFENESIN SUGAR FREE 100 MG/5 ML UDC GT PRN ×2 (06:54→21:05)
[2021-03-22] MEDS: IBUPROFEN 100 MG/5 ML LIQUID UDC- SA PATIENTS-PAIN ONLY GT PRN ×2 (06:54→15:38)
[2021-03-22 07:46] VITALS: BP 133/56
[2021-03-22] MEDS: IPRATROPIUM BROMIDE 0.5 MG/2.5 ML NEBU NEB SCH ×3 (08:02→22:34)
[2021-03-22] MEDS: CARVEDILOL 6.25 MG TABLET GT SCH ×2 (08:46→20:55)
[2021-03-22] MEDS: HYDROGEN PEROXIDE 3% 118 ML BOTTLE TP SCH ×2 (08:47→21:07)
[2021-03-22] MEDS: AMLODIPINE 5 MG TABLET GT SCH ×2 (08:50→20:57)
[2021-03-22] MEDS: VITAMINS A AND D OINT TP SCH ×2 (08:50→20:58)
[2021-03-22] MEDS: Z GUARD REMEDY PASTE 57 GM TUBE TOP SCH ×2 (08:50→20:58)
--- NOTE | 2021-03-22 10:50 | NUR ---
NEW ORDER WAS CARRIED OUT FROM DR. MONTES DE OCA PT. REQUEST TO TREAT HAIR LOSS WITH OVER THE COUNTER MINOXIDIL AND PT. AWARE OF NEED TO MAKE A COMMITMENT TO DO NOT DISCONTINUE PER PHARMACIST RECOMMENDATION OR HAIR LOSS WILL COME BACK AND PT. AWARE AND IN AGREMENT.(MINOXIDIL WILL BE PROVIDED BY FAMILY)
--- NOTE | 2021-03-22 10:56 | NUR ---
DR. SAMANIEGO (ORTHO) WAS CALLED AND AWARE THAT PT.HAS CONTINUOUS PAIN ON RT. SHOULDER AND HE STATED THAT HE WILL SEE PT. TODAY AND PT. WAS AWARE AND IN AGREEMENT.HE STATED THAT HE DID NOT COME YESTERDAY BECAUSE HE HAD SURGERIES BUT HE WILL COME TODAY.
--- NOTE | 2021-03-22 13:38 | NUR ---
PT. WAS SEEN AND EXAMINED BY DR. SAMANIEGO AND PT. SIGNED CONSENT FOR RT. SHOULDER CORTISONE INJECTION AND HE DID IT AND PROCEDURE WELL TOLERATED.
[2021-03-22] MEDS: MINOXIDIL TOP SCH (17:45)
[2021-03-22 20:00] VITALS: BP 131/60
[2021-03-22] MEDS: VITAMIN B COMPLEX 1 TABLET GT SCH (20:53)
[2021-03-22] MEDS: ATORVASTATIN 20 MG TABLET GT SCH (20:56)
[2021-03-22] MEDS: MIRALAX 17 GM POWD.PACK GT PRN (21:00)
[2021-03-22] MEDS: MELATONIN 3 MG TABLET GT PRN (21:00)
--- NOTE | 2021-03-22 22:00 | NUR ---
Patient was seen by Ortho Dr. Woo today and was given a Cortisone shot on Right shoulder. Patient still c/o pain 04/03, Motrin was given per patient's request with some help, handled patient gently, needs attended, will continue monitor.
--- NOTE | 2021-03-23 03:42 | NUR ---
For Covid 19 test today per [facility] requirement.
[2021-03-23] MEDS: ACIDOPHILUS/BULGARICUS CHEW TAB GT SCH ×3 (05:49→21:23)
[2021-03-23] MEDS: MULTIVIT, IRON, MIN NO. 8, FA TABLET GT SCH (05:51)
[2021-03-23] MEDS: OMEPRAZOLE 20 MG CAPSULE.DR GT SCH ×2 (05:51→17:08)
[2021-03-23] MEDS: ZINC SULFATE 220 MG CAPSULE GT SCH (05:52)
[2021-03-23] MEDS: ASCORBIC ACID 500 MG TABLET GT SCH (05:52)
[2021-03-23] MEDS: CHOLECALCIFEROL 1,000 UNIT TABLET GT SCH (05:52)
[2021-03-23] MEDS: IBUPROFEN 100 MG/5 ML LIQUID UDC- SA PATIENTS-PAIN ONLY GT PRN ×2 (06:00→15:34)
[2021-03-23] MEDS: GUAIFENESIN SUGAR FREE 100 MG/5 ML UDC GT PRN ×4 (06:00→21:23)
[2021-03-23 07:27] VITALS: BP 122/54
[2021-03-23] MEDS: IPRATROPIUM BROMIDE 0.5 MG/2.5 ML NEBU NEB SCH ×3 (07:37→22:40)
[2021-03-23] MEDS: CARVEDILOL 6.25 MG TABLET GT SCH ×2 (08:49→21:22)
[2021-03-23] MEDS: VITAMINS A AND D OINT TP SCH ×2 (08:50→21:23)
[2021-03-23] MEDS: Z GUARD REMEDY PASTE 57 GM TUBE TOP SCH ×2 (08:50→21:23)
[2021-03-23] MEDS: AMLODIPINE 5 MG TABLET GT SCH ×2 (08:50→21:23)
[2021-03-23] MEDS: MINOXIDIL TOP SCH ×2 (08:50→17:08)
[2021-03-23] MEDS: HYDROGEN PEROXIDE 3% 118 ML BOTTLE TP SCH ×2 (10:02→21:27)
--- NOTE | 2021-03-23 18:35 | NUR ---
PT. HAD COVID [address] [facility] REQUIREMENT AND PT. IN AGREEMENT AND PT'S DTR. MARILYN ONLY WANTS TO BE NOTIFIED IF RESULT ITS POSITIVE.
[2021-03-23] MEDS: ATORVASTATIN 20 MG TABLET GT SCH (21:22)
[2021-03-23] MEDS: VITAMIN B COMPLEX 1 TABLET GT SCH (21:22)
[2021-03-23] MEDS: MELATONIN 3 MG TABLET GT PRN (21:23)
[2021-03-23 23:05] VITALS: BP 145/54
[2021-03-24] MEDS: ACIDOPHILUS/BULGARICUS CHEW TAB GT SCH ×3 (05:12→21:03)
[2021-03-24] MEDS: ASCORBIC ACID 500 MG TABLET GT SCH (05:12)
[2021-03-24] MEDS: CHOLECALCIFEROL 1,000 UNIT TABLET GT SCH (05:12)
[2021-03-24] MEDS: ZINC SULFATE 220 MG CAPSULE GT SCH (05:12)
[2021-03-24] MEDS: MULTIVIT, IRON, MIN NO. 8, FA TABLET GT SCH (05:12)
[2021-03-24] MEDS: GUAIFENESIN SUGAR FREE 100 MG/5 ML UDC GT PRN ×3 (05:12→21:06)
[2021-03-24] MEDS: OMEPRAZOLE 20 MG CAPSULE.DR GT SCH ×2 (05:12→18:15)
[2021-03-24] MEDS: IBUPROFEN 100 MG/5 ML LIQUID UDC- SA PATIENTS-PAIN ONLY GT PRN ×3 (05:14→21:06)
[2021-03-24] MEDS: HYDROGEN PEROXIDE 3% 118 ML BOTTLE TP SCH ×2 (07:09→21:14)
[2021-03-24] MEDS: IPRATROPIUM BROMIDE 0.5 MG/2.5 ML NEBU NEB SCH ×3 (07:09→22:40)
[2021-03-24 07:26] VITALS: BP 138/77
[2021-03-24] MEDS: MINOXIDIL TOP SCH ×2 (09:30→17:00)
[2021-03-24] MEDS: CARVEDILOL 6.25 MG TABLET GT SCH ×2 (09:30→21:02)
[2021-03-24] MEDS: AMLODIPINE 5 MG TABLET GT SCH ×2 (09:30→21:01)
[2021-03-24] MEDS: Z GUARD REMEDY PASTE 57 GM TUBE TOP SCH ×2 (09:30→21:01)
[2021-03-24] MEDS: VITAMINS A AND D OINT TP SCH ×2 (09:31→21:03)
--- NOTE | 2021-03-24 10:00 | NUR ---
SEEN BY DR. MONTES DE OCA AND WITH NNO.
[2021-03-24 20:36] VITALS: BP 138/55
[2021-03-24] MEDS: ATORVASTATIN 20 MG TABLET GT SCH (21:01)
[2021-03-24] MEDS: MELATONIN 3 MG TABLET GT PRN (21:02)
[2021-03-24] MEDS: VITAMIN B COMPLEX 1 TABLET GT SCH (21:03)
[2021-03-24] MEDS: MIRALAX 17 GM POWD.PACK GT PRN (21:04)
[2021-03-25] MEDS: ASCORBIC ACID 500 MG TABLET GT SCH (06:34)
[2021-03-25] MEDS: GUAIFENESIN SUGAR FREE 100 MG/5 ML UDC GT PRN ×3 (06:34→21:03)
[2021-03-25] MEDS: ZINC SULFATE 220 MG CAPSULE GT SCH (06:34)
[2021-03-25] MEDS: CHOLECALCIFEROL 1,000 UNIT TABLET GT SCH (06:34)
[2021-03-25] MEDS: OMEPRAZOLE 20 MG CAPSULE.DR GT SCH ×2 (06:34→17:47)
[2021-03-25] MEDS: ACIDOPHILUS/BULGARICUS CHEW TAB GT SCH ×3 (06:34→21:04)
[2021-03-25] MEDS: MULTIVIT, IRON, MIN NO. 8, FA TABLET GT SCH (06:34)
[2021-03-25] MEDS: IBUPROFEN 100 MG/5 ML LIQUID UDC- SA PATIENTS-PAIN ONLY GT PRN ×4 (06:35→21:08)
[2021-03-25 07:21] VITALS: BP 145/73
[2021-03-25] MEDS: IPRATROPIUM BROMIDE 0.5 MG/2.5 ML NEBU NEB SCH ×3 (08:07→22:40)
[2021-03-25] MEDS: Z GUARD REMEDY PASTE 57 GM TUBE TOP SCH ×2 (08:52→20:58)
[2021-03-25] MEDS: AMLODIPINE 5 MG TABLET GT SCH ×2 (08:52→20:57)
[2021-03-25] MEDS: VITAMINS A AND D OINT TP SCH ×2 (08:52→20:58)
[2021-03-25] MEDS: CARVEDILOL 6.25 MG TABLET GT SCH ×2 (08:52→20:57)
[2021-03-25] MEDS: MINOXIDIL TOP SCH ×2 (08:52→17:47)
[2021-03-25] MEDS: HYDROGEN PEROXIDE 3% 118 ML BOTTLE TP SCH ×2 (09:00→21:20)
--- NOTE | 2021-03-25 18:00 | NUR ---
Pt continue on close observation for R shoulder pain,continue on Pt and OT.
[2021-03-25 20:00] VITALS: BP 141/60
[2021-03-25] MEDS: VITAMIN B COMPLEX 1 TABLET GT SCH (20:55)
[2021-03-25] MEDS: ATORVASTATIN 20 MG TABLET GT SCH (20:57)
[2021-03-25] MEDS: MIRALAX 17 GM POWD.PACK GT PRN (20:59)
[2021-03-25] MEDS: MELATONIN 3 MG TABLET GT PRN (20:59)
[2021-03-26] MEDS: IBUPROFEN 100 MG/5 ML LIQUID UDC- SA PATIENTS-PAIN ONLY GT PRN ×3 (05:36→22:33)
[2021-03-26] MEDS: GUAIFENESIN SUGAR FREE 100 MG/5 ML UDC GT PRN ×3 (05:36→21:00)
[2021-03-26] MEDS: MULTIVIT, IRON, MIN NO. 8, FA TABLET GT SCH (05:49)
[2021-03-26] MEDS: ACIDOPHILUS/BULGARICUS CHEW TAB GT SCH ×3 (05:49→22:32)
[2021-03-26] MEDS: OMEPRAZOLE 20 MG CAPSULE.DR GT SCH ×2 (05:49→17:19)
[2021-03-26] MEDS: CHOLECALCIFEROL 1,000 UNIT TABLET GT SCH (05:50)
[2021-03-26] MEDS: ASCORBIC ACID 500 MG TABLET GT SCH (05:50)
[2021-03-26] MEDS: ZINC SULFATE 220 MG CAPSULE GT SCH (05:51)
[2021-03-26] MEDS: HYDROGEN PEROXIDE 3% 118 ML BOTTLE TP SCH ×2 (07:17→21:06)
[2021-03-26] MEDS: IPRATROPIUM BROMIDE 0.5 MG/2.5 ML NEBU NEB SCH ×3 (07:17→22:31)
[2021-03-26 07:37] VITALS: BP 127/70
[2021-03-26] MEDS: Z GUARD REMEDY PASTE 57 GM TUBE TOP SCH ×2 (09:15→20:58)
[2021-03-26] MEDS: MINOXIDIL TOP SCH ×2 (09:15→17:14)
[2021-03-26] MEDS: AMLODIPINE 5 MG TABLET GT SCH ×2 (09:15→20:57)
[2021-03-26] MEDS: VITAMINS A AND D OINT TP SCH ×2 (09:15→20:58)
[2021-03-26] MEDS: CARVEDILOL 6.25 MG TABLET GT SCH ×2 (09:15→20:57)
--- NOTE | 2021-03-26 15:23 | NUR ---
Spoke to Dr Zamora Orthopedist ,notified him the patient continue complaints of the R shoulder pain,appears the cortisone shots didn't help her ,she is complaining of pain on both shoulder,"Dr zamora stated ,he can't help her if the cortisone shot didn't work,he will came and check on the patient",Dr Flores was inform ,with new orders for tramadol 50 mg every 6 hours via Gt Prn moderate to severe pain,and if the patient agreed ,he will try to get an appointment as outpatient with another orthopedist .
--- NOTE | 2021-03-26 16:04 | NUR ---
Pt notified regarding the new medications orders,She stated,"tramadol make her sick ,she doesn't want to take this medication at all"
--- NOTE | 2021-03-26 17:00 | NUR ---
Dr Flores notified pt doesn't wants tramadol because make her sick,and she doesn't want any outpatient orthopedist consult,because she is not strong enough,with new orders noted.
--- NOTE | 2021-03-26 19:30 | NUR ---
Pt notified,Covid 19 test result negative.
[2021-03-26 20:00] VITALS: BP 128/52
[2021-03-26] MEDS: VITAMIN B COMPLEX 1 TABLET GT SCH (20:56)
[2021-03-26] MEDS: ATORVASTATIN 20 MG TABLET GT SCH (20:57)
[2021-03-26] MEDS: MELATONIN 3 MG TABLET GT PRN (20:59)
--- NOTE | 2021-03-26 22:58 | NUR ---
Patient is alert an d oriented, Motrin was given by Nurse for Right shoulder pain 5/10, no swelling or skin breakdown on affected shoulder, handled very gently, needs attended, call light within reach.
[2021-03-27] MEDS: ACIDOPHILUS/BULGARICUS CHEW TAB GT SCH ×3 (05:29→21:25)
[2021-03-27] MEDS: MULTIVIT, IRON, MIN NO. 8, FA TABLET GT SCH (05:31)
[2021-03-27] MEDS: OMEPRAZOLE 20 MG CAPSULE.DR GT SCH ×2 (05:31→18:09)
[2021-03-27] MEDS: ASCORBIC ACID 500 MG TABLET GT SCH (05:31)
[2021-03-27] MEDS: CHOLECALCIFEROL 1,000 UNIT TABLET GT SCH (05:32)
[2021-03-27] MEDS: ZINC SULFATE 220 MG CAPSULE GT SCH (05:33)
[2021-03-27] MEDS: GUAIFENESIN SUGAR FREE 100 MG/5 ML UDC GT PRN ×3 (05:34→20:57)
[2021-03-27] MEDS: IBUPROFEN 100 MG/5 ML LIQUID UDC- SA PATIENTS-PAIN ONLY GT PRN ×3 (06:19→22:00)
[2021-03-27] MEDS: VITAL AF 1.2 1,000 ML LIQUID GT PRN ×2 (06:38→07:00)
[2021-03-27 07:31] VITALS: BP 127/52
--- NOTE | 2021-03-27 08:00 | NUR ---
Patient still c/o right shoulder pain after Motrin given, comfort measures given, stated relief after ice pack applied.
[2021-03-27] MEDS: IPRATROPIUM BROMIDE 0.5 MG/2.5 ML NEBU NEB SCH ×3 (08:20→22:44)
[2021-03-27] MEDS: AMLODIPINE 5 MG TABLET GT SCH ×2 (08:53→20:53)
[2021-03-27] MEDS: CARVEDILOL 6.25 MG TABLET GT SCH ×2 (08:53→20:52)
[2021-03-27] MEDS: VITAMINS A AND D OINT TP SCH ×2 (08:54→20:54)
[2021-03-27] MEDS: Z GUARD REMEDY PASTE 57 GM TUBE TOP SCH ×2 (08:54→20:54)
[2021-03-27] MEDS: MINOXIDIL TOP SCH ×2 (09:00→17:00)
[2021-03-27] MEDS: HYDROGEN PEROXIDE 3% 118 ML BOTTLE TP SCH ×2 (09:40→20:49)
[2021-03-27 20:00] VITALS: BP 143/59
[2021-03-27] MEDS: VITAMIN B COMPLEX 1 TABLET GT SCH (20:51)
[2021-03-27] MEDS: ATORVASTATIN 20 MG TABLET GT SCH (20:53)
[2021-03-27] MEDS: MELATONIN 3 MG TABLET GT PRN (21:00)
[2021-03-27] MEDS: MIRALAX 17 GM POWD.PACK GT PRN (21:26)
--- NOTE | 2021-03-27 21:48 | NUR ---
Patient c/o the room is spinning while the SUPERVISOR ROLLER SHOP was changing her sheet, Patient denies feeling nauseous or feeling sick, Saturation is 99% and denies Shortness of breath and denies headache. Encouraged patient to get up and change her position slowly. B/P: 145/66 HR:67 T: 98.2 Pain: 0/10. Will continue monitor.
--- NOTE | 2021-03-27 22:00 | NUR ---
Patient is resting in bed, she stated that, " I feel a better now." Patient denies spinning of the room feeling, denies any headache or nausea/ vomiting, needs anticipated and call light within reach, will continue monitoring.
[2021-03-28] MEDS: OMEPRAZOLE 20 MG CAPSULE.DR GT SCH ×2 (05:24→17:37)
[2021-03-28] MEDS: MULTIVIT, IRON, MIN NO. 8, FA TABLET GT SCH (05:24)
[2021-03-28] MEDS: ACIDOPHILUS/BULGARICUS CHEW TAB GT SCH ×3 (05:24→21:38)
[2021-03-28] MEDS: ASCORBIC ACID 500 MG TABLET GT SCH (05:25)
[2021-03-28] MEDS: CHOLECALCIFEROL 1,000 UNIT TABLET GT SCH (05:26)
[2021-03-28] MEDS: ZINC SULFATE 220 MG CAPSULE GT SCH (05:27)
--- NOTE | 2021-03-28 05:55 | NUR ---
Patient is awake and denies any spinning of the room feeling, went back to sleep, needs attended, call light within reach.
[2021-03-28] MEDS: IBUPROFEN 100 MG/5 ML LIQUID UDC- SA PATIENTS-PAIN ONLY GT PRN ×3 (06:00→22:06)
[2021-03-28] MEDS: GUAIFENESIN SUGAR FREE 100 MG/5 ML UDC GT PRN ×4 (06:00→22:06)
[2021-03-28 07:42] VITALS: BP 129/54
[2021-03-28] MEDS: HYDROGEN PEROXIDE 3% 118 ML BOTTLE TP SCH ×2 (07:52→21:00)
[2021-03-28] MEDS: IPRATROPIUM BROMIDE 0.5 MG/2.5 ML NEBU NEB SCH ×3 (07:52→23:02)
[2021-03-28] MEDS: AMLODIPINE 5 MG TABLET GT SCH ×2 (08:53→21:35)
[2021-03-28] MEDS: CARVEDILOL 6.25 MG TABLET GT SCH ×2 (08:53→21:35)
[2021-03-28] MEDS: Z GUARD REMEDY PASTE 57 GM TUBE TOP SCH ×2 (08:55→21:35)
[2021-03-28] MEDS: VITAMINS A AND D OINT TP SCH ×2 (08:55→21:35)
[2021-03-28] MEDS: MINOXIDIL TOP SCH ×2 (09:00→17:34)
[2021-03-28] MEDS: VITAL AF 1.2 1,000 ML LIQUID GT PRN (09:10)
[2021-03-28 20:19] VITALS: BP 130/52
[2021-03-28] MEDS: VITAMIN B COMPLEX 1 TABLET GT SCH (21:34)
[2021-03-28] MEDS: ATORVASTATIN 20 MG TABLET GT SCH (21:35)
[2021-03-28] MEDS: MIRALAX 17 GM POWD.PACK GT PRN (22:06)
[2021-03-28] MEDS: MELATONIN 3 MG TABLET GT PRN (22:06)
[2021-03-29] MEDS: ASCORBIC ACID 500 MG TABLET GT SCH (06:18)
[2021-03-29] MEDS: MULTIVIT, IRON, MIN NO. 8, FA TABLET GT SCH (06:18)
[2021-03-29] MEDS: ZINC SULFATE 220 MG CAPSULE GT SCH (06:18)
[2021-03-29] MEDS: IBUPROFEN 100 MG/5 ML LIQUID UDC- SA PATIENTS-PAIN ONLY GT PRN ×2 (06:18→21:23)
[2021-03-29] MEDS: ACIDOPHILUS/BULGARICUS CHEW TAB GT SCH ×3 (06:18→21:22)
[2021-03-29] MEDS: CHOLECALCIFEROL 1,000 UNIT TABLET GT SCH (06:18)
[2021-03-29] MEDS: GUAIFENESIN SUGAR FREE 100 MG/5 ML UDC GT PRN ×3 (06:18→14:20)
[2021-03-29] MEDS: OMEPRAZOLE 20 MG CAPSULE.DR GT SCH ×2 (06:18→17:19)
[2021-03-29 07:52] VITALS: BP 134/52
[2021-03-29] MEDS: IPRATROPIUM BROMIDE 0.5 MG/2.5 ML NEBU NEB SCH ×3 (08:22→23:06)
[2021-03-29] MEDS: HYDROGEN PEROXIDE 3% 118 ML BOTTLE TP SCH ×2 (08:22→20:15)
[2021-03-29] MEDS: ACETAMINOPHEN 650 MG/20 ML UDC- SA PATIENTS-PAIN ONLY GT PRN ×2 (09:49→14:20)
[2021-03-29] MEDS: MINOXIDIL TOP SCH ×2 (09:51→17:33)
[2021-03-29] MEDS: CARVEDILOL 6.25 MG TABLET GT SCH ×2 (09:51→21:21)
[2021-03-29] MEDS: AMLODIPINE 5 MG TABLET GT SCH ×2 (09:51→21:22)
[2021-03-29] MEDS: Z GUARD REMEDY PASTE 57 GM TUBE TOP SCH ×2 (09:52→21:22)
[2021-03-29] MEDS: VITAMINS A AND D OINT TP SCH ×2 (09:52→21:22)
[2021-03-29 20:01] VITALS: BP 139/56
[2021-03-29] MEDS: VITAMIN B COMPLEX 1 TABLET GT SCH (21:21)
[2021-03-29] MEDS: ATORVASTATIN 20 MG TABLET GT SCH (21:21)
[2021-03-29] MEDS: MELATONIN 3 MG TABLET GT PRN (21:22)
[2021-03-30] MEDS: CHOLECALCIFEROL 1,000 UNIT TABLET GT SCH (05:31)
[2021-03-30] MEDS: OMEPRAZOLE 20 MG CAPSULE.DR GT SCH ×2 (05:31→17:28)
[2021-03-30] MEDS: ZINC SULFATE 220 MG CAPSULE GT SCH (05:31)
[2021-03-30] MEDS: ACIDOPHILUS/BULGARICUS CHEW TAB GT SCH ×3 (05:31→21:56)
[2021-03-30] MEDS: MULTIVIT, IRON, MIN NO. 8, FA TABLET GT SCH (05:31)
[2021-03-30] MEDS: ASCORBIC ACID 500 MG TABLET GT SCH (05:31)
[2021-03-30] MEDS: GUAIFENESIN SUGAR FREE 100 MG/5 ML UDC GT PRN ×4 (05:32→21:57)
[2021-03-30] MEDS: IBUPROFEN 100 MG/5 ML LIQUID UDC- SA PATIENTS-PAIN ONLY GT PRN ×3 (05:32→21:57)
[2021-03-30] MEDS: HYDROGEN PEROXIDE 3% 118 ML BOTTLE TP SCH ×2 (07:26→21:23)
[2021-03-30] MEDS: IPRATROPIUM BROMIDE 0.5 MG/2.5 ML NEBU NEB SCH ×3 (07:26→23:13)
[2021-03-30 07:37] VITALS: BP 140/54
[2021-03-30] MEDS: CARVEDILOL 6.25 MG TABLET GT SCH ×2 (09:16→21:55)
[2021-03-30] MEDS: AMLODIPINE 5 MG TABLET GT SCH ×2 (09:17→21:56)
[2021-03-30] MEDS: MINOXIDIL TOP SCH ×2 (09:17→17:28)
[2021-03-30] MEDS: VITAMINS A AND D OINT TP SCH ×2 (09:21→21:56)
[2021-03-30] MEDS: Z GUARD REMEDY PASTE 57 GM TUBE TOP SCH ×2 (09:21→21:56)
[2021-03-30 19:57] VITALS: BP 138/48
[2021-03-30] MEDS: ATORVASTATIN 20 MG TABLET GT SCH (21:55)
[2021-03-30] MEDS: VITAMIN B COMPLEX 1 TABLET GT SCH (21:55)
[2021-03-30] MEDS: MELATONIN 3 MG TABLET GT PRN (21:56)
[2021-03-30] MEDS: MIRALAX 17 GM POWD.PACK GT PRN (21:56)
[2021-03-31] MEDS: ZINC SULFATE 220 MG CAPSULE GT SCH (05:39)
[2021-03-31] MEDS: ASCORBIC ACID 500 MG TABLET GT SCH (05:39)
[2021-03-31] MEDS: MULTIVIT, IRON, MIN NO. 8, FA TABLET GT SCH (05:39)
[2021-03-31] MEDS: ACIDOPHILUS/BULGARICUS CHEW TAB GT SCH ×3 (05:39→21:17)
[2021-03-31] MEDS: OMEPRAZOLE 20 MG CAPSULE.DR GT SCH ×2 (05:39→17:57)
[2021-03-31] MEDS: CHOLECALCIFEROL 1,000 UNIT TABLET GT SCH (05:39)
[2021-03-31] MEDS: GUAIFENESIN SUGAR FREE 100 MG/5 ML UDC GT PRN ×4 (05:40→21:23)
[2021-03-31] MEDS: IBUPROFEN 100 MG/5 ML LIQUID UDC- SA PATIENTS-PAIN ONLY GT PRN ×2 (05:41→21:22)
[2021-03-31 07:26] VITALS: BP 127/54
--- NOTE | 2021-03-31 07:30 | NUR ---
Seen by Lilly PRICE, notified of patient has been c/o dizziness, new orders given and carried out (Meclizine 25mg twice a day prn and Loratadine 10mg daily prn). Patient a+o x4 and notified of new orders.
[2021-03-31] MEDS: IPRATROPIUM BROMIDE 0.5 MG/2.5 ML NEBU NEB SCH ×3 (07:34→22:30)
[2021-03-31] MEDS ORDERED: MECLIZINE HCL 25 MG TABLET JT PRN (08:15)
[2021-03-31] MEDS ORDERED: LORATADINE 10 MG TABLET JT PRN (08:30)
[2021-03-31] MEDS: CARVEDILOL 6.25 MG TABLET GT SCH ×2 (08:58→21:16)
[2021-03-31] MEDS: AMLODIPINE 5 MG TABLET GT SCH ×2 (08:59→21:17)
[2021-03-31] MEDS: HYDROGEN PEROXIDE 3% 118 ML BOTTLE TP SCH ×2 (09:00→21:24)
[2021-03-31] MEDS: Z GUARD REMEDY PASTE 57 GM TUBE TOP SCH ×2 (09:00→21:17)
[2021-03-31] MEDS: ACETAMINOPHEN 650 MG/20 ML UDC- SA PATIENTS-PAIN ONLY GT PRN ×2 (09:00→15:00)
[2021-03-31] MEDS: VITAMINS A AND D OINT TP SCH ×2 (09:53→21:17)
[2021-03-31] MEDS: MINOXIDIL TOP SCH ×2 (09:59→17:57)
[2021-03-31 20:00] VITALS: BP 118/51
[2021-03-31] MEDS: VITAMIN B COMPLEX 1 TABLET GT SCH (21:15)
[2021-03-31] MEDS: ATORVASTATIN 20 MG TABLET GT SCH (21:16)
[2021-03-31] MEDS: MELATONIN 3 MG TABLET GT PRN (21:20)
[2021-04-01] MEDS: VITAL AF 1.2 1,000 ML LIQUID GT PRN (00:18)
[2021-04-01] MEDS: CHOLECALCIFEROL 1,000 UNIT TABLET GT SCH (05:43)
[2021-04-01] MEDS: ASCORBIC ACID 500 MG TABLET GT SCH (05:43)
[2021-04-01] MEDS: ZINC SULFATE 220 MG CAPSULE GT SCH (05:43)
[2021-04-01] MEDS: MULTIVIT, IRON, MIN NO. 8, FA TABLET GT SCH (05:43)
[2021-04-01] MEDS: ACIDOPHILUS/BULGARICUS CHEW TAB GT SCH ×3 (05:43→21:25)
[2021-04-01] MEDS: OMEPRAZOLE 20 MG CAPSULE.DR GT SCH ×2 (05:43→18:03)
[2021-04-01] MEDS: IBUPROFEN 100 MG/5 ML LIQUID UDC- SA PATIENTS-PAIN ONLY GT PRN ×3 (05:43→21:30)
[2021-04-01] MEDS: GUAIFENESIN SUGAR FREE 100 MG/5 ML UDC GT PRN ×3 (05:44→21:26)
[2021-04-01 07:21] VITALS: BP 125/59
[2021-04-01] MEDS: IPRATROPIUM BROMIDE 0.5 MG/2.5 ML NEBU NEB SCH ×3 (07:31→23:05)
[2021-04-01] MEDS: HYDROGEN PEROXIDE 3% 118 ML BOTTLE TP SCH ×2 (07:31→20:44)
[2021-04-01] MEDS: CARVEDILOL 6.25 MG TABLET GT SCH ×2 (08:00→21:23)
[2021-04-01] MEDS: AMLODIPINE 5 MG TABLET GT SCH ×2 (08:00→21:25)
[2021-04-01] MEDS: VITAMINS A AND D OINT TP SCH ×2 (09:03→21:25)
[2021-04-01] MEDS: Z GUARD REMEDY PASTE 57 GM TUBE TOP SCH ×2 (09:03→21:25)
[2021-04-01] MEDS: MINOXIDIL TOP SCH ×2 (09:07→17:59)
[2021-04-01] MEDS: ACETAMINOPHEN 650 MG/20 ML UDC- SA PATIENTS-PAIN ONLY GT PRN (09:08)
--- NOTE | 2021-04-01 10:30 | NUR ---
PATIENT WALKING WITH PT AT THIS TIME, SATURATION 95-96% ON ROOM AIR ORDERED ,HR 72 AFTER WALKING.
[2021-04-01 20:00] VITALS: BP 139/51
[2021-04-01] MEDS: VITAMIN B COMPLEX 1 TABLET GT SCH (21:23)
[2021-04-01] MEDS: ATORVASTATIN 20 MG TABLET GT SCH (21:24)
[2021-04-01] MEDS: MELATONIN 3 MG TABLET GT PRN (21:26)
[2021-04-02] MEDS: GUAIFENESIN SUGAR FREE 100 MG/5 ML UDC GT PRN ×5 (01:54→22:39)
[2021-04-02] MEDS: CHOLECALCIFEROL 1,000 UNIT TABLET GT SCH (05:24)
[2021-04-02] MEDS: ACIDOPHILUS/BULGARICUS CHEW TAB GT SCH ×3 (05:24→22:38)
[2021-04-02] MEDS: MULTIVIT, IRON, MIN NO. 8, FA TABLET GT SCH (05:24)
[2021-04-02] MEDS: OMEPRAZOLE 20 MG CAPSULE.DR GT SCH ×2 (05:24→17:11)
[2021-04-02] MEDS: ZINC SULFATE 220 MG CAPSULE GT SCH (05:24)
[2021-04-02] MEDS: ASCORBIC ACID 500 MG TABLET GT SCH (05:24)
[2021-04-02] MEDS: VITAL AF 1.2 1,000 ML LIQUID GT PRN (05:33)
[2021-04-02] MEDS: IBUPROFEN 100 MG/5 ML LIQUID UDC- SA PATIENTS-PAIN ONLY GT PRN ×3 (05:33→21:37)
[2021-04-02 07:19] VITALS: BP 126/57
[2021-04-02] MEDS: IPRATROPIUM BROMIDE 0.5 MG/2.5 ML NEBU NEB SCH ×3 (07:37→22:40)
[2021-04-02] MEDS: AMLODIPINE 5 MG TABLET GT SCH ×2 (08:00→21:35)
[2021-04-02] MEDS: CARVEDILOL 6.25 MG TABLET GT SCH ×2 (08:00→21:33)
[2021-04-02] MEDS: HYDROGEN PEROXIDE 3% 118 ML BOTTLE TP SCH ×2 (09:36→21:37)
[2021-04-02] MEDS: ACETAMINOPHEN 650 MG/20 ML UDC- SA PATIENTS-PAIN ONLY GT PRN ×2 (09:41→17:17)
[2021-04-02] MEDS: MINOXIDIL TOP SCH ×2 (09:41→16:13)
[2021-04-02] MEDS: Z GUARD REMEDY PASTE 57 GM TUBE TOP SCH ×2 (09:41→21:00)
[2021-04-02] MEDS: VITAMINS A AND D OINT TP SCH ×2 (09:41→21:00)
--- NOTE | 2021-04-02 15:30 | NUR ---
TRACH CHANGE DONE WITH NO INCIDENT. PATIENT ZAC TRACH CHANGE WELL. TRACH ALSO DOWN SIZED TO SHILEY 4 FROM SHILEY 6 PER MD ORDER. RN IRENE MADE AWARE OF TRACH SIZE CHANGE.
[2021-04-02 20:00] VITALS: BP 112/70
[2021-04-02] MEDS: VITAMIN B COMPLEX 1 TABLET GT SCH (21:29)
[2021-04-02] MEDS: MELATONIN 3 MG TABLET GT PRN (21:30)
[2021-04-02] MEDS: MIRALAX 17 GM POWD.PACK GT PRN (21:31)
[2021-04-02] MEDS: ATORVASTATIN 20 MG TABLET GT SCH (21:32)
[2021-04-02 22:00] VITALS: BP 122/50
[2021-04-03] MEDS: GUAIFENESIN SUGAR FREE 100 MG/5 ML UDC GT PRN ×4 (05:00→21:22)
[2021-04-03] MEDS: ASCORBIC ACID 500 MG TABLET GT SCH (05:44)
[2021-04-03] MEDS: MULTIVIT, IRON, MIN NO. 8, FA TABLET GT SCH (05:44)
[2021-04-03] MEDS: OMEPRAZOLE 20 MG CAPSULE.DR GT SCH ×2 (05:44→17:06)
[2021-04-03] MEDS: CHOLECALCIFEROL 1,000 UNIT TABLET GT SCH (05:44)
[2021-04-03] MEDS: ACIDOPHILUS/BULGARICUS CHEW TAB GT SCH ×3 (05:44→21:15)
[2021-04-03] MEDS: ZINC SULFATE 220 MG CAPSULE GT SCH (05:44)
[2021-04-03] MEDS: IBUPROFEN 100 MG/5 ML LIQUID UDC- SA PATIENTS-PAIN ONLY GT PRN ×2 (05:45→21:22)
[2021-04-03] MEDS: VITAL AF 1.2 1,000 ML LIQUID GT PRN (05:54)
[2021-04-03] MEDS: IPRATROPIUM BROMIDE 0.5 MG/2.5 ML NEBU NEB SCH ×3 (07:45→20:31)
[2021-04-03 07:57] VITALS: BP 124/62
[2021-04-03] MEDS: HYDROGEN PEROXIDE 3% 118 ML BOTTLE TP SCH ×2 (08:10→21:00)
[2021-04-03] MEDS: CARVEDILOL 6.25 MG TABLET GT SCH ×2 (09:16→21:12)
[2021-04-03] MEDS: Z GUARD REMEDY PASTE 57 GM TUBE TOP SCH ×2 (09:17→21:13)
[2021-04-03] MEDS: VITAMINS A AND D OINT TP SCH ×2 (09:17→21:15)
[2021-04-03] MEDS: AMLODIPINE 5 MG TABLET GT SCH ×2 (09:17→21:13)
[2021-04-03] MEDS: MINOXIDIL TOP SCH ×2 (09:17→16:55)
[2021-04-03] MEDS: NEOMY/BACITRA/POLYMYXIN B OINT UD PACKET TP SCH ×2 (09:17→21:15)
[2021-04-03] MEDS: ACETAMINOPHEN 650 MG/20 ML UDC- SA PATIENTS-PAIN ONLY GT PRN ×2 (09:27→15:29)
[2021-04-03 20:00] VITALS: BP 132/59
[2021-04-03] MEDS: ATORVASTATIN 20 MG TABLET GT SCH (21:12)
[2021-04-03] MEDS: VITAMIN B COMPLEX 1 TABLET GT SCH (21:12)
--- NOTE | 2021-04-03 22:30 | NUR ---
Patient is on red capping, on 0xygen @2LPM via Nasal cannula, denies any respiratory distress.
--- NOTE | 2021-04-03 22:33 | NUR ---
Patient is alert and oriented, trach is intact, no signs of any distress, 02 sat is 98% on registered medical assistant, denies any discomfort, will continue monitor.
[2021-04-04] MEDS: VITAL AF 1.2 1,000 ML LIQUID GT PRN (04:57)
[2021-04-04] MEDS: IBUPROFEN 100 MG/5 ML LIQUID UDC- SA PATIENTS-PAIN ONLY GT PRN ×3 (05:03→22:15)
[2021-04-04] MEDS: GUAIFENESIN SUGAR FREE 100 MG/5 ML UDC GT PRN ×4 (05:04→20:40)
[2021-04-04] MEDS: OMEPRAZOLE 20 MG CAPSULE.DR GT SCH ×2 (05:57→17:03)
[2021-04-04] MEDS: CHOLECALCIFEROL 1,000 UNIT TABLET GT SCH (05:57)
[2021-04-04] MEDS: ASCORBIC ACID 500 MG TABLET GT SCH (05:57)
[2021-04-04] MEDS: ZINC SULFATE 220 MG CAPSULE GT SCH (05:57)
[2021-04-04] MEDS: MULTIVIT, IRON, MIN NO. 8, FA TABLET GT SCH (05:57)
[2021-04-04] MEDS: ACIDOPHILUS/BULGARICUS CHEW TAB GT SCH ×4 (05:57→22:15)
[2021-04-04] MEDS: IPRATROPIUM BROMIDE 0.5 MG/2.5 ML NEBU NEB SCH ×3 (07:22→23:01)
[2021-04-04 07:51] VITALS: BP 118/41
[2021-04-04] MEDS: HYDROGEN PEROXIDE 3% 118 ML BOTTLE TP SCH ×2 (08:52→21:45)
[2021-04-04] MEDS: Z GUARD REMEDY PASTE 57 GM TUBE TOP SCH ×2 (09:03→20:37)
[2021-04-04] MEDS: MINOXIDIL TOP SCH ×2 (09:03→17:03)
[2021-04-04] MEDS: AMLODIPINE 5 MG TABLET GT SCH ×2 (09:03→20:36)
[2021-04-04] MEDS: CARVEDILOL 6.25 MG TABLET GT SCH ×2 (09:03→20:36)
[2021-04-04] MEDS: VITAMINS A AND D OINT TP SCH ×2 (09:03→20:37)
[2021-04-04] MEDS: NEOMY/BACITRA/POLYMYXIN B OINT UD PACKET TP SCH ×2 (09:03→20:37)
[2021-04-04] MEDS: ACETAMINOPHEN 650 MG/20 ML UDC- SA PATIENTS-PAIN ONLY GT PRN ×2 (09:14→18:06)
[2021-04-04] MEDS: VITAMIN B COMPLEX 1 TABLET GT SCH (20:34)
[2021-04-04] MEDS: ATORVASTATIN 20 MG TABLET GT SCH (20:36)
[2021-04-04] MEDS: MELATONIN 3 MG TABLET GT PRN (21:12)
[2021-04-04] MEDS: MIRALAX 17 GM POWD.PACK GT PRN (21:12)
--- NOTE | 2021-04-04 21:35 | NUR ---
Patient is alert and oriented X 4, trach downsized to shiley #4, on red capping, on oxygen via nasal cannula, 02 sat @ 99%, pain on right shoulder is 8/10, will give Motrin as ordered for pain, also noted with dry cough, Robitussin given as ordered with help. Needs anticipated, call light within reach.
[2021-04-04 22:32] VITALS: BP 136/51
[2021-04-05] MEDS: GUAIFENESIN SUGAR FREE 100 MG/5 ML UDC GT PRN ×3 (03:00→12:03)
[2021-04-05] MEDS: VITAL AF 1.2 1,000 ML LIQUID GT PRN (05:00)
[2021-04-05] MEDS: CHOLECALCIFEROL 1,000 UNIT TABLET GT SCH (05:07)
[2021-04-05] MEDS: MULTIVIT, IRON, MIN NO. 8, FA TABLET GT SCH (05:07)
[2021-04-05] MEDS: ZINC SULFATE 220 MG CAPSULE GT SCH (05:07)
[2021-04-05] MEDS: OMEPRAZOLE 20 MG CAPSULE.DR GT SCH ×2 (05:07→17:25)
[2021-04-05] MEDS: ASCORBIC ACID 500 MG TABLET GT SCH (05:07)
[2021-04-05] MEDS: IBUPROFEN 100 MG/5 ML LIQUID UDC- SA PATIENTS-PAIN ONLY GT PRN ×2 (06:15→21:00)
[2021-04-05] MEDS: IPRATROPIUM BROMIDE 0.5 MG/2.5 ML NEBU NEB SCH ×3 (07:07→22:40)
[2021-04-05 07:51] VITALS: BP 122/52
[2021-04-05] MEDS: ACETAMINOPHEN 650 MG/20 ML UDC- SA PATIENTS-PAIN ONLY GT PRN (08:00)
[2021-04-05] MEDS: AMLODIPINE 5 MG TABLET GT SCH ×2 (08:01→20:33)
[2021-04-05] MEDS: CARVEDILOL 6.25 MG TABLET GT SCH ×2 (08:01→20:20)
[2021-04-05] MEDS: Z GUARD REMEDY PASTE 57 GM TUBE TOP SCH ×2 (08:02→20:33)
[2021-04-05] MEDS: MINOXIDIL TOP SCH ×2 (08:02→17:25)
[2021-04-05] MEDS: HYDROGEN PEROXIDE 3% 118 ML BOTTLE TP SCH ×2 (08:36→21:21)
[2021-04-05] MEDS: VITAMINS A AND D OINT TP SCH ×2 (09:22→20:34)
[2021-04-05] MEDS: NEOMY/BACITRA/POLYMYXIN B OINT UD PACKET TP SCH ×2 (09:22→20:34)
[2021-04-05] MEDS: ACIDOPHILUS/BULGARICUS CHEW TAB GT SCH ×2 (14:06→20:34)
[2021-04-05] MEDS: VITAMIN B COMPLEX 1 TABLET GT SCH (20:19)
[2021-04-05] MEDS: ATORVASTATIN 20 MG TABLET GT SCH (20:33)
[2021-04-05] MEDS: MELATONIN 3 MG TABLET GT PRN (20:59)
[2021-04-05] MEDS: MIRALAX 17 GM POWD.PACK GT PRN (21:00)
--- NOTE | 2021-04-05 21:00 | NUR ---
Patient is alert and oriented, on red capping, on oxygen via nasal cannula, 02 sat @ 100%, C/o pain on Right and Left shoulder, pain: 8/10, Motrin given as ordered for pain, Robitussin given for cough as ordered with help. Needs anticipated, call light within reach.
[2021-04-05 22:54] VITALS: BP 131/65
[2021-04-06] MEDS: IBUPROFEN 100 MG/5 ML LIQUID UDC- SA PATIENTS-PAIN ONLY GT PRN ×3 (05:00→21:18)
[2021-04-06] MEDS: VITAL AF 1.2 1,000 ML LIQUID GT PRN (05:00)
[2021-04-06] MEDS: ASCORBIC ACID 500 MG TABLET GT SCH (05:04)
[2021-04-06] MEDS: OMEPRAZOLE 20 MG CAPSULE.DR GT SCH ×2 (05:04→17:05)
[2021-04-06] MEDS: MULTIVIT, IRON, MIN NO. 8, FA TABLET GT SCH (05:04)
[2021-04-06] MEDS: CHOLECALCIFEROL 1,000 UNIT TABLET GT SCH (05:04)
[2021-04-06] MEDS: ACIDOPHILUS/BULGARICUS CHEW TAB GT SCH ×3 (05:04→21:17)
[2021-04-06] MEDS: ZINC SULFATE 220 MG CAPSULE GT SCH (05:04)
[2021-04-06] MEDS: GUAIFENESIN SUGAR FREE 100 MG/5 ML UDC GT PRN ×5 (05:05→21:18)
--- NOTE | 2021-04-06 06:55 | NUR ---
For Covid 19 test today per [facility] requirement.
[2021-04-06] MEDS: IPRATROPIUM BROMIDE 0.5 MG/2.5 ML NEBU NEB SCH ×3 (07:19→22:40)
[2021-04-06 07:27] VITALS: BP 133/59
[2021-04-06] MEDS: CARVEDILOL 6.25 MG TABLET GT SCH ×2 (08:56→20:52)
[2021-04-06] MEDS: MINOXIDIL TOP SCH ×2 (08:57→17:05)
[2021-04-06] MEDS: AMLODIPINE 5 MG TABLET GT SCH ×2 (08:57→20:53)
[2021-04-06] MEDS: VITAMINS A AND D OINT TP SCH ×2 (08:57→20:53)
[2021-04-06] MEDS: NEOMY/BACITRA/POLYMYXIN B OINT UD PACKET TP SCH ×2 (08:57→20:53)
[2021-04-06] MEDS: Z GUARD REMEDY PASTE 57 GM TUBE TOP SCH ×2 (08:57→20:53)
[2021-04-06] MEDS: ACETAMINOPHEN 650 MG/20 ML UDC- SA PATIENTS-PAIN ONLY GT PRN ×2 (09:00→17:05)
[2021-04-06] MEDS: HYDROGEN PEROXIDE 3% 118 ML BOTTLE TP SCH ×2 (09:32→20:54)
[2021-04-06] MEDS: VITAMIN B COMPLEX 1 TABLET GT SCH (20:51)
[2021-04-06] MEDS: ATORVASTATIN 20 MG TABLET GT SCH (20:52)
--- NOTE | 2021-04-06 20:54 | NUR ---
Patient is tolerating red capping, denies any respiratory distress or shortness of breath, 02 sat is 98% on 2LPM oxygen via nasal cannula, needs anticipated, call light within reach.
[2021-04-06] MEDS: MELATONIN 3 MG TABLET GT PRN (21:17)
[2021-04-06] MEDS: MIRALAX 17 GM POWD.PACK GT PRN (21:17)
[2021-04-06 22:53] VITALS: BP 135/54
[2021-04-07] MEDS: GUAIFENESIN SUGAR FREE 100 MG/5 ML UDC GT PRN ×3 (05:00→21:18)
[2021-04-07] MEDS: IBUPROFEN 100 MG/5 ML LIQUID UDC- SA PATIENTS-PAIN ONLY GT PRN ×3 (05:00→21:18)
[2021-04-07] MEDS: ZINC SULFATE 220 MG CAPSULE GT SCH (06:03)
[2021-04-07] MEDS: CHOLECALCIFEROL 1,000 UNIT TABLET GT SCH (06:03)
[2021-04-07] MEDS: OMEPRAZOLE 20 MG CAPSULE.DR GT SCH ×2 (06:03→17:21)
[2021-04-07] MEDS: ACIDOPHILUS/BULGARICUS CHEW TAB GT SCH ×3 (06:03→21:17)
[2021-04-07] MEDS: ASCORBIC ACID 500 MG TABLET GT SCH (06:03)
[2021-04-07] MEDS: MULTIVIT, IRON, MIN NO. 8, FA TABLET GT SCH (06:03)
[2021-04-07 07:22] VITALS: BP 130/46
[2021-04-07] MEDS: IPRATROPIUM BROMIDE 0.5 MG/2.5 ML NEBU NEB SCH ×3 (07:35→22:40)
[2021-04-07] MEDS: AMLODIPINE 5 MG TABLET GT SCH ×2 (09:02→21:17)
[2021-04-07] MEDS: CARVEDILOL 6.25 MG TABLET GT SCH ×2 (09:02→21:16)
[2021-04-07] MEDS: NEOMY/BACITRA/POLYMYXIN B OINT UD PACKET TP SCH ×2 (09:03→21:17)
[2021-04-07] MEDS: VITAMINS A AND D OINT TP SCH ×2 (09:03→21:17)
[2021-04-07] MEDS: MINOXIDIL TOP SCH ×2 (09:03→16:57)
[2021-04-07] MEDS: Z GUARD REMEDY PASTE 57 GM TUBE TOP SCH ×2 (09:03→21:17)
[2021-04-07] MEDS: ACETAMINOPHEN 650 MG/20 ML UDC- SA PATIENTS-PAIN ONLY GT PRN (09:05)
[2021-04-07] MEDS: VITAL AF 1.2 1,000 ML LIQUID GT PRN (09:05)
[2021-04-07] MEDS: HYDROGEN PEROXIDE 3% 118 ML BOTTLE TP SCH ×2 (09:29→20:58)
[2021-04-07 20:30] VITALS: BP 139/56
[2021-04-07] MEDS: VITAMIN B COMPLEX 1 TABLET GT SCH (21:05)
[2021-04-07] MEDS: ATORVASTATIN 20 MG TABLET GT SCH (21:16)
[2021-04-07] MEDS: MIRALAX 17 GM POWD.PACK GT PRN (21:18)
[2021-04-07] MEDS: MELATONIN 3 MG TABLET GT PRN (21:18)
[2021-04-08] MEDS: OMEPRAZOLE 20 MG CAPSULE.DR GT SCH ×2 (05:22→17:05)
[2021-04-08] MEDS: ASCORBIC ACID 500 MG TABLET GT SCH (05:22)
[2021-04-08] MEDS: MULTIVIT, IRON, MIN NO. 8, FA TABLET GT SCH (05:22)
[2021-04-08] MEDS: ACIDOPHILUS/BULGARICUS CHEW TAB GT SCH ×3 (05:22→22:18)
[2021-04-08] MEDS: ZINC SULFATE 220 MG CAPSULE GT SCH (05:23)
[2021-04-08] MEDS: IBUPROFEN 100 MG/5 ML LIQUID UDC- SA PATIENTS-PAIN ONLY GT PRN ×3 (05:23→21:00)
[2021-04-08] MEDS: GUAIFENESIN SUGAR FREE 100 MG/5 ML UDC GT PRN ×5 (05:23→21:00)
[2021-04-08] MEDS: CHOLECALCIFEROL 1,000 UNIT TABLET GT SCH (05:23)
[2021-04-08 07:23] VITALS: BP 125/47
[2021-04-08] MEDS: IPRATROPIUM BROMIDE 0.5 MG/2.5 ML NEBU NEB SCH ×3 (07:29→22:30)
[2021-04-08] MEDS: HYDROGEN PEROXIDE 3% 118 ML BOTTLE TP SCH ×2 (07:29→20:50)
[2021-04-08] MEDS: CARVEDILOL 6.25 MG TABLET GT SCH ×2 (09:11→20:49)
[2021-04-08] MEDS: AMLODIPINE 5 MG TABLET GT SCH ×2 (09:13→20:50)
[2021-04-08] MEDS: MINOXIDIL TOP SCH ×2 (09:15→16:56)
[2021-04-08] MEDS: VITAMINS A AND D OINT TP SCH ×2 (09:24→20:51)
[2021-04-08] MEDS: Z GUARD REMEDY PASTE 57 GM TUBE TOP SCH ×2 (09:24→20:51)
[2021-04-08] MEDS: NEOMY/BACITRA/POLYMYXIN B OINT UD PACKET TP SCH ×2 (09:24→20:51)
[2021-04-08] MEDS: ACETAMINOPHEN 650 MG/20 ML UDC- SA PATIENTS-PAIN ONLY GT PRN ×2 (09:24→16:57)
[2021-04-08] MEDS: VITAL AF 1.2 1,000 ML LIQUID GT PRN (09:32)
[2021-04-08 20:00] VITALS: BP 139/57
[2021-04-08] MEDS: VITAMIN B COMPLEX 1 TABLET GT SCH (20:48)
[2021-04-08] MEDS: ATORVASTATIN 20 MG TABLET GT SCH (20:49)
[2021-04-08] MEDS: MELATONIN 3 MG TABLET GT PRN (21:00)
[2021-04-08] MEDS: MIRALAX 17 GM POWD.PACK GT PRN (22:18)
[2021-04-09] MEDS: ASCORBIC ACID 500 MG TABLET GT SCH (05:03)
[2021-04-09] MEDS: ZINC SULFATE 220 MG CAPSULE GT SCH (05:03)
[2021-04-09] MEDS: OMEPRAZOLE 20 MG CAPSULE.DR GT SCH ×2 (05:03→17:05)
[2021-04-09] MEDS: CHOLECALCIFEROL 1,000 UNIT TABLET GT SCH (05:03)
[2021-04-09] MEDS: ACIDOPHILUS/BULGARICUS CHEW TAB GT SCH ×3 (05:03→22:44)
[2021-04-09] MEDS: MULTIVIT, IRON, MIN NO. 8, FA TABLET GT SCH (05:03)
[2021-04-09] MEDS: GUAIFENESIN SUGAR FREE 100 MG/5 ML UDC GT PRN ×5 (05:04→21:00)
[2021-04-09] MEDS: IBUPROFEN 100 MG/5 ML LIQUID UDC- SA PATIENTS-PAIN ONLY GT PRN ×3 (05:04→21:00)
[2021-04-09] MEDS: IPRATROPIUM BROMIDE 0.5 MG/2.5 ML NEBU NEB SCH ×3 (07:46→22:31)
[2021-04-09] MEDS: HYDROGEN PEROXIDE 3% 118 ML BOTTLE TP SCH ×2 (07:47→21:00)
[2021-04-09 07:59] VITALS: BP 127/53
[2021-04-09] MEDS: CARVEDILOL 6.25 MG TABLET GT SCH ×2 (09:12→20:48)
[2021-04-09] MEDS: AMLODIPINE 5 MG TABLET GT SCH ×2 (09:13→20:48)
[2021-04-09] MEDS: MINOXIDIL TOP SCH ×2 (09:14→16:58)
[2021-04-09] MEDS: ACETAMINOPHEN 650 MG/20 ML UDC- SA PATIENTS-PAIN ONLY GT PRN ×2 (09:15→16:58)
[2021-04-09] MEDS: Z GUARD REMEDY PASTE 57 GM TUBE TOP SCH ×2 (09:26→20:48)
[2021-04-09] MEDS: NEOMY/BACITRA/POLYMYXIN B OINT UD PACKET TP SCH ×2 (09:26→20:48)
[2021-04-09] MEDS: VITAMINS A AND D OINT TP SCH ×2 (09:27→20:48)
[2021-04-09] MEDS: VITAL AF 1.2 1,000 ML LIQUID GT PRN (14:39)
[2021-04-09 20:00] VITALS: BP 130/51
[2021-04-09] MEDS: VITAMIN B COMPLEX 1 TABLET GT SCH (20:47)
[2021-04-09] MEDS: ATORVASTATIN 20 MG TABLET GT SCH (20:48)
[2021-04-09] MEDS: MELATONIN 3 MG TABLET GT PRN (20:53)
[2021-04-09] MEDS: MIRALAX 17 GM POWD.PACK GT PRN (20:53)
[2021-04-10] MEDS: GUAIFENESIN SUGAR FREE 100 MG/5 ML UDC GT PRN ×5 (05:00→21:20)
[2021-04-10] MEDS: IBUPROFEN 100 MG/5 ML LIQUID UDC- SA PATIENTS-PAIN ONLY GT PRN ×3 (05:00→21:17)
[2021-04-10] MEDS: CHOLECALCIFEROL 1,000 UNIT TABLET GT SCH (05:56)
[2021-04-10] MEDS: OMEPRAZOLE 20 MG CAPSULE.DR GT SCH ×2 (05:56→17:02)
[2021-04-10] MEDS: ASCORBIC ACID 500 MG TABLET GT SCH (05:56)
[2021-04-10] MEDS: ZINC SULFATE 220 MG CAPSULE GT SCH (05:56)
[2021-04-10] MEDS: MULTIVIT, IRON, MIN NO. 8, FA TABLET GT SCH (05:56)
[2021-04-10] MEDS: ACIDOPHILUS/BULGARICUS CHEW TAB GT SCH ×3 (05:56→21:15)
[2021-04-10 07:51] VITALS: BP 123/60
[2021-04-10] MEDS: IPRATROPIUM BROMIDE 0.5 MG/2.5 ML NEBU NEB SCH ×3 (07:57→20:35)
[2021-04-10] MEDS: ACETAMINOPHEN 650 MG/20 ML UDC- SA PATIENTS-PAIN ONLY GT PRN ×2 (08:00→17:00)
[2021-04-10] MEDS: CARVEDILOL 6.25 MG TABLET GT SCH ×2 (08:45→21:13)
[2021-04-10] MEDS: AMLODIPINE 5 MG TABLET GT SCH ×2 (08:45→21:14)
[2021-04-10] MEDS: MINOXIDIL TOP SCH ×2 (08:45→17:00)
[2021-04-10] MEDS: Z GUARD REMEDY PASTE 57 GM TUBE TOP SCH ×2 (08:45→21:15)
[2021-04-10] MEDS: VITAMINS A AND D OINT TP SCH ×2 (08:46→21:15)
[2021-04-10] MEDS: HYDROGEN PEROXIDE 3% 118 ML BOTTLE TP SCH ×2 (09:10→20:35)
--- NOTE | 2021-04-10 13:49 | NUR ---
This RIP TAILER notified patient's Mr. López and daughter Fanny, via email, that the next IDT meeting for the patient is scheduled for 04/15/2021 at 11am. This RIP TAILER asked Mr. López and Fanny to let this RIP TAILER know if either one of them were available to participate in the meeting by speaker phone.
[2021-04-10 20:00] VITALS: BP 136/56
[2021-04-10] MEDS: VITAMIN B COMPLEX 1 TABLET GT SCH (21:09)
[2021-04-10] MEDS: ATORVASTATIN 20 MG TABLET GT SCH (21:13)
[2021-04-10] MEDS: MIRALAX 17 GM POWD.PACK GT PRN (21:16)
[2021-04-11] MEDS: IBUPROFEN 100 MG/5 ML LIQUID UDC- SA PATIENTS-PAIN ONLY GT PRN ×3 (05:17→22:00)
[2021-04-11] MEDS: GUAIFENESIN SUGAR FREE 100 MG/5 ML UDC GT PRN ×4 (05:20→21:28)
[2021-04-11] MEDS: ACIDOPHILUS/BULGARICUS CHEW TAB GT SCH ×3 (05:21→21:28)
[2021-04-11] MEDS: CHOLECALCIFEROL 1,000 UNIT TABLET GT SCH (05:21)
[2021-04-11] MEDS: ZINC SULFATE 220 MG CAPSULE GT SCH (05:21)
[2021-04-11] MEDS: OMEPRAZOLE 20 MG CAPSULE.DR GT SCH ×2 (05:21→17:30)
[2021-04-11] MEDS: ASCORBIC ACID 500 MG TABLET GT SCH (05:21)
[2021-04-11] MEDS: MULTIVIT, IRON, MIN NO. 8, FA TABLET GT SCH (05:21)
[2021-04-11] MEDS: IPRATROPIUM BROMIDE 0.5 MG/2.5 ML NEBU NEB SCH ×3 (07:20→21:39)
[2021-04-11 07:45] VITALS: BP 132/52
[2021-04-11] MEDS: AMLODIPINE 5 MG TABLET GT SCH ×2 (08:30→21:28)
[2021-04-11] MEDS: CARVEDILOL 6.25 MG TABLET GT SCH ×2 (08:30→21:28)
[2021-04-11] MEDS: MINOXIDIL TOP SCH ×2 (08:30→17:30)
[2021-04-11] MEDS: VITAMINS A AND D OINT TP SCH ×2 (08:31→21:28)
[2021-04-11] MEDS: Z GUARD REMEDY PASTE 57 GM TUBE TOP SCH ×2 (08:31→21:28)
[2021-04-11] MEDS: ACETAMINOPHEN 650 MG/20 ML UDC- SA PATIENTS-PAIN ONLY GT PRN ×2 (08:33→17:31)
[2021-04-11] MEDS: HYDROGEN PEROXIDE 3% 118 ML BOTTLE TP SCH ×2 (09:34→21:09)
[2021-04-11] MEDS: VITAL AF 1.2 1,000 ML LIQUID GT PRN (13:34)
--- NOTE | 2021-04-11 16:12 | NUR ---
This SHEET METAL PATTERN CUTTER received an email response from patient's Mr. López and patient's daughter Fanny stating that they would be available on 04/15 to participate in the IDT meeting by speakerphone. This SHEET METAL PATTERN CUTTER will call both Mr. López and Fanny during the IDT meeting on 04/15.
[2021-04-11 20:23] VITALS: BP 137/58
[2021-04-11] MEDS: ATORVASTATIN 20 MG TABLET GT SCH (21:28)
[2021-04-11] MEDS: MELATONIN 3 MG TABLET GT PRN (21:28)
[2021-04-11] MEDS: MIRALAX 17 GM POWD.PACK GT PRN (21:28)
[2021-04-11] MEDS: VITAMIN B COMPLEX 1 TABLET GT SCH (21:28)
[2021-04-12] MEDS: CHOLECALCIFEROL 1,000 UNIT TABLET GT SCH (05:11)
[2021-04-12] MEDS: GUAIFENESIN SUGAR FREE 100 MG/5 ML UDC GT PRN ×5 (05:11→21:18)
[2021-04-12] MEDS: OMEPRAZOLE 20 MG CAPSULE.DR GT SCH ×2 (05:11→17:02)
[2021-04-12] MEDS: ZINC SULFATE 220 MG CAPSULE GT SCH (05:11)
[2021-04-12] MEDS: MULTIVIT, IRON, MIN NO. 8, FA TABLET GT SCH (05:11)
[2021-04-12] MEDS: ASCORBIC ACID 500 MG TABLET GT SCH (05:11)
[2021-04-12] MEDS: ACIDOPHILUS/BULGARICUS CHEW TAB GT SCH ×3 (05:11→21:18)
[2021-04-12] MEDS: IBUPROFEN 100 MG/5 ML LIQUID UDC- SA PATIENTS-PAIN ONLY GT PRN ×3 (06:01→22:00)
[2021-04-12] MEDS: IPRATROPIUM BROMIDE 0.5 MG/2.5 ML NEBU NEB SCH ×3 (07:20→20:29)
[2021-04-12] MEDS: HYDROGEN PEROXIDE 3% 118 ML BOTTLE TP SCH ×2 (07:20→20:30)
[2021-04-12 07:38] VITALS: BP 135/68
[2021-04-12] MEDS: MINOXIDIL TOP SCH ×2 (08:56→17:01)
[2021-04-12] MEDS: AMLODIPINE 5 MG TABLET GT SCH ×2 (08:56→21:18)
[2021-04-12] MEDS: CARVEDILOL 6.25 MG TABLET GT SCH ×2 (08:56→21:18)
[2021-04-12] MEDS: ACETAMINOPHEN 650 MG/20 ML UDC- SA PATIENTS-PAIN ONLY GT PRN ×2 (09:01→17:03)
[2021-04-12] MEDS: VITAMINS A AND D OINT TP SCH ×2 (09:09→21:18)
[2021-04-12] MEDS: Z GUARD REMEDY PASTE 57 GM TUBE TOP SCH ×2 (09:09→21:18)
[2021-04-12] MEDS: VITAL AF 1.2 1,000 ML LIQUID GT PRN (15:12)
[2021-04-12 19:50] VITALS: BP 128/43
[2021-04-12] MEDS: VITAMIN B COMPLEX 1 TABLET GT SCH (21:17)
[2021-04-12] MEDS: ATORVASTATIN 20 MG TABLET GT SCH (21:18)
[2021-04-12] MEDS: MELATONIN 3 MG TABLET GT PRN (21:18)
[2021-04-12] MEDS: MIRALAX 17 GM POWD.PACK GT PRN (21:18)
[2021-04-13] MEDS: GUAIFENESIN SUGAR FREE 100 MG/5 ML UDC GT PRN ×4 (05:10→17:31)
[2021-04-13] MEDS: MULTIVIT, IRON, MIN NO. 8, FA TABLET GT SCH (05:23)
[2021-04-13] MEDS: OMEPRAZOLE 20 MG CAPSULE.DR GT SCH ×2 (05:23→17:31)
[2021-04-13] MEDS: ASCORBIC ACID 500 MG TABLET GT SCH (05:23)
[2021-04-13] MEDS: ACIDOPHILUS/BULGARICUS CHEW TAB GT SCH ×3 (05:23→21:17)
[2021-04-13] MEDS: CHOLECALCIFEROL 1,000 UNIT TABLET GT SCH (05:23)
[2021-04-13] MEDS: ZINC SULFATE 220 MG CAPSULE GT SCH (05:23)
[2021-04-13] MEDS: IBUPROFEN 100 MG/5 ML LIQUID UDC- SA PATIENTS-PAIN ONLY GT PRN ×2 (06:00→21:00)
[2021-04-13] MEDS: HYDROGEN PEROXIDE 3% 118 ML BOTTLE TP SCH ×2 (07:25→21:58)
[2021-04-13] MEDS: IPRATROPIUM BROMIDE 0.5 MG/2.5 ML NEBU NEB SCH ×3 (07:25→22:04)
[2021-04-13 08:02] VITALS: BP 106/55
[2021-04-13] MEDS: Z GUARD REMEDY PASTE 57 GM TUBE TOP SCH ×2 (09:25→21:17)
[2021-04-13] MEDS: AMLODIPINE 5 MG TABLET GT SCH ×2 (09:25→21:17)
[2021-04-13] MEDS: MINOXIDIL TOP SCH ×2 (09:25→17:31)
[2021-04-13] MEDS: CARVEDILOL 6.25 MG TABLET GT SCH ×2 (09:25→21:17)
[2021-04-13] MEDS: VITAMINS A AND D OINT TP SCH ×2 (09:26→21:17)
[2021-04-13] MEDS: ACETAMINOPHEN 650 MG/20 ML UDC- SA PATIENTS-PAIN ONLY GT PRN ×2 (09:28→17:31)
[2021-04-13] MEDS: VITAL AF 1.2 1,000 ML LIQUID GT PRN (13:29)
[2021-04-13 19:56] VITALS: BP 134/53
[2021-04-13] MEDS: VITAMIN B COMPLEX 1 TABLET GT SCH (21:13)
[2021-04-13] MEDS: MELATONIN 3 MG TABLET GT PRN (21:17)
[2021-04-13] MEDS: ATORVASTATIN 20 MG TABLET GT SCH (21:17)
[2021-04-13] MEDS: MIRALAX 17 GM POWD.PACK GT PRN (21:17)
[2021-04-14] MEDS: IBUPROFEN 100 MG/5 ML LIQUID UDC- SA PATIENTS-PAIN ONLY GT PRN ×3 (05:00→21:08)
[2021-04-14] MEDS: ASCORBIC ACID 500 MG TABLET GT SCH (05:11)
[2021-04-14] MEDS: OMEPRAZOLE 20 MG CAPSULE.DR GT SCH ×2 (05:11→17:44)
[2021-04-14] MEDS: ZINC SULFATE 220 MG CAPSULE GT SCH (05:11)
[2021-04-14] MEDS: CHOLECALCIFEROL 1,000 UNIT TABLET GT SCH (05:11)
[2021-04-14] MEDS: MULTIVIT, IRON, MIN NO. 8, FA TABLET GT SCH (05:11)
[2021-04-14] MEDS: GUAIFENESIN SUGAR FREE 100 MG/5 ML UDC GT PRN ×5 (05:11→21:15)
[2021-04-14] MEDS: ACIDOPHILUS/BULGARICUS CHEW TAB GT SCH ×3 (05:11→21:05)
[2021-04-14 07:18] VITALS: BP 131/56
--- NOTE | 2021-04-14 07:28 | NUR ---
Seen by Lilly PRICE, new order carried out, on Motrin 200mg gt q6hrs prn, to be on room air as tolerated. Patient placed on room air, no acute respiratory distress noted, o2 sat 96-97%, will continue monitoring.
[2021-04-14] MEDS: IPRATROPIUM BROMIDE 0.5 MG/2.5 ML NEBU NEB SCH ×3 (07:38→22:40)
[2021-04-14] MEDS: HYDROGEN PEROXIDE 3% 118 ML BOTTLE TP SCH ×2 (07:38→21:22)
[2021-04-14] MEDS: CARVEDILOL 6.25 MG TABLET GT SCH ×2 (08:44→21:04)
[2021-04-14] MEDS: VITAMINS A AND D OINT TP SCH ×2 (08:45→21:05)
[2021-04-14] MEDS: AMLODIPINE 5 MG TABLET GT SCH ×2 (08:45→21:05)
[2021-04-14] MEDS: MINOXIDIL TOP SCH ×2 (08:45→17:44)
[2021-04-14] MEDS: Z GUARD REMEDY PASTE 57 GM TUBE TOP SCH ×2 (08:45→21:05)
[2021-04-14] MEDS: ACETAMINOPHEN 650 MG/20 ML UDC- SA PATIENTS-PAIN ONLY GT PRN ×2 (09:12→17:11)
--- NOTE | 2021-04-14 18:40 | NUR ---
Pt. in RA O2 saturation 95-96%. Tolerated well. No c/o of any respiratory distress and discomfort. Will continue to monitor.
[2021-04-14 20:05] VITALS: BP 133/56
[2021-04-14] MEDS: ATORVASTATIN 20 MG TABLET GT SCH (21:04)
[2021-04-14] MEDS: VITAMIN B COMPLEX 1 TABLET GT SCH (21:04)
[2021-04-14] MEDS: MELATONIN 3 MG TABLET GT PRN (21:07)
[2021-04-14] MEDS: MIRALAX 17 GM POWD.PACK GT PRN (21:07)
--- NOTE | 2021-04-14 22:56 | NUR ---
Before HHN tx oxygen saturation was 90% on room air. After HHN tx pt placed back on 1LPM N/C with bubble humidifier. JARRED Miller notified.
--- NOTE | 2021-04-14 22:57 | NUR ---
Per RT Booker patient's saturation was 90% on room air and patient feels like she needed oxygen, placed patient on Oxygen as ordered with help. Patient denies any SOB, or distress, on red capping, will continue monitor.
[2021-04-15] MEDS: ACIDOPHILUS/BULGARICUS CHEW TAB GT SCH ×3 (05:02→21:06)
[2021-04-15] MEDS: MULTIVIT, IRON, MIN NO. 8, FA TABLET GT SCH (05:03)
[2021-04-15] MEDS: IBUPROFEN 100 MG/5 ML LIQUID UDC- SA PATIENTS-PAIN ONLY GT PRN ×3 (05:03→21:06)
[2021-04-15] MEDS: OMEPRAZOLE 20 MG CAPSULE.DR GT SCH ×2 (05:03→18:06)
[2021-04-15] MEDS: ZINC SULFATE 220 MG CAPSULE GT SCH (05:03)
[2021-04-15] MEDS: ASCORBIC ACID 500 MG TABLET GT SCH (05:03)
[2021-04-15] MEDS: CHOLECALCIFEROL 1,000 UNIT TABLET GT SCH (05:03)
[2021-04-15] MEDS: GUAIFENESIN SUGAR FREE 100 MG/5 ML UDC GT PRN ×4 (05:03→21:06)
[2021-04-15] MEDS: VITAL AF 1.2 1,000 ML LIQUID GT PRN ×2 (05:10→18:10)
--- NOTE | 2021-04-15 06:50 | NUR ---
Patient is awake, on Oxygen via Nasal Cannula @28% f102. Patient stated that, " I needed that oxygen, I felt really tired last night and I was able to sleep well." Patient denies any respiratory distress or SOB or being tired, 02 sat was 100% but she still wants the oxygen for now, needs attended, call light within reach, will continue monitor.
[2021-04-15] MEDS: IPRATROPIUM BROMIDE 0.5 MG/2.5 ML NEBU NEB SCH ×3 (07:18→22:39)
[2021-04-15 07:21] VITALS: BP 123/51
[2021-04-15] MEDS: HYDROGEN PEROXIDE 3% 118 ML BOTTLE TP SCH ×2 (08:52→20:57)
[2021-04-15] MEDS: CARVEDILOL 6.25 MG TABLET GT SCH ×2 (09:20→21:05)
[2021-04-15] MEDS: MINOXIDIL TOP SCH ×2 (09:21→17:00)
[2021-04-15] MEDS: VITAMINS A AND D OINT TP SCH ×2 (09:21→21:06)
[2021-04-15] MEDS: Z GUARD REMEDY PASTE 57 GM TUBE TOP SCH ×2 (09:21→21:05)
[2021-04-15] MEDS: AMLODIPINE 5 MG TABLET GT SCH ×2 (09:21→21:05)
[2021-04-15] MEDS: ACETAMINOPHEN 650 MG/20 ML UDC- SA PATIENTS-PAIN ONLY GT PRN (09:22)
--- NOTE | 2021-04-15 13:41 | NUR ---
INTERDISCIPLINARY PLAN OF CARE CONFERENCE was held today. Patient's Mr. López participated in the meeting today by speaker phone. Patient's daughter Fanny was also called during the meeting, but the phone call went directly to voicesigmacareil and therefore Fanny was not available to participate in the meeting. Dr. Leblanc and the Interdisciplinary Team reviewed the current plan of care in detail. RN reported on patient's medical condition. See RN IDT conference notes. PT and OT discussed patient's participate in rehab, progress, and ongoing plan of care. ST reported on patient's progress and current status, and that patient has been discharged from at this time. Pharmacy reviewed medications, and reported no changes. RD and RT reported no changes. See all disciplines IDT notes and physician's progress notes for additional details. Patient's Mr. López stated not having any questions or concerns at this time.
[2021-04-15] MEDS ORDERED: MELATONIN 3 MG TABLET GT PRN (14:21)
[2021-04-15] MEDS ORDERED: ONDANSETRON HCL 4 MG TABLET GT PRN (17:28)
[2021-04-15] MEDS ORDERED: OMEPRAZOLE 20 MG CAPSULE.DR GT SCH (18:00)
[2021-04-15 20:53] VITALS: BP 126/51
[2021-04-15] MEDS: ATORVASTATIN 20 MG TABLET GT SCH (21:05)
[2021-04-15] MEDS: VITAMIN B COMPLEX 1 TABLET GT SCH (21:05)
[2021-04-15] MEDS: MIRALAX 17 GM POWD.PACK GT PRN (21:06)
[2021-04-15] MEDS: MELATONIN 3 MG TABLET GT PRN (21:06)
[2021-04-16] MEDS: GUAIFENESIN SUGAR FREE 100 MG/5 ML UDC GT PRN ×3 (05:17→21:16)
[2021-04-16] MEDS: ZINC SULFATE 220 MG CAPSULE GT SCH (05:17)
[2021-04-16] MEDS: MULTIVIT, IRON, MIN NO. 8, FA TABLET GT SCH (05:17)
[2021-04-16] MEDS: ASCORBIC ACID 500 MG TABLET GT SCH (05:17)
[2021-04-16] MEDS: OMEPRAZOLE 20 MG CAPSULE.DR GT SCH ×2 (05:17→17:17)
[2021-04-16] MEDS: ACIDOPHILUS/BULGARICUS CHEW TAB GT SCH ×3 (05:17→21:19)
[2021-04-16] MEDS: IBUPROFEN 100 MG/5 ML LIQUID UDC- SA PATIENTS-PAIN ONLY GT PRN ×3 (05:17→21:08)
[2021-04-16] MEDS: CHOLECALCIFEROL 1,000 UNIT TABLET GT SCH (05:17)
[2021-04-16] MEDS ORDERED: ZINC SULFATE 220 MG CAPSULE GT SCH (06:00)
[2021-04-16] MEDS ORDERED: CHOLECALCIFEROL 1,000 UNIT TABLET GT SCH (06:00)
[2021-04-16] MEDS: IPRATROPIUM BROMIDE 0.5 MG/2.5 ML NEBU NEB SCH ×3 (07:22→22:40)
[2021-04-16 08:00] VITALS: BP 130/63
[2021-04-16] MEDS: HYDROGEN PEROXIDE 3% 118 ML BOTTLE TP SCH ×2 (08:23→21:29)
[2021-04-16] MEDS: VITAMINS A AND D OINT TP SCH ×2 (09:14→20:58)
[2021-04-16] MEDS: CARVEDILOL 6.25 MG TABLET GT SCH ×2 (09:14→21:06)
[2021-04-16] MEDS: AMLODIPINE 5 MG TABLET GT SCH ×2 (09:14→20:57)
[2021-04-16] MEDS: Z GUARD REMEDY PASTE 57 GM TUBE TOP SCH ×2 (09:14→20:58)
[2021-04-16] MEDS: MINOXIDIL TOP SCH ×2 (09:14→17:17)
--- NOTE | 2021-04-16 10:00 | NUR ---
Covid 19 test negative,pt notified.
[2021-04-16] MEDS ORDERED: MECLIZINE HCL 25 MG TABLET GT PRN (10:45)
[2021-04-16] MEDS ORDERED: LORATADINE 10 MG TABLET GT PRN (10:45)
[2021-04-16] MEDS: ACETAMINOPHEN 650 MG/20 ML UDC- SA PATIENTS-PAIN ONLY GT PRN (13:07)
[2021-04-16 20:00] VITALS: BP 122/49
[2021-04-16] MEDS: VITAMIN B COMPLEX 1 TABLET GT SCH (20:55)
[2021-04-16] MEDS: ATORVASTATIN 20 MG TABLET GT SCH (20:57)
[2021-04-16] MEDS: MELATONIN 3 MG TABLET GT PRN (20:58)
[2021-04-16] MEDS: MIRALAX 17 GM POWD.PACK GT PRN (20:59)
[2021-04-17] MEDS: VITAL AF 1.2 1,000 ML LIQUID GT PRN (02:47)
[2021-04-17] MEDS: GUAIFENESIN SUGAR FREE 100 MG/5 ML UDC GT PRN ×4 (02:47→22:26)
[2021-04-17] MEDS: IBUPROFEN 100 MG/5 ML LIQUID UDC- SA PATIENTS-PAIN ONLY GT PRN ×3 (04:59→21:13)
[2021-04-17] MEDS: MULTIVIT, IRON, MIN NO. 8, FA TABLET GT SCH (05:07)
[2021-04-17] MEDS: ACIDOPHILUS/BULGARICUS CHEW TAB GT SCH ×3 (05:07→21:13)
[2021-04-17] MEDS: OMEPRAZOLE 20 MG CAPSULE.DR GT SCH ×2 (05:07→17:17)
[2021-04-17] MEDS: ZINC SULFATE 220 MG CAPSULE GT SCH (05:07)
[2021-04-17] MEDS: ASCORBIC ACID 500 MG TABLET GT SCH (05:07)
[2021-04-17] MEDS: CHOLECALCIFEROL 1,000 UNIT TABLET GT SCH (05:07)
[2021-04-17] MEDS: HYDROGEN PEROXIDE 3% 118 ML BOTTLE TP SCH ×2 (07:50→20:44)
[2021-04-17 07:51] VITALS: BP 126/53
[2021-04-17] MEDS: CARVEDILOL 6.25 MG TABLET GT SCH ×2 (09:24→20:55)
[2021-04-17] MEDS: VITAMINS A AND D OINT TP SCH ×2 (09:25→20:56)
[2021-04-17] MEDS: AMLODIPINE 5 MG TABLET GT SCH ×2 (09:25→20:55)
[2021-04-17] MEDS: Z GUARD REMEDY PASTE 57 GM TUBE TOP SCH ×2 (09:25→20:56)
[2021-04-17] MEDS: MINOXIDIL TOP SCH ×2 (09:25→17:15)
[2021-04-17] MEDS: IPRATROPIUM BROMIDE 0.5 MG/2.5 ML NEBU NEB SCH ×2 (16:14→22:40)
[2021-04-17] MEDS: ACETAMINOPHEN 650 MG/20 ML UDC- SA PATIENTS-PAIN ONLY GT PRN (17:15)
[2021-04-17 20:14] VITALS: BP 125/59
[2021-04-17] MEDS: ATORVASTATIN 20 MG TABLET GT SCH (20:55)
[2021-04-17] MEDS: MELATONIN 3 MG TABLET GT PRN (20:59)
[2021-04-17] MEDS: MIRALAX 17 GM POWD.PACK GT PRN (20:59)
[2021-04-17] MEDS: VITAMIN B COMPLEX 1 TABLET GT SCH (21:12)
[2021-04-18] MEDS: GUAIFENESIN SUGAR FREE 100 MG/5 ML UDC GT PRN ×4 (05:00→17:25)
[2021-04-18] MEDS: IBUPROFEN 100 MG/5 ML LIQUID UDC- SA PATIENTS-PAIN ONLY GT PRN ×3 (05:00→21:00)
[2021-04-18] MEDS: CHOLECALCIFEROL 1,000 UNIT TABLET GT SCH (06:10)
[2021-04-18] MEDS: ASCORBIC ACID 500 MG TABLET GT SCH (06:10)
[2021-04-18] MEDS: VITAL AF 1.2 1,000 ML LIQUID GT PRN (06:10)
[2021-04-18] MEDS: OMEPRAZOLE 20 MG CAPSULE.DR GT SCH ×2 (06:10→17:25)
[2021-04-18] MEDS: MULTIVIT, IRON, MIN NO. 8, FA TABLET GT SCH (06:10)
[2021-04-18] MEDS: ACIDOPHILUS/BULGARICUS CHEW TAB GT SCH ×3 (06:10→21:23)
[2021-04-18] MEDS: ZINC SULFATE 220 MG CAPSULE GT SCH (06:10)
[2021-04-18] MEDS: IPRATROPIUM BROMIDE 0.5 MG/2.5 ML NEBU NEB SCH ×3 (07:06→22:31)
[2021-04-18 07:38] VITALS: BP 119/56
[2021-04-18] MEDS: AMLODIPINE 5 MG TABLET GT SCH ×2 (09:08→21:23)
[2021-04-18] MEDS: CARVEDILOL 6.25 MG TABLET GT SCH ×2 (09:08→21:23)
[2021-04-18] MEDS: MINOXIDIL TOP SCH ×2 (09:09→17:03)
[2021-04-18] MEDS: Z GUARD REMEDY PASTE 57 GM TUBE TOP SCH ×2 (09:09→21:23)
[2021-04-18] MEDS: VITAMINS A AND D OINT TP SCH ×2 (09:09→21:23)
[2021-04-18] MEDS: HYDROGEN PEROXIDE 3% 118 ML BOTTLE TP SCH ×2 (09:28→20:56)
[2021-04-18] MEDS: ACETAMINOPHEN 650 MG/20 ML UDC- SA PATIENTS-PAIN ONLY GT PRN (17:06)
[2021-04-18] MEDS: VITAMIN B COMPLEX 1 TABLET GT SCH (21:21)
[2021-04-18] MEDS: ATORVASTATIN 20 MG TABLET GT SCH (21:23)
[2021-04-18] MEDS: MIRALAX 17 GM POWD.PACK GT PRN (21:24)
[2021-04-18] MEDS: MELATONIN 3 MG TABLET GT PRN (21:24)
--- NOTE | 2021-04-18 22:00 | NUR ---
Patient is alert and oriented, on red capping, on oxygen via nasal cannula, denies any respiratory distress, o2 sat is 96%, needs anticipated, call light within reach, will continue monitor.
[2021-04-18 22:44] VITALS: BP 134/56
[2021-04-19] MEDS: CHOLECALCIFEROL 1,000 UNIT TABLET GT SCH (05:13)
[2021-04-19] MEDS: ASCORBIC ACID 500 MG TABLET GT SCH (05:13)
[2021-04-19] MEDS: ACIDOPHILUS/BULGARICUS CHEW TAB GT SCH ×3 (05:13→21:15)
[2021-04-19] MEDS: MULTIVIT, IRON, MIN NO. 8, FA TABLET GT SCH (05:13)
[2021-04-19] MEDS: GUAIFENESIN SUGAR FREE 100 MG/5 ML UDC GT PRN ×5 (05:13→21:16)
[2021-04-19] MEDS: OMEPRAZOLE 20 MG CAPSULE.DR GT SCH ×2 (05:13→17:01)
[2021-04-19] MEDS: ZINC SULFATE 220 MG CAPSULE GT SCH (05:13)
[2021-04-19] MEDS: IBUPROFEN 100 MG/5 ML LIQUID UDC- SA PATIENTS-PAIN ONLY GT PRN ×3 (05:14→21:16)
[2021-04-19] MEDS: IPRATROPIUM BROMIDE 0.5 MG/2.5 ML NEBU NEB SCH ×3 (07:47→22:40)
[2021-04-19] MEDS: HYDROGEN PEROXIDE 3% 118 ML BOTTLE TP SCH ×2 (07:47→21:04)
[2021-04-19 07:50] VITALS: BP 135/55
[2021-04-19] MEDS: CARVEDILOL 6.25 MG TABLET GT SCH ×2 (09:05→21:15)
[2021-04-19] MEDS: MINOXIDIL TOP SCH ×2 (09:06→16:59)
[2021-04-19] MEDS: Z GUARD REMEDY PASTE 57 GM TUBE TOP SCH ×2 (09:06→21:15)
[2021-04-19] MEDS: AMLODIPINE 5 MG TABLET GT SCH ×2 (09:06→21:15)
[2021-04-19] MEDS: VITAMINS A AND D OINT TP SCH ×2 (09:07→21:15)
[2021-04-19] MEDS: VITAL AF 1.2 1,000 ML LIQUID GT PRN (09:22)
[2021-04-19] MEDS: ACETAMINOPHEN 650 MG/20 ML UDC- SA PATIENTS-PAIN ONLY GT PRN ×2 (09:22→17:01)
[2021-04-19 20:00] VITALS: BP 145/60
[2021-04-19] MEDS: MELATONIN 3 MG TABLET GT PRN (21:15)
[2021-04-19] MEDS: MIRALAX 17 GM POWD.PACK GT PRN (21:15)
[2021-04-19] MEDS: ATORVASTATIN 20 MG TABLET GT SCH (21:15)
[2021-04-19] MEDS: VITAMIN B COMPLEX 1 TABLET GT SCH (21:15)
[2021-04-20] MEDS: IBUPROFEN 100 MG/5 ML LIQUID UDC- SA PATIENTS-PAIN ONLY GT PRN ×3 (05:01→21:05)
[2021-04-20] MEDS: GUAIFENESIN SUGAR FREE 100 MG/5 ML UDC GT PRN ×5 (05:01→21:05)
[2021-04-20] MEDS: OMEPRAZOLE 20 MG CAPSULE.DR GT SCH ×2 (05:40→17:00)
[2021-04-20] MEDS: ZINC SULFATE 220 MG CAPSULE GT SCH (05:40)
[2021-04-20] MEDS: ASCORBIC ACID 500 MG TABLET GT SCH (05:40)
[2021-04-20] MEDS: ACIDOPHILUS/BULGARICUS CHEW TAB GT SCH ×3 (05:40→21:04)
[2021-04-20] MEDS: CHOLECALCIFEROL 1,000 UNIT TABLET GT SCH (05:40)
[2021-04-20] MEDS: MULTIVIT, IRON, MIN NO. 8, FA TABLET GT SCH (05:40)
[2021-04-20 07:32] VITALS: BP 127/54
[2021-04-20] MEDS: IPRATROPIUM BROMIDE 0.5 MG/2.5 ML NEBU NEB SCH ×3 (07:35→22:40)
[2021-04-20] MEDS: HYDROGEN PEROXIDE 3% 118 ML BOTTLE TP SCH ×2 (08:21→21:27)
[2021-04-20] MEDS: ACETAMINOPHEN 650 MG/20 ML UDC- SA PATIENTS-PAIN ONLY GT PRN ×2 (09:02→17:00)
[2021-04-20] MEDS: MINOXIDIL TOP SCH ×2 (09:03→16:59)
[2021-04-20] MEDS: Z GUARD REMEDY PASTE 57 GM TUBE TOP SCH ×2 (09:03→21:04)
[2021-04-20] MEDS: VITAMINS A AND D OINT TP SCH ×2 (09:03→21:04)
[2021-04-20] MEDS: AMLODIPINE 5 MG TABLET GT SCH ×2 (09:03→21:04)
[2021-04-20] MEDS: CARVEDILOL 6.25 MG TABLET GT SCH ×2 (09:03→21:03)
[2021-04-20] MEDS: VITAMIN B COMPLEX 1 TABLET GT SCH (21:03)
[2021-04-20] MEDS: ATORVASTATIN 20 MG TABLET GT SCH (21:03)
[2021-04-20] MEDS: MIRALAX 17 GM POWD.PACK GT PRN (21:04)
[2021-04-20] MEDS: MELATONIN 3 MG TABLET GT PRN (21:04)
[2021-04-20 22:42] VITALS: BP 131/68
--- NOTE | 2021-04-20 22:56 | NUR ---
Due to MD order to titrate FIO2 lower FIO2 to 0.5LPM. Oxygen saturation is 97%. intelligence agent Jacky notified.
[2021-04-21] MEDS: ACIDOPHILUS/BULGARICUS CHEW TAB GT SCH ×3 (05:08→21:08)
[2021-04-21] MEDS: ZINC SULFATE 220 MG CAPSULE GT SCH (05:08)
[2021-04-21] MEDS: CHOLECALCIFEROL 1,000 UNIT TABLET GT SCH (05:08)
[2021-04-21] MEDS: MULTIVIT, IRON, MIN NO. 8, FA TABLET GT SCH (05:08)
[2021-04-21] MEDS: ASCORBIC ACID 500 MG TABLET GT SCH (05:08)
[2021-04-21] MEDS: OMEPRAZOLE 20 MG CAPSULE.DR GT SCH ×2 (05:08→17:35)
[2021-04-21] MEDS: IBUPROFEN 100 MG/5 ML LIQUID UDC- SA PATIENTS-PAIN ONLY GT PRN ×3 (05:09→21:09)
[2021-04-21] MEDS: GUAIFENESIN SUGAR FREE 100 MG/5 ML UDC GT PRN ×4 (05:09→21:09)
[2021-04-21 07:28] VITALS: BP 126/56
[2021-04-21] MEDS: IPRATROPIUM BROMIDE 0.5 MG/2.5 ML NEBU NEB SCH ×3 (07:50→22:40)
[2021-04-21] MEDS: HYDROGEN PEROXIDE 3% 118 ML BOTTLE TP SCH ×2 (08:12→21:39)
[2021-04-21] MEDS: MINOXIDIL TOP SCH ×2 (09:17→17:35)
[2021-04-21] MEDS: CARVEDILOL 6.25 MG TABLET GT SCH ×2 (09:17→21:07)
[2021-04-21] MEDS: AMLODIPINE 5 MG TABLET GT SCH ×2 (09:17→21:08)
[2021-04-21] MEDS: VITAMINS A AND D OINT TP SCH ×2 (09:17→21:08)
[2021-04-21] MEDS: Z GUARD REMEDY PASTE 57 GM TUBE TOP SCH ×2 (09:17→21:08)
[2021-04-21] MEDS: VITAL AF 1.2 1,000 ML LIQUID GT PRN (17:37)
[2021-04-21] MEDS: ACETAMINOPHEN 650 MG/20 ML UDC- SA PATIENTS-PAIN ONLY GT PRN (17:37)
[2021-04-21 20:00] VITALS: BP 120/50
[2021-04-21] MEDS: VITAMIN B COMPLEX 1 TABLET GT SCH (21:07)
[2021-04-21] MEDS: ATORVASTATIN 20 MG TABLET GT SCH (21:07)
[2021-04-21] MEDS: MELATONIN 3 MG TABLET GT PRN (21:08)
[2021-04-21] MEDS: MIRALAX 17 GM POWD.PACK GT PRN (21:08)
[2021-04-22] MEDS: CHOLECALCIFEROL 1,000 UNIT TABLET GT SCH (05:03)
[2021-04-22] MEDS: OMEPRAZOLE 20 MG CAPSULE.DR GT SCH ×2 (05:03→17:34)
[2021-04-22] MEDS: MULTIVIT, IRON, MIN NO. 8, FA TABLET GT SCH (05:03)
[2021-04-22] MEDS: ASCORBIC ACID 500 MG TABLET GT SCH (05:03)
[2021-04-22] MEDS: ZINC SULFATE 220 MG CAPSULE GT SCH (05:03)
[2021-04-22] MEDS: ACIDOPHILUS/BULGARICUS CHEW TAB GT SCH ×3 (05:03→21:05)
[2021-04-22] MEDS: IBUPROFEN 100 MG/5 ML LIQUID UDC- SA PATIENTS-PAIN ONLY GT PRN ×3 (05:04→21:21)
[2021-04-22] MEDS: GUAIFENESIN SUGAR FREE 100 MG/5 ML UDC GT PRN ×5 (05:04→21:22)
[2021-04-22] MEDS: IPRATROPIUM BROMIDE 0.5 MG/2.5 ML NEBU NEB SCH ×3 (07:20→21:01)
[2021-04-22 07:27] VITALS: BP 130/54
[2021-04-22] MEDS: Z GUARD REMEDY PASTE 57 GM TUBE TOP SCH ×2 (08:53→21:00)
[2021-04-22] MEDS: CARVEDILOL 6.25 MG TABLET GT SCH ×2 (08:53→21:07)
[2021-04-22] MEDS: MINOXIDIL TOP SCH ×2 (08:53→17:34)
[2021-04-22] MEDS: AMLODIPINE 5 MG TABLET GT SCH ×2 (08:53→21:04)
[2021-04-22] MEDS: VITAMINS A AND D OINT TP SCH ×2 (08:54→21:04)
[2021-04-22] MEDS: HYDROGEN PEROXIDE 3% 118 ML BOTTLE TP SCH ×2 (09:21→20:11)
[2021-04-22] MEDS: ACETAMINOPHEN 650 MG/20 ML UDC- SA PATIENTS-PAIN ONLY GT PRN (17:04)
[2021-04-22 20:00] VITALS: BP 138/56
[2021-04-22] MEDS: VITAMIN B COMPLEX 1 TABLET GT SCH (20:59)
[2021-04-22] MEDS: ATORVASTATIN 20 MG TABLET GT SCH (21:03)
[2021-04-22] MEDS: MELATONIN 3 MG TABLET GT PRN (21:06)
[2021-04-23] MEDS: ACIDOPHILUS/BULGARICUS CHEW TAB GT SCH ×3 (05:50→22:05)
[2021-04-23] MEDS: OMEPRAZOLE 20 MG CAPSULE.DR GT SCH ×2 (05:50→17:14)
[2021-04-23] MEDS: ZINC SULFATE 220 MG CAPSULE GT SCH (05:51)
[2021-04-23] MEDS: MULTIVIT, IRON, MIN NO. 8, FA TABLET GT SCH (05:51)
[2021-04-23] MEDS: CHOLECALCIFEROL 1,000 UNIT TABLET GT SCH (05:51)
[2021-04-23] MEDS: ASCORBIC ACID 500 MG TABLET GT SCH (05:51)
[2021-04-23] MEDS: IPRATROPIUM BROMIDE 0.5 MG/2.5 ML NEBU NEB SCH ×3 (07:49→23:17)
[2021-04-23 07:54] VITALS: BP 129/57
[2021-04-23] MEDS: AMLODIPINE 5 MG TABLET GT SCH ×2 (08:45→21:00)
[2021-04-23] MEDS: MINOXIDIL TOP SCH ×2 (08:45→17:14)
[2021-04-23] MEDS: Z GUARD REMEDY PASTE 57 GM TUBE TOP SCH ×2 (08:45→21:00)
[2021-04-23] MEDS: CARVEDILOL 6.25 MG TABLET GT SCH ×2 (08:45→21:00)
[2021-04-23] MEDS: VITAMINS A AND D OINT TP SCH ×2 (08:46→21:00)
[2021-04-23] MEDS: HYDROGEN PEROXIDE 3% 118 ML BOTTLE TP SCH ×2 (09:20→21:05)
--- NOTE | 2021-04-23 10:00 | NUR ---
Covid 19 test negative,pt notified
[2021-04-23] MEDS: IBUPROFEN 100 MG/5 ML LIQUID UDC- SA PATIENTS-PAIN ONLY GT PRN ×2 (13:08→22:06)
[2021-04-23] MEDS: GUAIFENESIN SUGAR FREE 100 MG/5 ML UDC GT PRN ×3 (13:08→22:06)
[2021-04-23] MEDS: ACETAMINOPHEN 650 MG/20 ML UDC- SA PATIENTS-PAIN ONLY GT PRN (17:00)
[2021-04-23 20:00] VITALS: BP 129/57
[2021-04-23] MEDS: VITAMIN B COMPLEX 1 TABLET GT SCH (21:00)
[2021-04-23] MEDS: ATORVASTATIN 20 MG TABLET GT SCH (21:00)
[2021-04-23] MEDS: MELATONIN 3 MG TABLET GT PRN (22:05)
[2021-04-23] MEDS: MIRALAX 17 GM POWD.PACK GT PRN (22:05)
[2021-04-24] MEDS: IBUPROFEN 100 MG/5 ML LIQUID UDC- SA PATIENTS-PAIN ONLY GT PRN ×3 (05:00→21:06)
[2021-04-24] MEDS: ZINC SULFATE 220 MG CAPSULE GT SCH (05:43)
[2021-04-24] MEDS: ASCORBIC ACID 500 MG TABLET GT SCH (05:43)
[2021-04-24] MEDS: ACIDOPHILUS/BULGARICUS CHEW TAB GT SCH ×3 (05:43→21:01)
[2021-04-24] MEDS: OMEPRAZOLE 20 MG CAPSULE.DR GT SCH ×2 (05:43→17:03)
[2021-04-24] MEDS: CHOLECALCIFEROL 1,000 UNIT TABLET GT SCH (05:43)
[2021-04-24] MEDS: MULTIVIT, IRON, MIN NO. 8, FA TABLET GT SCH (05:43)
[2021-04-24] MEDS: GUAIFENESIN SUGAR FREE 100 MG/5 ML UDC GT PRN ×4 (05:44→21:06)
[2021-04-24] MEDS: VITAL AF 1.2 1,000 ML LIQUID GT PRN (06:23)
[2021-04-24] MEDS: IPRATROPIUM BROMIDE 0.5 MG/2.5 ML NEBU NEB SCH ×3 (07:21→19:29)
[2021-04-24] MEDS: HYDROGEN PEROXIDE 3% 118 ML BOTTLE TP SCH ×2 (07:21→19:29)
[2021-04-24 07:44] VITALS: BP 131/51
[2021-04-24] MEDS: Z GUARD REMEDY PASTE 57 GM TUBE TOP SCH ×2 (09:03→20:42)
[2021-04-24] MEDS: CARVEDILOL 6.25 MG TABLET GT SCH ×2 (09:03→20:42)
[2021-04-24] MEDS: VITAMINS A AND D OINT TP SCH ×2 (09:03→20:43)
[2021-04-24] MEDS: AMLODIPINE 5 MG TABLET GT SCH ×2 (09:03→20:42)
[2021-04-24] MEDS: MINOXIDIL TOP SCH ×2 (09:03→17:03)
--- NOTE | 2021-04-24 13:53 | NUR ---
Podiatry consultation order faxed to Dr. Nj, fax #[phone]; tel # [phone].
[2021-04-24] MEDS: ACETAMINOPHEN 650 MG/20 ML UDC- SA PATIENTS-PAIN ONLY GT PRN (17:04)
[2021-04-24] MEDS: ALBUTEROL SULFATE 2.5 MG/ 0.5 ML NEBU NEB PRN (19:29)
[2021-04-24 20:00] VITALS: BP 135/55
[2021-04-24] MEDS: VITAMIN B COMPLEX 1 TABLET GT SCH (20:41)
[2021-04-24] MEDS: ATORVASTATIN 20 MG TABLET GT SCH (20:42)
[2021-04-24] MEDS: MELATONIN 3 MG TABLET GT PRN (21:02)
[2021-04-24] MEDS: MIRALAX 17 GM POWD.PACK GT PRN (21:02)
[2021-04-25] MEDS: MULTIVIT, IRON, MIN NO. 8, FA TABLET GT SCH (05:41)
[2021-04-25] MEDS: ASCORBIC ACID 500 MG TABLET GT SCH (05:41)
[2021-04-25] MEDS: OMEPRAZOLE 20 MG CAPSULE.DR GT SCH ×2 (05:41→17:09)
[2021-04-25] MEDS: CHOLECALCIFEROL 1,000 UNIT TABLET GT SCH (05:41)
[2021-04-25] MEDS: ACIDOPHILUS/BULGARICUS CHEW TAB GT SCH ×3 (05:41→21:04)
[2021-04-25] MEDS: ZINC SULFATE 220 MG CAPSULE GT SCH (05:42)
[2021-04-25] MEDS: VITAL AF 1.2 1,000 ML LIQUID GT PRN (05:42)
[2021-04-25] MEDS: IPRATROPIUM BROMIDE 0.5 MG/2.5 ML NEBU NEB SCH ×3 (07:19→22:45)
[2021-04-25 08:00] VITALS: BP 135/54
[2021-04-25] MEDS: CARVEDILOL 6.25 MG TABLET GT SCH ×2 (09:00→21:04)
[2021-04-25] MEDS: HYDROGEN PEROXIDE 3% 118 ML BOTTLE TP SCH ×2 (09:00→21:18)
[2021-04-25] MEDS: Z GUARD REMEDY PASTE 57 GM TUBE TOP SCH ×2 (09:00→21:04)
[2021-04-25] MEDS: GUAIFENESIN SUGAR FREE 100 MG/5 ML UDC GT PRN ×4 (09:00→21:05)
[2021-04-25] MEDS: MINOXIDIL TOP SCH ×2 (09:00→16:59)
[2021-04-25] MEDS: VITAMINS A AND D OINT TP SCH ×2 (09:00→21:04)
[2021-04-25] MEDS: AMLODIPINE 5 MG TABLET GT SCH ×2 (09:00→21:04)
[2021-04-25] MEDS: IBUPROFEN 100 MG/5 ML LIQUID UDC- SA PATIENTS-PAIN ONLY GT PRN ×3 (13:10→22:14)
[2021-04-25] MEDS: ACETAMINOPHEN 650 MG/20 ML UDC- SA PATIENTS-PAIN ONLY GT PRN (17:10)
[2021-04-25 20:04] VITALS: BP 134/52
[2021-04-25] MEDS: VITAMIN B COMPLEX 1 TABLET GT SCH (21:03)
[2021-04-25] MEDS: ATORVASTATIN 20 MG TABLET GT SCH (21:04)
[2021-04-25] MEDS: MIRALAX 17 GM POWD.PACK GT PRN (21:05)
[2021-04-25] MEDS: MELATONIN 3 MG TABLET GT PRN (21:05)
[2021-04-26] MEDS: CHOLECALCIFEROL 1,000 UNIT TABLET GT SCH (06:27)
[2021-04-26] MEDS: ACIDOPHILUS/BULGARICUS CHEW TAB GT SCH ×3 (06:27→21:18)
[2021-04-26] MEDS: OMEPRAZOLE 20 MG CAPSULE.DR GT SCH ×2 (06:27→17:12)
[2021-04-26] MEDS: ASCORBIC ACID 500 MG TABLET GT SCH (06:27)
[2021-04-26] MEDS: ZINC SULFATE 220 MG CAPSULE GT SCH (06:27)
[2021-04-26] MEDS: MULTIVIT, IRON, MIN NO. 8, FA TABLET GT SCH (06:27)
[2021-04-26] MEDS: VITAL AF 1.2 1,000 ML LIQUID GT PRN (06:28)
[2021-04-26] MEDS: IPRATROPIUM BROMIDE 0.5 MG/2.5 ML NEBU NEB SCH ×3 (07:30→22:31)
[2021-04-26] MEDS: HYDROGEN PEROXIDE 3% 118 ML BOTTLE TP SCH ×2 (07:30→21:07)
[2021-04-26 08:00] VITALS: BP 126/58
[2021-04-26] MEDS: CARVEDILOL 6.25 MG TABLET GT SCH ×2 (09:01→21:02)
[2021-04-26] MEDS: VITAMINS A AND D OINT TP SCH ×2 (09:01→21:18)
[2021-04-26] MEDS: MINOXIDIL TOP SCH ×2 (09:01→16:58)
[2021-04-26] MEDS: AMLODIPINE 5 MG TABLET GT SCH ×2 (09:01→21:03)
[2021-04-26] MEDS: Z GUARD REMEDY PASTE 57 GM TUBE TOP SCH ×2 (09:01→21:18)
--- NOTE | 2021-04-26 09:57 | NUR ---
PT RECEIVED ON 0.5 lpm NASAL CANULA WITH TRACH CAPPED. PT PLACED ON ROOM AIR AND IS TOLERATING IT FINE WITH NO COMPLAINTS OF RESPIRATORY DISTRESS OR SOB. WILL CONTINUE TO MONITOR.
[2021-04-26] MEDS: GUAIFENESIN SUGAR FREE 100 MG/5 ML UDC GT PRN ×2 (17:10→21:10)
[2021-04-26] MEDS: ACETAMINOPHEN 650 MG/20 ML UDC- SA PATIENTS-PAIN ONLY GT PRN (17:12)
[2021-04-26 20:34] VITALS: BP 135/72
[2021-04-26] MEDS: VITAMIN B COMPLEX 1 TABLET GT SCH (21:02)
[2021-04-26] MEDS: ATORVASTATIN 20 MG TABLET GT SCH (21:03)
[2021-04-26] MEDS: IBUPROFEN 100 MG/5 ML LIQUID UDC- SA PATIENTS-PAIN ONLY GT PRN (21:20)
[2021-04-26] MEDS: MELATONIN 3 MG TABLET GT PRN (21:30)
[2021-04-27] MEDS: IBUPROFEN 100 MG/5 ML LIQUID UDC- SA PATIENTS-PAIN ONLY GT PRN ×2 (05:00→20:30)
[2021-04-27] MEDS: GUAIFENESIN SUGAR FREE 100 MG/5 ML UDC GT PRN ×4 (05:00→20:30)
[2021-04-27] MEDS: OMEPRAZOLE 20 MG CAPSULE.DR GT SCH ×2 (06:15→17:02)
[2021-04-27] MEDS: CHOLECALCIFEROL 1,000 UNIT TABLET GT SCH (06:15)
[2021-04-27] MEDS: ACIDOPHILUS/BULGARICUS CHEW TAB GT SCH ×3 (06:15→22:28)
[2021-04-27] MEDS: MULTIVIT, IRON, MIN NO. 8, FA TABLET GT SCH (06:15)
[2021-04-27] MEDS: ZINC SULFATE 220 MG CAPSULE GT SCH (06:15)
[2021-04-27] MEDS: ASCORBIC ACID 500 MG TABLET GT SCH (06:15)
[2021-04-27 07:26] VITALS: BP 131/64
[2021-04-27] MEDS: VITAL AF 1.2 1,000 ML LIQUID GT PRN (07:26)
[2021-04-27] MEDS: IPRATROPIUM BROMIDE 0.5 MG/2.5 ML NEBU NEB SCH ×3 (07:38→22:41)
[2021-04-27] MEDS: HYDROGEN PEROXIDE 3% 118 ML BOTTLE TP SCH ×2 (07:38→21:11)
[2021-04-27] MEDS: CARVEDILOL 6.25 MG TABLET GT SCH ×2 (08:43→20:28)
[2021-04-27] MEDS: MINOXIDIL TOP SCH ×2 (08:43→17:01)
[2021-04-27] MEDS: AMLODIPINE 5 MG TABLET GT SCH ×2 (08:43→20:29)
[2021-04-27] MEDS: VITAMINS A AND D OINT TP SCH ×2 (08:44→20:29)
[2021-04-27] MEDS: Z GUARD REMEDY PASTE 57 GM TUBE TOP SCH ×2 (08:44→20:29)
[2021-04-27] MEDS: ACETAMINOPHEN 650 MG/20 ML UDC- SA PATIENTS-PAIN ONLY GT PRN (17:00)
--- NOTE | 2021-04-27 18:04 | NUR ---
PT. HAD COVID 19 TEST DONE TODAY PER [facility] REQUIREMENT.PT NOTIFIED.
[2021-04-27 19:57] VITALS: BP 133/69
[2021-04-27] MEDS: VITAMIN B COMPLEX 1 TABLET GT SCH (20:27)
[2021-04-27] MEDS: ATORVASTATIN 20 MG TABLET GT SCH (20:28)
[2021-04-27] MEDS: MIRALAX 17 GM POWD.PACK GT PRN (20:30)
[2021-04-27] MEDS: MELATONIN 3 MG TABLET GT PRN (20:30)
[2021-04-28] MEDS: VITAL AF 1.2 1,000 ML LIQUID GT PRN (05:18)
[2021-04-28] MEDS: ZINC SULFATE 220 MG CAPSULE GT SCH (05:18)
[2021-04-28] MEDS: OMEPRAZOLE 20 MG CAPSULE.DR GT SCH ×2 (05:18→18:05)
[2021-04-28] MEDS: MULTIVIT, IRON, MIN NO. 8, FA TABLET GT SCH (05:18)
[2021-04-28] MEDS: CHOLECALCIFEROL 1,000 UNIT TABLET GT SCH (05:18)
[2021-04-28] MEDS: ASCORBIC ACID 500 MG TABLET GT SCH (05:18)
[2021-04-28] MEDS: ACIDOPHILUS/BULGARICUS CHEW TAB GT SCH ×3 (05:18→21:45)
[2021-04-28 07:26] VITALS: BP 116/62
--- NOTE | 2021-04-28 07:30 | NUR ---
SEEN BY MIRTHA CELIS WITH NO NEW ORDER.
[2021-04-28] MEDS: IPRATROPIUM BROMIDE 0.5 MG/2.5 ML NEBU NEB SCH ×3 (07:53→22:30)
[2021-04-28] MEDS: HYDROGEN PEROXIDE 3% 118 ML BOTTLE TP SCH ×2 (08:16→20:50)
[2021-04-28] MEDS: MINOXIDIL TOP SCH ×2 (08:53→17:00)
[2021-04-28] MEDS: AMLODIPINE 5 MG TABLET GT SCH ×2 (08:53→21:45)
[2021-04-28] MEDS: Z GUARD REMEDY PASTE 57 GM TUBE TOP SCH ×2 (08:53→21:45)
[2021-04-28] MEDS: CARVEDILOL 6.25 MG TABLET GT SCH ×2 (08:53→21:44)
[2021-04-28] MEDS: ACETAMINOPHEN 650 MG/20 ML UDC- SA PATIENTS-PAIN ONLY GT PRN (08:54)
[2021-04-28] MEDS: VITAMINS A AND D OINT TP SCH ×2 (08:54→21:45)
[2021-04-28] MEDS: GUAIFENESIN SUGAR FREE 100 MG/5 ML UDC GT PRN ×2 (08:54→21:46)
--- NOTE | 2021-04-28 13:00 | NUR ---
SEEN BY DR HALL,MACHINE SEWER. WITH NO NEW ORDER.
--- NOTE | 2021-04-28 14:45 | NUR ---
SEEN BY RYAN, WITH NO NEW ORDER.
[2021-04-28 19:49] VITALS: BP 122/58
[2021-04-28] MEDS: VITAMIN B COMPLEX 1 TABLET GT SCH (21:44)
[2021-04-28] MEDS: MIRALAX 17 GM POWD.PACK GT PRN (21:45)
[2021-04-28] MEDS: ATORVASTATIN 20 MG TABLET GT SCH (21:45)
[2021-04-28] MEDS: MELATONIN 3 MG TABLET GT PRN (21:45)
[2021-04-28] MEDS: IBUPROFEN 100 MG/5 ML LIQUID UDC- SA PATIENTS-PAIN ONLY GT PRN (21:46)
[2021-04-29] MEDS: MULTIVIT, IRON, MIN NO. 8, FA TABLET GT SCH (05:34)
[2021-04-29] MEDS: ASCORBIC ACID 500 MG TABLET GT SCH (05:34)
[2021-04-29] MEDS: ZINC SULFATE 220 MG CAPSULE GT SCH (05:34)
[2021-04-29] MEDS: CHOLECALCIFEROL 1,000 UNIT TABLET GT SCH (05:34)
[2021-04-29] MEDS: ACIDOPHILUS/BULGARICUS CHEW TAB GT SCH ×3 (05:34→21:45)
[2021-04-29] MEDS: OMEPRAZOLE 20 MG CAPSULE.DR GT SCH ×2 (05:34→17:02)
[2021-04-29] MEDS: VITAL AF 1.2 1,000 ML LIQUID GT PRN (05:35)
[2021-04-29] MEDS: IPRATROPIUM BROMIDE 0.5 MG/2.5 ML NEBU NEB SCH ×3 (07:16→23:06)
[2021-04-29] MEDS: HYDROGEN PEROXIDE 3% 118 ML BOTTLE TP SCH ×2 (07:16→21:29)
[2021-04-29 07:18] VITALS: BP 131/63
[2021-04-29] MEDS: CARVEDILOL 6.25 MG TABLET GT SCH ×2 (08:57→21:43)
[2021-04-29] MEDS: AMLODIPINE 5 MG TABLET GT SCH ×2 (08:57→21:44)
[2021-04-29] MEDS: MINOXIDIL TOP SCH ×2 (08:59→17:01)
[2021-04-29] MEDS: GUAIFENESIN SUGAR FREE 100 MG/5 ML UDC GT PRN ×4 (08:59→21:55)
[2021-04-29] MEDS: ACETAMINOPHEN 650 MG/20 ML UDC- SA PATIENTS-PAIN ONLY GT PRN ×2 (09:03→17:03)
[2021-04-29] MEDS: VITAMINS A AND D OINT TP SCH ×2 (09:11→21:44)
[2021-04-29] MEDS: Z GUARD REMEDY PASTE 57 GM TUBE TOP SCH ×2 (09:11→21:44)
[2021-04-29] MEDS: IBUPROFEN 100 MG/5 ML LIQUID UDC- SA PATIENTS-PAIN ONLY GT PRN ×2 (13:05→21:55)
--- NOTE | 2021-04-29 18:00 | NUR ---
Pt notified Covid 19 test result negative.
[2021-04-29 19:57] VITALS: BP 134/59
[2021-04-29] MEDS: VITAMIN B COMPLEX 1 TABLET GT SCH (21:43)
[2021-04-29] MEDS: ATORVASTATIN 20 MG TABLET GT SCH (21:44)
[2021-04-29] MEDS: MIRALAX 17 GM POWD.PACK GT PRN (21:55)
[2021-04-29] MEDS: MELATONIN 3 MG TABLET GT PRN (21:55)
[2021-04-30] MEDS: ACIDOPHILUS/BULGARICUS CHEW TAB GT SCH ×3 (05:42→21:25)
[2021-04-30] MEDS: OMEPRAZOLE 20 MG CAPSULE.DR GT SCH ×2 (05:43→17:01)
[2021-04-30] MEDS: MULTIVIT, IRON, MIN NO. 8, FA TABLET GT SCH (05:43)
[2021-04-30] MEDS: ZINC SULFATE 220 MG CAPSULE GT SCH (05:43)
[2021-04-30] MEDS: ASCORBIC ACID 500 MG TABLET GT SCH (05:43)
[2021-04-30] MEDS: CHOLECALCIFEROL 1,000 UNIT TABLET GT SCH (05:43)
[2021-04-30] MEDS: IBUPROFEN 100 MG/5 ML LIQUID UDC- SA PATIENTS-PAIN ONLY GT PRN ×3 (05:44→21:26)
[2021-04-30 07:23] VITALS: BP 132/59
[2021-04-30] MEDS: IPRATROPIUM BROMIDE 0.5 MG/2.5 ML NEBU NEB SCH ×3 (07:33→22:36)
[2021-04-30] MEDS: CARVEDILOL 6.25 MG TABLET GT SCH ×2 (08:47→20:53)
[2021-04-30] MEDS: AMLODIPINE 5 MG TABLET GT SCH ×2 (08:47→20:53)
[2021-04-30] MEDS: MINOXIDIL TOP SCH ×2 (08:48→16:43)
[2021-04-30] MEDS: GUAIFENESIN SUGAR FREE 100 MG/5 ML UDC GT PRN ×4 (08:48→20:58)
[2021-04-30] MEDS: ACETAMINOPHEN 650 MG/20 ML UDC- SA PATIENTS-PAIN ONLY GT PRN ×2 (08:49→16:45)
[2021-04-30] MEDS: Z GUARD REMEDY PASTE 57 GM TUBE TOP SCH ×2 (09:00→20:54)
[2021-04-30] MEDS: VITAMINS A AND D OINT TP SCH ×2 (09:00→20:54)
[2021-04-30] MEDS: HYDROGEN PEROXIDE 3% 118 ML BOTTLE TP SCH ×2 (10:30→20:53)
[2021-04-30 19:59] VITALS: BP 130/55
[2021-04-30] MEDS: ATORVASTATIN 20 MG TABLET GT SCH (20:53)
[2021-04-30] MEDS: MELATONIN 3 MG TABLET GT PRN (20:57)
[2021-04-30] MEDS: MIRALAX 17 GM POWD.PACK GT PRN (20:57)
[2021-04-30] MEDS: VITAMIN B COMPLEX 1 TABLET GT SCH (21:25)
[2021-05-01] MEDS: GUAIFENESIN SUGAR FREE 100 MG/5 ML UDC GT PRN ×5 (05:00→20:58)
[2021-05-01] MEDS: IBUPROFEN 100 MG/5 ML LIQUID UDC- SA PATIENTS-PAIN ONLY GT PRN ×3 (05:00→20:57)
[2021-05-01] MEDS: ACIDOPHILUS/BULGARICUS CHEW TAB GT SCH ×3 (06:18→21:24)
[2021-05-01] MEDS: MULTIVIT, IRON, MIN NO. 8, FA TABLET GT SCH (06:18)
[2021-05-01] MEDS: OMEPRAZOLE 20 MG CAPSULE.DR GT SCH ×2 (06:18→17:08)
[2021-05-01] MEDS: ASCORBIC ACID 500 MG TABLET GT SCH (06:18)
[2021-05-01] MEDS: CHOLECALCIFEROL 1,000 UNIT TABLET GT SCH (06:18)
[2021-05-01] MEDS: ZINC SULFATE 220 MG CAPSULE GT SCH (06:18)
[2021-05-01] MEDS: VITAL AF 1.2 1,000 ML LIQUID GT PRN (06:20)
[2021-05-01 07:45] VITALS: BP 131/60
[2021-05-01] MEDS: IPRATROPIUM BROMIDE 0.5 MG/2.5 ML NEBU NEB SCH ×3 (07:53→20:37)
[2021-05-01] MEDS: HYDROGEN PEROXIDE 3% 118 ML BOTTLE TP SCH ×2 (07:53→20:18)
[2021-05-01] MEDS: AMLODIPINE 5 MG TABLET GT SCH ×2 (09:31→20:50)
[2021-05-01] MEDS: VITAMINS A AND D OINT TP SCH ×2 (09:31→20:50)
[2021-05-01] MEDS: Z GUARD REMEDY PASTE 57 GM TUBE TOP SCH ×2 (09:31→20:50)
[2021-05-01] MEDS: MINOXIDIL TOP SCH ×2 (09:31→16:43)
[2021-05-01] MEDS: CARVEDILOL 6.25 MG TABLET GT SCH ×2 (09:31→20:47)
[2021-05-01] MEDS: ACETAMINOPHEN 650 MG/20 ML UDC- SA PATIENTS-PAIN ONLY GT PRN ×2 (09:32→16:44)
--- NOTE | 2021-05-01 16:01 | NUR ---
SW emailed patient's daughter Fanny and Mr. López the updated guidelines and criteria for visitations.
[2021-05-01 20:28] VITALS: BP 124/62
[2021-05-01] MEDS: VITAMIN B COMPLEX 1 TABLET GT SCH (20:47)
[2021-05-01] MEDS: ATORVASTATIN 20 MG TABLET GT SCH (20:50)
[2021-05-01] MEDS: MIRALAX 17 GM POWD.PACK GT PRN (20:51)
[2021-05-02] MEDS: IBUPROFEN 100 MG/5 ML LIQUID UDC- SA PATIENTS-PAIN ONLY GT PRN ×2 (05:00→13:10)
[2021-05-02] MEDS: VITAL AF 1.2 1,000 ML LIQUID GT PRN (05:00)
[2021-05-02] MEDS: GUAIFENESIN SUGAR FREE 100 MG/5 ML UDC GT PRN ×4 (05:00→17:11)
[2021-05-02] MEDS: OMEPRAZOLE 20 MG CAPSULE.DR GT SCH ×2 (05:43→17:10)
[2021-05-02] MEDS: ASCORBIC ACID 500 MG TABLET GT SCH (05:43)
[2021-05-02] MEDS: ZINC SULFATE 220 MG CAPSULE GT SCH (05:43)
[2021-05-02] MEDS: MULTIVIT, IRON, MIN NO. 8, FA TABLET GT SCH (05:43)
[2021-05-02] MEDS: CHOLECALCIFEROL 1,000 UNIT TABLET GT SCH (05:43)
[2021-05-02] MEDS: ACIDOPHILUS/BULGARICUS CHEW TAB GT SCH ×3 (05:43→22:01)
[2021-05-02] MEDS: IPRATROPIUM BROMIDE 0.5 MG/2.5 ML NEBU NEB SCH ×3 (07:18→21:15)
[2021-05-02] MEDS: HYDROGEN PEROXIDE 3% 118 ML BOTTLE TP SCH ×2 (07:18→21:04)
[2021-05-02 07:27] VITALS: BP 131/57
[2021-05-02] MEDS: MINOXIDIL TOP SCH ×2 (09:01→17:10)
[2021-05-02] MEDS: AMLODIPINE 5 MG TABLET GT SCH ×2 (09:01→20:36)
[2021-05-02] MEDS: CARVEDILOL 6.25 MG TABLET GT SCH ×2 (09:01→20:36)
[2021-05-02] MEDS: Z GUARD REMEDY PASTE 57 GM TUBE TOP SCH ×2 (09:02→20:36)
[2021-05-02] MEDS: VITAMINS A AND D OINT TP SCH ×2 (09:02→20:36)
[2021-05-02] MEDS: ACETAMINOPHEN 650 MG/20 ML UDC- SA PATIENTS-PAIN ONLY GT PRN ×2 (09:04→17:12)
[2021-05-02 20:15] VITALS: BP 130/60
[2021-05-02] MEDS: VITAMIN B COMPLEX 1 TABLET GT SCH (20:35)
[2021-05-02] MEDS: ATORVASTATIN 20 MG TABLET GT SCH (20:36)
[2021-05-03] MEDS: GUAIFENESIN SUGAR FREE 100 MG/5 ML UDC GT PRN ×4 (05:17→17:10)
[2021-05-03] MEDS: CHOLECALCIFEROL 1,000 UNIT TABLET GT SCH (05:17)
[2021-05-03] MEDS: OMEPRAZOLE 20 MG CAPSULE.DR GT SCH ×2 (05:17→17:10)
[2021-05-03] MEDS: MULTIVIT, IRON, MIN NO. 8, FA TABLET GT SCH (05:17)
[2021-05-03] MEDS: ACIDOPHILUS/BULGARICUS CHEW TAB GT SCH ×3 (05:17→21:36)
[2021-05-03] MEDS: ZINC SULFATE 220 MG CAPSULE GT SCH (05:17)
[2021-05-03] MEDS: ASCORBIC ACID 500 MG TABLET GT SCH (05:17)
[2021-05-03] MEDS: IBUPROFEN 100 MG/5 ML LIQUID UDC- SA PATIENTS-PAIN ONLY GT PRN ×2 (05:17→14:00)
[2021-05-03] MEDS: VITAL AF 1.2 1,000 ML LIQUID GT PRN (05:18)
[2021-05-03 07:21] VITALS: BP 119/54
[2021-05-03] MEDS: HYDROGEN PEROXIDE 3% 118 ML BOTTLE TP SCH ×2 (07:42→21:11)
[2021-05-03] MEDS: IPRATROPIUM BROMIDE 0.5 MG/2.5 ML NEBU NEB SCH ×2 (07:42→22:30)
[2021-05-03] MEDS: AMLODIPINE 5 MG TABLET GT SCH ×2 (09:14→20:08)
[2021-05-03] MEDS: CARVEDILOL 6.25 MG TABLET GT SCH ×2 (09:14→20:07)
[2021-05-03] MEDS: MINOXIDIL TOP SCH ×2 (09:15→17:10)
[2021-05-03] MEDS: VITAMINS A AND D OINT TP SCH ×2 (09:15→20:08)
[2021-05-03] MEDS: Z GUARD REMEDY PASTE 57 GM TUBE TOP SCH ×2 (09:15→20:08)
[2021-05-03 20:00] VITALS: BP 131/54
[2021-05-03] MEDS: VITAMIN B COMPLEX 1 TABLET GT SCH (20:07)
[2021-05-03] MEDS: ATORVASTATIN 20 MG TABLET GT SCH (20:08)
[2021-05-04] MEDS: GUAIFENESIN SUGAR FREE 100 MG/5 ML UDC GT PRN ×4 (06:32→21:00)
[2021-05-04] MEDS: CHOLECALCIFEROL 1,000 UNIT TABLET GT SCH (06:32)
[2021-05-04] MEDS: OMEPRAZOLE 20 MG CAPSULE.DR GT SCH ×2 (06:32→17:15)
[2021-05-04] MEDS: IBUPROFEN 100 MG/5 ML LIQUID UDC- SA PATIENTS-PAIN ONLY GT PRN ×3 (06:32→21:00)
[2021-05-04] MEDS: MULTIVIT, IRON, MIN NO. 8, FA TABLET GT SCH (06:32)
[2021-05-04] MEDS: ACIDOPHILUS/BULGARICUS CHEW TAB GT SCH ×3 (06:32→22:34)
[2021-05-04] MEDS: ZINC SULFATE 220 MG CAPSULE GT SCH (06:32)
[2021-05-04] MEDS: ASCORBIC ACID 500 MG TABLET GT SCH (06:32)
[2021-05-04 07:31] VITALS: BP 141/61
[2021-05-04] MEDS: IPRATROPIUM BROMIDE 0.5 MG/2.5 ML NEBU NEB SCH ×3 (07:50→22:50)
[2021-05-04] MEDS: HYDROGEN PEROXIDE 3% 118 ML BOTTLE TP SCH ×2 (08:06→21:13)
[2021-05-04] MEDS: CARVEDILOL 6.25 MG TABLET GT SCH ×2 (09:18→20:32)
[2021-05-04] MEDS: VITAMINS A AND D OINT TP SCH ×2 (09:19→20:34)
[2021-05-04] MEDS: MINOXIDIL TOP SCH ×2 (09:19→17:15)
[2021-05-04] MEDS: AMLODIPINE 5 MG TABLET GT SCH ×2 (09:19→20:34)
[2021-05-04] MEDS: Z GUARD REMEDY PASTE 57 GM TUBE TOP SCH ×2 (09:19→20:34)
[2021-05-04] MEDS: ACETAMINOPHEN 650 MG/20 ML UDC- SA PATIENTS-PAIN ONLY GT PRN (17:00)
[2021-05-04 19:57] VITALS: BP 109/42
[2021-05-04] MEDS: VITAMIN B COMPLEX 1 TABLET GT SCH (20:31)
[2021-05-04] MEDS: ATORVASTATIN 20 MG TABLET GT SCH (20:33)
[2021-05-04] MEDS: MIRALAX 17 GM POWD.PACK GT PRN (20:41)
[2021-05-04] MEDS: MELATONIN 3 MG TABLET GT PRN (21:00)
[2021-05-05] MEDS: IBUPROFEN 100 MG/5 ML LIQUID UDC- SA PATIENTS-PAIN ONLY GT PRN ×3 (05:00→17:00)
[2021-05-05] MEDS: VITAL AF 1.2 1,000 ML LIQUID GT PRN (05:00)
[2021-05-05] MEDS: GUAIFENESIN SUGAR FREE 100 MG/5 ML UDC GT PRN ×4 (05:00→17:00)
[2021-05-05] MEDS: ASCORBIC ACID 500 MG TABLET GT SCH (05:38)
[2021-05-05] MEDS: MULTIVIT, IRON, MIN NO. 8, FA TABLET GT SCH (05:38)
[2021-05-05] MEDS: ACIDOPHILUS/BULGARICUS CHEW TAB GT SCH ×3 (05:38→21:28)
[2021-05-05] MEDS: OMEPRAZOLE 20 MG CAPSULE.DR GT SCH ×2 (05:38→17:20)
[2021-05-05] MEDS: CHOLECALCIFEROL 1,000 UNIT TABLET GT SCH (05:58)
[2021-05-05] MEDS: ZINC SULFATE 220 MG CAPSULE GT SCH (05:58)
[2021-05-05 07:27] VITALS: BP 105/50
[2021-05-05] MEDS: IPRATROPIUM BROMIDE 0.5 MG/2.5 ML NEBU NEB SCH ×3 (08:25→23:20)
[2021-05-05] MEDS: HYDROGEN PEROXIDE 3% 118 ML BOTTLE TP SCH ×2 (08:25→21:00)
[2021-05-05] MEDS: ACETAMINOPHEN 650 MG/20 ML UDC- SA PATIENTS-PAIN ONLY GT PRN ×2 (09:00→21:00)
[2021-05-05] MEDS: AMLODIPINE 5 MG TABLET GT SCH ×2 (09:00→20:42)
[2021-05-05] MEDS: CARVEDILOL 6.25 MG TABLET GT SCH ×2 (09:00→20:40)
[2021-05-05] MEDS: MINOXIDIL TOP SCH ×2 (09:02→17:20)
[2021-05-05] MEDS: Z GUARD REMEDY PASTE 57 GM TUBE TOP SCH ×2 (09:02→20:42)
[2021-05-05] MEDS: VITAMINS A AND D OINT TP SCH ×2 (09:03→20:42)
--- NOTE | 2021-05-05 10:28 | NUR ---
DR. GONSALES WAS CALLED AND MESSAGE WAS LEFT TO HIM :PT. WANTS TO SPEAK TO HIM BEFORE START A DECANNULATION PROCESS.
--- NOTE | 2021-05-05 10:35 | NUR ---
DR. GONSALES CALLED BACK AND STATED THAT HE WILL SEE PT. THIS WEEK SOMETIME AND AWARE THAT PT. WANTS TO SPEAK TO HIM DIRECTLY.
[2021-05-05 19:48] VITALS: BP 104/48
--- NOTE | 2021-05-05 20:07 | NUR ---
PT. WAS TESTED FOR COVID 19 AND WAS NEGATIVE AND SHE WAS AWARE.
[2021-05-05] MEDS: VITAMIN B COMPLEX 1 TABLET GT SCH (20:40)
[2021-05-05] MEDS: ATORVASTATIN 20 MG TABLET GT SCH (20:41)
[2021-05-05] MEDS: MIRALAX 17 GM POWD.PACK GT PRN (20:44)
[2021-05-05] MEDS: MELATONIN 3 MG TABLET GT PRN (21:28)
[2021-05-06] MEDS: GUAIFENESIN SUGAR FREE 100 MG/5 ML UDC GT PRN ×5 (05:00→21:08)
[2021-05-06] MEDS: IBUPROFEN 100 MG/5 ML LIQUID UDC- SA PATIENTS-PAIN ONLY GT PRN ×3 (05:00→21:07)
--- NOTE | 2021-05-06 05:00 | NUR ---
Patient is on trach capping and on room air, no respiratory distress noted, afebrile, alert and oriented, goes to the bathroom with assist, needs attended and call light within reach.
[2021-05-06] MEDS: ACIDOPHILUS/BULGARICUS CHEW TAB GT SCH ×3 (06:04→21:00)
[2021-05-06] MEDS: ZINC SULFATE 220 MG CAPSULE GT SCH (06:04)
[2021-05-06] MEDS: MULTIVIT, IRON, MIN NO. 8, FA TABLET GT SCH (06:04)
[2021-05-06] MEDS: OMEPRAZOLE 20 MG CAPSULE.DR GT SCH ×2 (06:04→17:02)
[2021-05-06] MEDS: ASCORBIC ACID 500 MG TABLET GT SCH (06:04)
[2021-05-06] MEDS: CHOLECALCIFEROL 1,000 UNIT TABLET GT SCH (06:04)
[2021-05-06 07:24] VITALS: BP 125/53
[2021-05-06] MEDS: IPRATROPIUM BROMIDE 0.5 MG/2.5 ML NEBU NEB SCH ×3 (07:30→20:32)
[2021-05-06] MEDS: AMLODIPINE 5 MG TABLET GT SCH ×2 (08:10→20:59)
[2021-05-06] MEDS: CARVEDILOL 6.25 MG TABLET GT SCH ×2 (08:10→20:58)
[2021-05-06] MEDS: Z GUARD REMEDY PASTE 57 GM TUBE TOP SCH ×2 (08:11→21:00)
[2021-05-06] MEDS: VITAMINS A AND D OINT TP SCH ×2 (08:56→21:00)
[2021-05-06] MEDS: MINOXIDIL TOP SCH ×2 (08:56→17:01)
[2021-05-06] MEDS: HYDROGEN PEROXIDE 3% 118 ML BOTTLE TP SCH ×2 (09:00→20:04)
[2021-05-06] MEDS: ACETAMINOPHEN 650 MG/20 ML UDC- SA PATIENTS-PAIN ONLY GT PRN ×2 (09:00→17:00)
[2021-05-06 20:00] VITALS: BP 123/55
[2021-05-06] MEDS: VITAMIN B COMPLEX 1 TABLET GT SCH (20:56)
[2021-05-06] MEDS: ATORVASTATIN 20 MG TABLET GT SCH (20:59)
[2021-05-06] MEDS: MELATONIN 3 MG TABLET GT PRN (21:02)
[2021-05-06] MEDS: MIRALAX 17 GM POWD.PACK GT PRN (21:06)
[2021-05-07] MEDS: CHOLECALCIFEROL 1,000 UNIT TABLET GT SCH (05:06)
[2021-05-07] MEDS: OMEPRAZOLE 20 MG CAPSULE.DR GT SCH ×2 (05:06→17:25)
[2021-05-07] MEDS: MULTIVIT, IRON, MIN NO. 8, FA TABLET GT SCH (05:06)
[2021-05-07] MEDS: ACIDOPHILUS/BULGARICUS CHEW TAB GT SCH ×3 (05:06→21:08)
[2021-05-07] MEDS: ASCORBIC ACID 500 MG TABLET GT SCH (05:06)
[2021-05-07] MEDS: ZINC SULFATE 220 MG CAPSULE GT SCH (05:06)
[2021-05-07] MEDS: GUAIFENESIN SUGAR FREE 100 MG/5 ML UDC GT PRN ×5 (05:07→21:08)
[2021-05-07] MEDS: IBUPROFEN 100 MG/5 ML LIQUID UDC- SA PATIENTS-PAIN ONLY GT PRN ×3 (05:07→21:08)
[2021-05-07] MEDS: VITAL AF 1.2 1,000 ML LIQUID GT PRN (05:55)
[2021-05-07 07:24] VITALS: BP 130/58
[2021-05-07] MEDS: HYDROGEN PEROXIDE 3% 118 ML BOTTLE TP SCH ×2 (07:58→21:08)
[2021-05-07] MEDS: IPRATROPIUM BROMIDE 0.5 MG/2.5 ML NEBU NEB SCH ×3 (07:58→22:40)
[2021-05-07] MEDS: CARVEDILOL 6.25 MG TABLET GT SCH ×2 (08:49→20:52)
[2021-05-07] MEDS: VITAMINS A AND D OINT TP SCH ×2 (08:50→20:54)
[2021-05-07] MEDS: AMLODIPINE 5 MG TABLET GT SCH ×2 (08:50→20:53)
[2021-05-07] MEDS: Z GUARD REMEDY PASTE 57 GM TUBE TOP SCH ×2 (08:50→20:53)
[2021-05-07] MEDS: MINOXIDIL TOP SCH ×2 (08:52→17:25)
[2021-05-07] MEDS: ACETAMINOPHEN 650 MG/20 ML UDC- SA PATIENTS-PAIN ONLY GT PRN ×2 (09:00→17:00)
[2021-05-07 12:26] VITALS: BP 134/61
[2021-05-07 20:00] VITALS: BP 133/59
[2021-05-07] MEDS: VITAMIN B COMPLEX 1 TABLET GT SCH (20:52)
[2021-05-07] MEDS: ATORVASTATIN 20 MG TABLET GT SCH (20:53)
[2021-05-07] MEDS: MELATONIN 3 MG TABLET GT PRN (21:08)
[2021-05-07] MEDS: MIRALAX 17 GM POWD.PACK GT PRN (21:08)
[2021-05-08] MEDS: MULTIVIT, IRON, MIN NO. 8, FA TABLET GT SCH (05:00)
[2021-05-08] MEDS: ZINC SULFATE 220 MG CAPSULE GT SCH (05:00)
[2021-05-08] MEDS: OMEPRAZOLE 20 MG CAPSULE.DR GT SCH ×2 (05:00→17:02)
[2021-05-08] MEDS: ACIDOPHILUS/BULGARICUS CHEW TAB GT SCH ×3 (05:00→22:21)
[2021-05-08] MEDS: CHOLECALCIFEROL 1,000 UNIT TABLET GT SCH (05:00)
[2021-05-08] MEDS: ASCORBIC ACID 500 MG TABLET GT SCH (05:00)
[2021-05-08] MEDS: IBUPROFEN 100 MG/5 ML LIQUID UDC- SA PATIENTS-PAIN ONLY GT PRN ×3 (05:01→20:55)
[2021-05-08] MEDS: GUAIFENESIN SUGAR FREE 100 MG/5 ML UDC GT PRN ×5 (05:01→21:00)
[2021-05-08] MEDS: VITAL AF 1.2 1,000 ML LIQUID GT PRN (06:31)
[2021-05-08] MEDS: IPRATROPIUM BROMIDE 0.5 MG/2.5 ML NEBU NEB SCH ×3 (07:41→22:50)
[2021-05-08 07:55] VITALS: BP 128/51
[2021-05-08] MEDS: HYDROGEN PEROXIDE 3% 118 ML BOTTLE TP SCH ×2 (08:55→21:00)
[2021-05-08] MEDS: MINOXIDIL TOP SCH ×2 (09:00→17:01)
[2021-05-08] MEDS: VITAMINS A AND D OINT TP SCH ×2 (09:00→20:50)
[2021-05-08] MEDS: CARVEDILOL 6.25 MG TABLET GT SCH ×2 (09:07→20:49)
[2021-05-08] MEDS: AMLODIPINE 5 MG TABLET GT SCH ×2 (09:08→20:49)
[2021-05-08] MEDS: Z GUARD REMEDY PASTE 57 GM TUBE TOP SCH (09:09)
[2021-05-08] MEDS: ACETAMINOPHEN 650 MG/20 ML UDC- SA PATIENTS-PAIN ONLY GT PRN ×2 (09:12→17:04)
[2021-05-08] MEDS ORDERED: Z GUARD REMEDY PASTE TOP PRN (15:45)
--- NOTE | 2021-05-08 16:06 | NUR ---
SW emailed patient's daughter Fanny and Mr. López the updated guidelines and criteria for visitations.
--- NOTE | 2021-05-08 16:42 | NUR ---
This PEOPLESOFT BUSINESS ANALYST notified patient's daughter Fanny and Mr. López via email that the next IDT meeting for the patient is scheduled for 05/13 at 11am. This PEOPLESOFT BUSINESS ANALYST invited them to participate by speaker phone, and asked them to notify this PEOPLESOFT BUSINESS ANALYST if they would be available to participate.
[2021-05-08 20:00] VITALS: BP 113/66
[2021-05-08] MEDS: VITAMIN B COMPLEX 1 TABLET GT SCH (20:48)
[2021-05-08] MEDS: ATORVASTATIN 20 MG TABLET GT SCH (20:49)
[2021-05-08] MEDS: Z GUARD REMEDY PASTE TOP SCH (20:49)
[2021-05-08] MEDS: MELATONIN 3 MG TABLET GT PRN (20:54)
[2021-05-08] MEDS: MIRALAX 17 GM POWD.PACK GT PRN (20:54)
--- NOTE | 2021-05-08 21:58 | NUR ---
Patient is alert and oriented, on trach red capping, on room air, 02 sat is 99%, no respiratory distress noted, needs attended, call light within reach.
[2021-05-09] MEDS: GUAIFENESIN SUGAR FREE 100 MG/5 ML UDC GT PRN ×5 (05:08→21:18)
[2021-05-09] MEDS: CHOLECALCIFEROL 1,000 UNIT TABLET GT SCH (05:08)
[2021-05-09] MEDS: ASCORBIC ACID 500 MG TABLET GT SCH (05:08)
[2021-05-09] MEDS: IBUPROFEN 100 MG/5 ML LIQUID UDC- SA PATIENTS-PAIN ONLY GT PRN ×2 (05:08→21:18)
[2021-05-09] MEDS: MULTIVIT, IRON, MIN NO. 8, FA TABLET GT SCH (05:08)
[2021-05-09] MEDS: OMEPRAZOLE 20 MG CAPSULE.DR GT SCH ×2 (05:08→17:01)
[2021-05-09] MEDS: ACIDOPHILUS/BULGARICUS CHEW TAB GT SCH ×3 (05:08→21:18)
[2021-05-09] MEDS: ZINC SULFATE 220 MG CAPSULE GT SCH (05:08)
[2021-05-09] MEDS: VITAL AF 1.2 1,000 ML LIQUID GT PRN (06:14)
[2021-05-09 07:52] VITALS: BP 107/59
[2021-05-09] MEDS: IPRATROPIUM BROMIDE 0.5 MG/2.5 ML NEBU NEB SCH ×3 (08:13→23:14)
[2021-05-09] MEDS: CARVEDILOL 6.25 MG TABLET GT SCH ×2 (09:11→21:18)
[2021-05-09] MEDS: AMLODIPINE 5 MG TABLET GT SCH ×2 (09:11→21:18)
[2021-05-09] MEDS: MINOXIDIL TOP SCH ×2 (09:12→17:00)
[2021-05-09] MEDS: ACETAMINOPHEN 650 MG/20 ML UDC- SA PATIENTS-PAIN ONLY GT PRN ×3 (09:13→17:17)
[2021-05-09] MEDS: Z GUARD REMEDY PASTE TOP SCH ×2 (09:14→21:18)
[2021-05-09] MEDS: VITAMINS A AND D OINT TP SCH ×2 (09:14→21:18)
[2021-05-09] MEDS: HYDROGEN PEROXIDE 3% 118 ML BOTTLE TP SCH ×2 (09:42→21:57)
[2021-05-09 20:29] VITALS: BP 116/62
[2021-05-09] MEDS: VITAMIN B COMPLEX 1 TABLET GT SCH (21:17)
[2021-05-09] MEDS: MIRALAX 17 GM POWD.PACK GT PRN (21:18)
[2021-05-09] MEDS: MELATONIN 3 MG TABLET GT PRN (21:18)
[2021-05-09] MEDS: ATORVASTATIN 20 MG TABLET GT SCH (21:18)
[2021-05-10] MEDS: ASCORBIC ACID 500 MG TABLET GT SCH (05:23)
[2021-05-10] MEDS: ZINC SULFATE 220 MG CAPSULE GT SCH (05:23)
[2021-05-10] MEDS: MULTIVIT, IRON, MIN NO. 8, FA TABLET GT SCH (05:23)
[2021-05-10] MEDS: IBUPROFEN 100 MG/5 ML LIQUID UDC- SA PATIENTS-PAIN ONLY GT PRN ×3 (05:23→21:16)
[2021-05-10] MEDS: ACIDOPHILUS/BULGARICUS CHEW TAB GT SCH ×3 (05:23→21:16)
[2021-05-10] MEDS: CHOLECALCIFEROL 1,000 UNIT TABLET GT SCH (05:23)
[2021-05-10] MEDS: OMEPRAZOLE 20 MG CAPSULE.DR GT SCH ×2 (05:23→17:00)
[2021-05-10] MEDS: GUAIFENESIN SUGAR FREE 100 MG/5 ML UDC GT PRN ×5 (05:23→21:16)
[2021-05-10] MEDS: VITAL AF 1.2 1,000 ML LIQUID GT PRN (06:25)
[2021-05-10] MEDS: HYDROGEN PEROXIDE 3% 118 ML BOTTLE TP SCH ×2 (07:25→21:19)
[2021-05-10] MEDS: IPRATROPIUM BROMIDE 0.5 MG/2.5 ML NEBU NEB SCH ×3 (07:25→23:20)
[2021-05-10 08:09] VITALS: BP 130/56
[2021-05-10] MEDS: VITAMINS A AND D OINT TP SCH ×2 (09:00→21:15)
[2021-05-10] MEDS: CARVEDILOL 6.25 MG TABLET GT SCH ×2 (09:02→21:15)
[2021-05-10] MEDS: AMLODIPINE 5 MG TABLET GT SCH ×2 (09:04→21:15)
[2021-05-10] MEDS: MINOXIDIL TOP SCH ×2 (09:04→17:00)
[2021-05-10] MEDS: ACETAMINOPHEN 650 MG/20 ML UDC- SA PATIENTS-PAIN ONLY GT PRN ×2 (09:05→16:58)
[2021-05-10] MEDS: Z GUARD REMEDY PASTE TOP SCH ×2 (09:05→21:15)
[2021-05-10] MEDS: ATORVASTATIN 20 MG TABLET GT SCH (21:15)
[2021-05-10] MEDS: VITAMIN B COMPLEX 1 TABLET GT SCH (21:15)
[2021-05-10] MEDS: MELATONIN 3 MG TABLET GT PRN (21:16)
[2021-05-10] MEDS: MIRALAX 17 GM POWD.PACK GT PRN (21:16)
[2021-05-10 21:45] VITALS: BP 144/65
[2021-05-11] MEDS: ZINC SULFATE 220 MG CAPSULE GT SCH (05:17)
[2021-05-11] MEDS: ASCORBIC ACID 500 MG TABLET GT SCH (05:17)
[2021-05-11] MEDS: MULTIVIT, IRON, MIN NO. 8, FA TABLET GT SCH (05:17)
[2021-05-11] MEDS: ACIDOPHILUS/BULGARICUS CHEW TAB GT SCH ×3 (05:17→21:17)
[2021-05-11] MEDS: VITAL AF 1.2 1,000 ML LIQUID GT PRN (05:17)
[2021-05-11] MEDS: GUAIFENESIN SUGAR FREE 100 MG/5 ML UDC GT PRN ×5 (05:17→21:17)
[2021-05-11] MEDS: OMEPRAZOLE 20 MG CAPSULE.DR GT SCH ×2 (05:17→17:08)
[2021-05-11] MEDS: IBUPROFEN 100 MG/5 ML LIQUID UDC- SA PATIENTS-PAIN ONLY GT PRN ×3 (05:17→21:17)
[2021-05-11] MEDS: CHOLECALCIFEROL 1,000 UNIT TABLET GT SCH (05:17)
[2021-05-11] MEDS: IPRATROPIUM BROMIDE 0.5 MG/2.5 ML NEBU NEB SCH ×3 (07:20→23:31)
[2021-05-11] MEDS: HYDROGEN PEROXIDE 3% 118 ML BOTTLE TP SCH ×2 (07:20→20:50)
[2021-05-11 08:00] VITALS: BP 140/57
[2021-05-11 08:02] VITALS: BP 140/57
[2021-05-11] MEDS: VITAMINS A AND D OINT TP SCH ×2 (09:10→21:17)
[2021-05-11] MEDS: Z GUARD REMEDY PASTE TOP SCH ×2 (09:10→21:17)
[2021-05-11] MEDS: CARVEDILOL 6.25 MG TABLET GT SCH ×2 (09:10→21:17)
[2021-05-11] MEDS: MINOXIDIL TOP SCH ×2 (09:10→17:06)
[2021-05-11] MEDS: AMLODIPINE 5 MG TABLET GT SCH ×2 (09:10→21:17)
[2021-05-11] MEDS: ACETAMINOPHEN 650 MG/20 ML UDC- SA PATIENTS-PAIN ONLY GT PRN ×2 (09:11→17:09)
[2021-05-11 20:48] VITALS: BP 123/63
[2021-05-11] MEDS: VITAMIN B COMPLEX 1 TABLET GT SCH (21:16)
[2021-05-11] MEDS: ATORVASTATIN 20 MG TABLET GT SCH (21:17)
[2021-05-11] MEDS: MIRALAX 17 GM POWD.PACK GT PRN (21:17)
[2021-05-11] MEDS: MELATONIN 3 MG TABLET GT PRN (21:17)
[2021-05-12] MEDS: CHOLECALCIFEROL 1,000 UNIT TABLET GT SCH (05:09)
[2021-05-12] MEDS: GUAIFENESIN SUGAR FREE 100 MG/5 ML UDC GT PRN ×5 (05:09→21:30)
[2021-05-12] MEDS: ACIDOPHILUS/BULGARICUS CHEW TAB GT SCH ×3 (05:09→22:09)
[2021-05-12] MEDS: MULTIVIT, IRON, MIN NO. 8, FA TABLET GT SCH (05:09)
[2021-05-12] MEDS: ASCORBIC ACID 500 MG TABLET GT SCH (05:09)
[2021-05-12] MEDS: OMEPRAZOLE 20 MG CAPSULE.DR GT SCH ×2 (05:09→17:00)
[2021-05-12] MEDS: IBUPROFEN 100 MG/5 ML LIQUID UDC- SA PATIENTS-PAIN ONLY GT PRN ×3 (05:09→20:16)
[2021-05-12] MEDS: ZINC SULFATE 220 MG CAPSULE GT SCH (05:09)
[2021-05-12] MEDS: VITAL AF 1.2 1,000 ML LIQUID GT PRN (05:10)
[2021-05-12] MEDS: IPRATROPIUM BROMIDE 0.5 MG/2.5 ML NEBU NEB SCH ×3 (07:22→22:40)
[2021-05-12] MEDS: HYDROGEN PEROXIDE 3% 118 ML BOTTLE TP SCH ×2 (07:22→21:15)
[2021-05-12 07:31] VITALS: BP 146/68
--- NOTE | 2021-05-12 08:00 | NUR ---
Seen by Lilly PRICE. notified patient c/o pain on the right ear, new order carried out for an ENT consult. Khushbu MADSEN notified of ENT order.
[2021-05-12] MEDS: ACETAMINOPHEN 650 MG/20 ML UDC- SA PATIENTS-PAIN ONLY GT PRN ×2 (08:50→17:00)
[2021-05-12] MEDS: Z GUARD REMEDY PASTE TOP SCH ×2 (09:00→20:19)
[2021-05-12] MEDS: AMLODIPINE 5 MG TABLET GT SCH ×2 (09:00→20:18)
[2021-05-12] MEDS: MINOXIDIL TOP SCH ×2 (09:00→16:59)
[2021-05-12] MEDS: VITAMINS A AND D OINT TP SCH ×2 (09:00→20:19)
[2021-05-12] MEDS: CARVEDILOL 6.25 MG TABLET GT SCH ×2 (09:00→20:18)
--- NOTE | 2021-05-12 10:22 | NUR ---
This NEON TUBE BENDER received an email from patient's Mr. López and daughter Fanny in response to the email this NEON TUBE BENDER sent them both on 05/08/21 regarding the IDT meeting for 05/13/21. Both Mr. López and Fanny stated that they would be available to participate by speaker phone. This NEON TUBE BENDER to call Mr. López and Fanny during the meeting.
[2021-05-12 20:00] VITALS: BP 130/58
[2021-05-12] MEDS: VITAMIN B COMPLEX 1 TABLET GT SCH (20:15)
[2021-05-12] MEDS: ATORVASTATIN 20 MG TABLET GT SCH (20:18)
[2021-05-12] MEDS: MELATONIN 3 MG TABLET GT PRN (21:11)
[2021-05-12] MEDS: MIRALAX 17 GM POWD.PACK GT PRN (21:17)
[2021-05-13] MEDS: MULTIVIT, IRON, MIN NO. 8, FA TABLET GT SCH (05:04)
[2021-05-13] MEDS: ASCORBIC ACID 500 MG TABLET GT SCH (05:04)
[2021-05-13] MEDS: IBUPROFEN 100 MG/5 ML LIQUID UDC- SA PATIENTS-PAIN ONLY GT PRN ×3 (05:04→20:51)
[2021-05-13] MEDS: ACIDOPHILUS/BULGARICUS CHEW TAB GT SCH ×3 (05:04→22:44)
[2021-05-13] MEDS: OMEPRAZOLE 20 MG CAPSULE.DR GT SCH ×2 (05:04→17:06)
[2021-05-13] MEDS: CHOLECALCIFEROL 1,000 UNIT TABLET GT SCH (05:04)
[2021-05-13] MEDS: GUAIFENESIN SUGAR FREE 100 MG/5 ML UDC GT PRN ×4 (05:04→20:51)
[2021-05-13] MEDS: ZINC SULFATE 220 MG CAPSULE GT SCH (05:04)
[2021-05-13] MEDS: VITAL AF 1.2 1,000 ML LIQUID GT PRN (05:40)
--- NOTE | 2021-05-13 06:19 | NUR ---
MOTRIN PRN GIVEN AT 2016H AND 0504H . PT TOLERATED IT WELL. PT STABLE. WILL ENDORSE TO INCOMING NURSE FOR CONTINUITY OF CARE.
--- NOTE | 2021-05-13 06:59 | NUR ---
Pt stable and in no acute distress. Prescribed medication given and pt tolerated it well. Pt can make her neds known.Safety and comfort provided. Will endorse to incoming nurse for continuity of care.
[2021-05-13 07:26] VITALS: BP 133/58
[2021-05-13] MEDS: IPRATROPIUM BROMIDE 0.5 MG/2.5 ML NEBU NEB SCH ×3 (07:28→22:54)
[2021-05-13] MEDS: HYDROGEN PEROXIDE 3% 118 ML BOTTLE TP SCH ×2 (07:28→21:14)
[2021-05-13] MEDS: ACETAMINOPHEN 650 MG/20 ML UDC- SA PATIENTS-PAIN ONLY GT PRN (09:06)
[2021-05-13] MEDS: CARVEDILOL 6.25 MG TABLET GT SCH ×2 (09:07→20:41)
[2021-05-13] MEDS: VITAMINS A AND D OINT TP SCH ×2 (09:07→20:41)
[2021-05-13] MEDS: MINOXIDIL TOP SCH ×2 (09:07→17:06)
[2021-05-13] MEDS: AMLODIPINE 5 MG TABLET GT SCH ×2 (09:07→20:41)
[2021-05-13] MEDS: Z GUARD REMEDY PASTE TOP SCH ×2 (09:07→20:41)
--- NOTE | 2021-05-13 16:19 | NUR ---
Seen and evaluated by The speech therapist and windows desktop support with new orders noted.
--- NOTE | 2021-05-13 16:35 | NUR ---
INTERDISCIPLINARY PLAN OF CARE CONFERENCE was held today. Patient's Mr. López participated in the meeting today by speaker phone. Patient's daughter Fanny was not available when this COLLECTION TELLER tried calling her during the meeting. Dr. Leblanc and the Interdisciplinary Team reviewed the current plan of care in detail. RN reported on patient's medical condition. See RN IDT conference notes. Pharmacy reviewed medications, reporting patient is stable on current regimen. PT, OT, and ST discussed current treatmetn plan and ongoing progress. Dietary discussed tube and oral feeding, and ongoing plan of care. No major changes in condition were reported by nursing or by any of the other disciplines. See all disciplines IDT notes and physician's progress notes for additional details. Mr. López stated not having any questions/concerns at this time.
[2021-05-13 20:00] VITALS: BP 140/64
[2021-05-13] MEDS: ATORVASTATIN 20 MG TABLET GT SCH (20:41)
[2021-05-13] MEDS: VITAMIN B COMPLEX 1 TABLET GT SCH (20:41)
[2021-05-13] MEDS: MELATONIN 3 MG TABLET GT PRN (20:50)
[2021-05-13] MEDS: MIRALAX 17 GM POWD.PACK GT PRN (20:50)
[2021-05-14] MEDS: ACIDOPHILUS/BULGARICUS CHEW TAB GT SCH ×3 (05:34→21:01)
[2021-05-14] MEDS: OMEPRAZOLE 20 MG CAPSULE.DR GT SCH ×2 (05:34→17:03)
[2021-05-14] MEDS: ASCORBIC ACID 500 MG TABLET GT SCH (05:35)
[2021-05-14] MEDS: CHOLECALCIFEROL 1,000 UNIT TABLET GT SCH (05:35)
[2021-05-14] MEDS: ZINC SULFATE 220 MG CAPSULE GT SCH (05:35)
[2021-05-14] MEDS: MULTIVIT, IRON, MIN NO. 8, FA TABLET GT SCH (05:35)
[2021-05-14 07:28] VITALS: BP 139/53
[2021-05-14] MEDS: IPRATROPIUM BROMIDE 0.5 MG/2.5 ML NEBU NEB SCH ×3 (08:06→21:04)
[2021-05-14] MEDS: HYDROGEN PEROXIDE 3% 118 ML BOTTLE TP SCH ×2 (08:15→19:25)
[2021-05-14] MEDS: CARVEDILOL 6.25 MG TABLET GT SCH ×2 (09:28→20:57)
[2021-05-14] MEDS: AMLODIPINE 5 MG TABLET GT SCH ×2 (09:29→20:58)
[2021-05-14] MEDS: Z GUARD REMEDY PASTE TOP SCH ×2 (09:29→20:58)
[2021-05-14] MEDS: MINOXIDIL TOP SCH ×2 (09:29→17:03)
[2021-05-14] MEDS: VITAMINS A AND D OINT TP SCH ×2 (09:29→20:58)
[2021-05-14] MEDS: IBUPROFEN 100 MG/5 ML LIQUID UDC- SA PATIENTS-PAIN ONLY GT PRN ×2 (12:59→21:00)
[2021-05-14] MEDS: GUAIFENESIN SUGAR FREE 100 MG/5 ML UDC GT PRN ×3 (13:00→21:00)
[2021-05-14] MEDS: ACETAMINOPHEN 650 MG/20 ML UDC- SA PATIENTS-PAIN ONLY GT PRN (17:05)
[2021-05-14 20:00] VITALS: BP 144/68
[2021-05-14] MEDS: ATORVASTATIN 20 MG TABLET GT SCH (20:57)
[2021-05-14] MEDS: VITAMIN B COMPLEX 1 TABLET GT SCH (20:57)
[2021-05-14] MEDS: MIRALAX 17 GM POWD.PACK GT PRN (21:00)
[2021-05-14] MEDS: MELATONIN 3 MG TABLET GT PRN (21:00)
[2021-05-15] MEDS: GUAIFENESIN SUGAR FREE 100 MG/5 ML UDC GT PRN ×3 (05:00→21:00)
[2021-05-15] MEDS: ACIDOPHILUS/BULGARICUS CHEW TAB GT SCH ×3 (05:26→21:28)
[2021-05-15] MEDS: MULTIVIT, IRON, MIN NO. 8, FA TABLET GT SCH (05:26)
[2021-05-15] MEDS: CHOLECALCIFEROL 1,000 UNIT TABLET GT SCH (05:26)
[2021-05-15] MEDS: OMEPRAZOLE 20 MG CAPSULE.DR GT SCH ×2 (05:26→17:15)
[2021-05-15] MEDS: ASCORBIC ACID 500 MG TABLET GT SCH (05:26)
[2021-05-15] MEDS: ZINC SULFATE 220 MG CAPSULE GT SCH (05:26)
[2021-05-15] MEDS: IBUPROFEN 100 MG/5 ML LIQUID UDC- SA PATIENTS-PAIN ONLY GT PRN ×3 (05:27→21:00)
[2021-05-15] MEDS: IPRATROPIUM BROMIDE 0.5 MG/2.5 ML NEBU NEB SCH ×3 (07:24→22:40)
[2021-05-15 08:04] VITALS: BP 130/55
[2021-05-15] MEDS: HYDROGEN PEROXIDE 3% 118 ML BOTTLE TP SCH ×2 (08:20→21:29)
[2021-05-15] MEDS: MINOXIDIL TOP SCH ×2 (09:16→17:07)
[2021-05-15] MEDS: Z GUARD REMEDY PASTE TOP SCH ×2 (09:16→21:28)
[2021-05-15] MEDS: AMLODIPINE 5 MG TABLET GT SCH ×2 (09:16→21:28)
[2021-05-15] MEDS: CARVEDILOL 6.25 MG TABLET GT SCH ×2 (09:16→21:28)
[2021-05-15] MEDS: VITAMINS A AND D OINT TP SCH ×2 (09:17→21:28)
[2021-05-15] MEDS: ACETAMINOPHEN 650 MG/20 ML UDC- SA PATIENTS-PAIN ONLY GT PRN ×2 (11:09→17:10)
[2021-05-15] MEDS: MIRALAX 17 GM POWD.PACK GT PRN ×2 (11:12→21:00)
--- NOTE | 2021-05-15 16:35 | NUR ---
This LATHE MACHINE OPERATOR met with Dr. Flores today. Patient's discharge plans discussed, and Dr. Flores stated that per his conversation with the patient, patient is in agreement with being referred to ARU. Dr. Flores stated that he has ordered an MRI (see Dr. Flores's notes for details), and therefore this LATHE MACHINE OPERATOR will wait until patient is medically cleared by Dr. Flores before referring patient to ARU. Discharge planning will include consulting/coordinating with Dr. Bhatt for decannulation and referring to ARU, pending medical clearance from Dr. Flores. This LATHE MACHINE OPERATOR inquired about the ENT consultation order from Lilly (Dr. Flores's PA) and Dr. Flores stated to cancel the ENT order for now, as he has ordered an MRI. This LATHE MACHINE OPERATOR informed rim fire charger operator Norma of above and asked for her to cancel the ENT order. This LATHE MACHINE OPERATOR also informed SURYA Dupont of above.
--- NOTE | 2021-05-15 16:56 | NUR ---
PT. SEEN AND EXAMINED BY DR. HILARIO AND WITH NEW ORDERS TO BE CARRIED OUT.
[2021-05-15 20:00] VITALS: BP 141/65
[2021-05-15] MEDS: MELATONIN 3 MG TABLET GT PRN (21:00)
[2021-05-15] MEDS: VITAMIN B COMPLEX 1 TABLET GT SCH (21:27)
[2021-05-15] MEDS: ATORVASTATIN 20 MG TABLET GT SCH (21:28)
[2021-05-16] MEDS: VITAL AF 1.2 1,000 ML LIQUID GT PRN (02:00)
[2021-05-16] MEDS: OMEPRAZOLE 20 MG CAPSULE.DR GT SCH ×2 (05:31→17:55)
[2021-05-16] MEDS: MULTIVIT, IRON, MIN NO. 8, FA TABLET GT SCH (05:31)
[2021-05-16] MEDS: ASCORBIC ACID 500 MG TABLET GT SCH (05:31)
[2021-05-16] MEDS: ACIDOPHILUS/BULGARICUS CHEW TAB GT SCH ×3 (05:31→22:46)
[2021-05-16] MEDS: CHOLECALCIFEROL 1,000 UNIT TABLET GT SCH (05:31)
[2021-05-16] MEDS: ZINC SULFATE 220 MG CAPSULE GT SCH (05:31)
[2021-05-16] MEDS: IPRATROPIUM BROMIDE 0.5 MG/2.5 ML NEBU NEB SCH ×3 (07:20→23:25)
[2021-05-16 07:54] VITALS: BP 127/54
[2021-05-16 07:57] VITALS: BP 127/54
[2021-05-16] MEDS: CARVEDILOL 6.25 MG TABLET GT SCH ×2 (08:49→20:22)
[2021-05-16] MEDS: AMLODIPINE 5 MG TABLET GT SCH ×2 (08:49→20:23)
[2021-05-16] MEDS: MINOXIDIL TOP SCH ×2 (08:50→17:55)
[2021-05-16] MEDS: VITAMINS A AND D OINT TP SCH ×2 (08:50→20:23)
[2021-05-16] MEDS: Z GUARD REMEDY PASTE TOP SCH ×2 (08:50→20:23)
[2021-05-16] MEDS: GUAIFENESIN SUGAR FREE 100 MG/5 ML UDC GT PRN ×3 (08:51→20:25)
[2021-05-16] MEDS: ACETAMINOPHEN 650 MG/20 ML UDC- SA PATIENTS-PAIN ONLY GT PRN (08:52)
[2021-05-16] MEDS: HYDROGEN PEROXIDE 3% 118 ML BOTTLE TP SCH ×2 (09:00→21:58)
[2021-05-16] MEDS: IBUPROFEN 100 MG/5 ML LIQUID UDC- SA PATIENTS-PAIN ONLY GT PRN ×2 (12:55→20:25)
--- NOTE | 2021-05-16 14:20 | NUR ---
PT. LEFT TO [facility] MUNOZ FOR MRI OF INTRA AURICULAR CANAL .MRI WITH IV CONTRAST QUESTIONNAIRE COMPLETED AND SIGNED BY PT. PT'S DTR. MARILYN ALSO AWARE .IV PLACED ON RT HAND # 22 WITH GOOD BLOOD RETURN.
--- NOTE | 2021-05-16 15:30 | NUR ---
PER DR. FALGUNI Multani TO CONTINUE WITH MRI WITH IV CONTRAST AND WITH LABS FROM 02/17/21 BUN 21 AND CREATININE 0.4 AND FILM FLAT INSPECTOR RISA WAS NOTIFIED SHE REQUESTED TO ASK DR. MONTES DE OCA FIRST.
--- NOTE | 2021-05-16 18:21 | NUR ---
PT. BACK FROM MRI AT THIS TIME ,STATED SHE FEELS COMFORTABLE AND IV LINE REMOVED FROM RT. HAND HAND WASH DONE AND PT. STARTED TO EAT DINNER,CALL LIGHT ON REACH.
[2021-05-16 20:00] VITALS: BP 147/70
[2021-05-16] MEDS: ATORVASTATIN 20 MG TABLET GT SCH (20:22)
[2021-05-16] MEDS: VITAMIN B COMPLEX 1 TABLET GT SCH (20:22)
[2021-05-16] MEDS: MIRALAX 17 GM POWD.PACK GT PRN (20:25)
[2021-05-16] MEDS: MELATONIN 3 MG TABLET GT PRN (20:25)
[2021-05-17] MEDS: ACIDOPHILUS/BULGARICUS CHEW TAB GT SCH ×3 (05:30→22:33)
[2021-05-17] MEDS: ZINC SULFATE 220 MG CAPSULE GT SCH (05:30)
[2021-05-17] MEDS: OMEPRAZOLE 20 MG CAPSULE.DR GT SCH ×2 (05:30→17:21)
[2021-05-17] MEDS: CHOLECALCIFEROL 1,000 UNIT TABLET GT SCH (05:30)
[2021-05-17] MEDS: MULTIVIT, IRON, MIN NO. 8, FA TABLET GT SCH (05:30)
[2021-05-17] MEDS: ASCORBIC ACID 500 MG TABLET GT SCH (05:30)
[2021-05-17] MEDS: GUAIFENESIN SUGAR FREE 100 MG/5 ML UDC GT PRN ×4 (05:32→17:22)
[2021-05-17] MEDS: IBUPROFEN 100 MG/5 ML LIQUID UDC- SA PATIENTS-PAIN ONLY GT PRN ×3 (05:32→20:23)
[2021-05-17] MEDS: IPRATROPIUM BROMIDE 0.5 MG/2.5 ML NEBU NEB SCH ×3 (07:39→22:48)
[2021-05-17] MEDS: HYDROGEN PEROXIDE 3% 118 ML BOTTLE TP SCH ×2 (07:39→21:51)
[2021-05-17 07:54] VITALS: BP 127/60
--- NOTE | 2021-05-17 09:00 | NUR ---
PER NNAMDI DEL CID CNO ,RESULTS OF MRI OF EAR CANAL WERE NOTIFIED BY MRI DEPARTMENT DIRECTLY TO DR. MONTES DE OCA AND DISCUSSED WITH DR. MONTES DE OCA ,AWAITING FOR ORDERS.
[2021-05-17] MEDS: CARVEDILOL 6.25 MG TABLET GT SCH ×2 (09:15→20:19)
[2021-05-17] MEDS: AMLODIPINE 5 MG TABLET GT SCH ×2 (09:16→20:20)
[2021-05-17] MEDS: MINOXIDIL TOP SCH ×2 (09:16→17:21)
[2021-05-17] MEDS: VITAMINS A AND D OINT TP SCH ×2 (09:16→20:20)
[2021-05-17] MEDS: Z GUARD REMEDY PASTE TOP SCH ×2 (09:16→20:20)
[2021-05-17] MEDS: ACETAMINOPHEN 650 MG/20 ML UDC- SA PATIENTS-PAIN ONLY GT PRN ×2 (09:20→17:22)
[2021-05-17] MEDS: VITAMIN B COMPLEX 1 TABLET GT SCH (20:19)
[2021-05-17] MEDS: ATORVASTATIN 20 MG TABLET GT SCH (20:19)
[2021-05-17] MEDS: MELATONIN 3 MG TABLET GT PRN (20:22)
[2021-05-17] MEDS: VITAL AF 1.2 1,000 ML LIQUID GT PRN (20:23)
[2021-05-17] MEDS: MIRALAX 17 GM POWD.PACK GT PRN (20:23)
[2021-05-17 22:19] VITALS: BP 138/61
[2021-05-18] MEDS: MULTIVIT, IRON, MIN NO. 8, FA TABLET GT SCH (05:34)
[2021-05-18] MEDS: OMEPRAZOLE 20 MG CAPSULE.DR GT SCH ×2 (05:34→17:04)
[2021-05-18] MEDS: CHOLECALCIFEROL 1,000 UNIT TABLET GT SCH (05:34)
[2021-05-18] MEDS: ACIDOPHILUS/BULGARICUS CHEW TAB GT SCH ×3 (05:34→22:51)
[2021-05-18] MEDS: ASCORBIC ACID 500 MG TABLET GT SCH (05:34)
[2021-05-18] MEDS: ZINC SULFATE 220 MG CAPSULE GT SCH (05:35)
[2021-05-18] MEDS: HYDROGEN PEROXIDE 3% 118 ML BOTTLE TP SCH ×2 (07:25→21:38)
[2021-05-18] MEDS: IPRATROPIUM BROMIDE 0.5 MG/2.5 ML NEBU NEB SCH ×3 (07:25→22:52)
[2021-05-18 07:34] VITALS: BP 123/59
[2021-05-18] MEDS: CARVEDILOL 6.25 MG TABLET GT SCH ×2 (09:15→20:50)
[2021-05-18] MEDS: Z GUARD REMEDY PASTE TOP SCH ×2 (09:16→20:50)
[2021-05-18] MEDS: VITAMINS A AND D OINT TP SCH ×2 (09:16→20:51)
[2021-05-18] MEDS: AMLODIPINE 5 MG TABLET GT SCH ×2 (09:16→20:50)
[2021-05-18] MEDS: MINOXIDIL TOP SCH ×2 (09:16→17:04)
[2021-05-18] MEDS: GUAIFENESIN SUGAR FREE 100 MG/5 ML UDC GT PRN ×3 (09:21→17:05)
[2021-05-18] MEDS: ACETAMINOPHEN 650 MG/20 ML UDC- SA PATIENTS-PAIN ONLY GT PRN ×2 (09:21→17:05)
--- NOTE | 2021-05-18 10:30 | NUR ---
DR. MONTES DE OCA CALLED WITH A NEW ORDER TO D/C IBUPROFEN D/T SUBDURAL BLOOD FINDING AND PT. IN AGREEMENT
--- NOTE | 2021-05-18 10:42 | NUR ---
PT. WAS SEEN AND EXAMINED BY DR. MONTES DE OCA AND WITH NEW ORDERS CARRIED OUT.[facility] AWARE TO PROVIDE HARD COPY OF IMAGE OF MRI EAR CANAL IN ORDER FOR PT. TO GO TO ENT AND NEUROSURGICAL APPOINTMENT.
--- NOTE | 2021-05-18 11:06 | NUR ---
MESSAGE LEFT TO DR. VAZQUEZ OR COREEN FOR ENT REFERRAL APPOINTMENT.DR. FLORES OFFICE WAS CALLED RE: NEUROSURGERY APPOINTMENT REFERRAL TO F/U SUBDURAL BLOOD FINDING IN MRI OF EAR CANAL AND MESSAGE WAS LEFT IN ORDER TO ARRANGE APPOINTMENT.
--- NOTE | 2021-05-18 18:00 | NUR ---
PT. HAD NO S/S OF ANY ACUTE DISTRESS,NO SOB ,NO C/O DISCOMFORT AND NO NEUROLOGICAL S/S BUT PT. CRIED A LITTLE BIT AND VENTED HER WORRIES TO NURSE RE:HER DISCUSSION WITH DR. MONTES DE OCA ABOUT MRI FINDINGS ONLY ONE TIME AND LATER ON SHE KEPT ENJOYING TIME TALKING WITH FAMILY MEMBERS UP IN [place] AND ENJOYING TIME WITH HER CELL PHONE.
--- NOTE | 2021-05-18 19:08 | NUR ---
PT. WAS OFFERED TO CHOOSE MENU FOR THE WEEK BUT SHE STATED WHATEVER THEY SEND ITS OK.
[2021-05-18] MEDS: VITAMIN B COMPLEX 1 TABLET GT SCH (20:50)
[2021-05-18] MEDS: ATORVASTATIN 20 MG TABLET GT SCH (20:50)
[2021-05-18 22:10] VITALS: BP 142/61
[2021-05-19] MEDS: ACIDOPHILUS/BULGARICUS CHEW TAB GT SCH ×3 (05:54→22:00)
[2021-05-19] MEDS: ASCORBIC ACID 500 MG TABLET GT SCH (05:54)
[2021-05-19] MEDS: OMEPRAZOLE 20 MG CAPSULE.DR GT SCH ×2 (05:54→17:16)
[2021-05-19] MEDS: MULTIVIT, IRON, MIN NO. 8, FA TABLET GT SCH (05:54)
[2021-05-19] MEDS: ZINC SULFATE 220 MG CAPSULE GT SCH (05:54)
[2021-05-19] MEDS: CHOLECALCIFEROL 1,000 UNIT TABLET GT SCH (05:54)
[2021-05-19 07:39] VITALS: BP 135/66
[2021-05-19] MEDS: HYDROGEN PEROXIDE 3% 118 ML BOTTLE TP SCH ×2 (07:49→21:25)
[2021-05-19] MEDS: IPRATROPIUM BROMIDE 0.5 MG/2.5 ML NEBU NEB SCH ×3 (07:49→23:13)
--- NOTE | 2021-05-19 08:59 | NUR ---
This TOWN MANAGER informed by discharge coordinator Norma that based on recent MRI findings, Dr. Flores has re-ordered ENT consultation and neurosurgery consultation. JARRED Hutchins stated that JARRED Hutchins has already called both physician's offices to schedule the consultation. At this time, discharge planning to ARU is on hold, given patient's current medical needs.
[2021-05-19] MEDS: CARVEDILOL 6.25 MG TABLET GT SCH ×2 (09:08→20:52)
[2021-05-19] MEDS: AMLODIPINE 5 MG TABLET GT SCH ×2 (09:08→20:52)
[2021-05-19] MEDS: MINOXIDIL TOP SCH ×2 (09:09→17:16)
[2021-05-19] MEDS: VITAMINS A AND D OINT TP SCH ×2 (09:09→20:54)
[2021-05-19] MEDS: Z GUARD REMEDY PASTE TOP SCH ×2 (09:09→20:54)
[2021-05-19] MEDS: GUAIFENESIN SUGAR FREE 100 MG/5 ML UDC GT PRN ×3 (09:21→20:57)
[2021-05-19] MEDS: ACETAMINOPHEN 650 MG/20 ML UDC- SA PATIENTS-PAIN ONLY GT PRN ×4 (09:24→21:04)
--- NOTE | 2021-05-19 09:59 | NUR ---
DR. FLORES AND DR ANGELA WERE CALLED TO THEIR OFFICES AND CH. STOVER IN PROCESS TO ARRANGE APPOINTMENTS ON THE SAME DATE SINCE OFFICES ARE IN THE SAME BUILDING AND INFORMATION WAS FAXED TO THEM AND THEY WILL CALL BACK.
--- NOTE | 2021-05-19 10:47 | NUR ---
DR. FLORES US MARKETING DIRECTOR CALLED BACK AND STATED THAT TO CALL TOMORROW AFTERNOON TO GET THE ANSWER IF HE CAN SEE PT. OR NOT.ENT OFFICE( DR. ANGELA) HAVE SPACE FOR APPOINTMENTS ONLY WEDNESDAY AT 2:30 AND 3:15 PM AND WEDNESDAY AT 2:15.DR. MONTES DE OCA WAS NOTIFIED AND ALSO HE STATED THAT THERE IS NO RESTRICTION FOR PHYSICAL THERAPY.
--- NOTE | 2021-05-19 11:19 | NUR ---
PT'S DTR. MARILYN WAS NOTIFIED ABOUT NEW ORDERS FOR NEUROSX AND ENT F/U PT. REQUESTED AND MARILYN SATED THAT HER MOTHER ALREADY SPOKE TO HER SOMETHING ABOUT IT.PT. STATED TO NURSE THAT MARILYN WILL SPEAK TO HER AND NO NEED TO CALL HIM.
--- NOTE | 2021-05-19 14:15 | NUR ---
New order was carried out FROM DR. MONTES DE OCA to decrease tube feeding rate at [facility] down to 70ml/hr per day as per pt's requested d/t she feels full during day time to eat.
[2021-05-19] MEDS: VITAL AF 1.2 1,000 ML LIQUID GT PRN ×2 (14:59→18:04)
[2021-05-19] MEDS: VITAMIN B COMPLEX 1 TABLET GT SCH (20:52)
[2021-05-19] MEDS: ATORVASTATIN 20 MG TABLET GT SCH (20:52)
[2021-05-19] MEDS: MELATONIN 3 MG TABLET GT PRN (20:57)
[2021-05-19] MEDS: MIRALAX 17 GM POWD.PACK GT PRN (20:57)
[2021-05-19 22:55] VITALS: BP 149/61
[2021-05-20] MEDS: MULTIVIT, IRON, MIN NO. 8, FA TABLET GT SCH (05:40)
[2021-05-20] MEDS: OMEPRAZOLE 20 MG CAPSULE.DR GT SCH ×2 (05:40→17:55)
[2021-05-20] MEDS: ZINC SULFATE 220 MG CAPSULE GT SCH (05:40)
[2021-05-20] MEDS: CHOLECALCIFEROL 1,000 UNIT TABLET GT SCH (05:40)
[2021-05-20] MEDS: ACIDOPHILUS/BULGARICUS CHEW TAB GT SCH ×3 (05:40→21:01)
[2021-05-20] MEDS: ASCORBIC ACID 500 MG TABLET GT SCH (05:40)
[2021-05-20 07:27] VITALS: BP 131/58
[2021-05-20] MEDS: IPRATROPIUM BROMIDE 0.5 MG/2.5 ML NEBU NEB SCH ×3 (07:52→22:40)
[2021-05-20] MEDS: HYDROGEN PEROXIDE 3% 118 ML BOTTLE TP SCH ×2 (08:51→21:18)
[2021-05-20] MEDS: CARVEDILOL 6.25 MG TABLET GT SCH ×2 (09:00→20:59)
[2021-05-20] MEDS: GUAIFENESIN SUGAR FREE 100 MG/5 ML UDC GT PRN ×3 (09:40→21:22)
[2021-05-20] MEDS: AMLODIPINE 5 MG TABLET GT SCH ×2 (09:43→21:00)
[2021-05-20] MEDS: Z GUARD REMEDY PASTE TOP SCH ×2 (09:45→21:00)
[2021-05-20] MEDS: MINOXIDIL TOP SCH ×2 (09:45→16:54)
[2021-05-20] MEDS: VITAMINS A AND D OINT TP SCH ×2 (09:45→21:00)
[2021-05-20] MEDS: ACETAMINOPHEN 650 MG/20 ML UDC- SA PATIENTS-PAIN ONLY GT PRN ×2 (13:50→21:17)
[2021-05-20] MEDS: VITAL AF 1.2 1,000 ML LIQUID GT PRN (19:10)
--- NOTE | 2021-05-20 19:14 | NUR ---
Nerological consult with Dr Sousa for subdural blood,on May 27 at 1300 pm,[phone].ENT consult with Dr Guy DX Tinnitus,on jun 05 at 1100 am ,[phone].
[2021-05-20 20:00] VITALS: BP 148/65
[2021-05-20] MEDS: VITAMIN B COMPLEX 1 TABLET GT SCH (20:51)
[2021-05-20] MEDS: MIRALAX 17 GM POWD.PACK GT PRN (21:00)
[2021-05-20] MEDS: ATORVASTATIN 20 MG TABLET GT SCH (21:21)
[2021-05-20] MEDS: MELATONIN 3 MG TABLET GT PRN (21:22)
[2021-05-21] MEDS: CHOLECALCIFEROL 1,000 UNIT TABLET GT SCH (05:02)
[2021-05-21] MEDS: ACIDOPHILUS/BULGARICUS CHEW TAB GT SCH ×3 (05:02→22:17)
[2021-05-21] MEDS: OMEPRAZOLE 20 MG CAPSULE.DR GT SCH ×2 (05:02→17:00)
[2021-05-21] MEDS: ZINC SULFATE 220 MG CAPSULE GT SCH (05:02)
[2021-05-21] MEDS: ASCORBIC ACID 500 MG TABLET GT SCH (05:02)
[2021-05-21] MEDS: MULTIVIT, IRON, MIN NO. 8, FA TABLET GT SCH (05:02)
[2021-05-21] MEDS: ACETAMINOPHEN 650 MG/20 ML UDC- SA PATIENTS-PAIN ONLY GT PRN ×3 (05:03→21:01)
[2021-05-21] MEDS: GUAIFENESIN SUGAR FREE 100 MG/5 ML UDC GT PRN ×3 (05:03→20:59)
[2021-05-21] MEDS: HYDROGEN PEROXIDE 3% 118 ML BOTTLE TP SCH ×2 (07:15→21:15)
[2021-05-21] MEDS: IPRATROPIUM BROMIDE 0.5 MG/2.5 ML NEBU NEB SCH ×3 (07:15→22:36)
[2021-05-21 07:19] VITALS: BP 131/67
[2021-05-21] MEDS: AMLODIPINE 5 MG TABLET GT SCH ×2 (09:05→20:56)
[2021-05-21] MEDS: CARVEDILOL 6.25 MG TABLET GT SCH ×2 (09:05→20:53)
[2021-05-21] MEDS: Z GUARD REMEDY PASTE TOP SCH ×2 (09:06→20:57)
[2021-05-21] MEDS: MINOXIDIL TOP SCH ×2 (09:06→17:00)
[2021-05-21] MEDS: VITAMINS A AND D OINT TP SCH ×2 (09:06→20:57)
--- NOTE | 2021-05-21 16:23 | NUR ---
Manager Hiv spoke to the patient regarding the request to DC the nocturnal feeding ,for now the feeding will be at 40 cc/hr x 12 hours and have calorie count x 3 days.Pt understand and agree with plan of care.
[2021-05-21 20:00] VITALS: BP 140/65
[2021-05-21] MEDS: VITAMIN B COMPLEX 1 TABLET GT SCH (20:53)
[2021-05-21] MEDS: ATORVASTATIN 20 MG TABLET GT SCH (20:54)
[2021-05-21] MEDS: MELATONIN 3 MG TABLET GT PRN (20:58)
[2021-05-21] MEDS: MIRALAX 17 GM POWD.PACK GT PRN (20:59)
[2021-05-22] MEDS: ACETAMINOPHEN 650 MG/20 ML UDC- SA PATIENTS-PAIN ONLY GT PRN ×3 (05:00→20:56)
[2021-05-22] MEDS: GUAIFENESIN SUGAR FREE 100 MG/5 ML UDC GT PRN ×3 (05:00→20:57)
[2021-05-22] MEDS: ACIDOPHILUS/BULGARICUS CHEW TAB GT SCH ×3 (06:13→22:38)
[2021-05-22] MEDS: MULTIVIT, IRON, MIN NO. 8, FA TABLET GT SCH (06:13)
[2021-05-22] MEDS: OMEPRAZOLE 20 MG CAPSULE.DR GT SCH ×2 (06:13→18:01)
[2021-05-22] MEDS: ASCORBIC ACID 500 MG TABLET GT SCH (06:13)
[2021-05-22] MEDS: CHOLECALCIFEROL 1,000 UNIT TABLET GT SCH (06:13)
[2021-05-22] MEDS: ZINC SULFATE 220 MG CAPSULE GT SCH (06:13)
[2021-05-22] MEDS: HYDROGEN PEROXIDE 3% 118 ML BOTTLE TP SCH ×2 (07:17→21:29)
[2021-05-22] MEDS: IPRATROPIUM BROMIDE 0.5 MG/2.5 ML NEBU NEB SCH ×3 (07:17→22:48)
[2021-05-22 07:57] VITALS: BP 133/55
[2021-05-22] MEDS: VITAMINS A AND D OINT TP SCH ×2 (09:00→20:52)
[2021-05-22] MEDS: Z GUARD REMEDY PASTE TOP SCH ×2 (09:00→20:52)
[2021-05-22] MEDS: AMLODIPINE 5 MG TABLET GT SCH ×2 (09:00→20:51)
[2021-05-22] MEDS: CARVEDILOL 6.25 MG TABLET GT SCH ×2 (09:00→20:50)
[2021-05-22] MEDS: MINOXIDIL TOP SCH ×2 (09:00→17:24)
[2021-05-22] MEDS: VITAL AF 1.2 1,000 ML LIQUID GT PRN (19:30)
[2021-05-22 20:00] VITALS: BP 143/61
[2021-05-22] MEDS: VITAMIN B COMPLEX 1 TABLET GT SCH (20:49)
[2021-05-22] MEDS: ATORVASTATIN 20 MG TABLET GT SCH (20:50)
[2021-05-22] MEDS: MIRALAX 17 GM POWD.PACK GT PRN (20:57)
[2021-05-22] MEDS: MELATONIN 3 MG TABLET GT PRN (20:57)
[2021-05-23] MEDS: ZINC SULFATE 220 MG CAPSULE GT SCH (05:06)
[2021-05-23] MEDS: OMEPRAZOLE 20 MG CAPSULE.DR GT SCH ×2 (05:06→17:18)
[2021-05-23] MEDS: GUAIFENESIN SUGAR FREE 100 MG/5 ML UDC GT PRN ×4 (05:06→21:12)
[2021-05-23] MEDS: ASCORBIC ACID 500 MG TABLET GT SCH (05:06)
[2021-05-23] MEDS: CHOLECALCIFEROL 1,000 UNIT TABLET GT SCH (05:06)
[2021-05-23] MEDS: ACIDOPHILUS/BULGARICUS CHEW TAB GT SCH ×3 (05:06→21:12)
[2021-05-23] MEDS: MULTIVIT, IRON, MIN NO. 8, FA TABLET GT SCH (05:06)
[2021-05-23] MEDS: ACETAMINOPHEN 650 MG/20 ML UDC- SA PATIENTS-PAIN ONLY GT PRN ×3 (05:07→21:12)
[2021-05-23] MEDS: IPRATROPIUM BROMIDE 0.5 MG/2.5 ML NEBU NEB SCH ×3 (07:10→21:11)
[2021-05-23 07:49] VITALS: BP 110/56
[2021-05-23] MEDS: HYDROGEN PEROXIDE 3% 118 ML BOTTLE TP SCH ×2 (08:04→21:11)
[2021-05-23] MEDS: CARVEDILOL 6.25 MG TABLET GT SCH ×2 (09:20→21:11)
[2021-05-23] MEDS: Z GUARD REMEDY PASTE TOP SCH ×2 (09:20→21:11)
[2021-05-23] MEDS: MINOXIDIL TOP SCH ×2 (09:20→17:17)
[2021-05-23] MEDS: AMLODIPINE 5 MG TABLET GT SCH ×2 (09:20→21:11)
[2021-05-23] MEDS: VITAMINS A AND D OINT TP SCH ×2 (09:21→21:11)
[2021-05-23 20:00] VITALS: BP 133/64
[2021-05-23] MEDS: VITAMIN B COMPLEX 1 TABLET GT SCH (21:11)
[2021-05-23] MEDS: ATORVASTATIN 20 MG TABLET GT SCH (21:11)
[2021-05-23] MEDS: MIRALAX 17 GM POWD.PACK GT PRN (21:12)
[2021-05-23] MEDS: MELATONIN 3 MG TABLET GT PRN (21:12)
--- NOTE | 2021-05-24 01:05 | NUR ---
RESIDENT ON GT FEEDING: VITAL 1.2 @ 40CC/HR FOR 12 HOURS FROM 7P-7A ORDERED. AT 0100, RESIDENT COMPLAINED OF FEELING BLOATED. MINIMAL AMOUNT OF GAS NOTED. RESIDENT REQUESTED FOR FEEDING TO BE OFF AT THIS TIME BECAUSE SHE FELT BLOATED/FULL. NO C/O OF PAIN OR DISCOMFORT AT THIS TIME. NO FACIAL GRIMACING. GT DISCONNECTED PER RESIDENT REQUEST. WILL CONTINUE TO MONITOR. CALL LIGHT LEFT WITHIN REACH.
[2021-05-24] MEDS: MULTIVIT, IRON, MIN NO. 8, FA TABLET GT SCH (05:15)
[2021-05-24] MEDS: ACETAMINOPHEN 650 MG/20 ML UDC- SA PATIENTS-PAIN ONLY GT PRN ×3 (05:15→21:17)
[2021-05-24] MEDS: CHOLECALCIFEROL 1,000 UNIT TABLET GT SCH (05:15)
[2021-05-24] MEDS: GUAIFENESIN SUGAR FREE 100 MG/5 ML UDC GT PRN ×5 (05:15→21:15)
[2021-05-24] MEDS: OMEPRAZOLE 20 MG CAPSULE.DR GT SCH ×2 (05:15→17:06)
[2021-05-24] MEDS: ACIDOPHILUS/BULGARICUS CHEW TAB GT SCH ×3 (05:15→21:15)
[2021-05-24] MEDS: ZINC SULFATE 220 MG CAPSULE GT SCH (05:15)
[2021-05-24] MEDS: ASCORBIC ACID 500 MG TABLET GT SCH (05:15)
[2021-05-24] MEDS: IPRATROPIUM BROMIDE 0.5 MG/2.5 ML NEBU NEB SCH ×3 (07:20→20:54)
[2021-05-24 08:11] VITALS: BP 123/58
[2021-05-24] MEDS: HYDROGEN PEROXIDE 3% 118 ML BOTTLE TP SCH ×2 (09:01→20:05)
[2021-05-24] MEDS: CARVEDILOL 6.25 MG TABLET GT SCH ×2 (09:15→21:15)
[2021-05-24] MEDS: AMLODIPINE 5 MG TABLET GT SCH ×2 (09:15→21:15)
[2021-05-24] MEDS: Z GUARD REMEDY PASTE TOP SCH ×2 (09:16→21:15)
[2021-05-24] MEDS: MINOXIDIL TOP SCH ×2 (09:16→17:06)
[2021-05-24] MEDS: VITAMINS A AND D OINT TP SCH ×2 (09:17→21:15)
[2021-05-24 20:00] VITALS: BP 124/55
[2021-05-24] MEDS: ATORVASTATIN 20 MG TABLET GT SCH (21:15)
[2021-05-24] MEDS: MIRALAX 17 GM POWD.PACK GT PRN (21:15)
[2021-05-24] MEDS: VITAMIN B COMPLEX 1 TABLET GT SCH (21:15)
[2021-05-24] MEDS: VITAL AF 1.2 1,000 ML LIQUID GT PRN (21:17)
[2021-05-24] MEDS: MELATONIN 3 MG TABLET GT PRN (21:17)
--- NOTE | 2021-05-25 01:15 | NUR ---
RESIDENT COMPLAINED OF FEELING BLOATED AND REQUESTED FOR THE GT FEEDING TO BE OFF AT THIS TIME. ATTEMPTED TO RELEASE GAS FROM STOMACH VIA GT. NO GAS NOTED. DISCONNECTED GT FEEDING AT THIS TIME. ASPIRATION PRECAUTIONS NOTED. RESIDENT KEPT CLEAN AND DRY. CALL LIGHT LEFT WITHIN REACH. WILL CONTINUE TO MONITOR.
[2021-05-25] MEDS: GUAIFENESIN SUGAR FREE 100 MG/5 ML UDC GT PRN ×4 (05:11→21:20)
[2021-05-25] MEDS: ACIDOPHILUS/BULGARICUS CHEW TAB GT SCH ×3 (05:11→21:20)
[2021-05-25] MEDS: ASCORBIC ACID 500 MG TABLET GT SCH (05:11)
[2021-05-25] MEDS: OMEPRAZOLE 20 MG CAPSULE.DR GT SCH ×2 (05:11→17:11)
[2021-05-25] MEDS: MULTIVIT, IRON, MIN NO. 8, FA TABLET GT SCH (05:11)
[2021-05-25] MEDS: CHOLECALCIFEROL 1,000 UNIT TABLET GT SCH (05:11)
[2021-05-25] MEDS: ZINC SULFATE 220 MG CAPSULE GT SCH (05:11)
[2021-05-25] MEDS: ACETAMINOPHEN 650 MG/20 ML UDC- SA PATIENTS-PAIN ONLY GT PRN ×3 (05:12→21:20)
[2021-05-25] MEDS: HYDROGEN PEROXIDE 3% 118 ML BOTTLE TP SCH ×2 (07:25→21:23)
[2021-05-25] MEDS: IPRATROPIUM BROMIDE 0.5 MG/2.5 ML NEBU NEB SCH ×3 (07:25→22:50)
[2021-05-25 08:00] VITALS: BP 135/84
[2021-05-25] MEDS: AMLODIPINE 5 MG TABLET GT SCH ×2 (08:59→21:20)
[2021-05-25] MEDS: CARVEDILOL 6.25 MG TABLET GT SCH ×2 (08:59→21:20)
[2021-05-25] MEDS: Z GUARD REMEDY PASTE TOP SCH ×2 (08:59→21:20)
[2021-05-25] MEDS: MINOXIDIL TOP SCH ×2 (08:59→17:11)
[2021-05-25] MEDS: VITAMINS A AND D OINT TP SCH ×2 (08:59→21:20)
[2021-05-25 20:39] VITALS: BP 130/62
--- NOTE | 2021-05-25 21:08 | NUR ---
For Covid 19 test today per [facility] requirement.Pt agreed.
[2021-05-25] MEDS: VITAMIN B COMPLEX 1 TABLET GT SCH (21:19)
[2021-05-25] MEDS: MIRALAX 17 GM POWD.PACK GT PRN (21:20)
[2021-05-25] MEDS: MELATONIN 3 MG TABLET GT PRN (21:20)
[2021-05-25] MEDS: ATORVASTATIN 20 MG TABLET GT SCH (21:20)
[2021-05-26] MEDS: OMEPRAZOLE 20 MG CAPSULE.DR GT SCH ×2 (05:14→17:18)
[2021-05-26] MEDS: MULTIVIT, IRON, MIN NO. 8, FA TABLET GT SCH (05:14)
[2021-05-26] MEDS: CHOLECALCIFEROL 1,000 UNIT TABLET GT SCH (05:14)
[2021-05-26] MEDS: GUAIFENESIN SUGAR FREE 100 MG/5 ML UDC GT PRN ×5 (05:14→21:06)
[2021-05-26] MEDS: ACIDOPHILUS/BULGARICUS CHEW TAB GT SCH ×3 (05:14→21:30)
[2021-05-26] MEDS: ACETAMINOPHEN 650 MG/20 ML UDC- SA PATIENTS-PAIN ONLY GT PRN ×3 (05:14→21:03)
[2021-05-26] MEDS: ASCORBIC ACID 500 MG TABLET GT SCH (05:14)
[2021-05-26] MEDS: ZINC SULFATE 220 MG CAPSULE GT SCH (05:14)
[2021-05-26 07:27] VITALS: BP 117/66
[2021-05-26] MEDS: IPRATROPIUM BROMIDE 0.5 MG/2.5 ML NEBU NEB SCH ×3 (07:55→22:46)
[2021-05-26] MEDS: HYDROGEN PEROXIDE 3% 118 ML BOTTLE TP SCH ×2 (08:30→21:00)
[2021-05-26] MEDS: AMLODIPINE 5 MG TABLET GT SCH ×2 (08:49→21:00)
[2021-05-26] MEDS: MINOXIDIL TOP SCH ×2 (08:49→16:51)
[2021-05-26] MEDS: CARVEDILOL 6.25 MG TABLET GT SCH ×2 (08:49→20:59)
[2021-05-26] MEDS: Z GUARD REMEDY PASTE TOP SCH ×2 (08:58→21:00)
[2021-05-26] MEDS: VITAMINS A AND D OINT TP SCH ×2 (08:58→21:00)
--- NOTE | 2021-05-26 10:25 | NUR ---
This NEUROLOGY SPECIALIST called [facility] to make ambulance transportation arrangements for patient's upcoming outpatient doctors appointments. This NEUROLOGY SPECIALIST spoke with Gustabo at [facility], , and made ambulance pick-up reservation for 12:00pm on 05/27, for patient's 1:00pm neurosurgery [place] [id number], [place] [address], . Confirmation is patient's name and , Beverly Garcia 1955. This NEUROLOGY SPECIALIST also made ambulance pick-up reservations for 10:00am on 06/05 for patient's 11:00am ENT appointment with Dr. Muñoz at [address], [place] [address], . Confirmation is patient's name and , Beverly Garcia 1955. Both ambulance reservations are round-trip. marketing strategy lead Mario informed and above information was provided.
[2021-05-26] MEDS: VITAL AF 1.2 1,000 ML LIQUID GT PRN (18:55)
--- NOTE | 2021-05-26 18:59 | NUR ---
Patient refused to turn on GT feeding at this time. Stated, " I'm still full, I just ate." Explained risks and benefits, patient verbalized understanding but still refused. Will respect patient's rights. Endorsed to next shift accordingly.
[2021-05-26 20:09] VITALS: BP 143/58
[2021-05-26] MEDS: ATORVASTATIN 20 MG TABLET GT SCH (20:59)
[2021-05-26] MEDS: VITAMIN B COMPLEX 1 TABLET GT SCH (20:59)
[2021-05-26] MEDS: MIRALAX 17 GM POWD.PACK GT PRN (21:02)
[2021-05-27] MEDS: CHOLECALCIFEROL 1,000 UNIT TABLET GT SCH (05:11)
[2021-05-27] MEDS: ACIDOPHILUS/BULGARICUS CHEW TAB GT SCH ×3 (05:11→21:20)
[2021-05-27] MEDS: OMEPRAZOLE 20 MG CAPSULE.DR GT SCH ×2 (05:11→17:00)
[2021-05-27] MEDS: ZINC SULFATE 220 MG CAPSULE GT SCH (05:11)
[2021-05-27] MEDS: ASCORBIC ACID 500 MG TABLET GT SCH (05:11)
[2021-05-27] MEDS: MULTIVIT, IRON, MIN NO. 8, FA TABLET GT SCH (05:11)
[2021-05-27 07:25] VITALS: BP 130/62
[2021-05-27] MEDS: HYDROGEN PEROXIDE 3% 118 ML BOTTLE TP SCH ×2 (07:41→21:03)
[2021-05-27] MEDS: IPRATROPIUM BROMIDE 0.5 MG/2.5 ML NEBU NEB SCH ×3 (07:41→23:36)
[2021-05-27] MEDS: GUAIFENESIN SUGAR FREE 100 MG/5 ML UDC GT PRN ×3 (08:59→21:06)
[2021-05-27] MEDS: AMLODIPINE 5 MG TABLET GT SCH ×2 (09:00→21:03)
[2021-05-27] MEDS: MINOXIDIL TOP SCH ×2 (09:00→17:00)
[2021-05-27] MEDS: VITAMINS A AND D OINT TP SCH ×2 (09:00→21:03)
[2021-05-27] MEDS: HYDROCORTISONE 1% CREAM 30 GM TUBE TP SCH ×2 (09:00→21:03)
[2021-05-27] MEDS: Z GUARD REMEDY PASTE TOP SCH ×2 (09:00→21:03)
[2021-05-27] MEDS: CARVEDILOL 6.25 MG TABLET GT SCH ×2 (09:00→21:08)
--- NOTE | 2021-05-27 10:00 | NUR ---
Covid 19 test result negative,Pt notified.
--- NOTE | 2021-05-27 14:00 | NUR ---
Patient went out for neuro consult and came back with no complaint. VS stable. Administered scheduled meds.
[2021-05-27] MEDS: ACETAMINOPHEN 650 MG/20 ML UDC- SA PATIENTS-PAIN ONLY GT PRN ×2 (14:15→21:08)
--- NOTE | 2021-05-27 16:08 | NUR ---
Pt went out for neurology appointment with Dr Sousa at 1300 by [facility] ambulance in stable condition.
--- NOTE | 2021-05-27 18:02 | NUR ---
Pt was back from neurologist consult,in stable condition,new orders for ct head no contrast ,but will be done in 4 weeks.
[2021-05-27 20:25] VITALS: BP 122/56
[2021-05-27] MEDS: VITAMIN B COMPLEX 1 TABLET GT SCH (21:01)
[2021-05-27] MEDS: ATORVASTATIN 20 MG TABLET GT SCH (21:02)
[2021-05-27] MEDS: MELATONIN 3 MG TABLET GT PRN (21:06)
[2021-05-27] MEDS: MIRALAX 17 GM POWD.PACK GT PRN (21:06)
[2021-05-28] MEDS: ACIDOPHILUS/BULGARICUS CHEW TAB GT SCH ×3 (05:06→21:18)
[2021-05-28] MEDS: ASCORBIC ACID 500 MG TABLET GT SCH (05:07)
[2021-05-28] MEDS: MULTIVIT, IRON, MIN NO. 8, FA TABLET GT SCH (05:07)
[2021-05-28] MEDS: OMEPRAZOLE 20 MG CAPSULE.DR GT SCH ×2 (05:07→17:40)
[2021-05-28] MEDS: CHOLECALCIFEROL 1,000 UNIT TABLET GT SCH (05:09)
[2021-05-28] MEDS: ZINC SULFATE 220 MG CAPSULE GT SCH (05:10)
[2021-05-28] MEDS: ACETAMINOPHEN 650 MG/20 ML UDC- SA PATIENTS-PAIN ONLY GT PRN ×3 (05:17→21:09)
[2021-05-28] MEDS: HYDROGEN PEROXIDE 3% 118 ML BOTTLE TP SCH ×2 (07:25→21:04)
[2021-05-28] MEDS: IPRATROPIUM BROMIDE 0.5 MG/2.5 ML NEBU NEB SCH ×3 (07:25→23:07)
[2021-05-28 07:28] VITALS: BP 116/51
[2021-05-28] MEDS: MINOXIDIL TOP SCH ×2 (08:53→17:40)
[2021-05-28] MEDS: Z GUARD REMEDY PASTE TOP SCH ×2 (08:53→21:04)
[2021-05-28] MEDS: CARVEDILOL 3.125 MG TABLET GT SCH ×2 (08:53→21:03)
[2021-05-28] MEDS: AMLODIPINE 5 MG TABLET GT SCH ×2 (08:53→21:04)
[2021-05-28] MEDS: VITAMINS A AND D OINT TP SCH ×2 (08:54→21:05)
[2021-05-28] MEDS: HYDROCORTISONE 1% CREAM 30 GM TUBE TP SCH ×2 (08:54→21:04)
[2021-05-28] MEDS: GUAIFENESIN SUGAR FREE 100 MG/5 ML UDC GT PRN ×3 (13:06→21:09)
[2021-05-28 20:00] VITALS: BP 124/58
[2021-05-28] MEDS: VITAL AF 1.2 1,000 ML LIQUID GT PRN (21:00)
[2021-05-28] MEDS: ATORVASTATIN 20 MG TABLET GT SCH (21:04)
[2021-05-28] MEDS: VITAMIN B COMPLEX 1 TABLET GT SCH (21:05)
[2021-05-28] MEDS: MELATONIN 3 MG TABLET GT PRN (21:09)
[2021-05-28] MEDS: MIRALAX 17 GM POWD.PACK GT PRN (21:09)
--- NOTE | 2021-05-28 21:30 | NUR ---
Patient called and stated that treatment to her right under breast rash was not working and on assessment, This Nurse noted rashes on both Left and Right under breast, initiated in- house treatment with Nystatin cream every shift and leave open to air X 14 days.
[2021-05-28] MEDS: NYSTATIN CREAM 30 GM TUBE TOP SCH (21:45)
[2021-05-29] MEDS: OMEPRAZOLE 20 MG CAPSULE.DR GT SCH ×2 (05:04→17:35)
[2021-05-29] MEDS: ACIDOPHILUS/BULGARICUS CHEW TAB GT SCH ×3 (05:04→21:26)
[2021-05-29] MEDS: CHOLECALCIFEROL 1,000 UNIT TABLET GT SCH (05:05)
[2021-05-29] MEDS: ASCORBIC ACID 500 MG TABLET GT SCH (05:05)
[2021-05-29] MEDS: MULTIVIT, IRON, MIN NO. 8, FA TABLET GT SCH (05:05)
[2021-05-29] MEDS: ZINC SULFATE 220 MG CAPSULE GT SCH (05:06)
[2021-05-29] MEDS: GUAIFENESIN SUGAR FREE 100 MG/5 ML UDC GT PRN ×4 (05:09→21:00)
[2021-05-29] MEDS: ACETAMINOPHEN 650 MG/20 ML UDC- SA PATIENTS-PAIN ONLY GT PRN ×3 (05:10→21:00)
--- NOTE | 2021-05-29 05:59 | NUR ---
Patient requested to turn on her feeding by 2100 and turn it off by 0500 to the Nurse RE: feeling full.
[2021-05-29 07:49] VITALS: BP 129/60
[2021-05-29] MEDS: IPRATROPIUM BROMIDE 0.5 MG/2.5 ML NEBU NEB SCH ×3 (08:03→23:20)
[2021-05-29] MEDS: HYDROGEN PEROXIDE 3% 118 ML BOTTLE TP SCH ×2 (08:48→21:49)
--- NOTE | 2021-05-29 09:09 | NUR ---
DR. MONTES DE OCA WAS PAGED RE:PT'S REQUEST TO D/C TUBE FEEDING AT [facility] BECAUSE SHE FEELS VERY FULL DURING DAY TIME TO EAT MEALS PO.
--- NOTE | 2021-05-29 09:33 | NUR ---
NEW ORDERS CARRIED OUT FROM DR. ELLER.
[2021-05-29] MEDS: NYSTATIN CREAM 30 GM TUBE TOP SCH ×2 (09:35→21:25)
[2021-05-29] MEDS: Z GUARD REMEDY PASTE TOP SCH ×2 (09:35→21:25)
[2021-05-29] MEDS: AMLODIPINE 5 MG TABLET GT SCH ×2 (09:35→21:25)
[2021-05-29] MEDS: MINOXIDIL TOP SCH ×2 (09:35→17:35)
[2021-05-29] MEDS: CARVEDILOL 3.125 MG TABLET GT SCH ×2 (09:35→21:25)
[2021-05-29] MEDS: VITAMINS A AND D OINT TP SCH ×2 (09:35→21:26)
[2021-05-29 20:00] VITALS: BP 128/58
[2021-05-29] MEDS: MIRALAX 17 GM POWD.PACK GT PRN (21:00)
[2021-05-29] MEDS: MELATONIN 3 MG TABLET GT PRN (21:00)
[2021-05-29] MEDS: ATORVASTATIN 20 MG TABLET GT SCH (21:25)
[2021-05-29] MEDS: VITAMIN B COMPLEX 1 TABLET GT SCH (21:25)
[2021-05-30] MEDS: ACETAMINOPHEN 650 MG/20 ML UDC- SA PATIENTS-PAIN ONLY GT PRN ×3 (05:00→21:00)
[2021-05-30] MEDS: GUAIFENESIN SUGAR FREE 100 MG/5 ML UDC GT PRN ×4 (05:00→21:00)
[2021-05-30] MEDS: OMEPRAZOLE 20 MG CAPSULE.DR GT SCH ×2 (06:12→17:39)
[2021-05-30] MEDS: ASCORBIC ACID 500 MG TABLET GT SCH (06:12)
[2021-05-30] MEDS: ACIDOPHILUS/BULGARICUS CHEW TAB GT SCH ×3 (06:12→22:00)
[2021-05-30] MEDS: CHOLECALCIFEROL 1,000 UNIT TABLET GT SCH (06:12)
[2021-05-30] MEDS: MULTIVIT, IRON, MIN NO. 8, FA TABLET GT SCH (06:12)
[2021-05-30] MEDS: ZINC SULFATE 220 MG CAPSULE GT SCH (06:13)
[2021-05-30] MEDS: IPRATROPIUM BROMIDE 0.5 MG/2.5 ML NEBU NEB SCH ×3 (07:15→20:31)
[2021-05-30 07:43] VITALS: BP 107/57
--- NOTE | 2021-05-30 08:00 | NUR ---
SEEN BY MARY PARSONS AND WITH NNO.
[2021-05-30] MEDS: MINOXIDIL TOP SCH ×2 (08:48→17:39)
[2021-05-30] MEDS: AMLODIPINE 5 MG TABLET GT SCH ×2 (08:48→20:52)
[2021-05-30] MEDS: CARVEDILOL 3.125 MG TABLET GT SCH ×2 (08:48→20:51)
[2021-05-30] MEDS: VITAMINS A AND D OINT TP SCH ×2 (08:49→20:56)
[2021-05-30] MEDS: NYSTATIN CREAM 30 GM TUBE TOP SCH ×2 (08:49→20:56)
[2021-05-30] MEDS: Z GUARD REMEDY PASTE TOP SCH ×2 (08:49→20:56)
[2021-05-30] MEDS: HYDROGEN PEROXIDE 3% 118 ML BOTTLE TP SCH ×2 (09:36→21:47)
--- NOTE | 2021-05-30 16:00 | NUR ---
PER SPEECH THERAPIST ESTELLA CUNHA. REFUSED TO TAKE MEDS BY MOUTH AND VERIFIED WITH PT.
[2021-05-30 20:00] VITALS: BP 131/67
[2021-05-30] MEDS: VITAMIN B COMPLEX 1 TABLET GT SCH (20:51)
[2021-05-30] MEDS: ATORVASTATIN 20 MG TABLET GT SCH (20:52)
[2021-05-30] MEDS: MELATONIN 3 MG TABLET GT PRN (21:00)
[2021-05-30] MEDS: MIRALAX 17 GM POWD.PACK GT PRN (22:00)
[2021-05-31] MEDS: ACETAMINOPHEN 650 MG/20 ML UDC- SA PATIENTS-PAIN ONLY GT PRN ×3 (05:00→21:12)
[2021-05-31] MEDS: GUAIFENESIN SUGAR FREE 100 MG/5 ML UDC GT PRN ×5 (05:00→21:11)
[2021-05-31] MEDS: ACIDOPHILUS/BULGARICUS CHEW TAB GT SCH ×3 (05:49→21:11)
[2021-05-31] MEDS: OMEPRAZOLE 20 MG CAPSULE.DR GT SCH ×2 (05:49→17:04)
[2021-05-31] MEDS: MULTIVIT, IRON, MIN NO. 8, FA TABLET GT SCH (05:50)
[2021-05-31] MEDS: ASCORBIC ACID 500 MG TABLET GT SCH (05:50)
[2021-05-31] MEDS: ZINC SULFATE 220 MG CAPSULE GT SCH (05:50)
[2021-05-31] MEDS: CHOLECALCIFEROL 1,000 UNIT TABLET GT SCH (05:50)
[2021-05-31] MEDS: IPRATROPIUM BROMIDE 0.5 MG/2.5 ML NEBU NEB SCH ×3 (07:47→22:36)
[2021-05-31 07:55] VITALS: BP 125/65
[2021-05-31] MEDS: CARVEDILOL 3.125 MG TABLET GT SCH ×2 (09:09→21:09)
[2021-05-31] MEDS: AMLODIPINE 5 MG TABLET GT SCH ×2 (09:10→21:10)
[2021-05-31] MEDS: VITAMINS A AND D OINT TP SCH ×2 (09:11→21:11)
[2021-05-31] MEDS: NYSTATIN CREAM 30 GM TUBE TOP SCH ×2 (09:11→21:10)
[2021-05-31] MEDS: MINOXIDIL TOP SCH ×2 (09:11→17:04)
[2021-05-31] MEDS: Z GUARD REMEDY PASTE TOP SCH ×2 (09:11→21:10)
[2021-05-31] MEDS: MIRALAX 17 GM POWD.PACK GT PRN (09:12)
[2021-05-31] MEDS: HYDROGEN PEROXIDE 3% 118 ML BOTTLE TP SCH ×2 (09:21→21:25)
[2021-05-31 20:14] VITALS: BP 129/62
[2021-05-31] MEDS: VITAMIN B COMPLEX 1 TABLET GT SCH (21:08)
[2021-05-31] MEDS: ATORVASTATIN 20 MG TABLET GT SCH (21:09)
[2021-05-31] MEDS: MELATONIN 3 MG TABLET GT PRN (21:11)
[2021-06-01] MEDS: ACIDOPHILUS/BULGARICUS CHEW TAB GT SCH ×3 (05:25→22:37)
[2021-06-01] MEDS: OMEPRAZOLE 20 MG CAPSULE.DR GT SCH ×2 (05:25→17:22)
[2021-06-01] MEDS: ZINC SULFATE 220 MG CAPSULE GT SCH (05:25)
[2021-06-01] MEDS: CHOLECALCIFEROL 1,000 UNIT TABLET GT SCH (05:25)
[2021-06-01] MEDS: ASCORBIC ACID 500 MG TABLET GT SCH (05:25)
[2021-06-01] MEDS: MULTIVIT, IRON, MIN NO. 8, FA TABLET GT SCH (05:25)
[2021-06-01] MEDS: IPRATROPIUM BROMIDE 0.5 MG/2.5 ML NEBU NEB SCH ×3 (07:25→22:36)
[2021-06-01] MEDS: HYDROGEN PEROXIDE 3% 118 ML BOTTLE TP SCH ×2 (07:25→21:31)
[2021-06-01 07:31] VITALS: BP 128/67
[2021-06-01] MEDS: AMLODIPINE 5 MG TABLET GT SCH ×2 (09:10→20:58)
[2021-06-01] MEDS: CARVEDILOL 3.125 MG TABLET GT SCH ×2 (09:10→20:57)
[2021-06-01] MEDS: MINOXIDIL TOP SCH ×2 (09:10→17:22)
[2021-06-01] MEDS: NYSTATIN CREAM 30 GM TUBE TOP SCH ×2 (09:10→20:58)
[2021-06-01] MEDS: Z GUARD REMEDY PASTE TOP SCH ×2 (09:11→20:58)
[2021-06-01] MEDS: VITAMINS A AND D OINT TP SCH ×2 (09:11→20:58)
[2021-06-01] MEDS: GUAIFENESIN SUGAR FREE 100 MG/5 ML UDC GT PRN ×3 (09:11→17:23)
[2021-06-01] MEDS: ACETAMINOPHEN 650 MG/20 ML UDC- SA PATIENTS-PAIN ONLY GT PRN ×2 (13:11→20:59)
[2021-06-01 20:23] VITALS: BP 119/70
[2021-06-01] MEDS: VITAMIN B COMPLEX 1 TABLET GT SCH (20:57)
[2021-06-01] MEDS: ATORVASTATIN 20 MG TABLET GT SCH (20:57)
[2021-06-01] MEDS: MELATONIN 3 MG TABLET GT PRN (21:01)
[2021-06-01] MEDS: MIRALAX 17 GM POWD.PACK GT PRN (21:01)
[2021-06-02] MEDS: ACETAMINOPHEN 650 MG/20 ML UDC- SA PATIENTS-PAIN ONLY GT PRN ×2 (05:44→21:08)
[2021-06-02] MEDS: GUAIFENESIN SUGAR FREE 100 MG/5 ML UDC GT PRN ×3 (05:44→21:07)
[2021-06-02] MEDS: ASCORBIC ACID 500 MG TABLET GT SCH (05:44)
[2021-06-02] MEDS: ACIDOPHILUS/BULGARICUS CHEW TAB GT SCH ×3 (05:44→21:07)
[2021-06-02] MEDS: MULTIVIT, IRON, MIN NO. 8, FA TABLET GT SCH (05:44)
[2021-06-02] MEDS: CHOLECALCIFEROL 1,000 UNIT TABLET GT SCH (05:44)
[2021-06-02] MEDS: OMEPRAZOLE 20 MG CAPSULE.DR GT SCH ×2 (05:44→17:05)
[2021-06-02] MEDS: ZINC SULFATE 220 MG CAPSULE GT SCH (05:44)
[2021-06-02 07:24] VITALS: BP 127/62
[2021-06-02] MEDS: IPRATROPIUM BROMIDE 0.5 MG/2.5 ML NEBU NEB SCH ×3 (07:31→22:48)
[2021-06-02] MEDS: HYDROGEN PEROXIDE 3% 118 ML BOTTLE TP SCH ×2 (08:04→21:33)
--- NOTE | 2021-06-02 08:57 | NUR ---
SEEN BY DARION Strong AND WITH NNO.
[2021-06-02] MEDS: AMLODIPINE 5 MG TABLET GT SCH ×2 (09:06→20:57)
[2021-06-02] MEDS: CARVEDILOL 3.125 MG TABLET GT SCH ×2 (09:06→20:56)
[2021-06-02] MEDS: VITAMINS A AND D OINT TP SCH ×2 (09:07→20:58)
[2021-06-02] MEDS: NYSTATIN CREAM 30 GM TUBE TOP SCH ×2 (09:07→20:58)
[2021-06-02] MEDS: Z GUARD REMEDY PASTE TOP SCH ×2 (09:07→20:58)
[2021-06-02] MEDS: MINOXIDIL TOP SCH ×2 (09:07→17:05)
--- NOTE | 2021-06-02 16:12 | NUR ---
NEW ORDER WAS CARRIED OUT FROM DR MONTES DE OCA FOR CONTINUATION OF PT SERVICES.
[2021-06-02 20:17] VITALS: BP 106/53
[2021-06-02] MEDS: VITAMIN B COMPLEX 1 TABLET GT SCH (20:52)
[2021-06-02] MEDS: ATORVASTATIN 20 MG TABLET GT SCH (20:57)
[2021-06-02] MEDS: MIRALAX 17 GM POWD.PACK GT PRN (21:07)
[2021-06-02] MEDS: MELATONIN 3 MG TABLET GT PRN (21:07)
[2021-06-03] MEDS: GUAIFENESIN SUGAR FREE 100 MG/5 ML UDC GT PRN ×4 (05:00→21:05)
[2021-06-03] MEDS: ACETAMINOPHEN 650 MG/20 ML UDC- SA PATIENTS-PAIN ONLY GT PRN ×3 (05:00→21:00)
[2021-06-03] MEDS: CHOLECALCIFEROL 1,000 UNIT TABLET GT SCH (05:37)
[2021-06-03] MEDS: MULTIVIT, IRON, MIN NO. 8, FA TABLET GT SCH (05:37)
[2021-06-03] MEDS: ASCORBIC ACID 500 MG TABLET GT SCH (05:37)
[2021-06-03] MEDS: ZINC SULFATE 220 MG CAPSULE GT SCH (05:37)
[2021-06-03] MEDS: OMEPRAZOLE 20 MG CAPSULE.DR GT SCH ×2 (05:37→17:12)
[2021-06-03] MEDS: ACIDOPHILUS/BULGARICUS CHEW TAB GT SCH ×3 (05:37→22:18)
[2021-06-03 07:25] VITALS: BP 136/70
[2021-06-03] MEDS: IPRATROPIUM BROMIDE 0.5 MG/2.5 ML NEBU NEB SCH ×3 (07:25→20:43)
[2021-06-03] MEDS: HYDROGEN PEROXIDE 3% 118 ML BOTTLE TP SCH ×2 (07:25→20:08)
[2021-06-03] MEDS: AMLODIPINE 5 MG TABLET GT SCH ×2 (08:32→20:59)
[2021-06-03] MEDS: NYSTATIN CREAM 30 GM TUBE TOP SCH ×2 (08:32→20:59)
[2021-06-03] MEDS: CARVEDILOL 3.125 MG TABLET GT SCH ×2 (08:32→20:59)
[2021-06-03] MEDS: Z GUARD REMEDY PASTE TOP SCH ×2 (08:32→20:59)
[2021-06-03] MEDS: VITAMINS A AND D OINT TP SCH ×2 (08:32→20:59)
[2021-06-03] MEDS: MINOXIDIL TOP SCH ×2 (08:32→17:12)
--- NOTE | 2021-06-03 11:00 | NUR ---
Seen and examined by Mejia Acosta, with new orders noted.Pt decannulated as ordered,procedure tolerated ,o2 sat 95 % on close observation.
--- NOTE | 2021-06-03 11:30 | NUR ---
Pt decannulated per MD orders. JARRED Ibanez notified. No complications. No respiratory distress. Pt is on Room Air with an SpO2 of 98%. Will continue to monitor.
--- NOTE | 2021-06-03 15:01 | NUR ---
Seen and examined by Alexia PRICE, no new orders noted.
[2021-06-03 20:07] VITALS: BP 127/62
[2021-06-03] MEDS: VITAMIN B COMPLEX 1 TABLET GT SCH (20:59)
[2021-06-03] MEDS: ATORVASTATIN 20 MG TABLET GT SCH (20:59)
[2021-06-03] MEDS: MIRALAX 17 GM POWD.PACK GT PRN (21:05)
[2021-06-03] MEDS: MELATONIN 3 MG TABLET GT PRN (21:05)
[2021-06-04] MEDS: ACETAMINOPHEN 650 MG/20 ML UDC- SA PATIENTS-PAIN ONLY GT PRN ×2 (05:00→21:00)
[2021-06-04] MEDS: GUAIFENESIN SUGAR FREE 100 MG/5 ML UDC GT PRN ×3 (05:00→20:59)
[2021-06-04] MEDS: ACIDOPHILUS/BULGARICUS CHEW TAB GT SCH ×3 (05:56→22:27)
[2021-06-04] MEDS: OMEPRAZOLE 20 MG CAPSULE.DR GT SCH ×2 (05:56→17:07)
[2021-06-04] MEDS: ASCORBIC ACID 500 MG TABLET GT SCH (05:57)
[2021-06-04] MEDS: ZINC SULFATE 220 MG CAPSULE GT SCH (05:57)
[2021-06-04] MEDS: CHOLECALCIFEROL 1,000 UNIT TABLET GT SCH (05:57)
[2021-06-04] MEDS: MULTIVIT, IRON, MIN NO. 8, FA TABLET GT SCH (05:57)
[2021-06-04] MEDS: IPRATROPIUM BROMIDE 0.5 MG/2.5 ML NEBU NEB SCH ×3 (07:10→23:21)
[2021-06-04] MEDS: HYDROGEN PEROXIDE 3% 118 ML BOTTLE TP SCH ×2 (07:10→19:17)
[2021-06-04 07:50] VITALS: BP 125/60
[2021-06-04] MEDS: MINOXIDIL TOP SCH ×2 (09:04→17:07)
[2021-06-04] MEDS: CARVEDILOL 3.125 MG TABLET GT SCH ×2 (09:04→20:55)
[2021-06-04] MEDS: Z GUARD REMEDY PASTE TOP SCH ×2 (09:04→20:56)
[2021-06-04] MEDS: NYSTATIN CREAM 30 GM TUBE TOP SCH ×2 (09:04→20:56)
[2021-06-04] MEDS: AMLODIPINE 5 MG TABLET GT SCH ×2 (09:04→20:56)
[2021-06-04] MEDS: VITAMINS A AND D OINT TP SCH ×2 (09:05→20:56)
[2021-06-04 20:09] VITALS: BP 135/62
[2021-06-04] MEDS: VITAMIN B COMPLEX 1 TABLET GT SCH (20:54)
[2021-06-04] MEDS: ATORVASTATIN 20 MG TABLET GT SCH (20:55)
[2021-06-04] MEDS: MELATONIN 3 MG TABLET GT PRN (20:59)
[2021-06-04] MEDS: MIRALAX 17 GM POWD.PACK GT PRN (21:10)
[2021-06-05] MEDS: MULTIVIT, IRON, MIN NO. 8, FA TABLET GT SCH (05:54)
[2021-06-05] MEDS: OMEPRAZOLE 20 MG CAPSULE.DR GT SCH ×2 (05:54→17:00)
[2021-06-05] MEDS: ACIDOPHILUS/BULGARICUS CHEW TAB GT SCH ×3 (05:54→21:20)
[2021-06-05] MEDS: ZINC SULFATE 220 MG CAPSULE GT SCH (05:54)
[2021-06-05] MEDS: ASCORBIC ACID 500 MG TABLET GT SCH (05:54)
[2021-06-05] MEDS: CHOLECALCIFEROL 1,000 UNIT TABLET GT SCH (05:54)
[2021-06-05] MEDS: IPRATROPIUM BROMIDE 0.5 MG/2.5 ML NEBU NEB SCH ×3 (07:55→22:36)
[2021-06-05] MEDS: HYDROGEN PEROXIDE 3% 118 ML BOTTLE TP SCH ×2 (07:55→21:33)
[2021-06-05 07:56] VITALS: BP 117/54
[2021-06-05] MEDS: CARVEDILOL 3.125 MG TABLET GT SCH ×2 (09:02→21:20)
[2021-06-05] MEDS: VITAMINS A AND D OINT TP SCH ×2 (09:03→21:20)
[2021-06-05] MEDS: AMLODIPINE 5 MG TABLET GT SCH ×2 (09:03→21:20)
[2021-06-05] MEDS: MINOXIDIL TOP SCH ×2 (09:03→17:00)
[2021-06-05] MEDS: Z GUARD REMEDY PASTE TOP SCH ×2 (09:03→21:20)
[2021-06-05] MEDS: NYSTATIN CREAM 30 GM TUBE TOP SCH ×2 (09:03→21:20)
[2021-06-05] MEDS: GUAIFENESIN SUGAR FREE 100 MG/5 ML UDC GT PRN ×2 (09:05→17:00)
--- NOTE | 2021-06-05 14:00 | NUR ---
S/P ENT CONSULT WITH DR MOREL, WITH NEW ORDERS FOR CT ANGIO HEAD & NECK WITH & WITHOUT CONTRAST; AND BUN & CREATININE BEFORE CT. NOTED AND CARRIED OUT. DR MOREL NOTES NOT READY YET; WILL NOTE FOR A FOLLOW UP IN AM FOR NOTES.
[2021-06-05 20:18] VITALS: BP 116/60
[2021-06-05] MEDS: VITAMIN B COMPLEX 1 TABLET GT SCH (21:19)
[2021-06-05] MEDS: ATORVASTATIN 20 MG TABLET GT SCH (21:20)
[2021-06-06] MEDS: ASCORBIC ACID 500 MG TABLET GT SCH (06:04)
[2021-06-06] MEDS: ZINC SULFATE 220 MG CAPSULE GT SCH (06:04)
[2021-06-06] MEDS: ACIDOPHILUS/BULGARICUS CHEW TAB GT SCH ×3 (06:04→21:16)
[2021-06-06] MEDS: MULTIVIT, IRON, MIN NO. 8, FA TABLET GT SCH (06:04)
[2021-06-06] MEDS: OMEPRAZOLE 20 MG CAPSULE.DR GT SCH ×2 (06:04→17:24)
[2021-06-06] MEDS: CHOLECALCIFEROL 1,000 UNIT TABLET GT SCH (06:04)
--- NOTE | 2021-06-06 07:04 | NUR ---
PT WILL HAVE APPT FOR CT ANGIO HEAD & NECK WITH AND WITHOUT CONTRAST ON 06/06/21 AT 10.00AM. IV SITE ON (R) HAND . LAB BUN, CR BEFORE CT NOTED.
[2021-06-06] MEDS: IPRATROPIUM BROMIDE 0.5 MG/2.5 ML NEBU NEB SCH ×3 (07:25→22:31)
[2021-06-06 08:00] VITALS: BP 124/52
[2021-06-06 08:53] LABS: CREATININE 0.5 mg/dL (0.6-1.3)
[2021-06-06] MEDS: AMLODIPINE 5 MG TABLET GT SCH ×2 (09:11→21:15)
[2021-06-06] MEDS: MINOXIDIL TOP SCH ×2 (09:11→17:24)
[2021-06-06] MEDS: NYSTATIN CREAM 30 GM TUBE TOP SCH ×2 (09:11→21:16)
[2021-06-06] MEDS: CARVEDILOL 3.125 MG TABLET GT SCH ×2 (09:11→21:16)
[2021-06-06] MEDS: VITAMINS A AND D OINT TP SCH ×2 (09:12→21:16)
[2021-06-06] MEDS: Z GUARD REMEDY PASTE TOP SCH ×2 (09:12→21:16)
[2021-06-06] MEDS: GUAIFENESIN SUGAR FREE 100 MG/5 ML UDC GT PRN ×3 (09:17→21:17)
[2021-06-06] MEDS: HYDROGEN PEROXIDE 3% 118 ML BOTTLE TP SCH ×2 (09:30→21:32)
--- NOTE | 2021-06-06 13:00 | NUR ---
Milton Vela. notified of pt's condition, Ct scan of head/neck w/wo contrast done (results pending), new orders received from for d/c planning to [facility] notified. Pt a+ox4, notified of md order.
--- NOTE | 2021-06-06 14:43 | NUR ---
This ORNAMENT MAKER HAND was informed by hot car charger Mario that per Dr. Flores, DC planning for ARU can resume, with the goal of having patient transfer to ARU early next week. This ORNAMENT MAKER HAND informed ARU KAILEY Hendricks of DC Planning orders. This ORNAMENT MAKER HAND also called patient's [phone] Mr. López, and informed him of DC plans to ARU for next week. Mr. López was in agreement with this plan.
[2021-06-06 20:01] VITALS: BP 116/55
--- NOTE | 2021-06-06 20:54 | NUR ---
Patient is awake and breathing even and non- labored, denies any distress, on room air, needs attended, kept clean and comfortable, call light within reach.
[2021-06-06] MEDS: ATORVASTATIN 20 MG TABLET GT SCH (21:16)
[2021-06-06] MEDS: VITAMIN B COMPLEX 1 TABLET GT SCH (21:16)
[2021-06-06] MEDS: ACETAMINOPHEN 650 MG/20 ML UDC- SA PATIENTS-PAIN ONLY GT PRN (21:16)
[2021-06-06] MEDS: MIRALAX 17 GM POWD.PACK GT PRN (21:17)
[2021-06-06] MEDS: MELATONIN 3 MG TABLET GT PRN (21:17)
[2021-06-07] MEDS: OMEPRAZOLE 20 MG CAPSULE.DR GT SCH ×2 (05:38→18:30)
[2021-06-07] MEDS: MULTIVIT, IRON, MIN NO. 8, FA TABLET GT SCH (05:38)
[2021-06-07] MEDS: ASCORBIC ACID 500 MG TABLET GT SCH (05:38)
[2021-06-07] MEDS: ACIDOPHILUS/BULGARICUS CHEW TAB GT SCH ×3 (05:38→22:12)
[2021-06-07] MEDS: ZINC SULFATE 220 MG CAPSULE GT SCH (05:39)
[2021-06-07] MEDS: CHOLECALCIFEROL 1,000 UNIT TABLET GT SCH (05:39)
[2021-06-07] MEDS: IPRATROPIUM BROMIDE 0.5 MG/2.5 ML NEBU NEB SCH ×3 (07:25→23:24)
[2021-06-07] MEDS: HYDROGEN PEROXIDE 3% 118 ML BOTTLE TP SCH ×2 (07:25→19:15)
[2021-06-07 07:42] VITALS: BP 129/62
[2021-06-07] MEDS: CARVEDILOL 3.125 MG TABLET GT SCH ×2 (08:24→21:00)
[2021-06-07] MEDS: Z GUARD REMEDY PASTE TOP SCH ×2 (08:25→21:00)
[2021-06-07] MEDS: MINOXIDIL TOP SCH ×2 (08:25→17:00)
[2021-06-07] MEDS: NYSTATIN CREAM 30 GM TUBE TOP SCH ×2 (08:25→21:00)
[2021-06-07] MEDS: AMLODIPINE 5 MG TABLET GT SCH ×2 (08:25→21:00)
[2021-06-07] MEDS: VITAMINS A AND D OINT TP SCH ×2 (08:25→21:00)
[2021-06-07] MEDS: MIRALAX 17 GM POWD.PACK GT PRN ×2 (09:46→21:00)
[2021-06-07] MEDS: ACETAMINOPHEN 650 MG/20 ML UDC- SA PATIENTS-PAIN ONLY GT PRN ×2 (13:00→21:00)
[2021-06-07] MEDS: GUAIFENESIN SUGAR FREE 100 MG/5 ML UDC GT PRN ×2 (13:00→21:00)
[2021-06-07 20:12] VITALS: BP 105/63
[2021-06-07] MEDS: MELATONIN 3 MG TABLET GT PRN (21:00)
[2021-06-07] MEDS: ATORVASTATIN 20 MG TABLET GT SCH (21:00)
[2021-06-07] MEDS: VITAMIN B COMPLEX 1 TABLET GT SCH (21:00)
--- NOTE | 2021-06-08 01:49 | NUR ---
Patient is sleeping, breathing even and unlabored, 02 sat is 100%, no respiratory distress noted. needs attended, call light within reach.
[2021-06-08] MEDS: ASCORBIC ACID 500 MG TABLET GT SCH (05:34)
[2021-06-08] MEDS: ACIDOPHILUS/BULGARICUS CHEW TAB GT SCH ×3 (05:34→21:00)
[2021-06-08] MEDS: OMEPRAZOLE 20 MG CAPSULE.DR GT SCH ×2 (05:34→17:00)
[2021-06-08] MEDS: MULTIVIT, IRON, MIN NO. 8, FA TABLET GT SCH (05:34)
[2021-06-08] MEDS: CHOLECALCIFEROL 1,000 UNIT TABLET GT SCH (05:34)
[2021-06-08] MEDS: ZINC SULFATE 220 MG CAPSULE GT SCH (05:34)
[2021-06-08] MEDS: HYDROGEN PEROXIDE 3% 118 ML BOTTLE TP SCH ×2 (07:18→21:00)
[2021-06-08] MEDS: IPRATROPIUM BROMIDE 0.5 MG/2.5 ML NEBU NEB SCH ×3 (07:18→23:14)
[2021-06-08 08:22] VITALS: BP 127/69
[2021-06-08] MEDS: AMLODIPINE 5 MG TABLET GT SCH ×2 (09:00→20:50)
[2021-06-08] MEDS: CARVEDILOL 3.125 MG TABLET GT SCH ×2 (09:00→20:50)
[2021-06-08] MEDS: MINOXIDIL TOP SCH ×2 (09:00→17:00)
[2021-06-08] MEDS: NYSTATIN CREAM 30 GM TUBE TOP SCH ×2 (09:00→21:00)
[2021-06-08] MEDS: Z GUARD REMEDY PASTE TOP SCH ×2 (09:00→20:58)
[2021-06-08] MEDS: VITAMINS A AND D OINT TP SCH ×2 (09:00→20:58)
[2021-06-08] MEDS: GUAIFENESIN SUGAR FREE 100 MG/5 ML UDC GT PRN ×3 (12:57→21:00)
[2021-06-08] MEDS: ACETAMINOPHEN 650 MG/20 ML UDC- SA PATIENTS-PAIN ONLY GT PRN ×3 (12:57→21:01)
[2021-06-08 20:08] VITALS: BP 132/58
[2021-06-08] MEDS: ATORVASTATIN 20 MG TABLET GT SCH (20:50)
[2021-06-08] MEDS: VITAMIN B COMPLEX 1 TABLET GT SCH (20:52)
[2021-06-08] MEDS: MIRALAX 17 GM POWD.PACK GT PRN (21:00)
[2021-06-08] MEDS: MELATONIN 3 MG TABLET GT PRN (21:01)
[2021-06-09] MEDS: MULTIVIT, IRON, MIN NO. 8, FA TABLET GT SCH (05:28)
[2021-06-09] MEDS: OMEPRAZOLE 20 MG CAPSULE.DR GT SCH ×2 (05:28→17:02)
[2021-06-09] MEDS: ACIDOPHILUS/BULGARICUS CHEW TAB GT SCH ×3 (05:28→21:00)
[2021-06-09] MEDS: ASCORBIC ACID 500 MG TABLET GT SCH (05:29)
[2021-06-09] MEDS: ZINC SULFATE 220 MG CAPSULE GT SCH (05:29)
[2021-06-09] MEDS: CHOLECALCIFEROL 1,000 UNIT TABLET GT SCH (05:29)
[2021-06-09] MEDS: IPRATROPIUM BROMIDE 0.5 MG/2.5 ML NEBU NEB SCH ×3 (07:18→23:35)
[2021-06-09 07:30] VITALS: BP 120/61
--- NOTE | 2021-06-09 07:45 | NUR ---
Seen by Lilly PRICE, notified of angio ct scan of head/neck w/wo contrast was done, no new order given at this time.
[2021-06-09] MEDS: CARVEDILOL 3.125 MG TABLET GT SCH ×2 (08:56→20:59)
[2021-06-09] MEDS: AMLODIPINE 5 MG TABLET GT SCH ×2 (08:56→20:59)
[2021-06-09] MEDS: MINOXIDIL TOP SCH ×2 (08:56→17:01)
[2021-06-09] MEDS: NYSTATIN CREAM 30 GM TUBE TOP SCH ×2 (08:56→20:59)
[2021-06-09] MEDS: Z GUARD REMEDY PASTE TOP SCH ×2 (08:57→20:59)
[2021-06-09] MEDS: VITAMINS A AND D OINT TP SCH ×2 (08:57→20:59)
[2021-06-09] MEDS: MIRALAX 17 GM POWD.PACK GT PRN ×2 (08:57→20:59)
[2021-06-09] MEDS: HYDROGEN PEROXIDE 3% 118 ML BOTTLE TP SCH ×2 (09:00→21:00)
--- NOTE | 2021-06-09 12:00 | NUR ---
This ELECTRIC DEICER INSPECTOR spoke with ARU briefcase sewer Eladio regarding patient's referral to ARU. Eladio stated that patient has been cleared for ARU transfer tomorrow, 06/10/2021. This ELECTRIC DEICER INSPECTOR informed transmitter engineer in charge Mario.
[2021-06-09] MEDS: ACETAMINOPHEN 650 MG/20 ML UDC- SA PATIENTS-PAIN ONLY GT PRN ×2 (12:59→21:00)
[2021-06-09] MEDS: GUAIFENESIN SUGAR FREE 100 MG/5 ML UDC GT PRN ×3 (12:59→20:59)
--- NOTE | 2021-06-09 14:02 | NUR ---
Result of angio Ct of the head/neck w/wo contrast faxed to Dr. Muñoz office.
--- NOTE | 2021-06-09 14:11 | NUR ---
New order received from Pamela Vela, to d/c to ARU 06/10/21. Patient a+ox4 and notified of new order.
[2021-06-09 20:07] VITALS: BP 123/53
[2021-06-09] MEDS: VITAMIN B COMPLEX 1 TABLET GT SCH (20:58)
[2021-06-09] MEDS: ATORVASTATIN 20 MG TABLET GT SCH (20:59)
[2021-06-09] MEDS: MELATONIN 3 MG TABLET GT PRN (20:59)
--- NOTE | 2021-06-09 22:00 | NUR ---
Patient is alert and oriented X 4, breathing even and non- labored, on room air, 02 sat is 99%, denies any respiratory distress, old trach stoma is clean, no drainage of discharges noted. Patient still prefers to get medication via the gt but she is eating by mouth and no signs of aspirations noted. Rashes on both underarms are clearing, treatment done as ordered, kept skin clean an dry. Needs anticipated, call light within reach.
[2021-06-10] MEDS: ASCORBIC ACID 500 MG TABLET GT SCH (05:00)
[2021-06-10] MEDS: CHOLECALCIFEROL 1,000 UNIT TABLET GT SCH (05:00)
[2021-06-10] MEDS: OMEPRAZOLE 20 MG CAPSULE.DR GT SCH (05:00)
[2021-06-10] MEDS: ZINC SULFATE 220 MG CAPSULE GT SCH (05:00)
[2021-06-10] MEDS: ACIDOPHILUS/BULGARICUS CHEW TAB GT SCH ×2 (05:00→13:05)
[2021-06-10] MEDS: MULTIVIT, IRON, MIN NO. 8, FA TABLET GT SCH (05:00)
[2021-06-10] MEDS: GUAIFENESIN SUGAR FREE 100 MG/5 ML UDC GT PRN ×3 (05:07→13:07)
[2021-06-10] MEDS: ACETAMINOPHEN 650 MG/20 ML UDC- SA PATIENTS-PAIN ONLY GT PRN ×2 (05:08→13:00)
[2021-06-10] MEDS: IPRATROPIUM BROMIDE 0.5 MG/2.5 ML NEBU NEB SCH (07:22)
[2021-06-10 07:23] VITALS: BP 129/61
--- NOTE | 2021-06-10 08:30 | NUR ---
Seen and examined by Catherine Ba,Alexia Ba ,no new orders noted.
[2021-06-10] MEDS: NYSTATIN CREAM 30 GM TUBE TOP SCH (08:52)
[2021-06-10] MEDS: MINOXIDIL TOP SCH (08:52)
[2021-06-10] MEDS: VITAMINS A AND D OINT TP SCH (08:53)
[2021-06-10] MEDS: Z GUARD REMEDY PASTE TOP SCH (08:53)
[2021-06-10 08:54] VITALS: BP 130/62
[2021-06-10] MEDS: AMLODIPINE 5 MG TABLET GT SCH (08:54)
[2021-06-10] MEDS: CARVEDILOL 3.125 MG TABLET GT SCH (08:54)
[2021-06-10] MEDS: MIRALAX 17 GM POWD.PACK GT PRN (08:55)
[2021-06-10] MEDS: HYDROGEN PEROXIDE 3% 118 ML BOTTLE TP SCH (09:38)
--- NOTE | 2021-06-10 10:00 | NUR ---
call Dr Flores office spoke to Judeleft message to complete the discharge planning,and needs the discharge orders. Addendum: 06/10/21 at 1656 by ANGELA BAHENA RN spoke to Glo
--- NOTE | 2021-06-10 15:35 | NUR ---
ARU CM Eladio confirmed transfer to ARU today, 06/10/2021. This SALES MERCHANDISING SPECIALIST informed smelter charger Miriam. This SALES MERCHANDISING SPECIALIST also met with the patient regarding the transfer to ARU, and patient agrees with the plan. No discharge services needed at this time, as child welfare social worker and case management in ARU will work with the patient to make all necessary DC arrangements for home, once she completes her treatment in ARU.
--- NOTE | 2021-06-10 16:36 | NUR ---
Pt alert and oriented in stable condition,Body check done ,no open wounds ,trach site clean,no redness o s/s of infection noted,Gt In place,no s/s of infection,afebrile,T 98.2,belonging list signed by Patient,Maribel Pt's notified regarding the discharge He Agreed with the plan of care,Resident discharge to ARU for continuity of care,Room 330,report given to Marjorie STERN,
== END 2021-06-10 16:30 | DRG 207 ==
LOC: SA 16:31
PROVIDERS: ADMIT Internal Medicine; ATTEND Internal Medicine
PROC: 5A1945Z Respiratory Ventilation, 24-96 Consecutive Hours (ICD-10-PCS; 2020-12-27)
PROC: 5A1955Z Respiratory Ventilation, Greater than 96 Consecutive Hours (ICD-10-PCS; principal; 2020-12-30)
DX: J96.11 Chronic respiratory failure with hypoxia (principal); I62.00 Nontraumatic subdural hemorrhage, unspecified; K62.6 Ulcer of anus and rectum; Z68.1 Body mass index [BMI] 19.9 or less, adult; J47.9 Bronchiectasis, uncomplicated; D64.9 Anemia, unspecified; E78.5 Hyperlipidemia, unspecified; F41.9 Anxiety disorder, unspecified; H93.11 Tinnitus, right ear; I10 Essential (primary) hypertension; K56.41 Fecal impaction; M75.51 Bursitis of right shoulder; Z86.16 Personal history of COVID-19; G89.29 Other chronic pain; M54.9 Dorsalgia, unspecified; Z89.222 Acquired absence of left upper limb above elbow; M19.041 Primary osteoarthritis, right hand; Z93.0 Tracheostomy status; Z93.1 Gastrostomy status
CPT/HCPCS: 36415; 36600; 73030; 73080; 82747; 83550; 84443; 84520; 85014; 85025; 86580; 94002; 94003; 94640; A4663; A9575; J3590; J8597; Q0162; U0003

== ENCOUNTER → 2021-06-06 | Outpatient (CLI) | payer MEDICARE, OTHER ==
[~2021-06-06] MED LIST changes: +IOHEXOL 350 100 ML INFUS..BTL ONE; +IV NORMAL SALINE 250 ML IV ONE; +SWABABLE VALVE TRANSFER SET EA MC ONE
== END | disposition home or self-care (01) ==
LOC: CT 06-05 15:15
PROVIDERS: ATTEND Internal Medicine
DX: I65.23 Occlusion and stenosis of bilateral carotid arteries (principal); H93.11 Tinnitus, right ear
CPT/HCPCS: 70496; 70498; Q9967; J7050

== ENCOUNTER 2021-06-09 17:36 | Inpatient (IN) | payer MEDICARE, OTHER ==
[~2021-06-09] VITALS: Ht 157.5 cm; Wt 49.0 kg
[~2021-06-09 17:36] MED LIST changes: -IOHEXOL 350 100 ML INFUS..BTL ONE; -IV NORMAL SALINE 250 ML IV ONE; -NEOM1OIN15 TP; +NEOM1OIN19 TP; -SWABABLE VALVE TRANSFER SET EA MC ONE
[2021-06-10 17:01] VITALS: BP 134/69
[2021-06-10] MEDS ORDERED: VITAL AF 1.2 1,000 ML LIQUID GT SCH (18:45)
[2021-06-10] MEDS ORDERED: VITAL AF 1.2 1,000 ML LIQUID PO SCH (18:45)
[2021-06-10] MEDS ORDERED: MAGNESIUM HYDROXIDE 30 ML LIQUID UDC GT PRN (18:45)
[2021-06-10] MEDS ORDERED: TRAMADOL HCL 50 MG TABLET GT PRN (18:45)
[2021-06-10] MEDS ORDERED: ONDANSETRON HCL 4 MG TABLET GT PRN (18:45)
[2021-06-10 20:30] VITALS: BP 126/66
[2021-06-10] MEDS ORDERED: NEOMY/BACITRA/POLYMYXIN B OINT UD PACKET TP SCH (21:00)
[2021-06-10] MEDS: LISINOPRIL 10 MG TABLET GT SCH (21:03)
[2021-06-10] MEDS: VITAMIN B COMPLEX 1 TABLET GT SCH (21:09)
[2021-06-10] MEDS: ACETAMINOPHEN 325 MG TABLET GT PRN (21:09)
[2021-06-10] MEDS: MELATONIN 3 MG TABLET GT PRN (21:10)
[2021-06-10] MEDS: IPRATROPIUM BROMIDE 0.5 MG/2.5 ML NEBU NEB SCH (21:34)
[2021-06-10] MEDS: ALBUTEROL SULFATE 2.5 MG/ 0.5 ML NEBU NEB SCH (21:34)
[2021-06-11 04:30] VITALS: BP 116/64
[2021-06-11] MEDS ORDERED: PANTOPRAZOLE ORAL SUSPENSION 40 MG SUSPDR.PKT GT SCH (06:00)
[2021-06-11 08:00] VITALS: BP 127/66
[2021-06-11] MEDS: CHOLECALCIFEROL 1,000 UNIT TABLET GT SCH (08:23)
[2021-06-11] MEDS: CARVEDILOL 3.125 MG TABLET GT SCH ×2 (08:23→17:54)
[2021-06-11] MEDS: LISINOPRIL 10 MG TABLET GT SCH ×2 (08:24→20:43)
[2021-06-11] MEDS: METOCLOPRAMIDE HCL 10 MG TABLET GT SCH ×2 (08:24→17:42)
[2021-06-11] MEDS: SPIRONOLACTONE 25 MG TABLET GT SCH (08:24)
[2021-06-11] MEDS: ZINC SULFATE 220 MG CAPSULE GT SCH (08:24)
[2021-06-11] MEDS: FUROSEMIDE 40 MG TABLET GT SCH (08:24)
[2021-06-11] MEDS: ACETAzolamide 250 MG TABLET GT SCH ×2 (08:25→17:25)
[2021-06-11] MEDS: MIRALAX 17 GM POWD.PACK GT SCH ×2 (08:25→17:25)
[2021-06-11] MEDS: ENOXAPARIN SODIUM 40 MG/0.4 ML DISP.SYRIN SQ SCH (08:39)
[2021-06-11] MEDS ORDERED: PANTOPRAZOLE SODIUM 40 MG TABLET.DR PO SCH (09:00)
[2021-06-11] MEDS: ALBUTEROL SULFATE 2.5 MG/ 0.5 ML NEBU NEB SCH ×3 (09:11→20:34)
[2021-06-11] MEDS: IPRATROPIUM BROMIDE 0.5 MG/2.5 ML NEBU NEB SCH ×3 (09:11→20:34)
[2021-06-11] MEDS ORDERED: GUAIFENESIN/DEXTROMETHORPHAN 5 ML UDC PO PRN (12:45)
[2021-06-11] MEDS: ACETAMINOPHEN 325 MG TABLET GT PRN ×2 (13:17→20:51)
--- NOTE | 2021-06-11 14:30 | NUR ---
Called Dr. James Flores [phone] if MD will follow the patient in ARU but went to voicemail and left a message, awaiting call back. Patient remains alert, oriented x 4, not in any form of distress, on room air. She denies any pain or discomfort at this time. Will continue to monitor.
[2021-06-11 15:17] VITALS: BP 120/55
[2021-06-11] MEDS: PANTOPRAZOLE SODIUM 40 MG TABLET.DR PO SCH (17:54)
[2021-06-11 20:15] VITALS: BP 103/51
[2021-06-11] MEDS: VITAMIN B COMPLEX 1 TABLET GT SCH (20:43)
[2021-06-11] MEDS: MELATONIN 3 MG TABLET GT PRN (20:51)
--- NOTE | 2021-06-12 03:59 | NUR ---
Awake alert and oriented x4 Admitted for respiratory failure. Has trach stoma, dressing intact. VSS. Needs attended. All due meds given. Medicated with Tylenol and sleeping pill given as needed. Continent of bowel and bladder. No BM noted this shift. Gtube intact, flush and patent. Will monitor patient. No acute distress noted.
[2021-06-12 04:15] VITALS: BP 112/54
[2021-06-12] MEDS: PANTOPRAZOLE SODIUM 40 MG TABLET.DR PO SCH ×2 (05:29→17:38)
[2021-06-12] MEDS: ACETAMINOPHEN 325 MG TABLET GT PRN ×2 (05:30→20:43)
[2021-06-12] MEDS: ALBUTEROL SULFATE 2.5 MG/ 0.5 ML NEBU NEB SCH ×3 (07:58→20:44)
[2021-06-12] MEDS: IPRATROPIUM BROMIDE 0.5 MG/2.5 ML NEBU NEB SCH ×3 (07:58→20:44)
[2021-06-12 08:00] VITALS: BP 105/53
[2021-06-12] MEDS: MIRALAX 17 GM POWD.PACK GT SCH ×2 (08:03→17:38)
[2021-06-12] MEDS: FUROSEMIDE 40 MG TABLET GT SCH (08:05)
[2021-06-12] MEDS: CARVEDILOL 3.125 MG TABLET GT SCH ×2 (08:06→17:39)
[2021-06-12] MEDS: ENOXAPARIN SODIUM 40 MG/0.4 ML DISP.SYRIN SQ SCH ×2 (08:07→09:00)
[2021-06-12] MEDS: SPIRONOLACTONE 25 MG TABLET GT SCH (08:07)
[2021-06-12] MEDS: METOCLOPRAMIDE HCL 10 MG TABLET GT SCH ×2 (08:08→17:38)
[2021-06-12] MEDS: CHOLECALCIFEROL 1,000 UNIT TABLET GT SCH (08:08)
[2021-06-12] MEDS: ZINC SULFATE 220 MG CAPSULE GT SCH (08:08)
[2021-06-12] MEDS: LISINOPRIL 10 MG TABLET GT SCH ×2 (08:09→20:41)
[2021-06-12] MEDS: ACETAzolamide 250 MG TABLET GT SCH ×2 (08:10→17:40)
[2021-06-12 15:16] VITALS: BP 108/84
[2021-06-12 20:30] VITALS: BP 109/62
[2021-06-12] MEDS: VITAMIN B COMPLEX 1 TABLET GT SCH (20:40)
--- NOTE | 2021-06-12 21:34 | NUR ---
Received pt awake on chair upon initial rounds. Bed mattress changed per request. Alert and oriented x4, able to make needs known. Tylenol PRN given, noted effective. Call light placed within reach. All needs attended. Will continue to monitor.
[2021-06-13 04:30] VITALS: BP 112/53
[2021-06-13] MEDS: PANTOPRAZOLE SODIUM 40 MG TABLET.DR PO SCH ×2 (05:53→17:37)
--- NOTE | 2021-06-13 06:39 | NUR ---
Patient slept throughout the night. No complaints of pain and discomfort. Due medication given on time and tolerated well. All needs attended. Call light placed within reach. Frequent visual checks done. Will endorse to next shift for continuity of care.
[2021-06-13] MEDS: IPRATROPIUM BROMIDE 0.5 MG/2.5 ML NEBU NEB SCH ×3 (07:35→20:40)
[2021-06-13] MEDS: ALBUTEROL SULFATE 2.5 MG/ 0.5 ML NEBU NEB SCH ×3 (07:35→20:40)
[2021-06-13 07:46] VITALS: BP 104/42
[2021-06-13] MEDS: CARVEDILOL 3.125 MG TABLET GT SCH ×2 (08:00→17:37)
[2021-06-13] MEDS: SPIRONOLACTONE 25 MG TABLET GT SCH (08:10)
[2021-06-13] MEDS: METOCLOPRAMIDE HCL 10 MG TABLET GT SCH ×2 (08:12→16:32)
[2021-06-13] MEDS: LISINOPRIL 10 MG TABLET GT SCH ×2 (08:13→20:30)
[2021-06-13] MEDS: CHOLECALCIFEROL 1,000 UNIT TABLET GT SCH (08:14)
[2021-06-13] MEDS: ZINC SULFATE 220 MG CAPSULE GT SCH (08:14)
[2021-06-13] MEDS: FUROSEMIDE 40 MG TABLET GT SCH (08:14)
[2021-06-13] MEDS: MIRALAX 17 GM POWD.PACK GT SCH ×2 (08:14→16:38)
[2021-06-13] MEDS: ACETAzolamide 250 MG TABLET GT SCH ×2 (08:14→16:31)
[2021-06-13] MEDS: ENOXAPARIN SODIUM 40 MG/0.4 ML DISP.SYRIN SQ SCH (08:21)
--- NOTE | 2021-06-13 10:11 | NUR ---
INDIVIDUALIZED PLAN OF CARE
[2021-06-13] MEDS: ACETAMINOPHEN 325 MG TABLET GT PRN ×2 (10:45→20:36)
[2021-06-13 15:37] VITALS: BP 134/59
--- NOTE | 2021-06-13 17:07 | NUR ---
INTERDISCIPLINARY TEAM CONFERENCE
[2021-06-13 20:26] VITALS: BP 115/53
[2021-06-13] MEDS: VITAMIN B COMPLEX 1 TABLET GT SCH (20:30)
[2021-06-14 04:49] VITALS: BP 102/54
[2021-06-14] MEDS: PANTOPRAZOLE SODIUM 40 MG TABLET.DR PO SCH ×2 (05:48→17:12)
--- NOTE | 2021-06-14 06:26 | NUR ---
Patient slept throughout the night. Alert and oriented x4, able to make needs known. Tylenol PRN given, noted effective. Call light placed within reach. Frequent visual checks done. All needs attended. Will endorse to next shift for continuity of care.
[2021-06-14 08:00] VITALS: BP 100/54
[2021-06-14] MEDS: CARVEDILOL 3.125 MG TABLET GT SCH ×2 (08:00→17:13)
[2021-06-14] MEDS: ALBUTEROL SULFATE 2.5 MG/ 0.5 ML NEBU NEB SCH ×3 (08:26→21:14)
[2021-06-14] MEDS: IPRATROPIUM BROMIDE 0.5 MG/2.5 ML NEBU NEB SCH ×3 (08:26→21:13)
[2021-06-14] MEDS: ENOXAPARIN SODIUM 40 MG/0.4 ML DISP.SYRIN SQ SCH (09:00)
[2021-06-14] MEDS: LISINOPRIL 10 MG TABLET GT SCH ×2 (09:00→20:14)
[2021-06-14] MEDS: CHOLECALCIFEROL 1,000 UNIT TABLET GT SCH (09:20)
[2021-06-14] MEDS: ZINC SULFATE 220 MG CAPSULE GT SCH (09:20)
[2021-06-14] MEDS: FUROSEMIDE 40 MG TABLET GT SCH (09:20)
[2021-06-14] MEDS: METOCLOPRAMIDE HCL 10 MG TABLET GT SCH ×2 (09:20→17:11)
[2021-06-14] MEDS: SPIRONOLACTONE 25 MG TABLET GT SCH (09:20)
[2021-06-14] MEDS: MIRALAX 17 GM POWD.PACK GT SCH ×2 (09:21→17:12)
[2021-06-14] MEDS: ACETAzolamide 250 MG TABLET GT SCH ×2 (09:21→17:13)
[2021-06-14] MEDS: ACETAMINOPHEN 325 MG TABLET GT PRN ×2 (09:24→20:17)
[2021-06-14 16:00] VITALS: BP 102/49
[2021-06-14 20:00] VITALS: BP 100/51
[2021-06-14] MEDS: VITAMIN B COMPLEX 1 TABLET GT SCH (20:14)
[2021-06-15 04:00] VITALS: BP 116/48
[2021-06-15] MEDS: PANTOPRAZOLE SODIUM 40 MG TABLET.DR PO SCH ×2 (05:30→17:24)
--- NOTE | 2021-06-15 06:45 | NUR ---
Patient slept intermittently throughout the night. Easily arousable for care, able to make needs known. Tylenol PRN given, noted effective. Due medications given on time. All needs attended. Call light placed within reach. Frequent visual checks done. All needs attended. Will endorse to next shift for continuity of care.
[2021-06-15 08:00] VITALS: BP 102/51
[2021-06-15] MEDS: ALBUTEROL SULFATE 2.5 MG/ 0.5 ML NEBU NEB SCH ×3 (08:02→23:11)
[2021-06-15] MEDS: IPRATROPIUM BROMIDE 0.5 MG/2.5 ML NEBU NEB SCH ×3 (08:02→23:11)
[2021-06-15] MEDS: FUROSEMIDE 40 MG TABLET GT SCH (08:23)
[2021-06-15] MEDS: METOCLOPRAMIDE HCL 10 MG TABLET GT SCH ×2 (08:23→17:25)
[2021-06-15] MEDS: MIRALAX 17 GM POWD.PACK GT SCH ×2 (08:23→17:25)
[2021-06-15] MEDS: ZINC SULFATE 220 MG CAPSULE GT SCH (08:23)
[2021-06-15] MEDS: SPIRONOLACTONE 25 MG TABLET GT SCH (08:23)
[2021-06-15] MEDS: CHOLECALCIFEROL 1,000 UNIT TABLET GT SCH (08:23)
[2021-06-15] MEDS: CARVEDILOL 3.125 MG TABLET GT SCH ×2 (08:24→17:25)
[2021-06-15] MEDS: LISINOPRIL 10 MG TABLET GT SCH ×2 (08:24→20:11)
[2021-06-15] MEDS: ACETAzolamide 250 MG TABLET GT SCH ×2 (08:26→17:26)
[2021-06-15] MEDS: ENOXAPARIN SODIUM 40 MG/0.4 ML DISP.SYRIN SQ SCH (08:41)
--- NOTE | 2021-06-15 14:40 | NUR ---
patient caregiver picked patient up. Addendum: 06/15/21 at 1521 by JERILYN MCLEOD RN, RN discard above documentation, wrong patient
[2021-06-15 16:00] VITALS: BP 114/47
[2021-06-15] MEDS: VITAMIN B COMPLEX 1 TABLET GT SCH (20:11)
[2021-06-15] MEDS: MELATONIN 3 MG TABLET GT PRN (20:11)
[2021-06-15] MEDS: ACETAMINOPHEN 325 MG TABLET GT PRN (20:11)
[2021-06-15 20:12] VITALS: BP 108/55
--- NOTE | 2021-06-15 21:57 | NUR ---
Pt resting in bed, watching TV. No acute distress noted. VSS. Trach dressing changed, dressing intact. C/o of mild pain in shoulder administered Tylenol PRN. Administered PRN Melatonin per pt request. All due medications administered and tolerated well. Needs attended to. Call light placed within reach. Safety measures maintained. Will continue to monitor throughout the night.
[2021-06-16 04:12] VITALS: BP 110/51
[2021-06-16] MEDS: PANTOPRAZOLE SODIUM 40 MG TABLET.DR PO SCH ×2 (06:28→17:50)
[2021-06-16 07:30] VITALS: BP 105/50
[2021-06-16] MEDS: ALBUTEROL SULFATE 2.5 MG/ 0.5 ML NEBU NEB SCH ×3 (07:57→19:51)
[2021-06-16] MEDS: IPRATROPIUM BROMIDE 0.5 MG/2.5 ML NEBU NEB SCH ×3 (07:57→19:51)
--- NOTE | 2021-06-16 08:00 | NUR ---
AWAKE ALERT AND ORIENTED DENIES PAIN OR DISCOMFORTS AT THIS TIME LEFT UPPER ARM AMPUTEE CALL LIGHTS AND PERSONAL BELONGINGS ARE WITHIN EASY REACH CONTINUE ON REHAB ORDERED.
[2021-06-16] MEDS: CHOLECALCIFEROL 1,000 UNIT TABLET GT SCH (08:36)
[2021-06-16] MEDS: FUROSEMIDE 40 MG TABLET GT SCH (08:36)
[2021-06-16] MEDS: METOCLOPRAMIDE HCL 10 MG TABLET GT SCH ×2 (08:36→16:53)
[2021-06-16] MEDS: SPIRONOLACTONE 25 MG TABLET GT SCH (08:36)
[2021-06-16] MEDS: ZINC SULFATE 220 MG CAPSULE GT SCH (08:36)
[2021-06-16] MEDS: LISINOPRIL 10 MG TABLET GT SCH ×2 (08:37→21:01)
[2021-06-16] MEDS: CARVEDILOL 3.125 MG TABLET GT SCH ×2 (08:37→17:41)
[2021-06-16] MEDS: MIRALAX 17 GM POWD.PACK GT SCH ×2 (08:37→16:53)
[2021-06-16] MEDS: ACETAzolamide 250 MG TABLET GT SCH ×2 (08:38→16:53)
[2021-06-16] MEDS: ACETAMINOPHEN 325 MG TABLET GT PRN ×2 (08:43→21:01)
--- NOTE | 2021-06-16 08:43 | NUR ---
STATED HAS MILD GENERALISED PAIN MEDICATED WITH TYLENOL MADE COMFORTABLE WILL OBSERVE.
[2021-06-16] MEDS: ENOXAPARIN SODIUM 40 MG/0.4 ML DISP.SYRIN SQ SCH (08:44)
[2021-06-16 15:16] VITALS: BP 110/61
--- NOTE | 2021-06-16 18:00 | NUR ---
RESTING IN BED TOLERATED REHAB ORDERED COMPLIANT WITH MEDICATIONS AND CARE WILL CONTINUE TO OBSERVE.
[2021-06-16 20:00] VITALS: BP 122/56
[2021-06-16] MEDS: VITAMIN B COMPLEX 1 TABLET GT SCH (21:01)
[2021-06-16] MEDS: MELATONIN 3 MG TABLET GT PRN (21:01)
[2021-06-16] MEDS: BENZONATATE 100 MG CAPSULE PO PRN (21:07)
[2021-06-16] MEDS: PREGABALIN 25 MG CAPSULE PO SCH (21:11)
[2021-06-17] VITALS: BP 129/65
[2021-06-17 05:00] VITALS: BP 120/59
[2021-06-17] MEDS: PANTOPRAZOLE SODIUM 40 MG TABLET.DR PO SCH ×2 (05:34→17:06)
[2021-06-17] MEDS: PREGABALIN 25 MG CAPSULE PO SCH ×3 (05:34→20:59)
[2021-06-17 07:30] VITALS: BP 111/54
[2021-06-17] MEDS: IPRATROPIUM BROMIDE 0.5 MG/2.5 ML NEBU NEB SCH ×3 (07:48→21:18)
[2021-06-17] MEDS: ALBUTEROL SULFATE 2.5 MG/ 0.5 ML NEBU NEB SCH ×3 (07:48→21:18)
--- NOTE | 2021-06-17 08:30 | NUR ---
RECEIVED IN BED AWAKE ALERT AND ORIENTED ASSISTED OUT OF BED PER HER REQUEST SEATED ON THE W/CHAIR AND BREAKFAST SERVED FED SELF WITH [employer]IR APPETITE.CALL LIGHTS AND PERSONAL BELONGINGS ARE WITHIN EASY REACH WILL CONTINUE WITH PHYSICAL THERAPY AND ADL RETRAINING PROGRAM ORDERED.
[2021-06-17] MEDS: ENOXAPARIN SODIUM 40 MG/0.4 ML DISP.SYRIN SQ SCH (09:00)
[2021-06-17] MEDS: MIRALAX 17 GM POWD.PACK GT SCH ×2 (09:04→17:36)
[2021-06-17] MEDS: FUROSEMIDE 40 MG TABLET GT SCH (09:05)
[2021-06-17] MEDS: ZINC SULFATE 220 MG CAPSULE GT SCH (09:05)
[2021-06-17] MEDS: SPIRONOLACTONE 25 MG TABLET GT SCH (09:05)
[2021-06-17] MEDS: CHOLECALCIFEROL 1,000 UNIT TABLET GT SCH (09:05)
[2021-06-17] MEDS: METOCLOPRAMIDE HCL 10 MG TABLET GT SCH ×2 (09:05→17:06)
[2021-06-17] MEDS: LISINOPRIL 10 MG TABLET GT SCH ×2 (09:06→20:51)
[2021-06-17] MEDS: CARVEDILOL 3.125 MG TABLET GT SCH ×2 (09:06→17:06)
[2021-06-17] MEDS: ACETAzolamide 250 MG TABLET GT SCH ×2 (09:40→17:06)
[2021-06-17] MEDS: BENZONATATE 100 MG CAPSULE PO PRN (11:39)
[2021-06-17] MEDS: ACETAMINOPHEN 325 MG TABLET GT PRN ×2 (11:39→20:51)
[2021-06-17 16:01] VITALS: BP 123/52
--- NOTE | 2021-06-17 18:00 | NUR ---
CONTINUE TO TOLERATE REHAB THERAPY ORDERED DENIES DISCOMFORTS AT THIS TIME WILL CONTINUE TO OBSERVE.
[2021-06-17 20:00] VITALS: BP 121/62
[2021-06-17] MEDS: MELATONIN 3 MG TABLET GT PRN (20:51)
[2021-06-17] MEDS: VITAMIN B COMPLEX 1 TABLET GT SCH (20:53)
[2021-06-18 04:00] VITALS: BP 103/50
[2021-06-18] MEDS: PREGABALIN 25 MG CAPSULE PO SCH ×3 (05:49→20:38)
[2021-06-18] MEDS: PANTOPRAZOLE SODIUM 40 MG TABLET.DR PO SCH ×2 (05:49→18:32)
--- NOTE | 2021-06-18 06:43 | NUR ---
Shift End Report: Slept well. No significant event reported all night. All needs attended and met. Continue current rehab plan of care.
[2021-06-18 07:05] LABS: HEMATOCRIT 32.7 % (31.2-41.9); MEAN CORPUSCULAR HEMOGLOBIN 31.6 uug (24.7-32.8); MEAN CORPUSCULAR VOLUME 92.2 fL (75.5-95.3); PLATELET COUNT (AUTO) 263 K/uL (179-408)
[2021-06-18 07:30] LABS: THYROID STIMULATING HORMONE 0.531 mIU/mL (0.358-3.740)
[2021-06-18] MEDS: IPRATROPIUM BROMIDE 0.5 MG/2.5 ML NEBU NEB SCH ×3 (07:41→20:18)
[2021-06-18] MEDS: ALBUTEROL SULFATE 2.5 MG/ 0.5 ML NEBU NEB SCH ×3 (07:41→20:18)
[2021-06-18 07:51] LABS: BILIRUBIN,TOTAL 0.3 mg/dL (0.2-1.0); CREATININE 0.7 mg/dL (0.6-1.3); MAGNESIUM 2.1 mg/dL (1.8-2.4); PHOSPHOROUS 4.6 mg/dL (2.5-4.9); POTASSIUM 3.5 mmol/L (3.5-5.1); TOTAL PROTEIN, SERUM 7.9 g/dL (6.4-8.2)
[2021-06-18 08:00] VITALS: BP 95/53
[2021-06-18] MEDS: CARVEDILOL 3.125 MG TABLET GT SCH ×2 (08:00→18:00)
[2021-06-18] MEDS: ZINC SULFATE 220 MG CAPSULE GT SCH (08:19)
[2021-06-18] MEDS: FUROSEMIDE 40 MG TABLET GT SCH (08:19)
[2021-06-18] MEDS: CHOLECALCIFEROL 1,000 UNIT TABLET GT SCH (08:19)
[2021-06-18] MEDS: SPIRONOLACTONE 25 MG TABLET GT SCH (08:19)
[2021-06-18] MEDS: ACETAzolamide 250 MG TABLET GT SCH ×2 (08:19→18:31)
[2021-06-18] MEDS: MIRALAX 17 GM POWD.PACK GT SCH ×2 (08:20→18:31)
[2021-06-18] MEDS: ACETAMINOPHEN 325 MG TABLET GT PRN ×2 (08:23→20:34)
[2021-06-18] MEDS: ENOXAPARIN SODIUM 40 MG/0.4 ML DISP.SYRIN SQ SCH (08:32)
[2021-06-18] MEDS: LISINOPRIL 10 MG TABLET GT SCH ×2 (08:34→20:35)
[2021-06-18] MEDS: METOCLOPRAMIDE HCL 10 MG TABLET GT SCH ×2 (10:35→18:31)
--- NOTE | 2021-06-18 14:16 | NUR ---
INTERDISCIPLINARY TEAM CONFERENCE
[2021-06-18 16:00] VITALS: BP 104/48
[2021-06-18 20:25] VITALS: BP 102/53
[2021-06-18] MEDS: MELATONIN 3 MG TABLET GT PRN (20:34)
[2021-06-18] MEDS: BENZONATATE 100 MG CAPSULE PO PRN (20:38)
[2021-06-18] MEDS: VITAMIN B COMPLEX 1 TABLET GT SCH (20:41)
[2021-06-19 04:38] VITALS: BP 109/58
[2021-06-19] MEDS: PREGABALIN 25 MG CAPSULE PO SCH ×3 (05:32→20:54)
[2021-06-19] MEDS: PANTOPRAZOLE SODIUM 40 MG TABLET.DR PO SCH ×2 (05:32→17:39)
[2021-06-19] MEDS: ALBUTEROL SULFATE 2.5 MG/ 0.5 ML NEBU NEB SCH ×3 (08:03→19:59)
[2021-06-19] MEDS: IPRATROPIUM BROMIDE 0.5 MG/2.5 ML NEBU NEB SCH ×3 (08:03→19:59)
[2021-06-19 08:07] VITALS: BP 111/49
[2021-06-19] MEDS: ENOXAPARIN SODIUM 40 MG/0.4 ML DISP.SYRIN SQ SCH (09:00)
[2021-06-19] MEDS: CHOLECALCIFEROL 1,000 UNIT TABLET GT SCH (09:15)
[2021-06-19] MEDS: SPIRONOLACTONE 25 MG TABLET GT SCH (09:15)
[2021-06-19] MEDS: METOCLOPRAMIDE HCL 10 MG TABLET GT SCH ×2 (09:15→17:38)
[2021-06-19] MEDS: CARVEDILOL 3.125 MG TABLET GT SCH ×2 (09:16→17:39)
[2021-06-19] MEDS: LISINOPRIL 10 MG TABLET GT SCH ×2 (09:16→21:00)
[2021-06-19] MEDS: ZINC SULFATE 220 MG CAPSULE GT SCH (09:16)
[2021-06-19] MEDS: ACETAzolamide 250 MG TABLET GT SCH ×2 (09:16→17:38)
[2021-06-19] MEDS: MIRALAX 17 GM POWD.PACK GT SCH ×2 (09:17→17:38)
[2021-06-19] MEDS: FUROSEMIDE 40 MG TABLET GT SCH (09:25)
[2021-06-19 15:04] VITALS: BP 100/44
[2021-06-19 20:30] VITALS: BP 100/46
[2021-06-19] MEDS: ACETAMINOPHEN 325 MG TABLET GT PRN (20:43)
[2021-06-19] MEDS: VITAMIN B COMPLEX 1 TABLET GT SCH (20:44)
--- NOTE | 2021-06-19 22:00 | NUR ---
Patient Alert oriented X4, resting in bed Watching TV No acute distress noted, c/o mild pain in shoulders provided non pharmacological care,PRN Tylenol and all due medication administered as ordered. Tolerated well. fluids encouraged as tolerated. call light with in reach. Will continue to monitor throughout the night.
[2021-06-20 04:45] VITALS: BP 94/42
[2021-06-20] MEDS: PANTOPRAZOLE SODIUM 40 MG TABLET.DR PO SCH ×2 (05:25→17:11)
[2021-06-20] MEDS: PREGABALIN 25 MG CAPSULE PO SCH ×3 (05:25→21:03)
--- NOTE | 2021-06-20 05:36 | NUR ---
shift end report : Patient slept throughout the night. No complaints of pain and discomfort. Due medication given on time and tolerated well. All needs attended. Call light placed within reach. Frequent visual checks done. Will endorse to next shift accordingly.
[2021-06-20 08:00] VITALS: BP 109/47
[2021-06-20] MEDS: CARVEDILOL 3.125 MG TABLET GT SCH ×2 (08:00→18:04)
[2021-06-20] MEDS: ALBUTEROL SULFATE 2.5 MG/ 0.5 ML NEBU NEB SCH ×3 (08:15→20:30)
[2021-06-20] MEDS: IPRATROPIUM BROMIDE 0.5 MG/2.5 ML NEBU NEB SCH ×3 (08:15→20:29)
[2021-06-20] MEDS: LISINOPRIL 10 MG TABLET GT SCH ×2 (09:00→20:48)
[2021-06-20] MEDS: ENOXAPARIN SODIUM 40 MG/0.4 ML DISP.SYRIN SQ SCH (09:00)
[2021-06-20] MEDS: METOCLOPRAMIDE HCL 10 MG TABLET GT SCH ×2 (09:05→17:11)
[2021-06-20] MEDS: SPIRONOLACTONE 25 MG TABLET GT SCH (09:05)
[2021-06-20] MEDS: CHOLECALCIFEROL 1,000 UNIT TABLET GT SCH (09:05)
[2021-06-20] MEDS: FUROSEMIDE 40 MG TABLET GT SCH (09:05)
[2021-06-20] MEDS: ZINC SULFATE 220 MG CAPSULE GT SCH (09:05)
[2021-06-20] MEDS: MIRALAX 17 GM POWD.PACK GT SCH ×2 (09:06→17:11)
[2021-06-20] MEDS: ACETAMINOPHEN 325 MG TABLET GT PRN ×2 (09:06→17:11)
[2021-06-20] MEDS: ACETAzolamide 250 MG TABLET GT SCH ×2 (09:06→17:15)
[2021-06-20 16:00] VITALS: BP 104/51
[2021-06-20 20:38] VITALS: BP 114/55
[2021-06-20] MEDS: VITAMIN B COMPLEX 1 TABLET GT SCH (20:47)
[2021-06-20] MEDS: ATORVASTATIN 10 MG TABLET PO SCH (20:48)
[2021-06-20] MEDS: MELATONIN 3 MG TABLET GT PRN (21:03)
[2021-06-21 04:43] VITALS: BP 113/68
[2021-06-21] MEDS: PREGABALIN 25 MG CAPSULE PO SCH ×3 (05:53→21:17)
[2021-06-21] MEDS: PANTOPRAZOLE SODIUM 40 MG TABLET.DR PO SCH ×2 (05:53→17:04)
--- NOTE | 2021-06-21 06:43 | NUR ---
PATIENT ALERT ORIENTED, NO SOB NO CHEST PAIN, CONT ON PAIN MANAGEMENT DUE LEFT SHOULDER PAIN, BODY PAIN, OLD STOMA DRESSING WAS CHANGED, HEALING WELL. PATIENT ASSISTED WITH TOILETING, CONT TO MONITOR.
[2021-06-21] MEDS: IPRATROPIUM BROMIDE 0.5 MG/2.5 ML NEBU NEB SCH ×3 (07:50→20:31)
[2021-06-21] MEDS: ALBUTEROL SULFATE 2.5 MG/ 0.5 ML NEBU NEB SCH ×3 (07:50→20:31)
[2021-06-21] MEDS: CARVEDILOL 3.125 MG TABLET GT SCH ×2 (07:59→17:04)
[2021-06-21] MEDS: LISINOPRIL 10 MG TABLET GT SCH (08:00)
[2021-06-21] MEDS: CHOLECALCIFEROL 1,000 UNIT TABLET GT SCH (08:00)
[2021-06-21] MEDS: FUROSEMIDE 40 MG TABLET GT SCH (08:00)
[2021-06-21] MEDS: SPIRONOLACTONE 25 MG TABLET GT SCH (08:00)
[2021-06-21] MEDS: ZINC SULFATE 220 MG CAPSULE GT SCH (08:00)
[2021-06-21] MEDS: MIRALAX 17 GM POWD.PACK GT SCH ×2 (08:00→16:21)
[2021-06-21] MEDS: METOCLOPRAMIDE HCL 10 MG TABLET GT SCH ×2 (08:00→16:21)
[2021-06-21] MEDS: ENOXAPARIN SODIUM 40 MG/0.4 ML DISP.SYRIN SQ SCH (08:07)
[2021-06-21] MEDS: ACETAzolamide 250 MG TABLET GT SCH ×2 (08:07→16:39)
[2021-06-21 08:10] VITALS: BP 104/51
[2021-06-21] MEDS: ACETAMINOPHEN 325 MG TABLET GT PRN (08:25)
[2021-06-21 15:20] VITALS: BP 116/50
--- NOTE | 2021-06-21 15:59 | NUR ---
patient alert, oriented x4, no sob, resp even nonlabored, skin warm and dry to touch, status post g-tube removal, dressing intact, no active bleeding noted at g-tube site. continue to monitor
[2021-06-21] MEDS ORDERED: ONDANSETRON HCL 4 MG TABLET PO PRN (17:15)
[2021-06-21] MEDS ORDERED: TRAMADOL HCL 50 MG TABLET PO PRN (17:15)
[2021-06-21] MEDS ORDERED: MELATONIN 3 MG TABLET PO PRN (17:15)
[2021-06-21] MEDS ORDERED: MAGNESIUM HYDROXIDE 30 ML LIQUID UDC PO PRN (17:15)
[2021-06-21] MEDS: CARVEDILOL 3.125 MG TABLET PO SCH (17:47)
[2021-06-21 20:44] VITALS: BP 124/50
[2021-06-21] MEDS: VITAMIN B COMPLEX 1 TABLET PO SCH (21:17)
[2021-06-21] MEDS: LISINOPRIL 10 MG TABLET PO SCH (21:17)
[2021-06-21] MEDS: ATORVASTATIN 10 MG TABLET PO SCH (21:17)
--- NOTE | 2021-06-21 21:44 | NUR ---
Received patient on bed, alert and oriented x4. On RA with no respiratory distress noted. Tylenol PRN and due medications given and tolerated well. All needs attended. Call light placed within reach. Will continue to monitor.
[2021-06-22 04:30] VITALS: BP 103/48
[2021-06-22] MEDS: PANTOPRAZOLE SODIUM 40 MG TABLET.DR PO SCH ×2 (05:39→17:31)
[2021-06-22] MEDS: PREGABALIN 25 MG CAPSULE PO SCH ×3 (05:39→20:56)
--- NOTE | 2021-06-22 06:51 | NUR ---
Patient slept throughout the night, easily arousable for care. On RA with no respiratory distress noted. All needs attended. Call light placed within reach. Frequent visual checks done. Will endorse to next shift for continuity of care.
--- NOTE | 2021-06-22 07:18 | NUR ---
Received patient alert/oriented x4, no distress identified. Requested Tylenol at the start of the shift. Call light within reach. Will continue to monitor.
[2021-06-22] MEDS: CARVEDILOL 3.125 MG TABLET PO SCH ×2 (08:00→17:31)
[2021-06-22 08:20] VITALS: BP 99/50
[2021-06-22] MEDS: ALBUTEROL SULFATE 2.5 MG/ 0.5 ML NEBU NEB SCH ×3 (08:27→20:52)
[2021-06-22] MEDS: IPRATROPIUM BROMIDE 0.5 MG/2.5 ML NEBU NEB SCH ×3 (08:27→20:52)
[2021-06-22] MEDS: SPIRONOLACTONE 25 MG TABLET PO SCH (08:49)
[2021-06-22] MEDS: ZINC SULFATE 220 MG CAPSULE PO SCH (08:49)
[2021-06-22] MEDS: ACETAMINOPHEN 325 MG TABLET PO PRN ×2 (08:50→21:05)
[2021-06-22] MEDS: CHOLECALCIFEROL 1,000 UNIT TABLET PO SCH (08:50)
[2021-06-22] MEDS: METOCLOPRAMIDE HCL 10 MG TABLET PO SCH ×2 (08:50→16:08)
[2021-06-22] MEDS: ACETAzolamide 250 MG TABLET PO SCH ×2 (08:51→16:11)
[2021-06-22] MEDS: MIRALAX 17 GM POWD.PACK PO SCH ×2 (08:51→16:08)
[2021-06-22] MEDS: LISINOPRIL 10 MG TABLET PO SCH ×2 (08:51→20:57)
[2021-06-22] MEDS ORDERED: FUROSEMIDE 40 MG TABLET PO SCH (09:00)
[2021-06-22 16:00] VITALS: BP 102/50
--- NOTE | 2021-06-22 18:43 | NUR ---
Patient denies discomfort towards the end of the shift. All due meds given. All needs attended. Kept comfortable. Call light within reach. Frequent checks done. Will continue to monitor for any significant changes.
[2021-06-22 20:00] VITALS: BP 132/68
[2021-06-22] MEDS: VITAMIN B COMPLEX 1 TABLET PO SCH (20:57)
[2021-06-22] MEDS: ATORVASTATIN 10 MG TABLET PO SCH (20:57)
[2021-06-23 04:00] VITALS: BP 106/53
[2021-06-23] MEDS: PANTOPRAZOLE SODIUM 40 MG TABLET.DR PO SCH (05:01)
[2021-06-23] MEDS: PREGABALIN 25 MG CAPSULE PO SCH ×2 (05:01→13:23)
--- NOTE | 2021-06-23 06:47 | NUR ---
Patient requested Tylenol before sleeping. She denies discomfort at the end of the shift. Kept comfortable. Call light within reach. All due meds given. All needs attended. Frequent visual checks done. Will continue to monitor and endorse to the next shift..
[2021-06-23 07:30] VITALS: BP 122/20
[2021-06-23] MEDS: ALBUTEROL SULFATE 2.5 MG/ 0.5 ML NEBU NEB SCH ×2 (08:09→14:30)
[2021-06-23] MEDS: IPRATROPIUM BROMIDE 0.5 MG/2.5 ML NEBU NEB SCH ×2 (08:09→14:30)
[2021-06-23] MEDS ORDERED: FUROSEMIDE 20 MG TABLET PO SCH (09:00)
[2021-06-23] MEDS: CHOLECALCIFEROL 1,000 UNIT TABLET PO SCH (09:06)
[2021-06-23] MEDS: ZINC SULFATE 220 MG CAPSULE PO SCH (09:06)
[2021-06-23] MEDS: SPIRONOLACTONE 25 MG TABLET PO SCH (09:06)
[2021-06-23] MEDS: METOCLOPRAMIDE HCL 10 MG TABLET PO SCH ×2 (09:07→16:47)
[2021-06-23] MEDS: CARVEDILOL 3.125 MG TABLET PO SCH (09:07)
[2021-06-23] MEDS: ACETAzolamide 250 MG TABLET PO SCH ×2 (09:08→16:48)
[2021-06-23] MEDS: MIRALAX 17 GM POWD.PACK PO SCH ×2 (09:08→16:48)
[2021-06-23 09:09] VITALS: BP 120/60
[2021-06-23] MEDS: LISINOPRIL 10 MG TABLET PO SCH (09:09)
[2021-06-23] MEDS: ACETAMINOPHEN 325 MG TABLET PO PRN (09:20)
--- NOTE | 2021-06-23 17:00 | NUR ---
Received discharge order to home with home health from Dr. Jason Durbin.
--- NOTE | 2021-06-23 17:30 | NUR ---
Discharge instructions provided to the patient with verbalized understanding. Discharge papers signed by and given to the patient including prescription. All belongings well accounted for. Discharge photos taken. Patient remains alert, oriented x 4, not in any form of distress. Vital signs stable. She denies any pain or discomfort. Dressing change done on the previous trach site and previous GT site with no noted discharges or bleeding, no signs of infection. Assisted with her needs. Patient assisted to the lobby via wheelchair. Patient discharged to home with [facility]. Patient picked up by spouse Maribel via private car. Discharge medication list faxed to patient's preferred pharmacy: [facility] pharmacy.
== END 2021-06-23 23:29 | disposition home health service (06) | DRG 189 ==
PROVIDERS: ADMIT Physical Medicine & Rehabilitation Pain Medicine; ATTEND Physical Medicine & Rehabilitation Pain Medicine
DX: J96.10 Chronic respiratory failure, unspecified whether with hypoxia or hypercapnia (principal); I62.00 Nontraumatic subdural hemorrhage, unspecified; D68.59 Other primary thrombophilia; K62.6 Ulcer of anus and rectum; D64.9 Anemia, unspecified; R13.10 Dysphagia, unspecified; Z86.16 Personal history of COVID-19; Z89.202 Acquired absence of left upper limb, unspecified level; Z93.1 Gastrostomy status; M54.9 Dorsalgia, unspecified; Z87.01 Personal history of pneumonia (recurrent); G89.29 Other chronic pain; E78.5 Hyperlipidemia, unspecified; M25.511 Pain in right shoulder; G62.9 Polyneuropathy, unspecified; Z93.0 Tracheostomy status; K21.9 Gastro-esophageal reflux disease without esophagitis; M24.512 Contracture, left shoulder; M24.521 Contracture, right elbow; J47.9 Bronchiectasis, uncomplicated; Z89.222 Acquired absence of left upper limb above elbow; M54.5 Low back pain; Z88.5 Allergy status to narcotic agent; R20.0 Anesthesia of skin; G58.8 Other specified mononeuropathies; I11.0 Hypertensive heart disease with heart failure; I50.9 Heart failure, unspecified
CPT/HCPCS: 36415; 70030-TC; 70450; 71045; 82652; 83550; 83735; 84100; 84443; 85025; 94640; 94664; 97161; A4663; J1650; J3590; J8499; J8597